=== PATIENT | male | born 1955 | race Caucasian/White ===

== ENCOUNTER 2021-10-23 13:35 | Observation (INO) | payer OTHER ==
--- OUTSIDE RECORDS SUMMARY | 2021-10-23 13:41 | XMS REPORT | Continuity of Care Document ---
:1955 Author Organization [facility] t Address [address] [place] [address] Care Team Providers Name Role Phone Rashaad Jin Attending Clinician Unavailable Luis A Attending Clinician Unavailable Luis Alberto Jin Admitting Clinician Unavailable Physician, Primary or Family Admitting Clinician Unavailbernie e Luis A Admitting Clinician Unavailable Payers Payer Name Policy Type Policy Number Effective Date Expiration Date S ource Problems This patient has no known problems. Allergies, Adverse Reactions, Alerts Allergy Allergy Status Severity Reaction(s) Onset Inactive Treating Comm ents Source Name Type Date Date Clinician No Known DA Active U 2020-11 [facility] 11-26 [place] [facility] 00:00: [facility] 00 are [facility] st No Known DA Active U 2020[facility]11 [facility] No Known DA Active U 2020-11 [facility] 0-27 [place] 00:[facility]: d [facility] Medications This patient has no known medications. Procedures Procedure Date / Time Performed Performing Clinician [facility] diego [id number] 2021-10-02 00:00:00 NERISSA [facility] [id number] 2021-10-02 00:00:00 LOYPR [facility] [id number] 2021-10-02 00:00:00 LOYPR [facility] [id number] 2021-10-02 00:00:00 LOYPR [facility] [id number] 2021-10-02 00:00:00 LOYPR [facility] [id number] 2021-09-20 [facility] [id number] 2021-09-20 00:00:00 [facility] [id number] 2021-09-20 00:00:00 [facility] [id number] 2021-09-20 00:00:00 [facility] Encounters Start End Encounter Admission Attending Care Care Encounter Source Date/Time Date/Time Type Type Clinicians Facility Department ID 2021-09-26 2021-10-04 Inpatient EL Gahremanpou [facility] ICU BP00 [id number] [facility] 21:08:00 15:42:00 Rashaad cotton 27 [facility] 2021-09-26 2021-10-04 [facility] ICU [id number] [facility] 21:08:00 15:42:00 Rashaad cotton [id number] [facility] 2021-09-27 2021-09-27 Outpatient Gahremanpou HCANW REF BP2 [id number] [facility] 09:24:00 09:24:00 Rashaad cotton [id number] [facility] 2021-09-20 2021-09-26 Inpatient EM Luis A, HCAPM INTE [id number] [facility] 03:55:00 20:31:00 Oladipo 25 [facility] 2021-09-20 2021-09-26 Inpatient EM Luis A, HCAPM INTE [id number] [facility] 03:55:00 20:31:00 Oladipo [id number] [facility] Results Test Description Test Time Test Comments Results Result Comments Source GLUBED 2021-10-04 16:55:00 Test Item Value Reference Range Interpretation Comme nts GLUBED (test code = GLUBED) 126 MG/DL 70-105 H [id number] 16:55:00 Test Item Value Reference Range Interpretation Comments GLUBED (test code = GLUBED) 126 MG/DL 70-105 H WINTROBE SED [id number] 03:56:00 Test Item Value Reference Range Interpretation Comments WINTROBE SED RATE (test code = 54 mm/HR 0-10 H SEDWI) C REACTIVE [id number] 03:04:00 Test Item Value Reference Range Interpretation Comments C REACTIVE PROTEIN 15 mg/L <10 H Please no te: New (test code = CRP) Reference Range Dec 2020 BASIC METABOLIC [id number] 03:04:00 Test Item Value Reference Range Interpretation Comments SODIUM (test code 138 mmol/L 136-145 N Please not e: New = NA) Reference Range Dec 2020 POTASSIUM (test 4.5 mmol/L 3.5-5.1 N code = K) CHLORIDE (test 106 mmol/L 98-107 N Please note: New code = CL) Reference Range Dec 2020 CARBON DIOXIDE 23 mmol/L 20-31 N Please note: New (test code = CO2) Reference Range Dec 2020 GLUCOSE (test code 129 mg/dL 74-106 H Please no te: New = GLU) Reference Range Dec 2020 BLOOD UREA 17 mg/dL 9-23 N Please note: Ne w NITROGEN (test Reference Ran ge Feb code = BUN) 2020 GLOMERULAR >=60 max >60 Units are FILTRATION RATE estimate mL/min mL/min/1. 73m2 The (test code = GFR) estimated glomerular filtration rate is computed usingpatient ra ce, age (>18), sex, and serum creatinin e. If anyof the neede d data elements a re missing the Laboratory caroline ot compute an estimation of t he glomerular filtration rate . CREATININE (test 1.10 mg/dL 0.70-1.30 N Please note : New code = CREAT) Reference Rang e Dec 2020 CALCIUM (test code 8.9 mg/dL 8.7-10.4 N Please no te: New = CA) Reference Range Dec 2020 [id number] 03:04:00 Test Item Value Reference Range Interpretation Comments PHOSPHOROUS (test code 3.9 mg/dL 2.4-5.1 N Pleas e note: New = PHOS) Reference Range Dec 2020 [id number] 03:04:00 Test Item Value Reference Range Interpretation Comments MAGNESIUM (test code = 2.0 mg/dL 1.6-2.6 N Pleas e note: New MAG) Reference Range Dec 2020 CBC W/AUTO [id number] 02:29:00 Test Item Value Reference Range Interpretation Comments WHITE BLOOD CELL (test code = 13.2 x10 3/uL 4.8-10.8 H WBC) RED BLOOD CELL (test code = 3.70 x10 6/uL 4.70-6.10 L RBC) HEMOGLOBIN (test code = HGB) 11.4 g/dL 14.0-18.0 L HEMATOCRIT (test code = HCT) 33.8 % 42.0-52.0 L MEAN CELL VOLUME (test code = 91.4 fL 80.0-94.0 N MCV) MEAN CELL HGB (test code = MCH) 30.8 pg 27-31 N MEAN CELL HGB CONCENTRATION 33.7 G/DL 33-36.5 N (test code = MCHC) RED CELL DISTRIBUTION WIDTH 14.5 % 12.9-16.9 N (test code = RDW) PLATELET COUNT (test code = 389 x10 3/uL 150-440 N PLT) MEAN PLATELET VOLUME (test code 9.8 fL 8.9-12.4 N = MPV) NEUTROPHIL % (test code = NT%) 74.1 % 42.2-75.2 N LYMPHOCYTE % (test code = LY%) 12.1 % 20.5-51.1 L MONOCYTE % (test code = MO%) 11.6 % 1.7-9.3 H EOSINOPHIL % (test code = EO%) 1.2 % 0.0-7.0 N BASOPHIL % (test code = BA%) 0.3 % 0-2.5 N NEUTROPHIL # (test code = NT#) 9.81 x10 3/uL 1.80-7.70 H LYMPHOCYTE # (test code = LY#) 1.60 x10 3/uL 1.00-4.80 N MONOCYTE # (test code = MO#) 1.53 x10 3/uL 0.00-0.80 H EOSINOPHIL # (test code = EO#) 0.16 x10 3/uL 0.00-0.45 N BASOPHIL # (test code = BA#) 0.04 x10 3/uL 0.0-0.20 N BASIC METABOLIC [id number] 12:32:00 Test Item Value Reference Range Interpretation Comments SODIUM (test code 137 mmol/L 136-145 N Please not e: New = NA) Reference Range Dec 2020 POTASSIUM (test 4.6 mmol/L 3.5-5.1 N code = K) CHLORIDE (test 103 mmol/L 98-107 N Please note: New code = CL) Reference Range Dec 2020 CARBON DIOXIDE 25 mmol/L 20-31 N Please note: New (test code = CO2) Reference Range Dec 2020 GLUCOSE (test code 127 mg/dL 74-106 H Please no te: New = GLU) Reference Range Dec 2020 BLOOD UREA 17 mg/dL 9-23 N Please note: Ne w NITROGEN (test Reference Ran ge Feb code = BUN) 2020 GLOMERULAR >=60 max >60 Units are FILTRATION RATE estimate mL/min mL/min/1. 73m2 The (test code = GFR) estimated glomerular filtration rate is computed usingpatient ra ce, age (>18), sex, and serum creatinin e. If anyof the neede d data elements a re missing the Laboratory caroline ot compute an estimation of t he glomerular filtration rate . CREATININE (test 1.20 mg/dL 0.70-1.30 N Please note : New code = CREAT) Reference Rang e Dec 2020 CALCIUM (test code 8.7 mg/dL 8.7-10.4 N Please no te: New = CA) Reference Range Dec 2020 [id number] 12:32:00 Test Item Value Reference Range Interpretation Comments PHOSPHOROUS (test code 3.5 mg/dL 2.4-5.1 N Plekatie e note: New = PHOS) Reference Range Dec 2020 [id number] 12:32:00 Test Item Value Reference Range Interpretation Comments MAGNESIUM (test code = 2.0 mg/dL 1.6-2.6 N Pleas e note: New MAG) Reference Range Dec 2020 CBC W/AUTO [id number] 12:26:00 Test Item Value Reference Range Interpretation Comments WHITE BLOOD CELL (test code = 13.1 x10 3/uL 4.8-10.8 H WBC) RED BLOOD CELL (test code = 4.00 x10 6/uL 4.70-6.10 L RBC) HEMOGLOBIN (test code = HGB) 12.2 g/dL 14.0-18.0 L HEMATOCRIT (test code = HCT) 36.6 % 42.0-52.0 L MEAN CELL VOLUME (test code = 91.5 fL 80.0-94.0 N MCV) MEAN CELL HGB (test code = 30.5 pg 27-31 N MCH) MEAN CELL HGB CONCENTRATION 33.3 G/DL 33-36.5 N (test code = MCHC) RED CELL DISTRIBUTION WIDTH 14.5 % 12.9-16.9 N (test code = RDW) PLATELET COUNT (test code = 410 x10 3/uL 150-440 N PLT) MEAN PLATELET VOLUME (test 9.7 fL 8.9-12.4 N code = MPV) NEUTROPHIL % (test code = NT%) 77.5 % 42.2-75.2 H LYMPHOCYTE % (test code = LY%) 9.2 % 20.5-51.1 L MONOCYTE % (test code = MO%) 11.5 % 1.7-9.3 H EOSINOPHIL % (test code = EO%) 0.6 % 0.0-7.0 N BASOPHIL % (test code = BA%) 0.4 % 0-2.5 N NEUTROPHIL # (test code = NT#) 10.16 x10 3/uL 1.80-7.70 H LYMPHOCYTE # (test code = LY#) 1.20 x10 3/uL 1.00-4.80 N MONOCYTE # (test code = MO#) 1.50 x10 3/uL 0.00-0.80 H EOSINOPHIL # (test code = EO#) 0.08 x10 3/uL 0.00-0.45 N BASOPHIL # (test code = BA#) 0.05 x10 3/uL 0.0-0.20 N [id number] 12:02:00 Test Item Value Reference Range Interpretation Comments GLUBED (test code = GLUBED) 120 MG/DL 70-105 H [id number] 21:46:00 Test Item Value Reference Range Interpretation Comments GLUBED (test code = GLUBED) 192 MG/DL 70-105 H BASIC METABOLIC [id number] 18:52:00 Test Item Value Reference Range Interpretation Comments SODIUM (test code 135 mmol/L 136-145 L Please not e: New = NA) Reference Range Dec 2020 POTASSIUM (test 4.7 mmol/L 3.5-5.1 N code = K) CHLORIDE (test 104 mmol/L 98-107 N Please note: New code = CL) Reference Range Dec 2020 CARBON DIOXIDE 23 mmol/L 20-31 N Please note: New (test code = CO2) Reference Range Dec 2020 GLUCOSE (test code 126 mg/dL 74-106 H Please no te: New = GLU) Reference Range Dec 2020 BLOOD UREA 16 mg/dL 9-23 N Please note: Ne w NITROGEN (test Reference Ran ge Feb code = BUN) 2020 GLOMERULAR >=60 max >60 Units are FILTRATION RATE estimate mL/min mL/min/1. 73m2 The (test code = GFR) estimated glomerular filtration rate is computed usingpatient ra ce, age (>18), sex, and serum creatinin e. If anyof the neede d data elements a re missing the Laboratory caroline ot compute an estimation of t he glomerular filtration rate . CREATININE (test 1.10 mg/dL 0.70-1.30 N Please note : New code = CREAT) Reference Rang e Dec 2020 CALCIUM (test code 8.9 mg/dL 8.7-10.4 N Please no te: New = CA) Reference Range Dec 2020 PROTHROMBIN [id number] 18:50:00 Test Item Value Reference Range Interpretation Comments PROTHROMBIN TIME 13.2 SECONDS 10.3-12.9 H PATIENT (test code = PTP) INTERNATIONAL 1.16 INR UNIT 0.9-1.11 H The INR is us eful only NORMAL RATIO (test for monit oring code = INR) anticoagulant therapy.It may be unreliable in t he initial phase o f antigoagulation and in unstable patien ts. Indication for Anticoagulation Recommend ed INR 1. Prevention o f venous thomboembolism 2.0-3.0in high -risk patients; treat ment of venousthrombosi s and pulmonary embol ism aftera course o f heparin; preven tion of systemicembolis m in a variety of cond itions, including atria l fibrillation an d prothetic tissu e heart valves, 2. Pros thetic mechanical hear t valves; 2.5-3.5recurren t systemic emboli sm. THROMBOPLASTIN TIME [id number] 18:50:00 Test Item Value Reference Range Interpretation Comments THROMBOPLASTIN TIME 31.2 SECONDS 23.8-34.8 INTERPRE TATIVE PARTIAL (test code = DATA:Th erapeutic PTT) range: Unfractionated heparin:55 - 80 seconds Argatroban:1.5 to 3 times the basel ine PTT CBC W/AUTO [id number] 18:43:00 Test Item Value Reference Range Interpretation Comments WHITE BLOOD CELL (test code = 12.9 x10 3/uL 4.8-10.8 H WBC) RED BLOOD CELL (test code = 4.17 x10 6/uL 4.70-6.10 L RBC) HEMOGLOBIN (test code = HGB) 12.9 g/dL 14.0-18.0 L HEMATOCRIT (test code = HCT) 38.2 % 42.0-52.0 L MEAN CELL VOLUME (test code = 91.6 fL 80.0-94.0 N MCV) MEAN CELL HGB (test code = MCH) 30.9 pg 27-31 N MEAN CELL HGB CONCENTRATION 33.8 G/DL 33-36.5 N (test code = MCHC) RED CELL DISTRIBUTION WIDTH 14.4 % 12.9-16.9 N (test code = RDW) PLATELET COUNT (test code = 420 x10 3/uL 150-440 N PLT) MEAN PLATELET VOLUME (test code 9.6 fL 8.9-12.4 N = MPV) NEUTROPHIL % (test code = NT%) 77.6 % 42.2-75.2 H LYMPHOCYTE % (test code = LY%) 10.0 % 20.5-51.1 L MONOCYTE % (test code = MO%) 10.3 % 1.7-9.3 H EOSINOPHIL % (test code = EO%) 0.7 % 0.0-7.0 N BASOPHIL % (test code = BA%) 0.5 % 0-2.5 N NEUTROPHIL # (test code = NT#) 9.98 x10 3/uL 1.80-7.70 H LYMPHOCYTE # (test code = LY#) 1.28 x10 3/uL 1.00-4.80 N MONOCYTE # (test code = MO#) 1.33 x10 3/uL 0.00-0.80 H EOSINOPHIL # (test code = EO#) 0.09 x10 3/uL 0.00-0.45 N BASOPHIL # (test code = BA#) 0.06 x10 3/uL 0.0-0.20 N [id number] 12:40:00 Test Item Value Reference Range Interpretation Comments GLUBED (test code = GLUBED) 109 MG/DL 70-105 H COAGULATION TIME [id number] 10:47:00 Test Item Value Reference Range Interpretation Comments COAGULATION TIME ACTIVATED (test 285 SECONDS 74-137 H code = ACT) BASIC METABOLIC [id number] 04:23:00 Test Item Value Reference Range Interpretation Comments SODIUM (test code 136 mmol/L 136-145 N Please not e: New = NA) Reference Range Dec 2020 POTASSIUM (test 4.5 mmol/L 3.5-5.1 N code = K) CHLORIDE (test 104 mmol/L 98-107 N Please note: New code = CL) Reference Range Dec 2020 CARBON DIOXIDE 25 mmol/L 20-31 N Please note: New (test code = CO2) Reference Range Dec 2020 GLUCOSE (test code 99 mg/dL 74-106 N Please no te: New = GLU) Reference Range Dec 2020 BLOOD UREA 15 mg/dL 9-23 N Please note: Ne w NITROGEN (test Reference Ran ge Feb code = BUN) 2020 GLOMERULAR >=60 max >60 Units are FILTRATION RATE estimate mL/min mL/min/1. 73m2 The (test code = GFR) estimated glomerular filtration rate is computed usingpatient ra ce, age (>18), sex, and serum creatinin e. If anyof the neede d data elements a re missing the Laboratory caroline ot compute an estimation of t he glomerular filtration rate . CREATININE (test 1.00 mg/dL 0.70-1.30 N Please note : New code = CREAT) Reference Rang e Dec 2020 CALCIUM (test code 8.9 mg/dL 8.7-10.4 N Please no te: New = CA) Reference Range Dec 2020 [id number] 04:23:00 Test Item Value Reference Range Interpretation Comments PHOSPHOROUS (test code 4.6 mg/dL 2.4-5.1 N Pleas e note: New = PHOS) Reference Range Dec 2020 [id number] 04:23:00 Test Item Value Reference Range Interpretation Comments MAGNESIUM (test code = 2.2 mg/dL 1.6-2.6 N Pleas e note: New MAG) Reference Range Dec 2020 THROMBOPLASTIN TIME [id number] 04:01:00 Test Item Value Reference Range Interpretation Comments THROMBOPLASTIN TIME 73.4 SECONDS 23.8-34.8 H INTERPRE TATIVE PARTIAL (test code = DATA: erapeutic PTT) range: Unfractionated heparin:55 - 80 seconds Argatroban:1.5 to 3 times the basel ine PTT CBC W/AUTO [id number] 03:39:00 Test Item Value Reference Range Interpretation Comments WHITE BLOOD CELL (test code = 11.3 x10 3/uL 4.8-10.8 H WBC) RED BLOOD CELL (test code = 3.99 x10 6/uL 4.70-6.10 L RBC) HEMOGLOBIN (test code = HGB) 12.5 g/dL 14.0-18.0 L HEMATOCRIT (test code = HCT) 36.8 % 42.0-52.0 L MEAN CELL VOLUME (test code = 92.2 fL 80.0-94.0 N MCV) MEAN CELL HGB (test code = MCH) 31.3 pg 27-31 H MEAN CELL HGB CONCENTRATION 34.0 G/DL 33-36.5 N (test code = MCHC) RED CELL DISTRIBUTION WIDTH 14.1 % 12.9-16.9 N (test code = RDW) PLATELET COUNT (test code = 403 x10 3/uL 150-440 N PLT) MEAN PLATELET VOLUME (test code 9.5 fL 8.9-12.4 N = MPV) NEUTROPHIL % (test code = NT%) 63.3 % 42.2-75.2 N LYMPHOCYTE % (test code = LY%) 18.5 % 20.5-51.1 L MONOCYTE % (test code = MO%) 12.4 % 1.7-9.3 H EOSINOPHIL % (test code = EO%) 3.8 % 0.0-7.0 N BASOPHIL % (test code = BA%) 0.7 % 0-2.5 N NEUTROPHIL # (test code = NT#) 7.13 x10 3/uL 1.80-7.70 N LYMPHOCYTE # (test code = LY#) 2.08 x10 3/uL 1.00-4.80 N MONOCYTE # (test code = MO#) 1.40 x10 3/uL 0.00-0.80 H EOSINOPHIL # (test code = EO#) 0.43 x10 3/uL 0.00-0.45 N BASOPHIL # (test code = BA#) 0.08 x10 3/uL 0.0-0.20 N [id number] 23:24:00 Test Item Value Reference Range Interpretation Comments GLUBED (test code = GLUBED) 157 MG/DL 70-105 H THROMBOPLASTIN TIME [id number] 20:43:00 Test Item Value Reference Range Interpretation Comments THROMBOPLASTIN TIME 80.5 SECONDS 23.8-34.8 H INTERPRE TATIVE PARTIAL (test code = DATA:Th erapeutic PTT) range: Unfractionated heparin:55 - 80 seconds Argatroban:1.5 to 3 times the basel ine PTT THROMBOPLASTIN TIME [id number] 12:35:00 Test Item Value Reference Range Interpretation Comments THROMBOPLASTIN TIME 65.7 SECONDS 23.8-34.8 H INTERPRE TATIVE PARTIAL (test code = DATA:Th erapeutic PTT) range: Unfractionated heparin:55 - 80 seconds Argatroban:1.5 to 3 times the basel ine PTT [id number] 12:03:00 Test Item Value Reference Range Interpretation Comments GLUBED (test code = GLUBED) 94 MG/DL 70-105 N [id number] 08:02:00 Test Item Value Reference Range Interpretation Comments GLUBED (test code = GLUBED) 107 MG/DL 70-105 H - XR CHEST 1 [id number] 07:49:00 [facility] 1955 Sex: MPatient Name: MELANIE YAÑEZ Unit No: [id number] EXAMS: CPT CODE: [id number] XR CHEST 1 V [id number] Exam: Portable chest x-ray single view History: Shortness of breath with unstable angina Location: D4 Findings: The heart size is enlarged with diffuse pulmonary edema pattern along with bilateral effusions. Osseous structures are intact. Prior sternotomy. Impression: 1. CHF with likely small bilateral effusions without interval change from prior exam. at 0749 Reported and signed by: AMELIA ANDINO M.D. CC: Rashaad Jin MD; Aruna Padilla Technologist: Mitzy Brooks Time: DAP (Gy m2): Air Kerma (mGy): Trscr Dt/Tm: 10/01/2021 (0749) by:Juraez Printed Date/Time: 10/01/2021 (0752) Name: MELANIE YAÑEZ [facility] Phys: [id number] Aruna Canales APRN [address] : 1955 Age: 66 Sex: [place] [address] Loc: P.0223 1 Exam Date: 10/01/2021 Status: ADM INPH: FAX: PAGE 1 Signed ReportBASIC METABOLIC [id number] 05:23:00 Test Item Value Reference Range Interpretation Comments SODIUM (test code 137 mmol/L 136-145 N Please not e: New = NA) Reference Range Dec 2020 POTASSIUM (test 4.5 mmol/L 3.5-5.1 N code = K) CHLORIDE (test 104 mmol/L 98-107 N Please note: New code = CL) Reference Range Dec 2020 CARBON DIOXIDE 27 mmol/L 20-31 N Please note: New (test code = CO2) Reference Range Dec 2020 GLUCOSE (test code 105 mg/dL 74-106 N Please no te: New = GLU) Reference Range Dec 2020 BLOOD UREA 14 mg/dL 9-23 N Please note: Ne w NITROGEN (test Reference Ran ge Feb code = BUN) 2020 GLOMERULAR >=60 max >60 Units are FILTRATION RATE estimate mL/min mL/min/1. 73m2 The (test code = GFR) estimated glomerular filtration rate is computed usingpatient ra ce, age (>18), sex, and serum creatinin e. If anyof the neede d data elements a re missing the Laboratory caroline ot compute an estimation of t he glomerular filtration rate . CREATININE (test 1.00 mg/dL 0.70-1.30 N Please note : New code = CREAT) Reference Rang e Dec 2020 CALCIUM (test code 9.0 mg/dL 8.7-10.4 N Please no te: New = CA) Reference Range Dec 2020 THROMBOPLASTIN TIME [id number] 05:20:00 Test Item Value Reference Range Interpretation Comments THROMBOPLASTIN TIME 45.0 SECONDS 23.8-34.8 H INTERPRE TATIVE PARTIAL (test code = DATA: erapeutic PTT) range: Unfractionated heparin:55 - 80 seconds Argatroban:1.5 to 3 times the basel ine PTT CBC W/AUTO [id number] 05:05:00 Test Item Value Reference Range Interpretation Comments WHITE BLOOD CELL (test code = 10.9 x10 3/uL 4.8-10.8 H WBC) RED BLOOD CELL (test code = 3.93 x10 6/uL 4.70-6.10 L RBC) HEMOGLOBIN (test code = HGB) 12.1 g/dL 14.0-18.0 L HEMATOCRIT (test code = HCT) 35.8 % 42.0-52.0 L MEAN CELL VOLUME (test code = 91.1 fL 80.0-94.0 N MCV) MEAN CELL HGB (test code = MCH) 30.8 pg 27-31 N MEAN CELL HGB CONCENTRATION 33.8 G/DL 33-36.5 N (test code = MCHC) RED CELL DISTRIBUTION WIDTH 14.0 % 12.9-16.9 N (test code = RDW) PLATELET COUNT (test code = 371 x10 3/uL 150-440 N PLT) MEAN PLATELET VOLUME (test code 9.6 fL 8.9-12.4 N = MPV) NEUTROPHIL % (test code = NT%) 55.6 % 42.2-75.2 N LYMPHOCYTE % (test code = LY%) 23.4 % 20.5-51.1 N MONOCYTE % (test code = MO%) 13.4 % 1.7-9.3 H EOSINOPHIL % (test code = EO%) 5.4 % 0.0-7.0 N BASOPHIL % (test code = BA%) 0.6 % 0-2.5 N NEUTROPHIL # (test code = NT#) 6.07 x10 3/uL 1.80-7.70 N LYMPHOCYTE # (test code = LY#) 2.55 x10 3/uL 1.00-4.80 N MONOCYTE # (test code = MO#) 1.46 x10 3/uL 0.00-0.80 H EOSINOPHIL # (test code = EO#) 0.59 x10 3/uL 0.00-0.45 H BASOPHIL # (test code = BA#) 0.07 x10 3/uL 0.0-0.20 N [id number] 22:17:00 Test Item Value Reference Range Interpretation Comments GLUBED (test code = GLUBED) 174 MG/DL 70-105 H [id number] 18:41:00 Test Item Value Reference Range Interpretation Comments GLUBED (test code = GLUBED) 170 MG/DL 70-105 H [id number] 12:02:00 Test Item Value Reference Range Interpretation Comments GLUBED (test code = GLUBED) 110 MG/DL 70-105 H THROMBOPLASTIN TIME [id number] 11:50:00 Test Item Value Reference Range Interpretation Comments THROMBOPLASTIN TIME 48.8 SECONDS 23.8-34.8 H INTERPRE TATIVE PARTIAL (test code = DATA: erapeutic PTT) range: Unfractionated heparin:55 - 80 seconds Argatroban:1.5 to 3 times the basel ine PTT - XR CHEST 1 [id number] 08:04:00 [facility] 1955 Sex: MPatient Name: MELANIE YAÑEZ Unit No: [id number] EXAMS: CPT CODE: [id number] XR CHEST 1 V [id number] Clinical Information: Shortness of breath. Unstable angina. Heart failure. Dictation Location: A 1 COMPARISON: 09/29/2021. FINDINGS: Portable frontal view of the chest taken at 0356 hours erect shows monitoring electrodes overlying the chest wall. Sternal wire sutures., Mild cardiomegaly, and generalized interstitial prominence are again noted. Patchy perihilar infiltrates appear slightly decreased from the previous day. No new consolidation or effusion. The bones are stable. IMPRESSION: 1. Diffuse interstitial prominence. 2. Slight reduction in perihilar infiltrate since the prior day. 3. Postoperative chest with cardiomegaly. Electronically Signed by JEFF BROUSSARD M.D. on 1at 0804 Reported and signed by: JEFF BROUSSARD M.D. CC: Rashaad Jin MD; Aruna Padilla Technologist: Mitzy Brooks Time: DAP (Gy m2): Air Kerma (mGy): Trscr Dt/Tm: 09/30/2021 (0804) by:SherineV Printed Date/Time: 09/30/2021 (08) Name: MELANIE YAÑEZ [facility] Phys: [id number] Aruna Vargas APRN [address] : 1955 Age: 66 Sex: [place] [address] Loc: P.0223 1 Exam Date: 09/30/2021 Status: ADM IN PH: FAX: PAGE 1 Signed [id number] 07:16:00 Test Item Value Reference Range Interpretation Comments GLUBED (test code = GLUBED) 106 MG/DL 70-105 H [id number] 16:36:00 Test Item Value Reference Range Interpretation Comments GLUBED (test code = GLUBED) 138 MG/DL 70-105 H [id number] 11:16:00 Test Item Value Reference Range Interpretation Comments GLUBED (test code = GLUBED) 109 MG/DL 70-105 H - XR CHEST 1 [id number] 07:22:00 [facility] : 1955 Sex: MPatient Name: MELANIE YAÑEZ Unit No: [id number] EXAMS: CPT CODE: [id number] XR CHEST 1 V [id number] EXAMINATION: Frontal chest radiograph INDICATION:SOB COMPARISON: 09/26/2021 LOCATION: W1 FINDINGS/ IMPRESSION: Slightly increased bibasilar interstitial pneumonia and/or edema. No definite pleural effusion or pneumothorax. Unchanged cardiac silhouette. El ectronically Signed by Graham Acevedo M.D. on 09/29/2021 at 0722 Reported and signed by: Graham Acevedo M.D. CC: Rashaad Jin MD; Aruna Padilla Technologist: Jessa Triana Fluoro Time: DAP (Gy m2): Air Kerma (mGy): Trscr Dt/Tm: 09/29/2021 (0722) by:[email or web address] Printed Date/Time: 09/29/2021 (0725) Name: MELANIE YAÑEZ [facility] Phys: [id number] Aruna Canales APRN [address] : 1955 Age: 66 Sex: [place] [address] Loc: P.0223 1 Exam Date: 09/29/2021 Status: ADM IN PH: FAX: PAGE 1 Signed Report COMPREHENSIVE METABOLIC [id number] 06:34:00 Test Item Value Reference Range Interpretation Comments SODIUM (test code = 137 mmol/L 136-145 N Please n ote: New NA) Reference Range Dec 2020 POTASSIUM (test 5.2 mmol/L 3.5-5.1 H code = K) CHLORIDE (test code 102 mmol/L 98-107 N Please n ote: New = CL) Reference Range Dec 2020 CARBON DIOXIDE 31 mmol/L 20-31 N Please note: New (test code = CO2) Reference Range Dec 2020 GLUCOSE (test code 108 mg/dL 74-106 H Please no te: New = GLU) Reference Range Dec 2020 BLOOD UREA NITROGEN 12 mg/dL 9-23 N Please n ote: New (test code = BUN) Reference Range Dec 2020 GLOMERULAR >=60 max >60 Units are FILTRATION RATE estimate mL/min mL/min/1. 73m2 The (test code = GFR) estimated glomerular filtration rate is computed usingpatient ra ce, age (>18), sex, and serum creatinin e. If anyof the ne eded data elements a re missing the Laboratory caroline ot compute an estimation of t he glomerular filtration rate . CREATININE (test 1.00 mg/dL 0.70-1.30 N Please note : New code = CREAT) Reference Rang e Dec 2020 TOTAL PROTEIN (test 6.1 g/dL 5.7-8.2 N Please n ote: New code = PROT) Reference Range Dec 2020 ALBUMIN (test code 4.0 g/dL 3.2-4.8 N Please no te: New = ALB) Reference Range Dec 2020 CALCIUM (test code 8.7 mg/dL 8.7-10.4 N Please no te: New = CA) Reference Range Dec 2020 BILIRUBIN TOTAL 1.2 mg/dL 0.3-1.2 N Please note: New (test code = BILT) Reference Range Dec 2020 SGOT/AST (test code 66 U/L <34 H Please n ote: New = AST) Reference Range Dec 2020 SGPT/ALT (test code 94 U/L 10-49 H Please n ote: New = ALT) Reference Range Dec 2020 ALKALINE 96 U/L 46-116 N Please note: Ne w PHOSPHATASE (test Reference Range Feb code = ALKP) 2020 [id number] 06:34:00 Test Item Value Reference Range Interpretation Comments PHOSPHOROUS (test code 3.7 mg/dL 2.4-5.1 N Pleas e note: New = PHOS) Reference Range Dec 2020 [id number] 06:34:00 Test Item Value Reference Range Interpretation Comments MAGNESIUM (test code = 2.1 mg/dL 1.6-2.6 N Pleas e note: New MAG) Reference Range Dec 2020 RECOLLECTCBC W/AUTO [id number] 06:15:00 Test Item Value Reference Range Interpretation Comments WHITE BLOOD CELL (test code = 11.3 x10 3/uL 4.8-10.8 H WBC) RED BLOOD CELL (test code = 3.85 x10 6/uL 4.70-6.10 L RBC) HEMOGLOBIN (test code = HGB) 11.8 g/dL 14.0-18.0 L HEMATOCRIT (test code = HCT) 35.1 % 42.0-52.0 L MEAN CELL VOLUME (test code = 91.2 fL 80.0-94.0 N MCV) MEAN CELL HGB (test code = MCH) 30.6 pg 27-31 N MEAN CELL HGB CONCENTRATION 33.6 G/DL 33-36.5 N (test code = MCHC) RED CELL DISTRIBUTION WIDTH 13.7 % 12.9-16.9 N (test code = RDW) PLATELET COUNT (test code = 313 x10 3/uL 150-440 N PLT) MEAN PLATELET VOLUME (test code 9.7 fL 8.9-12.4 N = MPV) NEUTROPHIL % (test code = NT%) 60.3 % 42.2-75.2 N LYMPHOCYTE % (test code = LY%) 18.9 % 20.5-51.1 L MONOCYTE % (test code = MO%) 13.3 % 1.7-9.3 H EOSINOPHIL % (test code = EO%) 5.6 % 0.0-7.0 N BASOPHIL % (test code = BA%) 0.6 % 0-2.5 N NEUTROPHIL # (test code = NT#) 6.82 x10 3/uL 1.80-7.70 N LYMPHOCYTE # (test code = LY#) 2.14 x10 3/uL 1.00-4.80 N MONOCYTE # (test code = MO#) 1.50 x10 3/uL 0.00-0.80 H EOSINOPHIL # (test code = EO#) 0.63 x10 3/uL 0.00-0.45 H BASOPHIL # (test code = BA#) 0.07 x10 3/uL 0.0-0.20 N RECOLLECTPROTHROMBIN [id number] 06:14:00 Test Item Value Reference Range Interpretation Comments PROTHROMBIN TIME 12.5 SECONDS 10.3-12.9 N PATIENT (test code = PTP) INTERNATIONAL 1.10 INR UNIT 0.9-1.11 N The INR is us eful only NORMAL RATIO (test for monit oring code = INR) anticoagulant therapy.It may be unreliable in t he initial phase o f antigoagulation and in unstable patien ts. Indication for Anticoagulation Recommend ed INR 1. Prevention o f venous thomboembolism 2.0-3.0in high -risk patients; treat ment of venousthrombosi s and pulmonary embol ism aftera course o f heparin; preven tion of systemicembolis m in a variety of cond itions, including atria l fibrillation an d prothetic tissu e heart valves, 2. Pros thetic mechanical hear t valves; 2.5-3.5recurren t systemic emboli sm. RECOLLECTTHROMBOPLASTIN TIME [id number] 06:14:00 Test Item Value Reference Range Interpretation Comments THROMBOPLASTIN TIME 63.8 SECONDS 23.8-34.8 H INTERPRE TATIVE PARTIAL (test code = DATA:Th erapeutic PTT) range: Unfractionated heparin:55 - 80 seconds Argatroban:1.5 to 3 times the basel ine PTT [id number] 21:40:00 Test Item Value Reference Range Interpretation Comments GLUBED (test code = GLUBED) 139 MG/DL 70-105 H THROMBOPLASTIN TIME [id number] 18:30:00 Test Item Value Reference Range Interpretation Comments THROMBOPLASTIN TIME 65.3 SECONDS 23.8-34.8 H INTERPRE TATIVE PARTIAL (test code = DATA: erapeutic PTT) range: Unfractionated heparin:55 - 80 seconds Argatroban:1.5 to 3 times the basel ine PTT [id number] 17:04:00 Test Item Value Reference Range Interpretation Comments GLUBED (test code = GLUBED) 112 MG/DL 70-105 H THROMBOPLASTIN TIME [id number] 12:35:00 Test Item Value Reference Range Interpretation Comments THROMBOPLASTIN TIME 65.5 SECONDS 23.8-34.8 H INTERPRE TATIVE PARTIAL (test code = DATA: erapeutic PTT) range: Unfractionated heparin:55 - 80 seconds Argatroban:1.5 to 3 times the basel ine PTT [id number] 11:55:00 Test Item Value Reference Range Interpretation Comments GLUBED (test code = GLUBED) 110 MG/DL 70-105 H Covid 19 InHouse [id number] 11:17:00 Test Item Value Reference Range Interpretation Comments Covid 19 Negative Negative A negative resu lt does not InHouse NTX preclude the SA RS-COV-2 (test code = viralinfection and should not be [id number]) used as the so le basis forpatient hedy gement decisions. Negative result s must becombined with clinical o bservations, patient history , andepidemiologi alvin information. Viral levels in clinicalsamples below the detec tion limit of the assay could arthur d tonegative results. This t est was performed using the [employer] SmartTM COVID-19 PCRassay. This test was developed and i ts performancechar acteristics were determined by [facility]. Thi s test has notbeen FDA olga lidia ared or approved. This test is au thorized by theFDA under Em ergency Use Authorization(E UA). The EUA willremain in e ffect unless it is terminated o r revoked by FDA . Testing pranav eters have not been validated for screeningasympt omatic patients. This test was v alidated according to e FDA's guidancedocumen t "Policy for Diagnostics dragan ting in LaboratoriesCer tified to Perform High Complexity Testing under CLIA". Spec Comments: PCRSpec Comments: PCRFirst test? NoEmployed in Healthcare? NoSymptomatic as defined by CDC? NoHospitalized due to COVID? NoIn ICU due to COVID? NoResident in a congregate care setting? No? NoAge at collection: [id number] 07:47:00 Test Item Value Reference Range Interpretation Comments GLUBED (test code = GLUBED) 103 MG/DL 70-105 N PROTHROMBIN [id number] 05:41:00 Test Item Value Reference Range Interpretation Comments PROTHROMBIN TIME 12.8 SECONDS 10.3-12.9 N PATIENT (test code = PTP) INTERNATIONAL 1.12 INR UNIT 0.9-1.11 H The INR is us eful only NORMAL RATIO (test for monit oring code = INR) anticoagulant therapy.It may be unreliable in t he initial phase o f antigoagulation and in unstable patien ts. Indication for Anticoagulation Recommend ed INR 1. Prevention o f venous thomboembolism 2.0-3.0in high -risk patients; treat ment of venousthrombosi s and pulmonary embol ism aftera course o f heparin; preven tion of systemicembolis m in a variety of cond itions, including atria l fibrillation an d prothetic tissu e heart valves, 2. Pros thetic mechanical hear t valves; 2.5-3.5recurren t systemic emboli sm. THROMBOPLASTIN TIME [id number] 05:41:00 Test Item Value Reference Range Interpretation Comments THROMBOPLASTIN TIME 54.0 SECONDS 23.8-34.8 H INTERPRE TATIVE PARTIAL (test code = DATA: erapeutic PTT) range: Unfractionated heparin:55 - 80 seconds Argatroban:1.5 to 3 times the basel ine PTT BASIC METABOLIC [id number] 04:46:00 Test Item Value Reference Range Interpretation Comments SODIUM (test code 136 mmol/L 136-145 N Please not e: New = NA) Reference Range Dec 2020 POTASSIUM (test 4.6 mmol/L 3.5-5.1 N code = K) CHLORIDE (test 101 mmol/L 98-107 N Please note: New code = CL) Reference Range Dec 2020 CARBON DIOXIDE 29 mmol/L 20-31 N Please note: New (test code = CO2) Reference Range Dec 2020 GLUCOSE (test code 139 mg/dL 74-106 H Please no te: New = GLU) Reference Range Dec 2020 BLOOD UREA 16 mg/dL 9-23 N Please note: Ne w NITROGEN (test Reference Ran ge Feb code = BUN) 2020 GLOMERULAR >=60 max >60 Units are FILTRATION RATE estimate mL/min mL/min/1. 73m2 The (test code = GFR) estimated glomerular filtration rate is computed usingpatient ra ce, age (>18), sex, and serum creatinin e. If anyof the neede d data elements a re missing the Laboratory caroline ot compute an estimation of t he glomerular filtration rate . CREATININE (test 0.90 mg/dL 0.70-1.30 N Please note : New code = CREAT) Reference Rang e Dec 2020 CALCIUM (test code 8.5 mg/dL 8.7-10.4 L Please no te: New = CA) Reference Range Dec 2020 COMPREHENSIVE METABOLIC [id number] 04:46:00 Test Item Value Reference Range Interpretation Comments TOTAL PROTEIN (test 5.7 g/dL 5.7-8.2 N Please n ote: New code = PROT) Reference Range Dec 2020 ALBUMIN (test code = 3.9 g/dL 3.2-4.8 N Please note: New ALB) Reference Range Dec 2020 BILIRUBIN TOTAL (test 1.5 mg/dL 0.3-1.2 H Please note: New code = BILT) Reference Range Dec 2020 SGOT/AST (test code = 69 U/L <34 H Please note: New AST) Reference Range Dec 2020 SGPT/ALT (test code = 85 U/L 10-49 H Please note: New ALT) Reference Range Dec 2020 ALKALINE PHOSPHATASE 105 U/L 46-116 N Please note: New (test code = ALKP) Reference Range Dec 2020 [id number] 04:46:00 Test Item Value Reference Range Interpretation Comments PHOSPHOROUS (test code 3.0 mg/dL 2.4-5.1 N Pleas e note: New = PHOS) Reference Range Dec 2020 [id number] 04:46:00 Test Item Value Reference Range Interpretation Comments MAGNESIUM (test code = 2.2 mg/dL 1.6-2.6 N Pleas e note: New MAG) Reference Range Dec 2020 CBC W/AUTO [id number] 03:26:00 Test Item Value Reference Range Interpretation Comments WHITE BLOOD CELL (test code = 12.2 x10 3/uL 4.8-10.8 H WBC) RED BLOOD CELL (test code = 3.90 x10 6/uL 4.70-6.10 L RBC) HEMOGLOBIN (test code = HGB) 12.1 g/dL 14.0-18.0 L HEMATOCRIT (test code = HCT) 35.5 % 42.0-52.0 L MEAN CELL VOLUME (test code = 91.0 fL 80.0-94.0 N MCV) MEAN CELL HGB (test code = MCH) 31.0 pg 27-31 N MEAN CELL HGB CONCENTRATION 34.1 G/DL 33-36.5 N (test code = MCHC) RED CELL DISTRIBUTION WIDTH 13.5 % 12.9-16.9 N (test code = RDW) PLATELET COUNT (test code = 271 x10 3/uL 150-440 N PLT) MEAN PLATELET VOLUME (test code 10.9 fL 8.9-12.4 N = MPV) NEUTROPHIL % (test code = NT%) 58.3 % 42.2-75.2 N LYMPHOCYTE % (test code = LY%) 19.9 % 20.5-51.1 L MONOCYTE % (test code = MO%) 14.6 % 1.7-9.3 H EOSINOPHIL % (test code = EO%) 5.2 % 0.0-7.0 N BASOPHIL % (test code = BA%) 0.8 % 0-2.5 N NEUTROPHIL # (test code = NT#) 7.13 x10 3/uL 1.80-7.70 N LYMPHOCYTE # (test code = LY#) 2.43 x10 3/uL 1.00-4.80 N MONOCYTE # (test code = MO#) 1.78 x10 3/uL 0.00-0.80 H EOSINOPHIL # (test code = EO#) 0.63 x10 3/uL 0.00-0.45 H BASOPHIL # (test code = BA#) 0.10 x10 3/uL 0.0-0.20 N [id number] 21:09:00 Test Item Value Reference Range Interpretation Comments GLUBED (test code = GLUBED) 149 MG/DL 70-105 H THROMBOPLASTIN TIME [id number] 20:01:00 Test Item Value Reference Range Interpretation Comments THROMBOPLASTIN TIME 45.2 SECONDS 23.8-34.8 H INTERPRE TATIVE PARTIAL (test code = DATA:Th erapeutic PTT) range: Unfractionated heparin:55 - 80 seconds Argatroban:1.5 to 3 times the basel ine PTT [id number] 18:01:00 Test Item Value Reference Range Interpretation Comments GLUBED (test code = GLUBED) 161 MG/DL 70-105 H [id number] 17:06:00 Test Item Value Reference Range Interpretation Comments TROPONIN-I (test 71684.1 pg/mL 38.73-80.22 HH Critical V alue reported code = TROPI) toFirst Name:Vidya DAVILA Last Name:MANPREET CONWAY RNRESULTS READ BACK AND VERIFIEDby PINKY SinghRS, on 09/27/21, @ 170 6.Please note: Units and Reference Range have changedFeb 3, 2 021 Spec Comments: ADD ON TO CBCBASIC METABOLIC [id number] 16:54:00 Test Item Value Reference Range Interpretation Comments SODIUM (test code 137 mmol/L 136-145 N Please not e: New = NA) Reference Range Dec 2020 POTASSIUM (test 4.3 mmol/L 3.5-5.1 N code = K) CHLORIDE (test 100 mmol/L 98-107 N Please note: New code = CL) Reference Range Dec 2020 CARBON DIOXIDE 32 mmol/L 20-31 H Please note: New (test code = CO2) Reference Range Dec 2020 GLUCOSE (test code 106 mg/dL 74-106 N Please no te: New = GLU) Reference Range Dec 2020 BLOOD UREA 17 mg/dL 9-23 N Please note: Ne w NITROGEN (test Reference Ran ge Feb code = BUN) 2020 GLOMERULAR >=60 max >60 Units are FILTRATION RATE estimate mL/min mL/min/1. 73m2 The (test code = GFR) estimated glomerular filtration rate is computed usingpatient ra ce, age (>18), sex, and serum creatinin e. If anyof the neede d data elements a re missing the Laboratory caroline ot compute an estimation of t he glomerular filtration rate . CREATININE (test 0.90 mg/dL 0.70-1.30 N Please note : New code = CREAT) Reference Rang e Dec 2020 CALCIUM (test code 8.7 mg/dL 8.7-10.4 N Please no te: New = CA) Reference Range Dec 2020 [id number] 16:54:00 Test Item Value Reference Range Interpretation Comments PHOSPHOROUS (test code 3.5 mg/dL 2.4-5.1 N Pleas e note: New = PHOS) Reference Range Dec 2020 [id number] 16:54:00 Test Item Value Reference Range Interpretation Comments MAGNESIUM (test code = 2.3 mg/dL 1.6-2.6 N Pleas e note: New MAG) Reference Range Dec 2020 PROTHROMBIN [id number] 14:07:00 Test Item Value Reference Range Interpretation Comments PROTHROMBIN TIME 12.1 SECONDS 10.3-12.9 N PATIENT (test code = PTP) INTERNATIONAL 1.06 INR UNIT 0.9-1.11 N The INR is us eful only NORMAL RATIO (test for monit oring code = INR) anticoagulant therapy.It may be unreliable in t he initial phase o f antigoagulation and in unstable patien ts. Indication for Anticoagulation Recommend ed INR 1. Prevention o f venous thomboembolism 2.0-3.0in high -risk patients; treat ment of venousthrombosi s and pulmonary embol ism aftera course o f heparin; preven tion of systemicembolis m in a variety of cond itions, including atria l fibrillation an d prothetic tissu e heart valves, 2. Pros thetic mechanical hear t valves; 2.5-3.5recurren t systemic emboli sm. THROMBOPLASTIN TIME [id number] 14:07:00 Test Item Value Reference Range Interpretation Comments THROMBOPLASTIN TIME 27.7 SECONDS 23.8-34.8 N INTERPRE TATIVE PARTIAL (test code = DATA: erapeutic PTT) range: Unfractionated heparin:55 - 80 seconds Argatroban:1.5 to 3 times the basel ine PTT [id number] 14:07:00 Test Item Value Reference Range Interpretation Comments FIBRINOGEN (test code = FIB) 921 mg/dL 200-400 H CBC W/AUTO [id number] 13:58:00 Test Item Value Reference Range Interpretation Comments WHITE BLOOD CELL (test code = 9.1 x10 3/uL 4.8-10.8 N WBC) RED BLOOD CELL (test code = 3.94 x10 6/uL 4.70-6.10 L RBC) HEMOGLOBIN (test code = HGB) 12.3 g/dL 14.0-18.0 L HEMATOCRIT (test code = HCT) 36.3 % 42.0-52.0 L MEAN CELL VOLUME (test code = 92.1 fL 80.0-94.0 N MCV) MEAN CELL HGB (test code = MCH) 31.2 pg 27-31 H MEAN CELL HGB CONCENTRATION 33.9 G/DL 33-36.5 N (test code = MCHC) RED CELL DISTRIBUTION WIDTH 14.3 % 12.9-16.9 N (test code = RDW) PLATELET COUNT (test code = 291 x10 3/uL 150-440 N PLT) MEAN PLATELET VOLUME (test code 11.1 fL 8.9-12.4 N = MPV) NEUTROPHIL % (test code = NT%) 66.3 % 42.2-75.2 N LYMPHOCYTE % (test code = LY%) 16.2 % 20.5-51.1 L MONOCYTE % (test code = MO%) 11.8 % 1.7-9.3 H EOSINOPHIL % (test code = EO%) 4.5 % 0.0-7.0 N BASOPHIL % (test code = BA%) 0.4 % 0-2.5 N NEUTROPHIL # (test code = NT#) 6.05 x10 3/uL 1.80-7.70 N LYMPHOCYTE # (test code = LY#) 1.48 x10 3/uL 1.00-4.80 N MONOCYTE # (test code = MO#) 1.08 x10 3/uL 0.00-0.80 H EOSINOPHIL # (test code = EO#) 0.41 x10 3/uL 0.00-0.45 N BASOPHIL # (test code = BA#) 0.04 x10 3/uL 0.0-0.20 N [id number] 13:24:00 Test Item Value Reference Range Interpretation Comments GLUBED (test code = GLUBED) 180 MG/DL 70-105 H [id number] 06:25:00 Test Item Value Reference Range Interpretation Comments GLUBED (test code = GLUBED) 114 MG/DL 70-105 H B-TYPE NATRIURETIC [id number] 00:37:00 Test Item Value Reference Range Interpretation Comments B-TYPE NATRIURETIC PEPTIDE (test 1343 pg/mL <100 H code = BNP) COMPREHENSIVE METABOLIC [id number] 00:09:00 Test Item Value Reference Range Interpretation Comments SODIUM (test code = 137 mmol/L 136-145 N Please n ote: New NA) Reference Range Dec 2020 POTASSIUM (test 3.8 mmol/L 3.5-5.1 N code = K) CHLORIDE (test code 101 mmol/L 98-107 N Please n ote: New = CL) Reference Range Dec 2020 CARBON DIOXIDE 31 mmol/L 20-31 N Please note: New (test code = CO2) Reference Range Dec 2020 GLUCOSE (test code 109 mg/dL 74-106 H Please no te: New = GLU) Reference Range Dec 2020 BLOOD UREA NITROGEN 16 mg/dL 9-23 N Please n ote: New (test code = BUN) Reference Range Dec 2020 GLOMERULAR >=60 max >60 Units are FILTRATION RATE estimate mL/min mL/min/1. 73m2 The (test code = GFR) estimated glomerular filtration rate is computed usingpatient ra ce, age (>18), sex, and serum creatinin e. If anyof the ne eded data elements a re missing the Laboratory caroline ot compute an estimation of t he glomerular filtration rate . CREATININE (test 0.90 mg/dL 0.70-1.30 N Please note : New code = CREAT) Reference Rang e Dec 2020 TOTAL PROTEIN (test 5.6 g/dL 5.7-8.2 L Please n ote: New code = PROT) Reference Range Dec 2020 ALBUMIN (test code 3.8 g/dL 3.2-4.8 N Please no te: New = ALB) Reference Range Dec 2020 CALCIUM (test code 8.4 mg/dL 8.7-10.4 L Please no te: New = CA) Reference Range Dec 2020 BILIRUBIN TOTAL 1.5 mg/dL 0.3-1.2 H Please note: New (test code = BILT) Reference Range Dec 2020 SGOT/AST (test code 62 U/L <34 H Please n ote: New = AST) Reference Range Dec 2020 SGPT/ALT (test code 73 U/L 10-49 H Please n ote: New = ALT) Reference Range Dec 2020 ALKALINE 94 U/L 46-116 N Please note: Ne w PHOSPHATASE (test Reference Range Feb code = ALKP) 2020 [id number] 00:09:00 Test Item Value Reference Range Interpretation Comments PHOSPHOROUS (test code 3.0 mg/dL 2.4-5.1 N Pleas e note: New = PHOS) Reference Range Dec 2020 [id number] 00:09:00 Test Item Value Reference Range Interpretation Comments MAGNESIUM (test code = 2.1 mg/dL 1.6-2.6 N Pleas e note: New MAG) Reference Range Dec 2020 THYROID STIMULATING [id number] 00:09:00 Test Item Value Reference Range Interpretation Comments THYROID STIMULATING 2.14 mIU/mL 0.55-4.78 N Please n ote: New HORMONE (test code = Referen ce Range Dec TSH) 2020 HGBA1C - GLYCOSYLATED [id number] 00:08:00 Test Item Value Reference Range Interpretation Comments GLYCOSYLATED HEMOGLOBIN 5.6 % <5.7 N Diab etic >/= (HA1C) (test code = 6.5%Pred iabetes GLYHGB) 5.7-6.4%Normal < 5.7% [id number] 23:58:00 Test Item Value Reference Range Interpretation Comments TROPONIN-I (test 62755.0 pg/mL 38.73-80.22 HH Critical V alue reported code = TROPI) toFirst Name:Rebecca GARCIA Last Name:JAD RAND READ BACK AND VERIFIEDby PINKY MANN, on 09/26/21, @ 235 8.Please note: Units and Reference Range have changedFeb 3, 2 021 PROTHROMBIN [id number] 23:47:00 Test Item Value Reference Range Interpretation Comments PROTHROMBIN TIME 12.1 SECONDS 10.3-12.9 N PATIENT (test code = PTP) INTERNATIONAL 1.06 INR UNIT 0.9-1.11 N The INR is us eful only NORMAL RATIO (test for monit oring code = INR) anticoagulant therapy.It may be unreliable in t he initial phase o f antigoagulation and in unstable patien ts. Indication for Anticoagulation Recommend ed INR 1. Prevention o f venous thomboembolism 2.0-3.0in high -risk patients; treat ment of venousthrombosi s and pulmonary embol ism aftera course o f heparin; preven tion of systemicembolis m in a variety of cond itions, including atria l fibrillation an d prothetic tissu e heart valves, 2. Pros thetic mechanical hear t valves; 2.5-3.5recurren t systemic emboli sm. THROMBOPLASTIN TIME [id number] 23:47:00 Test Item Value Reference Range Interpretation Comments THROMBOPLASTIN TIME 29.0 SECONDS 23.8-34.8 N INTERPRE TATIVE PARTIAL (test code = DATA: erapeutic PTT) range: Unfractionated heparin:55 - 80 seconds Argatroban:1.5 to 3 times the basel ine PTT LACTIC [id number] 23:43:00 Test Item Value Reference Range Interpretation Comments LACTIC ACID (test code = LACT) 0.70 mmol/L 0.5-2.0 N CBC W/AUTO [id number] 23:29:00 Test Item Value Reference Range Interpretation Comments WHITE BLOOD CELL (test code = 10.0 x10 3/uL 4.8-10.8 N WBC) RED BLOOD CELL (test code = 3.87 x10 6/uL 4.70-6.10 L RBC) HEMOGLOBIN (test code = HGB) 12.0 g/dL 14.0-18.0 L HEMATOCRIT (test code = HCT) 34.3 % 42.0-52.0 L MEAN CELL VOLUME (test code = 88.6 fL 80.0-94.0 N MCV) MEAN CELL HGB (test code = MCH) 31.0 pg 27-31 N MEAN CELL HGB CONCENTRATION 35.0 G/DL 33-36.5 N (test code = MCHC) RED CELL DISTRIBUTION WIDTH 13.3 % 12.9-16.9 N (test code = RDW) PLATELET COUNT (test code = 255 x10 3/uL 150-440 N PLT) MEAN PLATELET VOLUME (test code 9.8 fL 8.9-12.4 N = MPV) NEUTROPHIL % (test code = NT%) 59.4 % 42.2-75.2 N LYMPHOCYTE % (test code = LY%) 16.8 % 20.5-51.1 L MONOCYTE % (test code = MO%) 18.1 % 1.7-9.3 H EOSINOPHIL % (test code = EO%) 4.2 % 0.0-7.0 N BASOPHIL % (test code = BA%) 0.6 % 0-2.5 N NEUTROPHIL # (test code = NT#) 5.96 x10 3/uL 1.80-7.70 N LYMPHOCYTE # (test code = LY#) 1.69 x10 3/uL 1.00-4.80 N MONOCYTE # (test code = MO#) 1.82 x10 3/uL 0.00-0.80 H EOSINOPHIL # (test code = EO#) 0.42 x10 3/uL 0.00-0.45 N BASOPHIL # (test code = BA#) 0.06 x10 3/uL 0.0-0.20 N - XR CHEST 1 [id number] 23:01:00 [facility] : 1955 Sex: MPatient Name: MELANIE YAÑEZ Unit No: [id number] EXAMS: CPT CODE: [id number] XR CHEST 1 V [id number] EXAM: XR Chest 1 View INDICATION: [place] LOCATION CODE: H50 COMPARISON: None available. TECHNIQUE: Frontal view of the chest was obtained. FINDINGS: There is moderate pulmonary vascular congestion with bilateral perihilar opacities and increased interstitial prominence. There is no pleural effusion or pneumothorax. The cardiomediastinal silhouette is unremarkable. No acute osseous abnormality is identified. IMPRESSION: Moderate pulmonary vascular congestion with bilateral perihilar opacities and increased interstitial prominence suggestive of pulmonary edema. at 2301 Reported and signed by: BEVERLEY JONES M.D. CC: Chad Ovalles MD; Rashaad Jin MD Technologist: Yocasta Brooks Time: DAP (Gy m2): Air Kerma (mGy): Trscr Dt/Tm: 09/26/2021 (2300) by:[email or web address] Printed Date/Time: 09/26/2021 (2303) Name:MELANIE YAÑEZ [facility] Phys: LISA.Chad Mcknight [address] : 1955 Age: 66 Sex: [place] [address] Loc: P.0223 1 Exam Date: 09/26/2021 Status: ADM IN PH: FAX: PAGE 1 Signed ReportCOVID 19 INHOUSE [id number] 22:38:00 Test Item Value Reference Range Interpretation Comments COVID 19 INHOUSE NEGATIVE NEGATIVE Negative re sults, from (test code = patients wit h symptom onset [id number]) beyondfive days , should be treated as pres umptive and confirmationwit h a molecular assay, if neces patricia for patientmanageme nt, may be performed. Nega tive results do not ruleout COVID-19 and should not be u sed as the sole basis fort reatment or patient managem ent decisions, includinginfect ion control decisions. Nega tive results should beconsid ered in the context of a pa tient's recent exposure s,history and the presence of clinical signs and sympt omsconsistent with COVID-19. Spec Comments: ADMISSION TO [facility] W/AUTO [id number] 06:19:00 Test Item Value Reference Range Interpretation Comments WHITE BLOOD CELL 10.4 K/mm3 3.5-11.0 N (test code = WBC) RED BLOOD CELL (test 3.85 M/mm3 4.70-6.10 L code = RBC) HEMOGLOBIN (test code 12.0 G/DL 12.3-15.9 L = HGB) HEMATOCRIT (test code 34.7 % 35.8-46.7 L = HCT) MEAN CELL VOLUME 90.1 Fl 86.3-98.9 N (test code = MCV) MEAN CELL HGB (test 31.2 pg 28.9-34.4 N code = MCH) MEAN CELL HGB 34.6 G/DL 32.1-34.5 H CONCETRATION (test code = MCHC) RED CELL DISTRIBUTION 13.2 SD 11.5-14.5 N WIDTH (test code = RDW) PLATELET COUNT (test 240 K/mm3 150-450 N code = PLT) MEAN PLATELET VOLUME 9.90 fL 7.0-9.6 H (test code = MPV) NEUTROPHIL % (test 64.3 % 40-76 N code = NT%) IMMATURE GRANULOCYTE 1.0 % 0.0-5.0 N % (test code = IG%) LYMPHOCYTE % (test 15.1 % 20.5-51.1 L code = LY%) MONOCYTE % (test code 15.7 % 1.7-9.3 H = MO%) EOSINOPHIL % (test 3.5 % 0.0-6.0 N code = EO%) BASOPHIL % (test code 0.4 % 0.0-2.0 N = BA%) NUCLEATED RBC % (test 0.0 /100WBC% 0.0-1.0 N code = NRBC%) NEUTROPHIL # (test 6.7 K/mm3 1.8-7.6 N code = NT#) IMMATURE GRANULOCYTE 0.10 x10 3/uL 0.00-0.03 H # (test code = IG#) LYMPHOCYTE # (test 1.6 K/mm3 0.6-3.0 N code = LY#) MONOCYTE # (test code 1.6 K/mm3 0.2-1.5 H = MO#) EOSINOPHIL # (test 0.4 K/mm3 0.0-0.4 N code = EO#) BASOPHIL # (test code 0.0 K/mm3 0.0-0.2 N = BA#) NUCLEATED RBC # (test 0.0 K/mm3 0.00-0.01 N code = NRBC#) MANUAL DIFF REQUIRED NO DIFF/SCN CRITERIA SLIDE R REANNA (test code = MDIFF) CONSISTA NT WITH AUTO DIFFERENTI AL. BASIC METABOLIC [id number] 04:55:00 Test Item Value Reference Range Interpretation Comments SODIUM (test code = NA) 135 mmol/L 134-147 N POTASSIUM (test code = 3.6 mmol/L 3.4-5.0 N K) CHLORIDE (test code = 99 mmol/L 100-108 L CL) CARBON DIOXIDE (test 30 mmol/L 21-32 N code = CO2) ANION GAP (test code = 6.0 GAP calc 4.0-15.0 N GAP) GLUCOSE (test code = 112 MG/DL 70-110 H GLU) BLOOD UREA NITROGEN 16 MG/DL 7-18 N (test code = BUN) GLOMERULAR FILTRATION >=60 max estimate >60 RATE (test code = GFR) estGFR CREATININE (test code = 0.8 MG/DL 0.8-1.3 N CREAT) CALCIUM (test code = CA) 8.3 MG/DL 8.5-10.1 L CBC W/AUTO [id number] 06:06:00 Test Item Value Reference Range Interpretation Comments WHITE BLOOD CELL 12.5 K/mm3 3.5-11.0 H (test code = WBC) RED BLOOD CELL (test 3.73 M/mm3 4.70-6.10 L code = RBC) HEMOGLOBIN (test code 11.7 G/DL 12.3-15.9 L = HGB) HEMATOCRIT (test code 33.9 % 35.8-46.7 L = HCT) MEAN CELL VOLUME 90.9 Fl 86.3-98.9 (test code = MCV) MEAN CELL HGB (test 31.4 pg 28.9-34.4 N code = MCH) MEAN CELL HGB 34.5 G/DL 32.1-34.5 N CONCETRATION (test code = MCHC) RED CELL DISTRIBUTION 13.3 SD 11.5-14.5 N WIDTH (test code = RDW) PLATELET COUNT (test 189 K/mm3 150-450 N code = PLT) MEAN PLATELET VOLUME 10.30 fL 7.0-9.6 H (test code = MPV) NEUTROPHIL % (test 65.1 % 40-76 code = NT%) IMMATURE GRANULOCYTE 0.6 % 0.0-5.0 N % (test code = IG%) LYMPHOCYTE % (test 16.0 % 20.5-51.1 L code = LY%) MONOCYTE % (test code 14.4 % 1.7-9.3 H = MO%) EOSINOPHIL % (test 3.5 % 0.0-6.0 N code = EO%) BASOPHIL % (test code 0.4 % 0.0-2.0 N = BA%) NUCLEATED RBC % (test 0.0 /100WBC% 0.0-1.0 N code = NRBC%) NEUTROPHIL # (test 8.1 K/mm3 1.8-7.6 H code = NT#) IMMATURE GRANULOCYTE 0.08 x10 3/uL 0.00-0.03 H # (test code = IG#) LYMPHOCYTE # (test 2.0 K/mm3 0.6-3.0 N code = LY#) MONOCYTE # (test code 1.8 K/mm3 0.2-1.5 H = MO#) EOSINOPHIL # (test 0.4 K/mm3 0.0-0.4 N code = EO#) BASOPHIL # (test code 0.1 K/mm3 0.0-0.2 N = BA#) NUCLEATED RBC # (test 0.0 K/mm3 0.00-0.01 N code = NRBC#) MANUAL DIFF REQUIRED NO DIFF/SCN CRITERIA SLIDE Ayse FORTE (test code = MDIFF) CONSISTA NT WITH AUTO DIFFERENTI AL. BASIC METABOLIC [id number] 05:11:00 Test Item Value Reference Range Interpretation Comments SODIUM (test code = NA) 135 mmol/L 134-147 N POTASSIUM (test code = 3.5 mmol/L 3.4-5.0 N K) CHLORIDE (test code = 99 mmol/L 100-108 L CL) CARBON DIOXIDE (test 31 mmol/L 21-32 N code = CO2) ANION GAP (test code = 5.0 GAP calc 4.0-15.0 N GAP) GLUCOSE (test code = 105 MG/DL 70-110 N GLU) BLOOD UREA NITROGEN 21 MG/DL 7-18 H (test code = BUN) GLOMERULAR FILTRATION >=60 max estimate >60 RATE (test code = GFR) estGFR CREATININE (test code = 0.9 MG/DL 0.8-1.3 N CREAT) CALCIUM (test code = CA) 8.4 MG/DL 8.5-10.1 L COAGULATION TIME [id number] 04:55:00 Test Item Value Reference Range Interpretation Comments COAGULATION TIME ACTIVATED (test 211 SECistat 74-125 H code = ACT) CBC W/AUTO [id number] 06:52:00 Test Item Value Reference Range Interpretation Comments WHITE BLOOD CELL (test code = 17.2 K/mm3 3.5-11.0 H WBC) RED BLOOD CELL (test code = 4.03 M/mm3 4.70-6.10 L RBC) HEMOGLOBIN (test code = HGB) 12.8 G/DL 12.3-15.9 N HEMATOCRIT (test code = HCT) 40.0 % 35.8-46.7 N MEAN CELL VOLUME (test code = 99.3 Fl 86.3-98.9 H MCV) MEAN CELL HGB (test code = MCH) 31.8 pg 28.9-34.4 N MEAN CELL HGB CONCETRATION 32.0 G/DL 32.1-34.5 L (test code = MCHC) RED CELL DISTRIBUTION WIDTH 13.5 SD 11.5-14.5 N (test code = RDW) PLATELET COUNT (test code = 76 K/mm3 150-450 L PLT) MEAN PLATELET VOLUME (test code 11.80 fL 7.0-9.6 H = MPV) NEUTROPHIL % (test code = NT%) 73.6 % 40-76 N IMMATURE GRANULOCYTE % (test 0.5 % 0.0-5.0 N code = IG%) LYMPHOCYTE % (test code = LY%) 12.5 % 20.5-51.1 L MONOCYTE % (test code = MO%) 12.3 % 1.7-9.3 H EOSINOPHIL % (test code = EO%) 0.6 % 0.0-6.0 N BASOPHIL % (test code = BA%) 0.5 % 0.0-2.0 N NUCLEATED RBC % (test code = 0.0 /100WBC% 0.0-1.0 N NRBC%) NEUTROPHIL # (test code = NT#) 12.6 K/mm3 1.8-7.6 H IMMATURE GRANULOCYTE # (test 0.09 x10 3/uL 0.00-0.03 H code = IG#) LYMPHOCYTE # (test code = LY#) 2.1 K/mm3 0.6-3.0 N MONOCYTE # (test code = MO#) 2.1 K/mm3 0.2-1.5 H EOSINOPHIL # (test code = EO#) 0.1 K/mm3 0.0-0.4 N BASOPHIL # (test code = BA#) 0.1 K/mm3 0.0-0.2 N NUCLEATED RBC # (test code = 0.0 K/mm3 0.00-0.01 N NRBC#) MANUAL DIFF REQUIRED (test code NO DIFF/SCN CRITERIA = MDIFF) RBC [id number] 06:52:00 Test Item Value Reference Range Interpretation Comments POIKILOCYTOSIS (test TRACE ON SCAN NONE code = POIK) TARGET CELLS (test TRACE ON SCAN NONE code = TGT) OVALOCYTES (test code TRACE ON SCAN NONE = OVAL) PLATELET ESTIMATE DECREASED ADEQUATE PLATELET (test code = PLTEST) THOUSAND ESTIMAT ED = 185,000-189,000 S L PLT CLUMPING SEEN ON SMEAR PLATELET MORPHOLOGY NORMAL (test code = PLTMORPH) BASIC METABOLIC [id number] 04:52:00 Test Item Value Reference Range Interpretation Comments SODIUM (test code = NA) 131 mmol/L 134-147 L POTASSIUM (test code = 4.1 mmol/L 3.4-5.0 N K) CHLORIDE (test code = 100 mmol/L 100-108 N CL) CARBON DIOXIDE (test 28 mmol/L 21-32 N code = CO2) ANION GAP (test code = 3.0 GAP calc 4.0-15.0 L GAP) GLUCOSE (test code = 125 MG/DL 70-110 H GLU) BLOOD UREA NITROGEN 16 MG/DL 7-18 N (test code = BUN) GLOMERULAR FILTRATION >=60 max estimate >60 RATE (test code = GFR) estGFR CREATININE (test code = 0.9 MG/DL 0.8-1.3 N CREAT) CALCIUM (test code = CA) 8.8 MG/DL 8.5-10.1 N THROMBOPLASTIN TIME [id number] 22:37:00 Test Item Value Reference Range Interpretation Comments THROMBOPLASTIN TIME PARTIAL 51.4 SECONDS 26-35 H (test code = PTT) THROMBOPLASTIN TIME [id number] 15:30:00 Test Item Value Reference Range Interpretation Comments THROMBOPLASTIN TIME PARTIAL 37.4 SECONDS 26-35 H (test code = PTT) CBC W/AUTO [id number] 06:34:00 Test Item Value Reference Range Interpretation Comments WHITE BLOOD CELL 18.8 K/mm3 3.5-11.0 H (test code = WBC) RED BLOOD CELL (test 3.80 M/mm3 4.70-6.10 L code = RBC) HEMOGLOBIN (test code 12.0 G/DL 12.3-15.9 L = HGB) HEMATOCRIT (test code 34.8 % 35.8-46.7 L = HCT) MEAN CELL VOLUME 91.6 Fl 86.3-98.9 N (test code = MCV) MEAN CELL HGB (test 31.6 pg 28.9-34.4 N code = MCH) MEAN CELL HGB 34.5 G/DL 32.1-34.5 N CONCETRATION (test code = MCHC) RED CELL DISTRIBUTION 13.2 SD 11.5-14.5 N WIDTH (test code = RDW) PLATELET COUNT (test 179 K/mm3 150-450 N code = PLT) MEAN PLATELET VOLUME 10.20 fL 7.0-9.6 H (test code = MPV) NEUTROPHIL % (test 76.3 % 40-76 H code = NT%) IMMATURE GRANULOCYTE 0.7 % 0.0-5.0 N % (test code = IG%) LYMPHOCYTE % (test 9.3 % 20.5-51.1 L code = LY%) MONOCYTE % (test code 13.4 % 1.7-9.3 H = MO%) EOSINOPHIL % (test 0.1 % 0.0-6.0 N code = EO%) BASOPHIL % (test code 0.2 % 0.0-2.0 N = BA%) NUCLEATED RBC % (test 0.0 /100WBC% 0.0-1.0 N code = NRBC%) NEUTROPHIL # (test 14.3 K/mm3 1.8-7.6 H code = NT#) IMMATURE GRANULOCYTE 0.14 x10 3/uL 0.00-0.03 H # (test code = IG#) LYMPHOCYTE # (test 1.8 K/mm3 0.6-3.0 N code = LY#) MONOCYTE # (test code 2.5 K/mm3 0.2-1.5 H = MO#) EOSINOPHIL # (test 0.0 K/mm3 0.0-0.4 N code = EO#) BASOPHIL # (test code 0.0 K/mm3 0.0-0.2 N = BA#) NUCLEATED RBC # (test 0.0 K/mm3 0.00-0.01 N code = NRBC#) MANUAL DIFF REQUIRED NO DIFF/SCN CRITERIA SLIDE R EVIEW (test code = MDIFF) CONSISTA NT WITH AUTO DIFFERENTI AL. BASIC METABOLIC [id number] 06:19:00 Test Item Value Reference Range Interpretation Comments SODIUM (test code = NA) 135 mmol/L 134-147 N POTASSIUM (test code = 3.6 mmol/L 3.4-5.0 N K) CHLORIDE (test code = 100 mmol/L 100-108 N CL) CARBON DIOXIDE (test 31 mmol/L 21-32 N code = CO2) ANION GAP (test code = 4.0 GAP calc 4.0-15.0 N GAP) GLUCOSE (test code = 143 MG/DL 70-110 H GLU) BLOOD UREA NITROGEN 14 MG/DL 7-18 N (test code = BUN) GLOMERULAR FILTRATION >=60 max estimate >60 RATE (test code = GFR) estGFR CREATININE (test code = 1.0 MG/DL 0.8-1.3 N CREAT) CALCIUM (test code = CA) 8.7 MG/DL 8.5-10.1 N THROMBOPLASTIN TIME [id number] 06:14:00 Test Item Value Reference Range Interpretation Comments THROMBOPLASTIN TIME PARTIAL 45.0 SECONDS 26-35 H (test code = PTT) THROMBOPLASTIN TIME [id number] 00:06:00 Test Item Value Reference Range Interpretation Comments THROMBOPLASTIN TIME PARTIAL 70.6 SECONDS 26-35 H (test code = PTT) THROMBOPLASTIN TIME [id number] 16:17:00 Test Item Value Reference Range Interpretation Comments THROMBOPLASTIN TIME PARTIAL 218.3 SECONDS 26-35 HH (test code = PTT) CBC W/AUTO [id number] 06:16:00 Test Item Value Reference Range Interpretation Comments WHITE BLOOD CELL 15.6 K/mm3 3.5-11.0 H (test code = WBC) RED BLOOD CELL (test 3.96 M/mm3 4.70-6.10 L code = RBC) HEMOGLOBIN (test code 12.5 G/DL 12.3-15.9 N = HGB) HEMATOCRIT (test code 36.4 % 35.8-46.7 N = HCT) MEAN CELL VOLUME 91.9 Fl 86.3-98.9 N (test code = MCV) MEAN CELL HGB (test 31.6 pg 28.9-34.4 N code = MCH) MEAN CELL HGB 34.3 G/DL 32.1-34.5 N CONCETRATION (test code = MCHC) RED CELL DISTRIBUTION 13.4 SD 11.5-14.5 N WIDTH (test code = RDW) PLATELET COUNT (test 194 K/mm3 150-450 N code = PLT) MEAN PLATELET VOLUME 10.00 fL 7.0-9.6 H (test code = MPV) NEUTROPHIL % (test 74.4 % 40-76 N code = NT%) IMMATURE GRANULOCYTE 0.4 % 0.0-5.0 N % (test code = IG%) LYMPHOCYTE % (test 13.5 % 20.5-51.1 L code = LY%) MONOCYTE % (test code 11.3 % 1.7-9.3 H = MO%) EOSINOPHIL % (test 0.1 % 0.0-6.0 N code = EO%) BASOPHIL % (test code 0.3 % 0.0-2.0 N = BA%) NUCLEATED RBC % (test 0.0 /100WBC% 0.0-1.0 N code = NRBC%) NEUTROPHIL # (test 11.6 K/mm3 1.8-7.6 H code = NT#) IMMATURE GRANULOCYTE 0.06 x10 3/uL 0.00-0.03 H # (test code = IG#) LYMPHOCYTE # (test 2.1 K/mm3 0.6-3.0 N code = LY#) MONOCYTE # (test code 1.8 K/mm3 0.2-1.5 H = MO#) EOSINOPHIL # (test 0.0 K/mm3 0.0-0.4 N code = EO#) BASOPHIL # (test code 0.1 K/mm3 0.0-0.2 N = BA#) NUCLEATED RBC # (test 0.0 K/mm3 0.00-0.01 N code = NRBC#) MANUAL DIFF REQUIRED NO DIFF/SCN CRITERIA SLIDE R EVIEW (test code = MDIFF) CONSISTA NT WITH AUTO DIFFERENTI AL. BASIC METABOLIC [id number] 05:27:00 Test Item Value Reference Range Interpretation Comments SODIUM (test code = NA) 137 mmol/L 134-147 N POTASSIUM (test code = 3.5 mmol/L 3.4-5.0 N K) CHLORIDE (test code = 102 mmol/L 100-108 N CL) CARBON DIOXIDE (test 27 mmol/L 21-32 N code = CO2) ANION GAP (test code = 8.0 GAP calc 4.0-15.0 N GAP) GLUCOSE (test code = 143 MG/DL 70-110 H GLU) BLOOD UREA NITROGEN 18 MG/DL 7-18 N (test code = BUN) GLOMERULAR FILTRATION >=60 max estimate >60 RATE (test code = GFR) estGFR CREATININE (test code = 1.1 MG/DL 0.8-1.3 N CREAT) CALCIUM (test code = CA) 8.5 MG/DL 8.5-10.1 N THROMBOPLASTIN TIME [id number] 05:24:00 Test Item Value Reference Range Interpretation Comments THROMBOPLASTIN TIME PARTIAL 33.2 SECONDS 26-35 N (test code = PTT) THROMBOPLASTIN TIME [id number] 11:48:00 Test Item Value Reference Range Interpretation Comments THROMBOPLASTIN TIME PARTIAL 46.7 SECONDS 26-35 H (test code = PTT) CBC W/AUTO [id number] 06:40:00 Test Item Value Reference Range Interpretation Comments WHITE BLOOD CELL 16.5 K/mm3 3.5-11.0 H (test code = WBC) RED BLOOD CELL (test 4.12 M/mm3 4.70-6.10 L code = RBC) HEMOGLOBIN (test code 12.9 G/DL 12.3-15.9 N = HGB) HEMATOCRIT (test code 37.2 % 35.8-46.7 N = HCT) MEAN CELL VOLUME 90.3 Fl 86.3-98.9 N (test code = MCV) MEAN CELL HGB (test 31.3 pg 28.9-34.4 N code = MCH) MEAN CELL HGB 34.7 G/DL 32.1-34.5 H CONCETRATION (test code = MCHC) RED CELL DISTRIBUTION 13.6 SD 11.5-14.5 N WIDTH (test code = RDW) PLATELET COUNT (test 187 K/mm3 150-450 N code = PLT) MEAN PLATELET VOLUME 9.80 fL 7.0-9.6 H (test code = MPV) NEUTROPHIL % (test 76.2 % 40-76 H code = NT%) IMMATURE GRANULOCYTE 0.4 % 0.0-5.0 N % (test code = IG%) LYMPHOCYTE % (test 13.3 % 20.5-51.1 L code = LY%) MONOCYTE % (test code 9.8 % 1.7-9.3 H = MO%) EOSINOPHIL % (test 0.1 % 0.0-6.0 N code = EO%) BASOPHIL % (test code 0.2 % 0.0-2.0 N = BA%) NUCLEATED RBC % (test 0.0 /100WBC% 0.0-1.0 N code = NRBC%) NEUTROPHIL # (test 12.5 K/mm3 1.8-7.6 H code = NT#) IMMATURE GRANULOCYTE 0.07 x10 3/uL 0.00-0.03 H # (test code = IG#) LYMPHOCYTE # (test 2.2 K/mm3 0.6-3.0 N code = LY#) MONOCYTE # (test code 1.6 K/mm3 0.2-1.5 H = MO#) EOSINOPHIL # (test 0.0 K/mm3 0.0-0.4 N code = EO#) BASOPHIL # (test code 0.0 K/mm3 0.0-0.2 N = BA#) NUCLEATED RBC # (test 0.0 K/mm3 0.00-0.01 N code = NRBC#) MANUAL DIFF REQUIRED NO DIFF/SCN CRITERIA SLIDE R EVIEW (test code = MDIFF) CONSISTA NT WITH AUTO DIFFERENTI AL. THROMBOPLASTIN TIME [id number] 04:51:00 Test Item Value Reference Range Interpretation Comments THROMBOPLASTIN TIME PARTIAL 49.3 SECONDS 26-35 H (test code = PTT) COMPREHENSIVE METABOLIC [id number] 04:51:00 Test Item Value Reference Range Interpretation Comments SODIUM (test code = NA) 140 mmol/L 134-147 N POTASSIUM (test code = 3.3 mmol/L 3.4-5.0 L K) CHLORIDE (test code = 106 mmol/L 100-108 N CL) CARBON DIOXIDE (test 28 mmol/L 21-32 N code = CO2) ANION GAP (test code = 6.0 GAP calc 4.0-15.0 N GAP) GLUCOSE (test code = 129 MG/DL 70-110 H GLU) BLOOD UREA NITROGEN 17 MG/DL 7-18 N (test code = BUN) GLOMERULAR FILTRATION >=60 max estimate >60 RATE (test code = GFR) estGFR CREATININE (test code = 1.1 MG/DL 0.8-1.3 N CREAT) TOTAL PROTEIN (test code 6.5 G/DL 6.4-8.2 N = PROT) ALBUMIN (test code = 3.6 G/DL 3.4-5.0 N ALB) GLOBULIN (test code = 2.9 GM/dL GLOB) ALBUMIN/GLOBULIN RATIO 1.2 RATIO 1.2-2.2 N (test code = A/G) CALCIUM (test code = CA) 8.7 MG/DL 8.5-10.1 N BILIRUBIN TOTAL (test 1.10 MG/DL 0.2-1.2 N code = BILT) SGOT/AST (test code = 151 Unit/L 15-37 H AST) SGPT/ALT (test code = 55 Unit/L 12-78 N ALT) ALKALINE PHOSPHATASE 51 Unit/L 50-136 N TOTAL (test code = ALKP) Comment: fastingLIPID PROFILE (CORONARY RISK)[id number] 04:51:00 Test Item Value Reference Range Interpretation Comments TRIGLYCERIDES (test 141 MG/DL 0-150 N code = TRIG) CHOLESTEROL (test 138 MG/DL 133-200 N code = CHOL) CHOLESTEROL/HDL 3.29 RATIO See_Comment RISK ASSOCIA AGUSTÍN WITH RATIO (test code = CHOL/HDL RATIOS: RISK CHOLHDL) MAL E FEMALE1/2 A VERAGE 3.43 3.27AVERAGE 4.97 4.442X AVERAGE 9.55 7.05 3X AVERAGE 23.3 9 11.04 NOTE T HAT THE REFERENCE VALUE IS RELATED TO RISK LEVELS ASRECOMMENDED B Y [facility] . [Automated mess age] The system which ge nerated this result tra nsmitted reference range : 0-. The reference range was not used to interpr et this result as normal/abnormal . HDL CHOLESTEROL 42 MG/DL 40-59 N (test code = HDL) NON-HDL CHOLESTEROL 96 mg/dL <130 (test code = NHDL) LIPOPROTEIN LDL 82 MG/DL 0-129 N <100 [id number] - (test code = LDL) 129 LYNDA R OPTIMAL/ABOVE [id number] - 15 9 [id number] - 189 HIGH>OR= 190 VERY HIGHNOTE THAT G UIDELINES ARE PROVIDED BY NATIONAL CHOLESTEROLEDUC ATION PROGRAM ADULT T REATMENT PANEL III LDL/HDL (test code 1.95 Ratio See_Comment N [Automat ed message] The = LDL/HDL) system which ge nerated this result tra nsmitted reference range : 1.48-3.22 Avg. The reference range was not used to interpr et this result as normal/abnormal . Comment: fastingTHROMBOPLASTIN TIME [id number] 21:50:00 Test Item Value Reference Range Interpretation Comments THROMBOPLASTIN TIME PARTIAL 51.1 SECONDS 26-35 H (test code = PTT) GLYCOSYLATED HEMOGLOBIN [id number] 14:04:00 Test Item Value Reference Range Interpretation Comments GLYCOSYLATED HEMOGLOBIN (HA1C) 5.8 % A1C 0.0-5.7 H (test code = GLYHGB) ESTIMATED AVERAGE GLUCOSE (test 120 MG/DLest code = EAG) NT PRO-BRAIN NATRIURETIC [id number] 13:58:00 Test Item Value Reference Range Interpretation Comments NT PRO-BRAIN NATRIURETIC PEPTI 885 PG/ML 0-100 H (test code = PROBNP) DRUGS OF ABUSE SCREEN [id number] 13:52:00 Test Item Value Reference Range Interpretation Comments URN COCAINE (test NEGATIVE See_Comment UNCONFIRME D code = COCAURN) SCcutoff SCREENING RE SULTS SHOULD NOT BE U SED FORNON-MEDICAL PURPOSES. [Automated message] The system which generated this result transmit agustín reference range : <300 NG/ML. The reference range was not used to interpret this result as normal/abnormal . URN CANNABINOIDS NEGATIVE See_Comment UNCONFIRMED (test code = SCcutoff SCREENING RESUL TS CANNABURN) SHOULD NOT BE U SED FORNON-MEDICAL PURPOSES. [Automated message] The system which generated this result transmit agustín reference range : <50 NG/ML. The reference range was not used to interpret this result as normal/abnormal . URN AMPHETAMINE (test NEGATIVE See_Comment UNCONF IRMED code = AMPHETURN) SCcutoff SCREENING RESULTS SHOULD NOT BE U SED FORNON-MEDICAL PURPOSES. [Automated message] The system which generated this result transmit agustín reference range : <1000 NG/ML. Th e reference range was not used to interpret this result as normal/abnormal . URN BARBITURATE (test NEGATIVE See_Comment UNCONF IRMED code = BARBITURN) SCcutoff SCREENING RESULTS SHOULD NOT BE U SED FORNON-MEDICAL PURPOSES. [Automated message] The system which generated this result transmit agustín reference range : <200 NG/ML. The reference range was not used to interpret this result as normal/abnormal . URN BENZODIAZEPINE POSITIVE See_Comment A UNCONFIRM ED (test code = SCcutoff SCREENING RESUL TS BENZOURN) SHOULD NOT BE U SED FORNON-MEDICAL PURPOSES. [Automated message] The system which generated this result transmit agsutín reference range : <200 NG/ML. The reference range was not used to interpret this result as normal/abnormal . URN OPIATES (test NEGATIVE See_Comment UNCONFIRME D code = OPIATURN) SCcutoff SCREENING R ESULTS SHOULD NOT BE U SED FORNON-MEDICAL PURPOSES. [Automated message] The system which generated this result transmit agustín reference range : <300 NG/ML. The reference range was not used to interpret this result as normal/abnormal . URN PHENCYCLIDINE NEGATIVE See_Comment UNCONFIRME D (PCP) (test code = SCcutoff SCREENING RESULTS PHENCURN) SHOULD NOT BE U SED FORNON-MEDICAL PURPOSES. [Automated message] The system which generated this result transmit agustín reference range : <25 NG/ML. The reference range was not used to interpret this result as normal/abnormal . URN METHADONE (test NEGATIVE See_Comment UNCONFIR MED code = METHAURN) SCcutoff SCREENING R ESULTS SHOULD NOT BE U SED FORNON-MEDICAL PURPOSES. [Automated message] The system which generated this result transmit agustín reference range : <300 NG/ML. The reference range was not used to interpret this result as normal/abnormal . THROMBOPLASTIN TIME [id number] 13:47:00 Test Item Value Reference Range Interpretation Comments THROMBOPLASTIN TIME PARTIAL 97.6 SECONDS 26-35 H (test code = PTT) NT PRO-BRAIN NATRIURETIC [id number] 03:52:00 Test Item Value Reference Range Interpretation Comments NT PRO-BRAIN NATRIURETIC PEPTI (test 59 PG/ML 0-100 N code = PROBNP) Completed by Nursing: [id number] 03:52:00 Test Item Value Reference Range Interpretation Comments TROPONIN-I (test < 0.015 NG/ML 0.000-0.045 N Negative: </= 0.045 code = TROPI) Positive: >/= 0.046 Correlation wit h serial results, other cardiac markers, and cl inical findings is nec essary to determine the c linical significance of this result. Quantit ative results using d ifferent methodologies s hould not be compared to one another as nume rical results may david yby method. Completed by Nursing: NOCOVID 19 Asymptomatic IH [id number] 03:52:00 Test Item Value Reference Range Interpretation Comments COVID 19 Asymptomatic NEGATIVE Negative Per ma nufacturer, IH AG (test code = negative results should COVNONPUIAG) be treated aspresumptive a nd, if inconsistent wi th clinical signs andsymptoms or necessary for p atient management, rupa uld betested with a n alternative mol ecular assay. Negative resultsdo not p reclude SARS-CoV-2 infe ction and should not be usedas the sole basis for patient man agement decisions. Neg ative results should be considered in t he context of apat ient's recent exposure s, history, prese nce of clinicalsigns a nd symptoms consis tent with COVID-19. COMPREHENSIVE METABOLIC [id number] 03:52:00 Test Item Value Reference Range Interpretation Comments SODIUM (test code = NA) 142 mmol/L 134-147 N POTASSIUM (test code = 3.6 mmol/L 3.4-5.0 N K) CHLORIDE (test code = 108 mmol/L 100-108 N CL) CARBON DIOXIDE (test 26 mmol/L 21-32 N code = CO2) ANION GAP (test code = 8.0 GAP calc 4.0-15.0 N GAP) GLUCOSE (test code = 123 MG/DL 70-110 H GLU) BLOOD UREA NITROGEN 20 MG/DL 7-18 H (test code = BUN) GLOMERULAR FILTRATION >=60 max estimate >60 RATE (test code = GFR) estGFR CREATININE (test code = 1.1 MG/DL 0.8-1.3 N CREAT) TOTAL PROTEIN (test code 7.1 G/DL 6.4-8.2 N = PROT) ALBUMIN (test code = 3.9 G/DL 3.4-5.0 N ALB) GLOBULIN (test code = 3.2 GM/dL GLOB) ALBUMIN/GLOBULIN RATIO 1.2 RATIO 1.2-2.2 N (test code = A/G) CALCIUM (test code = CA) 9.2 MG/DL 8.5-10.1 N BILIRUBIN TOTAL (test 0.50 MG/DL 0.2-1.2 N code = BILT) SGOT/AST (test code = 37 Unit/L 15-37 N AST) SGPT/ALT (test code = 49 Unit/L 12-78 N ALT) ALKALINE PHOSPHATASE 69 Unit/L 50-136 N TOTAL (test code = ALKP) Completed by Nursing: [id number] 03:52:00 Test Item Value Reference Range Interpretation Comments MAGNESIUM (test code = MAG) 2.0 MG/DL 1.8-2.4 N Completed by Nursing: NOPROTHROMBIN [id number] 03:42:00 Test Item Value Reference Range Interpretation Comments PT PATIENT (test 10.8 SECONDS 9.3-12.9 N code = PTP) INTERNATIONAL NORMAL 0.96 INR Unit 0.8-1.2 N TARGET RATIO (test code = INR BY IN DICATION INR) Indication INR1. Prophyl axis of venous thrombos is 2.0 - 3. 0 (orthopedic ky yolanda), Prophylaxis of venous thrombos is (other than hig h-risk surgery), More tment of Deep Vein Thrombosis/Pulm onary Embolism, Preve ntion of systemic emb olism - Tissue heart va lves, Acute Myocardia l Infarction (to prevent systemic embo lism), Valvular heart disease, Acut e Myocardial Infa rction (to prevent s ystemic embolism), Valv ular heart disease, Atrial Fibrilla tion, Bileaflet mecha nical valve in aortic position.2. Mec hanical prosthetic valv es (high risk), 2.5 - 3.5 Presence of Lupus Anticoagu lant or Antiphospholi pid Antibodies, Pre vention of systemic e mbolism - Acute Myocard ial Infarction (t o prevent recurre nt infarct). THROMBOPLASTIN TIME [id number] 03:42:00 Test Item Value Reference Range Interpretation Comments THROMBOPLASTIN TIME PARTIAL 31.0 SECONDS 26-35 N (test code = PTT) CBC W/AUTO [id number] 03:37:00 Test Item Value Reference Range Interpretation Comments WHITE BLOOD CELL (test code = 10.8 K/mm3 3.5-11.0 N WBC) RED BLOOD CELL (test code = 4.62 M/mm3 4.70-6.10 L RBC) HEMOGLOBIN (test code = HGB) 14.3 G/DL 12.3-15.9 N HEMATOCRIT (test code = HCT) 42.1 % 35.8-46.7 N MEAN CELL VOLUME (test code = 91.1 Fl 86.3-98.9 N MCV) MEAN CELL HGB (test code = MCH) 31.0 pg 28.9-34.4 N MEAN CELL HGB CONCETRATION 34.0 G/DL 32.1-34.5 N (test code = MCHC) RED CELL DISTRIBUTION WIDTH 13.4 SD 11.5-14.5 N (test code = RDW) PLATELET COUNT (test code = 220 K/mm3 150-450 N PLT) MEAN PLATELET VOLUME (test code 10.10 fL 7.0-9.6 H = MPV) NEUTROPHIL % (test code = NT%) 43.9 % 40-76 N IMMATURE GRANULOCYTE % (test 0.3 % 0.0-5.0 N code = IG%) LYMPHOCYTE % (test code = LY%) 40.1 % 20.5-51.1 N MONOCYTE % (test code = MO%) 10.6 % 1.7-9.3 H EOSINOPHIL % (test code = EO%) 4.3 % 0.0-6.0 N BASOPHIL % (test code = BA%) 0.8 % 0.0-2.0 N NUCLEATED RBC % (test code = 0.0 /100WBC% 0.0-1.0 N NRBC%) NEUTROPHIL # (test code = NT#) 4.7 K/mm3 1.8-7.6 N IMMATURE GRANULOCYTE # (test 0.03 x10 3/uL 0.00-0.03 N code = IG#) LYMPHOCYTE # (test code = LY#) 4.3 K/mm3 0.6-3.0 H MONOCYTE # (test code = MO#) 1.1 K/mm3 0.2-1.5 N EOSINOPHIL # (test code = EO#) 0.5 K/mm3 0.0-0.4 H BASOPHIL # (test code = BA#) 0.1 K/mm3 0.0-0.2 N NUCLEATED RBC # (test code = 0.0 K/mm3 0.00-0.01 N NRBC#) MANUAL DIFF REQUIRED (test code NO DIFF/SCN CRITERIA = MDIFF) - XR CHEST 1 [id number] 03:25:00 [facility] : 1955 Sex: M Name: MELANIE YAÑEZ [facility] : 1955ge/S: 66 / M [id number] [address] [place] Unit #: [id number] Loc: [place] [address] Phys: Annalise Matthews MD Acct: [id number] Dis Date: Status: REG ER PHONE#: [phone] Exam Date: 09/20/2021309 FAX #: Reason: chest pain EXAMS: CPT: [id number] XR CHEST 1 V 27354 Fluoro Time: DAP (Gy m2): Air Kerma (mGy): EXAM: - XR CHEST 1 V HISTORY: Chest pain. COMPARISON: None available time of interpretation. FINDINGS: Single AP view of the chest is provided. Prior median sternotomy CABG. Cardiomegaly. Central pulmonary vascular prominence. Hypoinflation of the lungs. There is no evidence of a focal consolidation. There is no definite pleural effusion or pneumothorax. There is no definite acute osseous abnormality. IMPRESSION: Prior CABG. Cardiomegaly. at 0325 Reported and signed by: Toby Jimenez M.D. CC: Annalise Matthews MD PAGE 1 Signed Report Name: MELANIE YAÑEZ : 1955 Age/S: 66 / M [id number] [address] [place] Unit #: [id number] Loc: [place] [address] Phys: Annalise Matthews MD Acct: [id number] Dis Date: Status: REG ER PHONE #: [phone] Exam Date:09/20/2021 0310 FAX #: Reason: chest pain EXAMS: CPT: [id number] XR CHEST 1 V 92189 Fluoro Time: DAP (Gy m2): Air Kerma (mGy): <Continued> Technologist: Bo Keenan RT(R) Trnscb Date/Time: 09/20/2021 (324) [email or web address] Orig Print D/T: S:09/20/2021 (0328) PAGE 2 Signed Report
--- NOTE | 2021-10-23 15:09 | RAD REPORT ---
EXAM DESCRIPTION: RAD - Chest Single View - 10/23/2021 3:03 pm CLINICAL HISTORY: SOB Chest pain. COMPARISON: Chest Pa And Lat (2 Views) dated 01/29/2020 FINDINGS: Portable technique limits examination quality. Mild to moderate interstitial opacities bilaterally which may represent pulmonary edema. The heart is mildly enlarged in size. Changes of prior CABG noted. IMPRESSION: Gixk-hd-vngzarhw CHF pattern.
[2021-10-23 15:43] LABS: Protime INR 1.14
[2021-10-23] MEDS ORDERED: FUROSEMIDE 40 MG/4 ML VIAL ONE (15:46)
[2021-10-23 15:52] LABS: Magnesium 2.2 mg/dL (1.8-2.4); Potassium 3.8 mmol/L (3.5-5.1); Troponin (Emerg Dept Use Only) 0.03 ng/mL (0.0-0.045)
--- NOTE | 2021-10-23 17:32 | EDPHYS ---
Physician Documentation [facility] Name: Giovanni Castro Age: 66 yrs Sex: Male : 1955 Arrival Date: 10/23/2021 Time: 13:44 Bed 18 Private MD: ED Physician Reinaldo Richey HPI: 10/23 15:20 This 66 yrs old Male presents to ER via Wheelchair with complaints of Breathing pm1 Difficulty. 15:20 The patient has shortness of breath with light activity. pm1 15:20 Onset: The symptoms/episode began/occurred 2 week(s) ago. The patient's shortness of pm1 breath is aggravated by light activity, walking, is alleviated by rest. Associated signs and symptoms: Pertinent positives: nausea, vomiting, orthopnea, Pertinent negatives: chest pain, fever. Severity of symptoms: in the emergency department the symptoms are worse. The patient has not experienced similar symptoms in the past. The patient has not recently seen a physician, has an appointment scheduled, Dr eFrro in a week. Historical: - Allergies: 14:36 No Known Allergies; iw - PMHx: 14:36 Hypertensive disorder; Hypercholesterolemia; Gout; iw 14:36 Myocardial infarction; iw - PSHx: 14:36 Coronary artery bypass graft; Coronary Angioplasty; iw - Immunization history:: Client reports having NOT received the Covid vaccine. - Social history:: Smoking status: Patient/guardian denies using tobacco, Stopped _ months ago 1. ROS: 15:20 Constitutional: Negative for fever, chills, and weight loss. pm1 15:20 Abdomen/GI: Negative for abdominal pain, nausea, vomiting, diarrhea, and constipation, Back: Negative for injury and pain, MS/Extremity: Negative for injury and deformity, Skin: Negative for injury, rash, and discoloration, Neuro: Negative for headache, weakness, numbness, tingling, and seizure. 15:20 Cardiovascular: Positive for orthopnea, Negative for chest pain, edema, palpitations. 15:20 Respiratory: Positive for shortness of breath, on exertion. Negative for cough. 15:20 All other systems are negative. Exam: 15:20 Constitutional: This is a well developed, well nourished patient who is awake, alert, pm1 and in no acute distress. Head/Face: Normocephalic, atraumatic. 15:20 Back: No spinal tenderness. No costovertebral tenderness. Full range of motion. Skin: Warm, dry with normal turgor. Normal color with no rashes, no lesions, and no evidence of cellulitis. MS/ Extremity: Pulses equal, no cyanosis. Neurovascular intact. Full, normal range of motion. 15:20 Eyes: Exam is negative for acute changes, Periorbital structures: appear normal, Extraocular movements: intact throughout, Conjunctiva: no acute changes, no injection, Sclera: no acute changes, icterus, is not appreciated. 15:20 ENT: Exam is negative for acute changes, Mouth: no acute changes, Lips: normal, moist, Oral mucosa: normal, pink and intact, moist. 15:20 Cardiovascular: Exam negative for acute changes, Rate: normal, Rhythm: regular, Pulses: no pulse deficits are appreciated, Heart sounds: normal, normal S1and S2, Edema: is not appreciated. 15:20 Respiratory: Exam negative for acute changes, respiratory distress, shortness of breath, Breath sounds: rales, that are mild, are located in both bases. 15:20 Abdomen/GI: Exam negative for acute changes, Inspection: abdomen appears normal, Palpation: abdomen is soft and non-tender, in all quadrants. 15:20 Neuro: Exam negative for acute changes, Orientation: is normal, Mentation: is normal, Motor: is normal, moves all fours. Vital Signs: 14:31 BP 113 / 90; Pulse 70; Resp 20 S; Temp 97.6; Pulse Ox 95% on R/A; Weight 90.72 kg; iw Height 5 ft. 7 in. (170.18 cm); 14:45 BP 118 / 64; Pulse 73; Resp 18; Temp 97.8; Pulse Ox 96% on R/A; sl2 15:44 BP 104 / 71; Pulse 72; Resp 18; Pulse Ox 98% on R/A; sl2 16:30 BP 116 / 94; Pulse 78; Resp 18; Pulse Ox 97% on R/A; sl2 17:00 BP 139 / 96; Pulse 82; Resp 18; Pulse Ox 95% on R/A; sl2 18:00 BP 128 / 66; Pulse 83; Resp 18; Pulse Ox 97% on R/A; sl2 18:30 BP 112 / 63; Pulse 69; Resp 18; Temp 97.9; Pulse Ox 96% on R/A; sl2 14:31 Body Mass Index 31.32 (90.72 kg, 170.18 cm) iw MDM: 14:32 Patient medically screened. binh 17:08 Data reviewed: vital signs. Data interpreted: Pulse oximetry: on room air is 98 %. pm1 Interpretation: normal. Counseling: I had a detailed discussion with the patient and/or guardian regarding: the historical points, exam findings, and any diagnostic results supporting the discharge/admit diagnosis, lab results, radiology results, the need for further work-up and treatment in the hospital. 10/23 13:56 Order name: CBC with Diff 10/23 13:56 Order name: Hepatic Function 10/23 13:56 Order name: Lipase 10/23 14:32 Order name: Basic Metabolic Panel; Complete Time: 16:00 pm1 10/23 14:32 Order name: Magnesium; Complete Time: 16:00 pm1 10/23 14:32 Order name: NT PRO-BNP; Complete Time: 16:00 pm1 10/23 14:32 Order name: PT-INR; Complete Time: 15:49 pm1 10/23 14:32 Order name: Troponin (emerg Dept Use Only); Complete Time: 16:00 pm1 10/23 16:32 Order name: SARS-COV-2 RT PCR; Complete Time: 17:30 EDMS 10/23 21:31 Order name: Glucose, Ancillary Testing EDRI 10/24 03:59 Order name: CBC with Automated Diff EDRI 10/23 13:56 Order name: IV Saline Lock; Complete Time: 13:59 10/23 13:56 Order name: Labs collected and sent; Complete Time: 13:59 10/23 14:32 Order name: XRAY Chest (1 view); Complete Time: 15:19 pm1 10/23 14:32 Order name: EKG; Complete Time: 14:33 pm1 10/23 14:32 Order name: Cardiac monitoring; Complete Time: 15:35 pm1 10/23 14:32 Order name: EKG - Nurse/Tech; Complete Time: 15:35 pm1 10/23 14:32 Order name: O2 Per Protocol; Complete Time: 15:35 pm1 10/24 04:18 Order name: Urinalysis EDRI 10/24 04:21 Order name: Hemoglobin A1c EDRI 10/24 04:27 Order name: Comprehensive Metabolic Panel EDRI 10/24 04:27 Order name: Lipid Profile EDRI 10/24 04:27 Order name: T4 Free EDRI 10/24 04:27 Order name: Magnesium EDRI 10/24 04:27 Order name: Thyroid Stimulating Hormone EDRI 10/24 07:46 Order name: Glucose, Ancillary Testing EDRI 10/23 14:32 Order name: O2 Sat Monitoring; Complete Time: 15:35 pm1 Administered Medications: 15:49 Drug: Lasix (furosemide) 40 mg Route: IVP; Site: right antecubital; sl2 18:48 Follow up: Response: No adverse reaction sl2 Disposition: 10/24 08:55 Co-signature as Attending Physician, Reinaldo Richey MD I agree with the assessment and binh plan of care. Disposition Summary: 10/23/21 17:31 Hospitalization Ordered Hospitalization Status: Inpatient Admission pm1 Condition: Stable pm1 Problem: new pm1 Symptoms: have improved pm1 Bed/Room Type: Standard pm1 Provider: Pancho Jones(10/23/21 17:51) la1 Location: Telemetry/MedSurg (Inpatient)(10/24/21 08:01) bd Room Assignment: 420(10/24/21 08:01) bd Diagnosis - Congestive heart failure exacerbation pm1 Forms: - Medication Reconciliation Form pm1 - SBAR form pm1 Signatures: Dispatcher [employer] [facility] BetzaidacaraJennifer Corey, MD MD cha Williams, Irene, Staci Platt RN, RN RN ss Mook Martin, ASSOCIATE PROFESSOR OF MATHEMATICS-C ASSOCIATE PROFESSOR OF MATHEMATICS-Cla1 Lian Lara RN RN cg Marinas, Patrick, NP DEMURRAGE AGENT pm1 Margarita Bui RN RN sl2 Corrections: (The following items were deleted from the chart) 10/23 14:06 13:56 Allergies: No Known Allergies; ss ss 14:06 13:56 Home Meds: None; ss ss 14:06 13:56 PMHx: Crohn's disease; ss ss 14:06 13:56 PSHx: Cholecystectomy; [facility] 14:06 13:56 Immunization history: Client reports receiving the 2nd dose of the Covid vaccine, [facility] 14:06 13:56 Social history: Smoking status: Patient reports the use of cigarette tobacco ss products, smokes one pack cigarettes per day. ss 14:14 13:57 Basic Metabolic Panel ordered. EDMS EDMS 16:32 15:20 CORONAVIRUS+MR.LAB.KYLEIGHZ ordered. EDMS EDMS 17:08 15:20 Cardiovascular: Positive for edema, Negative for chest pain, orthopnea, pm1 palpitations, pm1 17:51 17:31 Mook Martin pm1 la1 20:04 17:31 Telemetry/MedSurg (Inpatient) pm1 cg 20:04 17:31 pm1 cg 10/24 08:01 10/23 20:04 [facility] 10/24 08:01 10/23 20:04 ERHOLD- cg bd
--- NOTE | 2021-10-23 17:32 | ER ---
Nurse's Notes [facility] Name: Giovanni Castro Age: 66 yrs Sex: Male : 1955 Arrival Date: 10/23/2021 Time: 13:44 Bed 18 Private MD: Diagnosis: Congestive heart failure exacerbation Presentation: 10/23 14:31 Chief complaint: Patient states: has had increasing SOB on exertion since having an PR iw on Sep 20, had a stent placed , hx of quadruple bypass 20 years ago, also started vomiting yesterday , cannot hold meds down. Coronavirus screen: cough unrelated to allergies. Ebola Screen: Patient negative for fever greater than or equal to 101.5 degrees Fahrenheit, and additional compatible Ebola Virus Disease symptoms Patient denies exposure to infectious person. Patient denies travel to an Ebola-affected area in the 21 days before illness onset. No symptoms or risks identified at this time. Initial Sepsis Screen: Does the patient meet any 2 criteria? No. Patient's initial sepsis screen is negative. Does the patient have a suspected source of infection? No. Patient's initial sepsis screen is negative. Risk Assessment: Do you want to hurt yourself or someone else? Patient reports no desire to harm self or others. Onset of symptoms was September 20, 2021. 14:31 Method Of Arrival: Wheelchair iw 14:31 Acuity: HOLLIS 2 iw Triage Assessment: 15:30 Respiratory: Reports shortness of breath at rest on exertion Onset: The sl2 symptoms/episode began/occurred gradually, the patient has moderate shortness of breath. Historical: - Allergies: 14:36 No Known Allergies; iw - PMHx: 14:36 Hypertensive disorder; Hypercholesterolemia; Gout; iw 14:36 Myocardial infarction; iw - PSHx: 14:36 Coronary artery bypass graft; Coronary Angioplasty; iw - Immunization history:: Client reports having NOT received the Covid vaccine. - Social history:: Smoking status: Patient/guardian denies using tobacco, Stopped _ months ago 1. Screenin:57 Abuse screen: Denies threats or abuse. Denies injuries from another. Nutritional ss screening: No deficits noted. Tuberculosis screening: Never had TB. Fall Risk None identified. Assessment: 13:57 EENT: ss 15:33 General: Appears in no apparent distress. well groomed, well developed, Behavior is sl2 calm, cooperative, appropriate for age, Reports. Pain: Denies pain. Neuro: No deficits noted. Level of Consciousness is Oriented to person, place, time, situation, Appropriate for age Real Estate Leasing Manager are equal bilaterally Moves all extremities. Full function Gait is steady, Speech is normal, Facial symmetry appears normal. Cardiovascular: Reports fatigue, shortness of breath, Denies chest pain, Capillary refill < 3 seconds Rhythm is regular Chest pain is denied. Respiratory: Airway is patent Trachea midline Respiratory effort is even, Respiratory pattern is regular, Breath sounds with crackles bilaterally. in left posterior lower lobe, right posterior middle lobe and right posterior lower lobe. GI: No deficits noted. No signs and/or symptoms were reported involving the gastrointestinal system. : No deficits noted. No signs and/or symptoms were reported regarding the genitourinary system. EENT: No deficits noted. No signs and/or symptoms were reported regarding the EENT system. Derm: No deficits noted. No signs and/or symptoms reported regarding the dermatologic system. Musculoskeletal:. Vital Signs: 14:31 BP 113 / 90; Pulse 70; Resp 20 S; Temp 97.6; Pulse Ox 95% on R/A; Weight 90.72 kg; iw Height 5 ft. 7 in. (170.18 cm); 14:45 BP 118 / 64; Pulse 73; Resp 18; Temp 97.8; Pulse Ox 96% on R/A; sl2 15:44 BP 104 / 71; Pulse 72; Resp 18; Pulse Ox 98% on R/A; sl2 16:30 BP 116 / 94; Pulse 78; Resp 18; Pulse Ox 97% on R/A; sl2 17:00 BP 139 / 96; Pulse 82; Resp 18; Pulse Ox 95% on R/A; sl2 18:00 BP 128 / 66; Pulse 83; Resp 18; Pulse Ox 97% on R/A; sl2 18:30 BP 112 / 63; Pulse 69; Resp 18; Temp 97.9; Pulse Ox 96% on R/A; sl2 14:31 Body Mass Index 31.32 (90.72 kg, 170.18 cm) iw ED Course: 13:44 Patient arrived in ED. kc5 13:56 Triage completed. ss 14:20 Buddy Moya NP is PHCP. pm1 14:20 Reinaldo Richey MD is Attending Physician. pm1 14:37 Arm band placed on. iw 15:03 XRAY Chest (1 view) In Process Unspecified. EDMS 15:24 Margarita Bui, RN is Primary Nurse. sl2 15:24 Inserted saline lock: 22 gauge in right antecubital area, using aseptic technique. iw 15:33 Patient has correct armband on for positive identification. Bed in low position. Call sl2 light in reach. Side rails up X 1. Adult w/ patient. 15:33 No provider procedures requiring assistance completed. sl2 17:30 Mook Martin is Hospitalizing Provider. pm1 17:51 Hospitalizing Provider role handed off by Mook Martin la1 17:51 Pancho Jones MD is Hospitalizing Provider. la1 Administered Medications: 15:49 Drug: Lasix (furosemide) 40 mg Route: IVP; Site: right antecubital; sl2 18:48 Follow up: Response: No adverse reaction sl2 Outcome: 17:31 Decision to Hospitalize by Provider. pm1 11 08:46 Patient left the ED. bd Signatures: Dispatcher [employer] EDMS Jennifer Ledesma Amy Alfaro RN RN Staci White RN RN Mook Martin, COPYING MACHINE REPAIRER-C COPYING MACHINE REPAIRER-Cla1 Buddy Moya, AGNES MICROBIOLOGY SOIL SCIENTIST pm1 Margarita Bui RN RN 2 Reema Messer kc5 Corrections: (The following items were deleted from the chart) 10/23 14:06 13:56 Allergies: No Known Allergies; [facility] 14:06 13:56 Home Meds: None; [facility] 14:06 13:56 PMHx: Crohn's disease; ss 14:06 13:56 PSHx: Cholecystectomy; [facility] 14:06 13:56 Immunization history: Client reports receiving the 2nd dose of the Covid vaccine, [facility] 14:06 13:56 Social history: Smoking status: Patient reports the use of cigarette tobacco ss products, smokes one pack cigarettes per day. 14:06 13:57 General: Appears uncomfortable, Behavior is calm, cooperative, quiet, Denies ss fever, feeling ill, fatigue, chills, ss 14:06 13:57 Pain: Complains of pain in epigastric area Pain currently is 9 out of 10 on a pain scale. Quality of pain is described as aching, Pain began 2 months ago Is intermittent, 13:57 Neuro: Level of Consciousness is awake, alert, obeys commands, Oriented to person, place, time, situation, Real Estate Leasing Manager are equal bilaterally Speech is normal, Facial symmetry appears normal, :57 Respiratory: Airway is patent Respiratory effort is even, unlabored, Respiratory ss pattern is regular, symmetrical, Denies cough, shortness of breath :57 Cardiovascular: Capillary refill < 3 seconds is brisk in bilateral fingers Rhythm ss is junctional tachycardia :57 Derm: Skin is intact, is healthy with good turgor, Skin is pink, warm \\T\\ dry. ss normal, :57 GI: Reports diarrhea, nausea, vomiting, decreased appetite x 2 months [facility] :57 Inserted saline lock: 22 gauge in right antecubital area, using aseptic technique. Blood collected. :57 Patient maintains SpO2 saturation greater than 95% on room air. [facility] 13:54 Chief complaint: Patient states: "I have Crohns, so I'm not sure if this is a ss flare up or what. I haven't eaten for the past 2 months." : 13:54 Coronavirus screen: Client denies travel out of the [place] in the last 14 days. [facility] 13:54 Ebola Screen: Patient denies exposure to infectious person. Patient denies travel ss to an Ebola-affected area in the 21 days before illness onset. :54 Initial Sepsis Screen: Does the patient meet any 2 criteria? No. Patient's initial sepsis screen is negative. Does the patient have a suspected source of infection? No. Patient's initial sepsis screen is negative. : 13:54 Risk Assessment: Do you want to hurt yourself or someone else? Patient reports no desire to harm self or others. : 13:54 Onset of symptoms was July 2021 [facility] :54 Method Of Arrival: Ambulatory [facility] 13:54 BP 111 / 78; Pulse 109bpm; Resp 15bpm; Pulse Ox 98% RA; Temp 97.6F Temporal; ss Height 5 ft. 1 in.; Pain 9/10; ss 14: 13:54 Acuity: HOLLIS 3 [facility] 14: 13:56 Arm band placed on right wrist. [facility] 14: 13:57 Patient has correct armband on for positive identification. [facility] 15:33 14:30 BP 118 / 64; Pulse 73bpm; Resp 18bpm; Pulse Ox 96% RA; Temp 97.8F; sl2 sl2 16:01 15:33 Respiratory: Airway is patent Trachea midline Respiratory effort is even, sl2 Respiratory pattern is regular, Breath sounds are clear bilaterally. sl2
--- NOTE | 2021-10-23 18:54 | P.HP ---
Certification for Inpatient Patient admitted to: Observation With expected LOS: <2 Midnights Patient will require the following post-hospital care: None Practitioner: I am a practitioner with admitting privileges, knowledge of patient current condition, hospital course, and medical plan of care. Services: Services provided to patient in accordance with Admission requirements found in Title 42 Section 412.3 of the Code of Federal Regulations Patient History Date of Service: 10/23/21 Reason for admission: Dyspnea History of Present Illness: 66-year-old male with history of CAD status post CABG, borderline diabetes, hypertension, hyperlipidemia, gout presents emergency department for dyspnea on exertion, orthopnea. Patient reports symptoms began about 3 days ago. Patient also reports that he had a myocardial infarction 09/20/2021 and had a stent placement at that time. Patient not on any diuretics at home. patient was evaluated in the emergency department labs were significant for BNP 10,020 troponin 0.03, chest x-ray with moderate CHF pattern, patient with bibasilar crackles on exam. No edema to lower extremities noted. Patient was given 40 mg of IV Lasix in the emergency department and is diuresing well at this time. Emergency department provider wishes to admit for further evaluation and management of suspected new onset CHF, dyspnea on exertion, orthopnea. - Past Medical/Surgical History -: CAD -: Hypertension -: Borderline DM -: Hyperlipidemia -: Gout -: CABGfour-vessel -: Coronary angiogram with stent August 2021 Psychosocial/ Personal History: Patient works for [employer], lives with family - Family History Mother -: Heart disease, Cancer Father -: Heart disease Sister -: Cancer - Social History Smoking Status: Never smoker Alcohol use: No CD- Drugs: No Caffeine use: Yes Place of Residence: Home Review of Systems 10-point ROS is otherwise unremarkable Respiratory: Shortness of Breath, SOB with Excertion Cardiovascular: Orthopnea Physical Examination - Physical Exam General: Alert, In no apparent distress, Oriented x3 HEENT: Atraumatic, PERRLA, Mucous membr. moist/pink, EOMI, Sclerae nonicteric Neck: Supple, 2+ carotid pulse no bruit, No LAD, Without JVD or thyroid abnormality Respiratory: Diminished, Crackles/rales Cardiovascular: Regular rate/rhythm, Normal S1 S2 Gastrointestinal: Normal bowel sounds, No tenderness Musculoskeletal: No tenderness Integumentary: No rashes Neurological: Normal gait, Normal speech, Normal strength at 5/5 x4 extr, Normal tone, Normal affect Lymphatics: No axilla or inguinal lymphadenopathy - Studies Laboratory Data (last 24 hrs) 10/23/21 15:20: PT 13.1 H, INR 1.14 10/23/21 15:20: Sodium 143, Potassium 3.8, BUN 12, Creatinine 1.13, Glucose 126 H, Magnesium 2.2 10/23/21 15:20: Sodium Cancelled, Potassium Cancelled, BUN Cancelled, Creatinine Cancelled, Glucose Cancelled Assessment and Plan - Plan Assessment: Dyspnea, volume overload suspect new onset CHFunknown EF CAD s/p four-vessel CABG, angiogram with stent Borderline DM Hypertension Hyperlipidemia Gout Plan: Dyspnea, volume overload suspect new onset CHFunknown EF: 1500 cc/day fluid restriction, daily weights, Lasix IV 40 mg twice daily. Cardiology consult in place, echocardiogram ordered. Patient denies previous echocardiogram ever being performed. Obtain and continue other home medications, have initiated patient on metoprolol and lisinopril. CAD s/p four-vessel CABG, angiogram with stent: Continue Plavix, aspirin and other home medications, monitor on telemetry. Patient without any chest pain at this time. Borderline DM: Obtain A1c level with morning labs. Blood sugar not significantly elevated in ER, patient does take Metformin at home we will continue this once dose is confirmed. Hypertension: Obtain and continue medication, have started patient on beta- gigi and ANANYA inhibitor at this time. Hyperlipidemia: Continue atorvastatin 40 mg Gout: Continue allopurinol once dose is verified. DVT PPX: Lovenox Code status: Full Discharge Plan: Home Plan to discharge in: 24 Hours - Advance Directives Does patient have a Living Will: No Does patient have a Durable POA for Healthcare: No - Code Status/Comfort Care Code Status Assessed: Yes (Full code) Critical Care: No Time Spent Managing Pts Care (In Minutes): 55
[2021-10-23 19:04] LABS: Albumin 3.5 g/dL (3.4-5.0); Bilirubin Direct 0.3 mg/dL (0-0.2); Bilirubin Total 1.2 mg/dL (0.2-1.0); Protein, Total 7.6 g/dL (6.4-8.2)
[2021-10-23 20:09] LABS: Absolute Lymphocytes (CBC) 1.6 K/uL (0.7-4.9); Basophils % 0.9 % (0-1.3); Hematocrit 39.2 % (39.6-49.0); Lymphocytes % 21.4 % (15.3-44.8); MPV 8.1 fL (7.6-11.3); RBC Red Blood Cell Count 4.37 M/uL (4.33-5.43)
[2021-10-23] MEDS ORDERED: ONDANSETRON 4 MG/2 ML VIAL IV PRN (20:19)
[2021-10-24 01:53] VITALS: BMI 36.6
[2021-10-24 03:56] LABS: Absolute Lymphocytes (CBC) 1.8 K/uL (0.7-4.9); Hematocrit 37.5 % (39.6-49.0); Lymphocytes % 25.8 % (15.3-44.8); RBC Red Blood Cell Count 4.17 M/uL (4.33-5.43)
[2021-10-24 04:18] LABS: Urine Appearance Clear (Clear); Urine Bilirubin Negative (Negative); Urine Blood Negative (Negative); Urine Color Yellow (Yellow); Urine Glucose Negative (Negative); Urine Protein Negative (Negative); Urine Specific Gravity >=1.030 (1.005-1.030); Urine Urobilinogen 0.2 mg/dL (0.2-1.0); Urine pH 5.5 (5.0-7.0)
[2021-10-24 04:19] LABS: Urine Microscopic Reflex NO UMIC
[2021-10-24 04:27] LABS: Albumin 3.2 g/dL (3.4-5.0); Bilirubin Total 1.2 mg/dL (0.2-1.0); Potassium 3.4 mmol/L (3.5-5.1); Thyroid Stimulating Hormone 0.619 uIU/mL (0.360-3.740)
[2021-10-24] MEDS ORDERED: METOPROLOL TAR 25 MG TAB ONE (05:19)
[2021-10-24] MEDS ORDERED: METOPROLOL TAR 25 MG TAB PO SCH (06:00)
--- NOTE | 2021-10-24 07:07 | EKG ---
Test Date: 2021-10-23 Test Time: 14:30:14 Clock Assembler: HAYLEE MEASUREMENT RESULTS: Intervals: Rate: 71 ID: [id number] QRSD: 82 QT: 454 QTc: 493 Amity: P: 20 ID: [id number] QRS: 89 T: 136 INTERPRETIVE STATEMENTS: Sinus rhythm with 1st degree AV block with occasional premature ventricular complexes Possible Left atrial enlargement Septal infarct, age undetermined T wave abnormality, consider anterolateral ischemia Abnormal ECG No previous ECG available for comparison Electronically Signed On 10-24-21 07:04:44 SENIOR SCIENCE CONSULTANT by Domingo Franks
[2021-10-24] MEDS ORDERED: ENOXAPARIN 40 MG/0.4 ML SQ SCH (09:00)
[2021-10-24] MEDS ORDERED: lisinopriL 5 MG TAB PO SCH (09:00)
[2021-10-24] MEDS ORDERED: FUROSEMIDE 40 MG/4 ML VIAL IV SCH (09:00)
[2021-10-24] MEDS ORDERED: CLOPIDOGREL 75 MG TABLET PO SCH (09:00)
[2021-10-24] MEDS ORDERED: ASPIRIN EC 81 MG TAB PO SCH (09:00)
[2021-10-24 09:22] VITALS: O2SAT 96
[2021-10-24 12:29] VITALS: BP 130/60; TEMP 97.1
--- NOTE | 2021-10-24 14:24 | P.DS ---
Admission Date: 10/24/21 Discharge Date: 10/24/21 Disposition: ROUTINE DISCHARGE Discharge Condition: FAIR Reason for Admission: Dyspnea Consultations: Cardiology-Dr. Franks. - Problems (1) Acute systolic CHF (congestive heart failure) Current Visit: Yes Status: Acute (2) Coronary artery disease Current Visit: Yes Status: Acute (3) Essential hypertension Current Visit: Yes Status: Acute Brief History of Present Illness: 66-year-old male with history of CAD status post CABG, borderline diabetes, hypertension, hyperlipidemia, gout presented to the emergency department for dyspnea on exertion, orthopnea. Patient reports symptoms began about 3 days ago. Patient also reported that he had a myocardial infarction 09/20/2021 and had a stent placement at that time. Patient not on any diuretics at home. Patient was evaluated in the emergency department labs were significant for BNP 10,020 troponin 0.03, chest x-ray with moderate CHF pattern, patient with bibasilar crackles on exam. No edema to lower extremities noted. Patient was given 40 mg of IV Lasix in the emergency department new-onset CHF and admitted for further management. Hospital Course: Patient hospitalized to the medical floor and treated with IV Lasix for acute CHF. He was seen in consultation by cardiology. Echocardiogram was done which report that reduced LV function with EF of 40%. Patient was stable on room air. Given reduced LV function, recent history of cardiac stent, cardiology recommended adding lisinopril to his beta-gigi, aspirin and Plavix. Patient has clinically improved and ambulating without shortness of breath. He is deemed stable for discharge. Vital Signs/Physical Exam: Temp Pulse Resp BP Pulse Ox 97.1 F 63 18 130/60 96 10/24/21 12:00 10/24/21 12:00 10/24/21 12:00 10/24/21 12:00 10/24/21 12:00 General: Alert, In no apparent distress, Oriented x3 HEENT: Mucous membr. moist/pink, Sclerae nonicteric Neck: JVD not distended Respiratory: Clear to auscultation bilaterally, Normal air movement Cardiovascular: No edema, Regular rate/rhythm, Normal S1 S2, No murmurs Capillary refill: <2 Seconds Gastrointestinal: Normal bowel sounds, Soft and benign, Non-distended, No tenderness Musculoskeletal: No swelling, No tenderness Integumentary: No rashes, No erythema, No cyanosis Neurological: Normal speech, Normal strength at 5/5 x4 extr, Cranial nerves 3-12 intact Laboratory Data at Discharge: WBC 7.10 K/uL (4.3-10.9) 10/24/21 03:25 Hgb 12.7 g/dL (13.6-17.9) L 10/24/21 03:25 Hct 37.5 % (39.6-49.0) L 10/24/21 03:25 Plt Count 198 K/uL (152-406) 10/24/21 03:25 PT 13.1 SECONDS (9.5-12.5) H 10/23/21 15:20 INR 1.14 10/23/21 15:20 Sodium 145 mmol/L (136-145) 10/24/21 03:25 Potassium 3.4 mmol/L (3.5-5.1) L 10/24/21 03:25 BUN 14 mg/dL (7-18) 10/24/21 03:25 Creatinine 1.01 mg/dL (0.55-1.3) 10/24/21 03:25 Glucose 98 mg/dL (74-106) 10/24/21 03:25 Magnesium 2.0 mg/dL (1.8-2.4) 10/24/21 03:25 Total Bilirubin 1.2 mg/dL (0.2-1.0) H 10/24/21 03:25 AST 15 U/L (15-37) 10/24/21 03:25 ALT 21 U/L (12-78) 10/24/21 03:25 Alkaline Phosphatase 88 U/L (45-117) 10/24/21 03:25 Triglycerides 96 mg/dL (<150) 10/24/21 03:25 Cholesterol 129 mg/dL (<200) 10/24/21 03:25 HDL Cholesterol 35 mg/dL (40-60) L 10/24/21 03:25 Cholesterol/HDL Ratio 3.69 10/24/21 03:25 Lipase 56 U/L (73-393) L 10/23/21 15:20 Home Medications: Aspirin [Aspirin EC] 81 mg PO DAILY #30 tablet. 10/24/21 Clopidogrel Bisulfate [Plavix*] 75 mg PO DAILY #30 tablet 10/24/21 Metoprolol Tartrate [Lopressor*] 25 mg PO BID 6AM 6PM #60 tab 10/24/21 lisinopriL [Prinivil*] 5 mg PO DAILY #30 tab 10/24/21 New Medications: Aspirin [Aspirin EC] 81 mg PO DAILY #30 tablet. Metoprolol Tartrate [Lopressor*] 25 mg PO BID 6AM 6PM #60 tab Clopidogrel Bisulfate [Plavix*] 75 mg PO DAILY #30 tablet lisinopriL [Prinivil*] 5 mg PO DAILY #30 tab Diet: AHA Activity: Ad olivia Followup: Amari Brewer MD [Primary Care Provider] - 1 Week
--- NOTE | 2021-10-24 14:39 | ECHO ---
HEIGHT: 5 ft 2 in WEIGHT: 200 lb 0 oz DATE OF STUDY: 10/24/[address]: Mook Martin NP 2-DIMENSIONAL: YES M.MODE: YES DOPPLER: YES COLOR FLOW: YES TDS: NO PORTABLE: NO DEFINITY: NO BUBBLE STUDY: NO DIAGNOSIS: DYPSNEA, NEW ONSET CONGESTIVE HEART FAILURE CARDIAC HISTORY: CATHERIZATION: YES SURGERY: YES PROSTHETIC VALVE: NO PACEMAKER: NO MEASUREMENTS (cm) DIASTOLIC (NORMALS) SYSTOLIC (NORMALS) IVSd 1.1 (0.6-1.2) LA Diam 3.3 (1.9-4.0) LVEF 43% LVIDd 5.1 (3.5-5.7) LVIDs 4.0 (2.0-3.5) %FS 22% LVPWd 1.2 (0.6-1.2) Ao Diam 3.3 (2.0-3.7) 2 DIMENSIONAL ASSESSMENT: RIGHT ATRIUM: LEFT ATRIUM: RIGHT VENTRICLE: LEFT VENTRICLE: TRICUSPID VALVE: MITRAL VALVE: PULMONIC VALVE: AORTIC VALVE: PERICARDIAL EFFUSION: AORTIC ROOT: LEFT VENTRICULAR WALL MOTION: ANTEROAPICAL AKINESIS. DOPPLER/COLOR FLOW: MILD TRICUSPID REGURGITATION. COMMENTS: MILD TRICUSPID REGURGITATION - MODERATE PULMONARY HYPERTENSION - 50mmHg. ANTEROAPICAL AKINESIS. EJECTION FRACTION 43%. TECHNOLOGIST: PAVITHRA HAYES
--- NOTE | 2021-10-30 11:42 | CON ---
Date of Consultation: 10/24/2021 Reason For Consultation: Congestive heart failure. History Of Present Illness: Mr. Castro is a 66-year-old black male, has a history of hypertension, dyslipidemia, gout, coronary artery bypass surgery, and stent in the past. He has no known allergies . Comes in with shortness of breath. No chest pain, nausea, vomiting, diaphoresis, PND, or orthopne a. He had pedal edema. He had no palpitation. He had syncope. Past Medical History: As stated above. Allergies: NONE. Review of Systems: Negative. Social History: Negative. Family History: Noncontributory. Medications: His medications at home are supposed to be aspirin, Plavix, metoprolol, and lisinopril. Echocardiogram, which was done before I saw him showed an ejection fraction that was decreased at 4 3% with moderate pulmonary hypertension at 50 mmHg. Physical Examination: Vital Signs: Stable. Afebrile. HEENT: Negative. Neck: Supple. No bruit. Chest: Clear to auscultation and percussion. Cardiac: Revealed a regular rhythm and rate. No murmurs, gallops, or rubs. Abdomen: Benign. Extremities: Revealed no clubbing, cyanosis, or edema. Diagnostic Data: [place] [address] and the echocardiogram finding above. EKG s howed anterolateral ischemia and septal infarct. Chest x-ray showed congestive heart failure. Impression And Plan: 1.Acute on chronic systolic congestive heart failure. 2.Coronary artery disease. The patient should be on beta-blockers, aspirin, ANANYA inhibitor, Lasix, P lavix, and statin. He is diuresing well and he can go home whenever it is okay with Dr. Stark. I zaida begum like to see him in the office in the very near future. He may need a stress test and catheteriz ation if he continues to have congestive heart failure episodes. COLT/VANDANA Voice ID: [id number] Report ID: [id number]
== END 2021-10-24 17:43 | disposition home or self-care (01) ==
LOC: ER 13:35 → ERHOLD 18:45 → 4TH 10-24 09:18 → INTOOBSV 10-24 12:19 → OBSVTOIN 10-24 12:19
PROVIDERS: ADMIT Internal Medicine; ATTEND Internal Medicine
DX: I11.0 Hypertensive heart disease with heart failure (principal); I50.21 Acute systolic (congestive) heart failure; I25.10 Atherosclerotic heart disease of native coronary artery without angina pectoris; R73.03 Prediabetes; E78.5 Hyperlipidemia, unspecified; M10.9 Gout, unspecified; I25.2 Old myocardial infarction; Z95.5 Presence of coronary angioplasty implant and graft; Z95.1 Presence of aortocoronary bypass graft; Z20.822 Contact with and (suspected) exposure to COVID-19
CPT/HCPCS: 93005; 93306; 85025 ×2; 80048; 36415; 83735 ×2; 85610; 80061; 82947 ×2; 80076; 84443; 81003; 83036; 84484; 84439; 83690; 80053; 83880; 71045; 96374; 99284; U0003; J1940 ×2; J1650; G0378 ×3

== ENCOUNTER 2021-10-30 10:33 | Emergency (ER) | payer OTHER ==
--- OUTSIDE RECORDS SUMMARY | 2021-10-30 10:39 | XMS REPORT | Continuity of Care Document ---
:1955 Author Organization [facility] t Address [address] [place] [address] Care Team Providers Name Role Phone Rashaad [...] DA Active U 2020-11 [facility]26 [place] [facility] 00:00: [facility] [address] [facility] [address] No Known DA Active U 2020-11 [facility] 0-27 [place] 00:[place]: d 00 [facility] No Known DA Active U 2020-11 [facility] 0[facility] [place] [facility] d [facility] Medications This patient has no known medications. Procedures Procedure Date / Time Performed Performing Clinician [facility] diego [id number] 2021-10-02 00:00:00 NERISSA [facility] [id number] 2021-10-02 00:00:00 LOYPR [facility] [id number] 2021-10-02 00:00:00 LOYPR [facility] [id number] 2021-10-02 00:00:00 LOYPR [facility] [id number] 2021-10-02 00:00:00 LOYPR [facility] [id number] 2021-09-20 00:00[facility] [place] [id number] 2021-09-20 00:00:00 [facility] [id number] 2021-09-20 00:00:00 [facility] [id number] 2021-09-20 00:00:00 [facility] Encounters Start End Encounter Admission Attending Care Care Encounter Source Date/Time Date/Time Type Type Clinicians Facility Department ID 2021-09-26 2021-10-04 Inpatient EL Gahremanpou [facility] ICU BP00 [id number] [facility] 21:08:00 15:42:00 Rashaad cotton 27 [facility] 2021-09-26 2021-10-04 [facility] ICU BP28 [id number] [facility] 21:08:00 15:42:00 Rashaad cotton [id number] [facility] 2021-09-27 2021-09-27 Outpatient Gahremanpou HCANW REF BP2 [id number] [facility] 09:24:00 09:24:00 Rashaad cotton [id number] [facility] 2021-09-20 2021-09-26 Inpatient EM Luis A, HCAPM INTE [id number] [facility] 03:55:00 20:31:[address] [facility] 2021-09-20 2021-09-26 Inpatient EM Luis A, HCAPM INTE [id number] [facility] 03:55:00 20:31:[id number] [facility] Results Test Description Test Time Test Comments Results Result Comments Source GLUBED 2021-10-04 16:55:00 Test Item Value Reference Range Interpretation Comme nts GLUBED (test code = GLUBED) 126 MG/DL 70-105 H [id number] 16:55:00 Test Item Value Reference Range Interpretation Comments GLUBED (test code = GLUBED) 126 MG/DL 70-105 H WINTROBE SED [id number] 03:56:00 Test Item Value Reference Range Interpretation Comments WINTROBE SED RATE (test code = 54 mm/HR 0-10 H SEDWI) C REACTIVE [id number] 03:04:00 Test Item Value Reference Range Interpretation Comments C REACTIVE PROTEIN 15 mg/L <10 H Please no te: New (test code = CRP) Reference Range Dec 2020 BASIC METABOLIC [id number] 03:04:00 Test Item Value Reference Range Interpretation [...] New = CA) Reference Range Dec 2020 [id number] 03:04:00 Test Item Value Reference Range Interpretation Comments PHOSPHOROUS (test code 3.9 mg/dL 2.4-5.1 N Pleas e note: New = PHOS) Reference Range Dec 2020 [id number] 03:04:00 Test Item Value Reference Range Interpretation Comments MAGNESIUM (test code = 2.0 mg/dL 1.6-2.6 N Pleas e note: New MAG) Reference Range Dec 2020 CBC W/AUTO [id number] 02:29:00 Test Item Value Reference Range Interpretation [...] 0.04 x10 3/uL 0.0-0.20 N BASIC METABOLIC [id number] 12:32:00 Test Item Value Reference Range Interpretation [...] New = CA) Reference Range Dec 2020 [id number] 12:32:00 Test Item Value Reference Range Interpretation Comments PHOSPHOROUS (test code 3.5 mg/dL 2.4-5.1 N Plekatie e note: New = PHOS) Reference Range Dec 2020 [id number] 12:32:00 Test Item Value Reference Range Interpretation Comments MAGNESIUM (test code = 2.0 mg/dL 1.6-2.6 N Pleas e note: New MAG) Reference Range Dec 2020 CBC W/AUTO [id number] 12:26:00 Test Item Value Reference Range Interpretation [...] = BA#) 0.05 x10 3/uL 0.0-0.20 N [id number] 12:02:00 Test Item Value Reference Range Interpretation Comments GLUBED (test code = GLUBED) 120 MG/DL 70-105 H [id number] 21:46:00 Test Item Value Reference Range Interpretation Comments GLUBED (test code = GLUBED) 192 MG/DL 70-105 H BASIC METABOLIC [id number] 18:52:00 Test Item Value Reference Range Interpretation [...] = CA) Reference Range Dec 2020 PROTHROMBIN [id number] 18:50:00 Test Item Value Reference Range Interpretation [...] 2.5-3.5recurren t systemic emboli sm. THROMBOPLASTIN TIME [id number] 18:50:00 Test Item Value Reference Range Interpretation Comments THROMBOPLASTIN TIME 31.2 SECONDS 23.8-34.8 INTERPRE TATIVE PARTIAL (test code = DATA:Th erapeutic PTT) range: Unfractionated heparin:55 - 80 seconds Argatroban:1.5 to 3 times the basel ine PTT CBC W/AUTO [id number] 18:43:00 Test Item Value Reference Range Interpretation [...] = BA#) 0.06 x10 3/uL 0.0-0.20 N [id number] 12:40:00 Test Item Value Reference Range Interpretation Comments GLUBED (test code = GLUBED) 109 MG/DL 70-105 H COAGULATION TIME [id number] 10:47:00 Test Item Value Reference Range Interpretation Comments COAGULATION TIME ACTIVATED (test 285 SECONDS 74-137 H code = ACT) BASIC METABOLIC [id number] 04:23:00 Test Item Value Reference Range Interpretation [...] New = CA) Reference Range Dec 2020 [id number] 04:23:00 Test Item Value Reference Range Interpretation Comments PHOSPHOROUS (test code 4.6 mg/dL 2.4-5.1 N Pleas e note: New = PHOS) Reference Range Dec 2020 [id number] 04:23:00 Test Item Value Reference Range Interpretation Comments MAGNESIUM (test code = 2.2 mg/dL 1.6-2.6 N Pleas e note: New MAG) Reference Range Dec 2020 THROMBOPLASTIN TIME [id number] 04:01:00 Test Item Value Reference Range Interpretation Comments THROMBOPLASTIN TIME 73.4 SECONDS 23.8-34.8 H INTERPRE TATIVE PARTIAL (test code = DATA: erapeutic PTT) range: Unfractionated heparin:55 - 80 seconds Argatroban:1.5 to 3 times the basel ine PTT CBC W/AUTO [id number] 03:39:00 Test Item Value Reference Range Interpretation [...] = BA#) 0.08 x10 3/uL 0.0-0.20 N [id number] 23:24:00 Test Item Value Reference Range Interpretation Comments GLUBED (test code = GLUBED) 157 MG/DL 70-105 H THROMBOPLASTIN TIME [id number] 20:43:00 Test Item Value Reference Range Interpretation Comments THROMBOPLASTIN TIME 80.5 SECONDS 23.8-34.8 H INTERPRE TATIVE PARTIAL (test code = DATA:Th erapeutic PTT) range: Unfractionated heparin:55 - 80 seconds Argatroban:1.5 to 3 times the basel ine PTT THROMBOPLASTIN TIME [id number] 12:35:00 Test Item Value Reference Range Interpretation Comments THROMBOPLASTIN TIME 65.7 SECONDS 23.8-34.8 H INTERPRE TATIVE PARTIAL (test code = DATA:Th erapeutic PTT) range: Unfractionated heparin:55 - 80 seconds Argatroban:1.5 to 3 times the basel ine PTT [id number] 12:03:00 Test Item Value Reference Range Interpretation Comments GLUBED (test code = GLUBED) 94 MG/DL 70-105 N [id number] 08:02:00 Test Item Value Reference Range Interpretation Comments GLUBED (test code = GLUBED) 107 MG/DL 70-105 H - XR CHEST 1 [id number] 07:49:00 [facility] 1955 Sex: MPatient Name: MELANIE YAÑEZ Unit No: [id number] EXAMS: CPT CODE: [id number] XR CHEST 1 V [id number] Exam: Portable chest x-ray single view History: [...] Air Kerma (mGy): Trscr Dt/Tm: 10/01/2021 (0749) by:Juarez Printed Date/Time: 10/01/2021 (0752) Name: MELANIE YAÑEZ [facility] Phys: [id number] Aruna Canales APRN [address] : 1955 Age: 66 Sex: [place] [address] Loc: P.0223 1 Exam Date: 10/01/2021 Status: ADM INPH: FAX: PAGE 1 Signed ReportBASIC METABOLIC [id number] 05:23:00 Test Item Value Reference Range Interpretation [...] CA) Reference Range Dec 2020 THROMBOPLASTIN TIME [id number] 05:20:00 Test Item Value Reference Range Interpretation Comments THROMBOPLASTIN TIME 45.0 SECONDS 23.8-34.8 H INTERPRE TATIVE PARTIAL (test code = DATA: erapeutic PTT) range: Unfractionated heparin:55 - 80 seconds Argatroban:1.5 to 3 times the basel ine PTT CBC W/AUTO [id number] 05:05:00 Test Item Value Reference Range Interpretation [...] = BA#) 0.07 x10 3/uL 0.0-0.20 N [id number] 22:17:00 Test Item Value Reference Range Interpretation Comments GLUBED (test code = GLUBED) 174 MG/DL 70-105 H [id number] 18:41:00 Test Item Value Reference Range Interpretation Comments GLUBED (test code = GLUBED) 170 MG/DL 70-105 H [id number] 12:02:00 Test Item Value Reference Range Interpretation Comments GLUBED (test code = GLUBED) 110 MG/DL 70-105 H THROMBOPLASTIN TIME [id number] 11:50:00 Test Item Value Reference Range Interpretation Comments THROMBOPLASTIN TIME 48.8 SECONDS 23.8-34.8 H INTERPRE TATIVE PARTIAL (test code = DATA: erapeutic PTT) range: Unfractionated heparin:55 - 80 seconds Argatroban:1.5 to 3 times the basel ine PTT - XR CHEST 1 [id number] 08:04:00 [facility]: 1955 Sex: MPatient Name: MELANIE YAÑEZ Unit No: [id number] EXAMS: CPT CODE: [id number] XR CHEST 1 V 89381 Clinical Information: Shortness of breath. Unstable angina. [...] Printed Date/Time: 09/30/2021 (08) Name: MELANIE YAÑEZ [facility] Phys: [id number] Aruna Vargas APRN [address] : 1955 Age: 66 Sex: [place] [address] Loc: P.0223 1 Exam Date: 09/30/2021 Status: ADM IN PH: FAX: PAGE 1 Signed [id number] 07:16:00 Test Item Value Reference Range Interpretation Comments GLUBED (test code = GLUBED) 106 MG/DL 70-105 H [id number] 16:36:00 Test Item Value Reference Range Interpretation Comments GLUBED (test code = GLUBED) 138 MG/DL 70-105 H [id number] 11:16:00 Test Item Value Reference Range Interpretation Comments GLUBED (test code = GLUBED) 109 MG/DL 70-105 H - XR CHEST 1 [id number] 07:22:00 [facility] : 1955 Sex: MPatient Name: MELANIE YAÑEZ Unit No: [id number] EXAMS: CPT CODE: [id number] XR CHEST 1 V 24759 EXAMINATION: Frontal chest radiograph INDICATION:SOB COMPARISON: 09/26/2021 [...] Printed Date/Time: 09/29/2021 (0725) Name: MELANIE YAÑEZ [facility] Phys: [id number] Aruna Canales APRN [address] : 1955 Age: 66 Sex: [place] [address] Loc: P.0223 1 Exam Date: 09/29/2021 Status: ADM IN PH: FAX: PAGE 1 Signed Report COMPREHENSIVE METABOLIC [id number] 06:34:00 Test Item Value Reference Range Interpretation [...] Reference Range Feb code = ALKP) 2020 [id number] 06:34:00 Test Item Value Reference Range Interpretation Comments PHOSPHOROUS (test code 3.7 mg/dL 2.4-5.1 N Pleas e note: New = PHOS) Reference Range Dec 2020 [id number] 06:34:00 Test Item Value Reference Range Interpretation Comments MAGNESIUM (test code = 2.1 mg/dL 1.6-2.6 N Pleas e note: New MAG) Reference Range Dec 2020 RECOLLECTCBC W/AUTO [id number] 06:15:00 Test Item Value Reference Range Interpretation [...] BA#) 0.07 x10 3/uL 0.0-0.20 N RECOLLECTPROTHROMBIN [id number] 06:14:00 Test Item Value Reference Range Interpretation [...] 2.5-3.5recurren t systemic emboli sm. RECOLLECTTHROMBOPLASTIN TIME [id number] 06:14:00 Test Item Value Reference Range Interpretation Comments THROMBOPLASTIN TIME 63.8 SECONDS 23.8-34.8 H INTERPRE TATIVE PARTIAL (test code = DATA:Th erapeutic PTT) range: Unfractionated heparin:55 - 80 seconds Argatroban:1.5 to 3 times the basel ine PTT [id number] 21:40:00 Test Item Value Reference Range Interpretation Comments GLUBED (test code = GLUBED) 139 MG/DL 70-105 H THROMBOPLASTIN TIME [id number] 18:30:00 Test Item Value Reference Range Interpretation Comments THROMBOPLASTIN TIME 65.3 SECONDS 23.8-34.8 H INTERPRE TATIVE PARTIAL (test code = DATA: erapeutic PTT) range: Unfractionated heparin:55 - 80 seconds Argatroban:1.5 to 3 times the basel ine PTT [id number] 17:04:00 Test Item Value Reference Range Interpretation Comments GLUBED (test code = GLUBED) 112 MG/DL 70-105 H THROMBOPLASTIN TIME [id number] 12:35:00 Test Item Value Reference Range Interpretation Comments THROMBOPLASTIN TIME 65.5 SECONDS 23.8-34.8 H INTERPRE TATIVE PARTIAL (test code = DATA: erapeutic PTT) range: Unfractionated heparin:55 - 80 seconds Argatroban:1.5 to 3 times the basel ine PTT [id number] 11:55:00 Test Item Value Reference Range Interpretation Comments GLUBED (test code = GLUBED) 110 MG/DL 70-105 H Covid 19 InHouse [id number] 11:17:00 Test Item Value Reference Range Interpretation Comments Covid 19 Negative Negative A negative resu lt does not InHouse NTX preclude the SA RS-COV-2 (test code = viralinfection and should not be [id number]) used as the so le basis forpatient [...] performancechar acteristics were determined by Tangela brizuela [facility]. Thi s test has notbeen FDA [...] congregate care setting? No? NoAge at collection: [id number] 07:47:00 Test Item Value Reference Range Interpretation Comments GLUBED (test code = GLUBED) 103 MG/DL 70-105 N PROTHROMBIN [id number] 05:41:00 Test Item Value Reference Range Interpretation [...] 2.5-3.5recurren t systemic emboli sm. THROMBOPLASTIN TIME [id number] 05:41:00 Test Item Value Reference Range Interpretation Comments THROMBOPLASTIN TIME 54.0 SECONDS 23.8-34.8 H INTERPRE TATIVE PARTIAL (test code = DATA: erapeutic PTT) range: Unfractionated heparin:55 - 80 seconds Argatroban:1.5 to 3 times the basel ine PTT BASIC METABOLIC [id number] 04:46:00 Test Item Value Reference Range Interpretation [...] CA) Reference Range Dec 2020 COMPREHENSIVE METABOLIC [id number] 04:46:00 Test Item Value Reference Range Interpretation [...] code = ALKP) Reference Range Dec 2020 [id number] 04:46:00 Test Item Value Reference Range Interpretation Comments PHOSPHOROUS (test code 3.0 mg/dL 2.4-5.1 N Pleas e note: New = PHOS) Reference Range Dec 2020 [id number] 04:46:00 Test Item Value Reference Range Interpretation Comments MAGNESIUM (test code = 2.2 mg/dL 1.6-2.6 N Pleas e note: New MAG) Reference Range Dec 2020 CBC W/AUTO [id number] 03:26:00 Test Item Value Reference Range Interpretation [...] = BA#) 0.10 x10 3/uL 0.0-0.20 N [id number] 21:09:00 Test Item Value Reference Range Interpretation Comments GLUBED (test code = GLUBED) 149 MG/DL 70-105 H THROMBOPLASTIN TIME [id number] 20:01:00 Test Item Value Reference Range Interpretation Comments THROMBOPLASTIN TIME 45.2 SECONDS 23.8-34.8 H INTERPRE TATIVE PARTIAL (test code = DATA:Th erapeutic PTT) range: Unfractionated heparin:55 - 80 seconds Argatroban:1.5 to 3 times the basel ine PTT [id number] 18:01:00 Test Item Value Reference Range Interpretation Comments GLUBED (test code = GLUBED) 161 MG/DL 70-105 H [id number] 17:06:00 Test Item Value Reference Range Interpretation Comments TROPONIN-I (test 98079.1 pg/mL 38.73-80.22 HH Critical V alue reported code = TROPI) toFirst Name:Vidya DAVILA Last Name:MANPREET CONWAY RNRESULTS READ BACK AND VERIFIEDby PINKY SinghRS, on 09/27/21, @ 170 6.Please note: Units and Reference Range have changedFeb 3, 2 021 Spec Comments: ADD ON TO CBCBASIC METABOLIC [id number] 16:54:00 Test Item Value Reference Range Interpretation [...] New = CA) Reference Range Dec 2020 [id number] 16:54:00 Test Item Value Reference Range Interpretation Comments PHOSPHOROUS (test code 3.5 mg/dL 2.4-5.1 N Pleas e note: New = PHOS) Reference Range Dec 2020 [id number] 16:54:00 Test Item Value Reference Range Interpretation Comments MAGNESIUM (test code = 2.3 mg/dL 1.6-2.6 N Pleas e note: New MAG) Reference Range Dec 2020 PROTHROMBIN [id number] 14:07:00 Test Item Value Reference Range Interpretation [...] 2.5-3.5recurren t systemic emboli sm. THROMBOPLASTIN TIME [id number] 14:07:00 Test Item Value Reference Range Interpretation Comments THROMBOPLASTIN TIME 27.7 SECONDS 23.8-34.8 N INTERPRE TATIVE PARTIAL (test code = DATA: erapeutic PTT) range: Unfractionated heparin:55 - 80 seconds Argatroban:1.5 to 3 times the basel ine PTT [id number] 14:07:00 Test Item Value Reference Range Interpretation Comments FIBRINOGEN (test code = FIB) 921 mg/dL 200-400 H CBC W/AUTO [id number] 13:58:00 Test Item Value Reference Range Interpretation [...] = BA#) 0.04 x10 3/uL 0.0-0.20 N [id number] 13:24:00 Test Item Value Reference Range Interpretation Comments GLUBED (test code = GLUBED) 180 MG/DL 70-105 H [id number] 06:25:00 Test Item Value Reference Range Interpretation Comments GLUBED (test code = GLUBED) 114 MG/DL 70-105 H B-TYPE NATRIURETIC [id number] 00:37:00 Test Item Value Reference Range Interpretation Comments B-TYPE NATRIURETIC PEPTIDE (test 1343 pg/mL <100 H code = BNP) COMPREHENSIVE METABOLIC [id number] 00:09:00 Test Item Value Reference Range Interpretation [...] Reference Range Feb code = ALKP) 2020 [id number] 00:09:00 Test Item Value Reference Range Interpretation Comments PHOSPHOROUS (test code 3.0 mg/dL 2.4-5.1 N Pleas e note: New = PHOS) Reference Range Dec 2020 [id number] 00:09:00 Test Item Value Reference Range Interpretation Comments MAGNESIUM (test code = 2.1 mg/dL 1.6-2.6 N Pleas e note: New MAG) Reference Range Dec 2020 THYROID STIMULATING [id number] 00:09:00 Test Item Value Reference Range Interpretation Comments THYROID STIMULATING 2.14 mIU/mL 0.55-4.78 N Please n ote: New HORMONE (test code = Referen ce Range Dec TSH) 2020 HGBA1C - GLYCOSYLATED [id number] 00:08:00 Test Item Value Reference Range Interpretation Comments GLYCOSYLATED HEMOGLOBIN 5.6 % <5.7 N Diab etic >/= (HA1C) (test code = 6.5%Pred iabetes GLYHGB) 5.7-6.4%Normal < 5.7% [id number] 23:58:00 Test Item Value Reference Range Interpretation Comments TROPONIN-I (test 71329.0 pg/mL 38.73-80.22 HH Critical V alue reported code = TROPI) toFirst Name:Rebecca GARCIA Last Name:JAD RAND READ BACK AND VERIFIEDby PINKY MANN, on 09/26/21, @ 235 8.Please note: Units and Reference Range have changedFeb 3, 2 021 PROTHROMBIN [id number] 23:47:00 Test Item Value Reference Range Interpretation [...] 2.5-3.5recurren t systemic emboli sm. THROMBOPLASTIN TIME [id number] 23:47:00 Test Item Value Reference Range Interpretation Comments THROMBOPLASTIN TIME 29.0 SECONDS 23.8-34.8 N INTERPRE TATIVE PARTIAL (test code = DATA: erapeutic PTT) range: Unfractionated heparin:55 - 80 seconds Argatroban:1.5 to 3 times the basel ine PTT LACTIC [id number] 23:43:00 Test Item Value Reference Range Interpretation Comments LACTIC ACID (test code = LACT) 0.70 mmol/L 0.5-2.0 N CBC W/AUTO [id number] 23:29:00 Test Item Value Reference Range Interpretation [...] 3/uL 0.0-0.20 N - XR CHEST 1 [id number] 23:01:00 [facility] : 1955 Sex: MPatient Name: MELANIE YAÑEZ Unit No: [id number] EXAMS: CPT CODE: [id number] XR CHEST 1 V [id number] EXAM: XR Chest 1 View INDICATION: [place] LOCATION CODE: H50 COMPARISON: None available. TECHNIQUE: [...] by:[email or web address] Printed Date/Time: 09/26/2021 (2303) Name:MELANIE YAÑEZ [facility] Phys: LISA.Chad Mcknight [address] : 1955 Age: 66 Sex: [place] [address] Loc: P.0223 1 Exam Date: 09/26/2021 Status: ADM IN PH: FAX: PAGE 1 Signed ReportCOVID 19 INHOUSE [id number] 22:38:00 Test Item Value Reference Range Interpretation Comments COVID 19 INHOUSE NEGATIVE NEGATIVE Negative re sults, from (test code = patients wit h symptom onset [id number]) beyondfive days , should be treated as [...] COVID-19. Spec Comments: ADMISSION TO [facility] W/AUTO [id number] 06:19:00 Test Item Value Reference Range Interpretation [...] NT WITH AUTO DIFFERENTI AL. BASIC METABOLIC [id number] 04:55:00 Test Item Value Reference Range Interpretation [...] CA) 8.3 MG/DL 8.5-10.1 L CBC W/AUTO [id number] 06:06:00 Test Item Value Reference Range Interpretation [...] NT WITH AUTO DIFFERENTI AL. BASIC METABOLIC [id number] 05:11:00 Test Item Value Reference Range Interpretation [...] CA) 8.4 MG/DL 8.5-10.1 L COAGULATION TIME [id number] 04:55:00 Test Item Value Reference Range Interpretation Comments COAGULATION TIME ACTIVATED (test 211 SECistat 74-125 H code = ACT) CBC W/AUTO [id number] 06:52:00 Test Item Value Reference Range Interpretation [...] code NO DIFF/SCN CRITERIA = MDIFF) RBC [id number] 06:52:00 Test Item Value Reference Range Interpretation [...] NORMAL (test code = PLTMORPH) BASIC METABOLIC [id number] 04:52:00 Test Item Value Reference Range Interpretation [...] CA) 8.8 MG/DL 8.5-10.1 N THROMBOPLASTIN TIME [id number] 22:37:00 Test Item Value Reference Range Interpretation Comments THROMBOPLASTIN TIME PARTIAL 51.4 SECONDS 26-35 H (test code = PTT) THROMBOPLASTIN TIME [id number] 15:30:00 Test Item Value Reference Range Interpretation Comments THROMBOPLASTIN TIME PARTIAL 37.4 SECONDS 26-35 H (test code = PTT) CBC W/AUTO [id number] 06:34:00 Test Item Value Reference Range Interpretation [...] NT WITH AUTO DIFFERENTI AL. BASIC METABOLIC [id number] 06:19:00 Test Item Value Reference Range Interpretation [...] CA) 8.7 MG/DL 8.5-10.1 N THROMBOPLASTIN TIME [id number] 06:14:00 Test Item Value Reference Range Interpretation Comments THROMBOPLASTIN TIME PARTIAL 45.0 SECONDS 26-35 H (test code = PTT) THROMBOPLASTIN TIME [id number] 00:06:00 Test Item Value Reference Range Interpretation Comments THROMBOPLASTIN TIME PARTIAL 70.6 SECONDS 26-35 H (test code = PTT) THROMBOPLASTIN TIME [id number] 16:17:00 Test Item Value Reference Range Interpretation Comments THROMBOPLASTIN TIME PARTIAL 218.3 SECONDS 26-35 HH (test code = PTT) CBC W/AUTO [id number] 06:16:00 Test Item Value Reference Range Interpretation [...] NT WITH AUTO DIFFERENTI AL. BASIC METABOLIC [id number] 05:27:00 Test Item Value Reference Range Interpretation [...] CA) 8.5 MG/DL 8.5-10.1 N THROMBOPLASTIN TIME [id number] 05:24:00 Test Item Value Reference Range Interpretation Comments THROMBOPLASTIN TIME PARTIAL 33.2 SECONDS 26-35 N (test code = PTT) THROMBOPLASTIN TIME [id number] 11:48:00 Test Item Value Reference Range Interpretation Comments THROMBOPLASTIN TIME PARTIAL 46.7 SECONDS 26-35 H (test code = PTT) CBC W/AUTO [id number] 06:40:00 Test Item Value Reference Range Interpretation [...] NT WITH AUTO DIFFERENTI AL. THROMBOPLASTIN TIME [id number] 04:51:00 Test Item Value Reference Range Interpretation Comments THROMBOPLASTIN TIME PARTIAL 49.3 SECONDS 26-35 H (test code = PTT) COMPREHENSIVE METABOLIC [id number] 04:51:00 Test Item Value Reference Range Interpretation [...] LIPOPROTEIN LDL 82 MG/DL 0-129 N <100 EXOBNAK598 - (test code = LDL) 129 LYNDA R OPTIMAL/ABOVE [id number] - 15 9 [id number] - 189 HIGH>OR= 190 VERY HIGHNOTE THAT [...] result as normal/abnormal . Comment: fastingTHROMBOPLASTIN TIME [id number] 21:50:00 Test Item Value Reference Range Interpretation Comments THROMBOPLASTIN TIME PARTIAL 51.1 SECONDS 26-35 H (test code = PTT) GLYCOSYLATED HEMOGLOBIN [id number] 14:04:00 Test Item Value Reference Range Interpretation Comments GLYCOSYLATED HEMOGLOBIN (HA1C) 5.8 % A1C 0.0-5.7 H (test code = GLYHGB) ESTIMATED AVERAGE GLUCOSE (test 120 MG/DLest code = EAG) NT PRO-BRAIN NATRIURETIC [id number] 13:58:00 Test Item Value Reference Range Interpretation Comments NT PRO-BRAIN NATRIURETIC PEPTI 885 PG/ML 0-100 H (test code = PROBNP) DRUGS OF ABUSE SCREEN [id number] 13:52:00 Test Item Value Reference Range Interpretation [...] this result as normal/abnormal . THROMBOPLASTIN TIME [id number] 13:47:00 Test Item Value Reference Range Interpretation Comments THROMBOPLASTIN TIME PARTIAL 97.6 SECONDS 26-35 H (test code = PTT) NT PRO-BRAIN NATRIURETIC [id number] 03:52:00 Test Item Value Reference Range Interpretation Comments NT PRO-BRAIN NATRIURETIC PEPTI (test 59 PG/ML 0-100 N code = PROBNP) Completed by Nursing: [id number] 03:52:00 Test Item Value Reference Range Interpretation [...] Completed by Nursing: NOCOVID 19 Asymptomatic IH [id number] 03:52:00 Test Item Value Reference Range Interpretation [...] symptoms consis tent with COVID-19. COMPREHENSIVE METABOLIC [id number] 03:52:00 Test Item Value Reference Range Interpretation [...] (test code = ALKP) Completed by Nursing: [id number] 03:52:00 Test Item Value Reference Range Interpretation Comments MAGNESIUM (test code = MAG) 2.0 MG/DL 1.8-2.4 N Completed by Nursing: NOPROTHROMBIN [id number] 03:42:00 Test Item Value Reference Range Interpretation [...] o prevent recurre nt infarct). THROMBOPLASTIN TIME [id number] 03:42:00 Test Item Value Reference Range Interpretation Comments THROMBOPLASTIN TIME PARTIAL 31.0 SECONDS 26-35 N (test code = PTT) CBC W/AUTO [id number] 03:37:00 Test Item Value Reference Range Interpretation [...] CRITERIA = MDIFF) - XR CHEST 1 [id number] 03:25:00 [facility] 1955 Sex: M Name: MELANIE YAÑEZ [facility] ED : 1955ge/S: 66 / M [id number] Unit #: [id number] Loc: [place] [address] Phys: Annalise Matthews MD Acct: [id number] Dis Date: Status: REG ER PHONE#: [phone] Exam Date: 09/20/2021309 FAX #: Reason: chest pain EXAMS: CPT: [id number] XR CHEST 1 V 77781 Fluoro Time: DAP (Gy m2): Air Kerma [...] YAÑEZ : 1955 Age/S: 66 / M [id number] Unit #: [id number] Loc: [place] [address] Phys: Annalise Matthews MD Acct: [id number] Dis Date: Status: REG ER PHONE #: [phone] Exam Date:09/20/2021 0310 FAX #: Reason: chest pain EXAMS: CPT: [id number] XR CHEST 1 V 17616 Fluoro Time: DAP (Gy m2): Air Kerma (mGy): <Continued> Technologist: Bo Keenan RT(R) Trnscb Date/Time: 09/20/2021 (324) [email or web address] Orig Print D/T: S:09/20/2021 (0328) PAGE 2 Signed Report
[2021-10-30 11:25] LABS: Protime INR 1.07
[2021-10-30 11:33] LABS: Absolute Lymphocytes (CBC) 1.3 K/uL (0.7-4.9); Basophils % 1.5 % (0-1.3); Hematocrit 36.2 % (39.6-49.0); Lymphocytes % 19.4 % (15.3-44.8); MPV 8.5 fL (7.6-11.3); RBC Red Blood Cell Count 4.05 M/uL (4.33-5.43)
--- NOTE | 2021-10-30 11:57 | RAD REPORT ---
EXAM DESCRIPTION: RAD - Chest Single View - 10/30/2021 11:45 am CLINICAL HISTORY: DYSPNEA Chest pain. COMPARISON: Chest Single View dated 10/23/2021; Chest Pa And Lat (2 Views) dated 01/29/2020 FINDINGS: Portable technique limits examination quality. [id number]-[id number] bilateral interstitial lung opacities are present. The heart is mildly enlarged in s ize with changes of a prior CABG. No displaced fractures. IMPRESSION: Mild to moderate CHF pattern.
[2021-10-30] MEDS ORDERED: FUROSEMIDE 100 MG/10 ML VIAL IV ONE (12:19)
[2021-10-30 12:41] LABS: Albumin 3.4 g/dL (3.4-5.0); Bilirubin Direct 0.2 mg/dL (0-0.2); Bilirubin Total 0.9 mg/dL (0.2-1.0); Magnesium 2.1 mg/dL (1.8-2.4); Potassium 3.9 mmol/L (3.5-5.1); Protein, Total 7.1 g/dL (6.4-8.2); Troponin (Emerg Dept Use Only) 0.03 ng/mL (0.0-0.045)
--- NOTE | 2021-10-30 13:49 | ER ---
Nurse's Notes [facility] Name: Giovanni Castro Age: 66 yrs Sex: Male : 1955 Arrival Date: 10/30/2021 Time: 10:34 Bed 6 Private MD: Diagnosis: Acute systolic (congestive) heart failure Presentation: 10/30 10:30 Chief complaint: Patient states: SOB past few days. Coronavirus screen: At this time, iw the client does not indicate any symptoms associated with coronavirus-19. Ebola Screen: Patient negative for fever greater than or equal to 101.5 degrees Fahrenheit, and additional compatible Ebola Virus Disease symptoms Patient denies exposure to infectious person. Patient denies travel to an Ebola-affected area in the 21 days before illness onset. No symptoms or risks identified at this time. Initial Sepsis Screen: Does the patient meet any 2 criteria? No. Patient's initial sepsis screen is negative. Does the patient have a suspected source of infection? No. Patient's initial sepsis screen is negative. Risk Assessment: Do you want to hurt yourself or someone else? Patient reports no desire to harm self or others. Onset of symptoms was October 27, 2021. 10:30 Method Of Arrival: Wheelchair iw 10:30 Acuity: HOLLIS 3 iw Triage Assessment: 11:00 General: Appears in no apparent distress. Behavior is calm, cooperative, appropriate ll1 for age. Pain: Denies pain. Neuro: No deficits noted. Cardiovascular: No deficits noted. Respiratory: Reports shortness of breath at rest Breath sounds are diminished Onset: The symptoms/episode began/occurred yesterday, the patient has mild shortness of breath. Historical: - Allergies: 10:42 No Known Allergies; ll1 - PMHx: 10:42 Hypercholesterolemia; Gout; Hypertensive disorder; Myocardial infarction; ll1 - PSHx: 10:42 Coronary Angioplasty; Coronary artery bypass graft; ll1 - Immunization history:: Adult Immunizations up to date. - Social history:: Smoking status: Patient denies any tobacco usage or history of. Screenin:07 Abuse screen: Denies threats or abuse. Nutritional screening: No deficits noted. ll1 Tuberculosis screening: No symptoms or risk factors identified. Fall Risk IV access (20 points). Total Kwok Fall Scale indicates No Risk (0-24 pts). Assessment: 12:00 Reassessment: No changes from previously documented assessment. Patient and/or family ll1 updated on plan of care and expected duration. Pain level reassessed. Patient is alert, oriented x 3, equal unlabored respirations, skin warm/dry/pink. Cardiovascular: Rhythm is regular. Respiratory: Airway is patent Trachea midline Respiratory effort is even, unlabored, Respiratory pattern is regular, symmetrical. 12:26 Reassessment: No changes from previously documented assessment. Patient and/or family ll1 updated on plan of care and expected duration. Pain level reassessed. Patient is alert, oriented x 3, equal unlabored respirations, skin warm/dry/pink. 13:00 Reassessment: No changes from previously documented assessment. Patient and/or family ll1 updated on plan of care and expected duration. Pain level reassessed. Patient is alert, oriented x 3, equal unlabored respirations, skin warm/dry/pink. 14:00 Reassessment: No changes from previously documented assessment. Patient and/or family ll1 updated on plan of care and expected duration. Pain level reassessed. Patient is alert, oriented x 3, equal unlabored respirations, skin warm/dry/pink. Vital Signs: 10:54 BP 90 / 72; Pulse 64; Resp 20; Temp 97.9; Pulse Ox 94% on R/A; Weight 90.72 kg; Height em1 5 ft. 7 in. (170.18 cm); Pain 0/10; 12:05 BP 108 / 77; Pulse 63; Resp 19; Pulse Ox 96% on R/A; ll1 13:28 BP 106 / 71; Pulse 63; ll1 10:54 Body Mass Index 31.32 (90.72 kg, 170.18 cm) em1 ED Course: 10:34 Patient arrived in ED. kc5 10:40 Mark Castanon PA is PHCP. jr8 10:40 Reinaldo Richey MD is Attending Physician. jr8 10:42 Kranthi Gonzales, BREN is Primary Nurse. ll1 10:42 Arm band placed on Patient placed in an exam room, on a stretcher. ll1 11:01 Triage completed. iw 11:20 Inserted saline lock: 22 gauge in right hand, using aseptic technique. Blood collected. ll1 11:45 XRAY Chest (1 view) In Process Unspecified. EDMS 12:07 Patient has correct armband on for positive identification. Bed in low position. Call ll1 light in reach. Side rails up X 1. Pulse ox on. NIBP on. 13:48 Domingo Franks MD is Referral Physician. jr8 14:01 No provider procedures requiring assistance completed. IV discontinued, intact, ll1 bleeding controlled, No redness/swelling at site. Pressure dressing applied. Administered Medications: 12:26 Drug: Lasix (furosemide) 60 mg Route: IVP; Site: right hand; ll1 14:01 Follow up: Response: No adverse reaction 1 Output: 13:27 Urine: 550ml (Voided); Total: 550ml. ll1 Outcome: 13:48 Discharge ordered by . jr8 14: Discharged to home ambulatory. 1 14:01 Condition: stable 14:01 Discharge instructions given to patient, Instructed on discharge instructions, follow up and referral plans. medication usage, Demonstrated understanding of instructions, follow-up care, medications, Prescriptions given X 2. 14:01 Patient left the ED. 1 Signatures: Dispatcher [employer] EDNV Amy Alfaro, RN Filiberto Britt1 Mark Csatanon PA PA jr8 Kranthi Gonzales RN RN ll1 Reema Messer kc5
--- NOTE | 2021-10-30 13:49 | EDPHYS ---
Physician Documentation [facility] Name: Giovanni Castro Age: 66 yrs Sex: Male : 1955 Arrival Date: 10/30/2021 Time: 10:34 Bed 6 Private MD: ED Physician Reinaldo Richey HPI: 10/30 11:22 This 66 yrs old Male presents to ER via Wheelchair with complaints of Breathing jr8 Difficulty. 11:22 Duration: The symptoms are continuous. The patient's shortness of breath is aggravated jr8 by light activity. Associated signs and symptoms: The patient has no apparent associated signs or symptoms. Severity of symptoms: At their worst the symptoms were mild in the emergency department the symptoms are unchanged. The patient has experienced a previous episode. The patient has been recently seen by a physician:. This is a 66-year-old male patient who presented to the emergency room with 2-day onset of increased shortness of breath with exertion and when laying flat at night. Patient was recently admitted and discharged for congestive heart failure. Historical: - Allergies: 10:42 No Known Allergies; ll1 - PMHx: 10:42 Hypercholesterolemia; Gout; Hypertensive disorder; Myocardial infarction; ll1 - PSHx: 10:42 Coronary Angioplasty; Coronary artery bypass graft; ll1 - Immunization history:: Adult Immunizations up to date. - Social history:: Smoking status: Patient denies any tobacco usage or history of. ROS: 11:42 Eyes: Negative for injury, pain, redness, and discharge, ENT: Negative for injury, jr8 pain, and discharge, Neck: Negative for injury, pain, and swelling, Cardiovascular: Negative for chest pain, palpitations, and edema, Abdomen/GI: Negative for abdominal pain, nausea, vomiting, diarrhea, and constipation, Back: Negative for injury and pain, MS/Extremity: Negative for injury and deformity, Skin: Negative for injury, rash, and discoloration, Neuro: Negative for headache, weakness, numbness, tingling, and seizure. 11:42 Respiratory: Positive for dyspnea on exertion, orthopnea, shortness of breath. Exam: 11:42 Constitutional: This is a well developed, well nourished patient who is awake, alert, jr8 and in no acute distress. Cardiovascular: Regular rate and rhythm with a normal S1 and S2. No gallops, murmurs, or rubs. Normal PMI, no JVD. No pulse deficits. 11:42 Neck: Trachea midline, no thyromegaly or masses palpated, and no cervical lymphadenopathy. Supple, full range of motion without nuchal rigidity, or vertebral point tenderness. No Meningismus. Abdomen/GI: Soft, non-tender, with normal bowel sounds. No distension or tympany. No guarding or rebound. No evidence of tenderness throughout. Back: No spinal tenderness. No costovertebral tenderness. Full range of motion. Skin: Warm, dry with normal turgor. Normal color with no rashes, no lesions, and no evidence of cellulitis. Neuro: Awake and alert, GCS 15, oriented to person, place, time, and situation. Cranial nerves II-XII grossly intact. Motor strength 5/5 in all extremities. Sensory grossly intact. 11:42 Respiratory: the patient does not display signs of respiratory distress, Respirations: tachypnea, that is mild, Breath sounds: rales, that are mild, are located in both bases. Vital Signs: 10:54 BP 90 / 72; Pulse 64; Resp 20; Temp 97.9; Pulse Ox 94% on R/A; Weight 90.72 kg; Height em1 5 ft. 7 in. (170.18 cm); Pain 0/10; 12:05 BP 108 / 77; Pulse 63; Resp 19; Pulse Ox 96% on R/A; ll1 13:28 BP 106 / 71; Pulse 63; ll1 10:54 Body Mass Index 31.32 (90.72 kg, 170.18 cm) em1 MDM: 10:40 Patient medically screened. [facility] 13:30 Data reviewed: vital signs, nurses notes, lab test result(s), EKG, radiologic studies, jr8 plain films. Data interpreted: Pulse oximetry: on room air is 96 %. Interpretation: normal. Counseling: I had a detailed discussion with the patient and/or guardian regarding: the historical points, exam findings, and any diagnostic results supporting the discharge/admit diagnosis, lab results, radiology results, the need for outpatient follow up, a tractor driver, to return to the emergency department if symptoms worsen or persist or if there are any questions or concerns that arise at home. ED course: Patient feeling better after being diuresed. Able to ambulate to bathroom and back without any increased work of breathing. Oxygen remains 96-98 on room air. Will send home to follow-up with cardiology today and will place him on diuretics as his recent echo does show left ventricular dysfunction with an LVEF of 43%.. 10/30 10:52 Order name: Basic Metabolic Panel; Complete Time: 12:49 jr8 10/30 10:52 Order name: CBC with Diff; Complete Time: 11:43 8 10/30 10:52 Order name: LFT's; Complete Time: 12:49 8 10/30 10:52 Order name: Magnesium; Complete Time: 12:49 8 10/30 10:52 Order name: NT PRO-BNP; Complete Time: 12:49 8 10/30 10:52 Order name: PT-INR; Complete Time: 11:43 10/30 10:52 Order name: Troponin (emerg Dept Use Only); Complete Time: 12:49 8 10/30 10:52 Order name: XRAY Chest (1 view); Complete Time: 11:59 10/30 10:52 Order name: EKG; Complete Time: 10:52 10/30 10:52 Order name: Cardiac monitoring; Complete Time: 12:05 10/30 10:52 Order name: EKG - Nurse/Tech; Complete Time: 12:05 10/30 10:52 Order name: IV Saline Lock; Complete Time: 10:57 10/30 10:52 Order name: Labs collected and sent; Complete Time: 10:57 10/30 10:52 Order name: O2 Per Protocol; Complete Time: 10:57 10/30 10:52 Order name: O2 Sat Monitoring; Complete Time: 10:57 Administered Medications: 12:26 Drug: Lasix (furosemide) 60 mg Route: IVP; Site: right hand; ll1 14:01 Follow up: Response: No adverse reaction ll1 Disposition: 10/31 06:53 Co-signature as Attending Physician, Reinaldo Richey MD I agree with the assessment and binh plan of care. Disposition Summary: 10/30/21 13:48 Discharge Ordered Location: Home jr Problem: new jr8 Symptoms: have improved jr8 Condition: Stable jr8 Diagnosis - Acute systolic (congestive) heart failure jr8 Followup: jr8 - With: Domingo Franks MD - When: 24 Hours - Reason: Recheck today's complaints, Continuance of care, Re-evaluation by your physician Discharge Instructions: - Discharge Summary Sheet jr8 - Heart Failure, Diagnosis jr8 Forms: - Medication Reconciliation Form jr8 - Thank You Letter jr8 - Antibiotic Education jr8 - Prescription Opioid Use jr8 Prescriptions: - Lasix 20 mg Oral Tablet - take 1 tablet by ORAL route 2 times per day; 40 tablet; Refills: 0, Product jr8 Selection Permitted - Potassium Chloride 10 mEq Oral capsule, extended release - take 1 tablet by ORAL route every 12 hours; 40 tablet; Refills: 0, Product jr8 Selection Permitted Signatures: Dispatcher [employer] EDMS Reinaldo Richey MD MD cha Roszak, Josh, PA PA jr8 Kranthi Gonzales RN RN ll1
[2021-10-30 14:14] VITALS: TEMP 97.9
[2021-10-30 14:15] VITALS: O2SAT 96
[2021-10-30 14:16] VITALS: BP 106/71
--- NOTE | 2021-10-31 13:06 | EKG ---
Test Date: 2021-10-30 Test Time: 11:17:45 Manager Of Internal Audit: BRETT MEASUREMENT RESULTS: Intervals: Rate: 69 TN: 198 QRSD: 84 QT: 454 QTc: 486 [place]: P: 11 TN: 198 QRS: 113 T: 170 INTERPRETIVE STATEMENTS: Sinus rhythm with occasional premature ventricular complexes Right axis deviation ST & T wave abnormality, consider anterolateral ischemia Prolonged QT Abnormal ECG Compared to ECG 10/23/2021 14:30:14 Right-axis deviation now present ST (T wave) deviation now present Prolonged QT interval now present First degree AV block no longer present Myocardial infarct finding no longer present T-wave abnormality no longer present Possible ischemia still present Electronically Signed On 10-31-21 13:02:56 SPINNING OPERATOR by Domingo Franks
== END 2021-10-30 14:01 | disposition home or self-care (01) ==
LOC: ER 10:33
DX: I50.21 Acute systolic (congestive) heart failure (principal); I10 Essential (primary) hypertension; Z95.1 Presence of aortocoronary bypass graft
CPT/HCPCS: 36415; 71045; 80048; 80076; 83735; 83880; 84484; 85025; 85610; 93005; 96374; 99284

== ENCOUNTER 2022-02-27 10:02 | Inpatient (IN) | payer OTHER ==
--- OUTSIDE RECORDS SUMMARY | 2022-02-27 10:07 | XMS REPORT | Continuity of Care Document ---
:1955 Author Organization [facility] t Address [address] [place] [address] Care Team Providers Name Role Phone Luis Alberto Jin Attending Clinician Unavailable Luis A Attending Clinician Unavailable Luis Alberto Jin Admitting Clinician Unavailable Physician, Primary or Family Admitting Clinician Unavailabl e Luis A Admitting Clinician Unavailable Payers Payer Name Policy Type Policy Number Effective Date Expiration Date S ource Problems This patient has no known problems. Allergies, Adverse Reactions, Alerts Allergy Allergy Status Severity Reaction(s) Onset Inactive Treating Comm ents Source Name Type Date Date Clinician No Known DA Active U 2020-11 [facility] 11-26 [place] 00:[facility]: [facility] 00 are [facility] No Known DA Active U 2020-11 [facility] 0[facility] No Known DA Active U 2020-11 [facility] 0-27 [place] [facility] Medications This patient has no known medications. Procedures Procedure Date / Time Performed Performing Clinician [facility] diego [id number] 2021-10-02 00:00:00 LOYPR [facility] [id number] 2021-10-02 00:00:[address] [facility] [id number] 2021-10-02 00:00:00 LOYPR [facility] [id number] 2021-10-02 00:00:00 LOYPR [facility] [id number] 2021-10-02 00:00:00 LOYPR [facility] [id number] 2021-09-20 00:00:00 [facility] [id number] [id number] [id number] 2021-09-20 00:00:00 [facility] Encounters Start End Encounter Admission Attending Care Care Encounter Source Date/Time Date/Time Type Type Clinicians Facility Department ID 2021-09-26 2021-10-04 [facility] BP00 [id number] [facility] 21:08:00 15:42:00 Rashaad cotton 27 [facility] 2021-09-26 2021-10-04 Inpatient EL [facility] ICU BP28 [id number] [facility] 21:08:00 15:42:00 Rashaad cotton [id number] [facility] 2021-09-27 2021-09-27 [facility] REF BP2 [id number] [facility] 09:24:00 09:24:00 Hattie cottonr [id number] [facility] 2021-09-20 2021-09-26 Inpatient EM Luis A, HCAPM INTE [id number] [facility] 03:55:00 20:31:00 Oladipo 25 [facility] 2021-09-20 2021-09-26 Inpatient EM Luis A, HCAPM INTE [id number] [facility] 03:55:00 20:31:00 Oladipo [id number] [facility] Results Test Description Test Time Test Comments Results Result Comments Source GLUBED 2021-10-04 16:55:00 Test Item Value Reference Range Interpretation Comme nts GLUBED (test code = GLUBED) 126 MG/DL 70-105 H [id number] 16:55:00 Test Item Value Reference Range Interpretation Comments GLUBED (test code = GLUBED) 126 MG/DL 70-105 H WINTROBE SED [id number] 03:56:00 Test Item Value Reference Range Interpretation Comments WINTROBE SED RATE (test code = 54 mm/HR 0-10 H SEDWI) C REACTIVE [id number] 03:04:00 Test Item Value Reference Range Interpretation Comments C REACTIVE PROTEIN 15 mg/L <10 H Please no te: New (test code = CRP) Reference Range Dec 2020 BASIC METABOLIC [id number] 03:04:00 Test Item Value Reference Range Interpretation [...] New = CA) Reference Range Dec 2020 [id number] 03:04:00 Test Item Value Reference Range Interpretation Comments PHOSPHOROUS (test code 3.9 mg/dL 2.4-5.1 N Pleas e note: New = PHOS) Reference Range Dec 2020 [id number] 03:04:00 Test Item Value Reference Range Interpretation Comments MAGNESIUM (test code = 2.0 mg/dL 1.6-2.6 N Pleas e note: New MAG) Reference Range Dec 2020 CBC W/AUTO [id number] 02:29:00 Test Item Value Reference Range Interpretation [...] 0.04 x10 3/uL 0.0-0.20 N BASIC METABOLIC [id number] 12:32:00 Test Item Value Reference Range Interpretation [...] New = CA) Reference Range Dec 2020 [id number] 12:32:00 Test Item Value Reference Range Interpretation Comments PHOSPHOROUS (test code 3.5 mg/dL 2.4-5.1 N Plekatie e note: New = PHOS) Reference Range Dec 2020 [id number] 12:32:00 Test Item Value Reference Range Interpretation Comments MAGNESIUM (test code = 2.0 mg/dL 1.6-2.6 N Pleas e note: New MAG) Reference Range Dec 2020 CBC W/AUTO [id number] 12:26:00 Test Item Value Reference Range Interpretation [...] = BA#) 0.05 x10 3/uL 0.0-0.20 N [id number] 12:02:00 Test Item Value Reference Range Interpretation Comments GLUBED (test code = GLUBED) 120 MG/DL 70-105 H [id number] 21:46:00 Test Item Value Reference Range Interpretation Comments GLUBED (test code = GLUBED) 192 MG/DL 70-105 H BASIC METABOLIC [id number] 18:52:00 Test Item Value Reference Range Interpretation [...] = CA) Reference Range Dec 2020 PROTHROMBIN [id number] 18:50:00 Test Item Value Reference Range Interpretation [...] 2.5-3.5recurren t systemic emboli sm. THROMBOPLASTIN TIME [id number] 18:50:00 Test Item Value Reference Range Interpretation Comments THROMBOPLASTIN TIME 31.2 SECONDS 23.8-34.8 INTERPRE TATIVE PARTIAL (test code = DATA: erapeutic PTT) range: Unfractionated heparin:55 - 80 seconds Argatroban:1.5 to 3 times the basel ine PTT CBC W/AUTO [id number] 18:43:00 Test Item Value Reference Range Interpretation [...] = BA#) 0.06 x10 3/uL 0.0-0.20 N [id number] 12:40:00 Test Item Value Reference Range Interpretation Comments GLUBED (test code = GLUBED) 109 MG/DL 70-105 H COAGULATION TIME [id number] 10:47:00 Test Item Value Reference Range Interpretation Comments COAGULATION TIME ACTIVATED (test 285 SECONDS 74-137 H code = ACT) BASIC METABOLIC [id number] 04:23:00 Test Item Value Reference Range Interpretation [...] New = CA) Reference Range Dec 2020 [id number] 04:23:00 Test Item Value Reference Range Interpretation Comments PHOSPHOROUS (test code 4.6 mg/dL 2.4-5.1 N Pleas e note: New = PHOS) Reference Range Dec 2020 [id number] 04:23:00 Test Item Value Reference Range Interpretation Comments MAGNESIUM (test code = 2.2 mg/dL 1.6-2.6 N Pleas e note: New MAG) Reference Range Dec 2020 THROMBOPLASTIN TIME [id number] 04:01:00 Test Item Value Reference Range Interpretation Comments THROMBOPLASTIN TIME 73.4 SECONDS 23.8-34.8 H INTERPRE TATIVE PARTIAL (test code = DATA: erapeutic PTT) range: Unfractionated heparin:55 - 80 seconds Argatroban:1.5 to 3 times the basel ine PTT CBC W/AUTO [id number] 03:39:00 Test Item Value Reference Range Interpretation [...] = BA#) 0.08 x10 3/uL 0.0-0.20 N [id number] 23:24:00 Test Item Value Reference Range Interpretation Comments GLUBED (test code = GLUBED) 157 MG/DL 70-105 H THROMBOPLASTIN TIME [id number] 20:43:00 Test Item Value Reference Range Interpretation Comments THROMBOPLASTIN TIME 80.5 SECONDS 23.8-34.8 H INTERPRE TATIVE PARTIAL (test code = DATA:Th erapeutic PTT) range: Unfractionated heparin:55 - 80 seconds Argatroban:1.5 to 3 times the basel ine PTT THROMBOPLASTIN TIME [id number] 12:35:00 Test Item Value Reference Range Interpretation Comments THROMBOPLASTIN TIME 65.7 SECONDS 23.8-34.8 H INTERPRE TATIVE PARTIAL (test code = DATA:Th erapeutic PTT) range: Unfractionated heparin:55 - 80 seconds Argatroban:1.5 to 3 times the basel ine PTT [id number] 12:03:00 Test Item Value Reference Range Interpretation Comments GLUBED (test code = GLUBED) 94 MG/DL 70-105 N [id number] 08:02:00 Test Item Value Reference Range Interpretation Comments GLUBED (test code = GLUBED) 107 MG/DL 70-105 H - XR CHEST 1 [id number] 07:49:[facility] 1955 Sex: MPatient Name: MELANIE YAÑEZ Unit No: [id number] EXAMS: CPT CODE: [id number] XR CHEST 1 V [id number] Exam: Portable chest x-ray single view History: [...] Printed Date/Time: 10/01/2021 (0752) Name: MELANIE YAÑEZ [facility] Phys: [id number] - Aruna Padilla APRN [address] : 1955 Age: 66 Sex: [place] [address] Loc: P.0223 1 Exam Date: 10/01/2021 Status: ADM INPH: FAX: PAGE 1 Signed ReportBASIC METABOLIC [id number] 05:23:00 Test Item Value Reference Range Interpretation [...] Ne w NITROGEN (test Reference Ran ge Dec code = BUN) 2020 GLOMERULAR >=60 max [...] CA) Reference Range Dec 2020 THROMBOPLASTIN TIME [id number] 05:20:00 Test Item Value Reference Range Interpretation Comments THROMBOPLASTIN TIME 45.0 SECONDS 23.8-34.8 H INTERPRE TATIVE PARTIAL (test code = DATA: erapeutic PTT) range: Unfractionated heparin:55 - 80 seconds Argatroban:1.5 to 3 times the basel ine PTT CBC W/AUTO [id number] 05:05:00 Test Item Value Reference Range Interpretation [...] = BA#) 0.07 x10 3/uL 0.0-0.20 N [id number] 22:17:00 Test Item Value Reference Range Interpretation Comments GLUBED (test code = GLUBED) 174 MG/DL 70-105 H [id number] 18:41:00 Test Item Value Reference Range Interpretation Comments GLUBED (test code = GLUBED) 170 MG/DL 70-105 H [id number] 12:02:00 Test Item Value Reference Range Interpretation Comments GLUBED (test code = GLUBED) 110 MG/DL 70-105 H THROMBOPLASTIN TIME [id number] 11:50:00 Test Item Value Reference Range Interpretation Comments THROMBOPLASTIN TIME 48.8 SECONDS 23.8-34.8 H INTERPRE TATIVE PARTIAL (test code = DATA: erapeutic PTT) range: Unfractionated heparin:55 - 80 seconds Argatroban:1.5 to 3 times the basel ine PTT - XR CHEST 1 [id number] 08:04:00 [facility] 1955 Sex: MPatient Name: MELANIE YAÑEZ Unit No: [id number] EXAMS: CPT CODE: [id number] XR CHEST 1 V 21328 Clinical Information: Shortness of breath. Unstable angina. [...] prior day. 3. Postoperative chest with cardiomegaly. t 0804 Reported and signed by: JEFF BROUSSARD M.D. CC: Rashaad Jin MD; Aruna Padilla Technologist: Mitzy Brooks Time: DAP (Gy m2): Air Kerma (mGy): Trscr Dt/Tm: 09/30/2021 (0804) by:BronwynAGV Printed Date/Time: 09/30/2021 (08) Name: MELANIE YAÑEZ [facility] Phys: WRIJAruna Dykes APRN [address] : 1955 Age: 66 Sex: [place] [address] Loc: P.0223 1 Exam Date: 09/30/2021 Status: ADM IN PH: FAX: PAGE 1 Signed [id number] 07:16:00 Test Item Value Reference Range Interpretation Comments GLUBED (test code = GLUBED) 106 MG/DL 70-105 H [id number] 16:36:00 Test Item Value Reference Range Interpretation Comments GLUBED (test code = GLUBED) 138 MG/DL 70-105 H [id number] 11:16:00 Test Item Value Reference Range Interpretation Comments GLUBED (test code = GLUBED) 109 MG/DL 70-105 H - XR CHEST 1 [id number] 07:22:00 [facility] 1955 Sex: MPatient Name: MELANIE YAÑEZ Unit No: [id number] EXAMS: CPT CODE: [id number] XR CHEST 1 V 49675 EXAMINATION: Frontal chest radiograph INDICATION:SOB COMPARISON: 09/26/2021 [...] Printed Date/Time: 09/29/2021 (0725) Name: MELANIE YAÑEZ [facility] Phys: [id number] Aruna Canales APRN [address] : 1955 Age: 66 Sex: [place] [address] Loc: P.0223 1 Exam Date: 09/29/2021 Status: ADM IN PH: FAX: PAGE 1 Signed Report COMPREHENSIVE METABOLIC [id number] 06:34:00 Test Item Value Reference Range Interpretation [...] note: Ne w PHOSPHATASE (test Reference Range Dec code = ALKP) 2020 [id number] 06:34:00 Test Item Value Reference Range Interpretation Comments PHOSPHOROUS (test code 3.7 mg/dL 2.4-5.1 N Pleas e note: New = PHOS) Reference Range Dec 2020 [id number] 06:34:00 Test Item Value Reference Range Interpretation Comments MAGNESIUM (test code = 2.1 mg/dL 1.6-2.6 N Pleas e note: New MAG) Reference Range Dec 2020 RECOLLECTCBC W/AUTO [id number] 06:15:00 Test Item Value Reference Range Interpretation [...] BA#) 0.07 x10 3/uL 0.0-0.20 N RECOLLECTPROTHROMBIN [id number] 06:14:00 Test Item Value Reference Range Interpretation [...] 2.5-3.5recurren t systemic emboli sm. RECOLLECTTHROMBOPLASTIN TIME [id number] 06:14:00 Test Item Value Reference Range Interpretation Comments THROMBOPLASTIN TIME 63.8 SECONDS 23.8-34.8 H INTERPRE TATIVE PARTIAL (test code = DATA:Th erapeutic PTT) range: Unfractionated heparin:55 - 80 seconds Argatroban:1.5 to 3 times the basel ine PTT [id number] 21:40:00 Test Item Value Reference Range Interpretation Comments GLUBED (test code = GLUBED) 139 MG/DL 70-105 H THROMBOPLASTIN TIME [id number] 18:30:00 Test Item Value Reference Range Interpretation Comments THROMBOPLASTIN TIME 65.3 SECONDS 23.8-34.8 H INTERPRE TATIVE PARTIAL (test code = DATA: erapeutic PTT) range: Unfractionated heparin:55 - 80 seconds Argatroban:1.5 to 3 times the basel ine PTT [id number] 17:04:00 Test Item Value Reference Range Interpretation Comments GLUBED (test code = GLUBED) 112 MG/DL 70-105 H THROMBOPLASTIN TIME [id number] 12:35:00 Test Item Value Reference Range Interpretation Comments THROMBOPLASTIN TIME 65.5 SECONDS 23.8-34.8 H INTERPRE TATIVE PARTIAL (test code = DATA: erapeutic PTT) range: Unfractionated heparin:55 - 80 seconds Argatroban:1.5 to 3 times the basel ine PTT [id number] 11:55:00 Test Item Value Reference Range Interpretation Comments GLUBED (test code = GLUBED) 110 MG/DL 70-105 H Covid 19 InHouse [id number] 11:17:00 Test Item Value Reference Range Interpretation Comments Covid 19 Negative Negative A negative resu lt does not InHouse NTX preclude the SA RS-COV-2 (test code = viralinfection and should not be [id number]) used as the so le basis forpatient [...] performancechar acteristics were determined by Tangela brizuela [facility]. Thi s test has notbeen FDA olga [...] congregate care setting? No? NoAge at collection: [id number] 07:47:00 Test Item Value Reference Range Interpretation Comments GLUBED (test code = GLUBED) 103 MG/DL 70-105 N PROTHROMBIN [id number] 05:41:00 Test Item Value Reference Range Interpretation [...] 2.5-3.5recurren t systemic emboli sm. THROMBOPLASTIN TIME [id number] 05:41:00 Test Item Value Reference Range Interpretation Comments THROMBOPLASTIN TIME 54.0 SECONDS 23.8-34.8 H INTERPRE TATIVE PARTIAL (test code = DATA: erapeutic PTT) range: Unfractionated heparin:55 - 80 seconds Argatroban:1.5 to 3 times the basel ine PTT BASIC METABOLIC [id number] 04:46:00 Test Item Value Reference Range Interpretation [...] CA) Reference Range Dec 2020 COMPREHENSIVE METABOLIC [id number] 04:46:00 Test Item Value Reference Range Interpretation [...] code = ALKP) Reference Range Dec 2020 [id number] 04:46:00 Test Item Value Reference Range Interpretation Comments PHOSPHOROUS (test code 3.0 mg/dL 2.4-5.1 N Pleas e note: New = PHOS) Reference Range Dec 2020 [id number] 04:46:00 Test Item Value Reference Range Interpretation Comments MAGNESIUM (test code = 2.2 mg/dL 1.6-2.6 N Pleas e note: New MAG) Reference Range Dec 2020 CBC W/AUTO [id number] 03:26:00 Test Item Value Reference Range Interpretation [...] = BA#) 0.10 x10 3/uL 0.0-0.20 N [id number] 21:09:00 Test Item Value Reference Range Interpretation Comments GLUBED (test code = GLUBED) 149 MG/DL 70-105 H THROMBOPLASTIN TIME [id number] 20:01:00 Test Item Value Reference Range Interpretation Comments THROMBOPLASTIN TIME 45.2 SECONDS 23.8-34.8 H INTERPRE TATIVE PARTIAL (test code = DATA:Th erapeutic PTT) range: Unfractionated heparin:55 - 80 seconds Argatroban:1.5 to 3 times the basel ine PTT [id number] 18:01:00 Test Item Value Reference Range Interpretation Comments GLUBED (test code = GLUBED) 161 MG/DL 70-105 H [id number] 17:06:00 Test Item Value Reference Range Interpretation Comments TROPONIN-I (test 27490.1 pg/mL 38.73-80.22 HH Critical V alue reported code = TROPI) toFirst Name:Vidya LOLA Last Name:MANPREET CONWAY RNRESULTS READ BACK AND VERIFIEDby PINKY BLANCO, on 09/27/21, @ 170 6.Please note: Units and Reference Range have changedFeb 3, 2 021 Spec Comments: ADD ON TO CBCBASIC METABOLIC [id number] 16:54:00 Test Item Value Reference Range Interpretation [...] New = CA) Reference Range Dec 2020 [id number] 16:54:00 Test Item Value Reference Range Interpretation Comments PHOSPHOROUS (test code 3.5 mg/dL 2.4-5.1 N Pleas e note: New = PHOS) Reference Range Dec 2020 [id number] 16:54:00 Test Item Value Reference Range Interpretation Comments MAGNESIUM (test code = 2.3 mg/dL 1.6-2.6 N Pleas e note: New MAG) Reference Range Dec 2020 PROTHROMBIN [id number] 14:07:00 Test Item Value Reference Range Interpretation [...] 2.5-3.5recurren t systemic emboli sm. THROMBOPLASTIN TIME [id number] 14:07:00 Test Item Value Reference Range Interpretation Comments THROMBOPLASTIN TIME 27.7 SECONDS 23.8-34.8 N INTERPRE TATIVE PARTIAL (test code = DATA:Th erapeutic PTT) range: Unfractionated heparin:55 - 80 seconds Argatroban:1.5 to 3 times the basel ine PTT [id number] 14:07:00 Test Item Value Reference Range Interpretation Comments FIBRINOGEN (test code = FIB) 921 mg/dL 200-400 H CBC W/AUTO [id number] 13:58:00 Test Item Value Reference Range Interpretation [...] = BA#) 0.04 x10 3/uL 0.0-0.20 N [id number] 13:24:00 Test Item Value Reference Range Interpretation Comments GLUBED (test code = GLUBED) 180 MG/DL 70-105 H [id number] 06:25:00 Test Item Value Reference Range Interpretation Comments GLUBED (test code = GLUBED) 114 MG/DL 70-105 H B-TYPE NATRIURETIC [id number] 00:37:00 Test Item Value Reference Range Interpretation Comments B-TYPE NATRIURETIC PEPTIDE (test 1343 pg/mL <100 H code = BNP) COMPREHENSIVE METABOLIC [id number] 00:09:00 Test Item Value Reference Range Interpretation [...] Reference Range Feb code = ALKP) 2020 [id number] 00:09:00 Test Item Value Reference Range Interpretation Comments PHOSPHOROUS (test code 3.0 mg/dL 2.4-5.1 N Pleas e note: New = PHOS) Reference Range Dec 2020 [id number] 00:09:00 Test Item Value Reference Range Interpretation Comments MAGNESIUM (test code = 2.1 mg/dL 1.6-2.6 N Pleas e note: New MAG) Reference Range Dec 2020 THYROID STIMULATING [id number] 00:09:00 Test Item Value Reference Range Interpretation Comments THYROID STIMULATING 2.14 mIU/mL 0.55-4.78 N Please n ote: New HORMONE (test code = Referen ce Range Dec TSH) 2020 HGBA1C - GLYCOSYLATED [id number] 00:08:00 Test Item Value Reference Range Interpretation Comments GLYCOSYLATED HEMOGLOBIN 5.6 % <5.7 N Diab etic >/= (HA1C) (test code = 6.5%Pred iabetes GLYHGB) 5.7-6.4%Normal < 5.7% [id number] 23:58:00 Test Item Value Reference Range Interpretation Comments TROPONIN-I (test 13042.0 pg/mL 38.73-80.22 HH Critical V alue reported code = TROPI) toFirst Name:Rebecca FELDMANABENA Last Name:JAD RAND READ BACK AND VERIFIEDby PINKY MANN, on 09/26/21, @ 235 8.Please note: Units and Reference Range have changedFeb 3, 2 021 PROTHROMBIN [id number] 23:47:00 Test Item Value Reference Range Interpretation [...] 2.5-3.5recurren t systemic emboli sm. THROMBOPLASTIN TIME [id number] 23:47:00 Test Item Value Reference Range Interpretation Comments THROMBOPLASTIN TIME 29.0 SECONDS 23.8-34.8 N INTERPRE TATIVE PARTIAL (test code = DATA: erapeutic PTT) range: Unfractionated heparin:55 - 80 seconds Argatroban:1.5 to 3 times the basel ine PTT LACTIC [id number] 23:43:00 Test Item Value Reference Range Interpretation Comments LACTIC ACID (test code = LACT) 0.70 mmol/L 0.5-2.0 N CBC W/AUTO [id number] 23:29:00 Test Item Value Reference Range Interpretation [...] 3/uL 0.0-0.20 N - XR CHEST 1 [id number] 23:01:00 [facility] 1955 Sex: MPatient Name: MELANIE YÑAEZ Unit No: [id number] EXAMS: CPT CODE: [id number] XR CHEST 1 V [id number] EXAM: XR Chest 1 View INDICATION: AK LOCATION CODE: H50 COMPARISON: None available. TECHNIQUE: [...] 09/26/2021 (2300) by:[email or web address] Printed Date/Time: 09/26/2021 (2303) Name:OTILIOMELANIE GRAHAM [facility] Phys: Chad Valdez [address] : 1955 Age: 66 Sex: [place] [address] Loc: P.0223 1 Exam Date: 09/26/2021 Status: ADM IN PH: FAX: PAGE 1 Signed ReportCOVID 19 INHOUSE [id number] 22:38:00 Test Item Value Reference Range Interpretation Comments COVID 19 INHOUSE NEGATIVE NEGATIVE Negative re sults, from (test code = patients wit h symptom onset [id number]) beyondfive days , should be treated as [...] COVID-19. Spec Comments: ADMISSION TO [facility] W/AUTO [id number] 06:19:00 Test Item Value Reference Range Interpretation [...] NT WITH AUTO DIFFERENTI AL. BASIC METABOLIC [id number] 04:55:00 Test Item Value Reference Range Interpretation [...] CA) 8.3 MG/DL 8.5-10.1 L CBC W/AUTO [id number] 06:06:00 Test Item Value Reference Range Interpretation [...] NT WITH AUTO DIFFERENTI AL. BASIC METABOLIC [id number] 05:11:00 Test Item Value Reference Range Interpretation [...] CA) 8.4 MG/DL 8.5-10.1 L COAGULATION TIME [id number] 04:55:00 Test Item Value Reference Range Interpretation Comments COAGULATION TIME ACTIVATED (test 211 SECistat 74-125 H code = ACT) CBC W/AUTO [id number] 06:52:00 Test Item Value Reference Range Interpretation [...] code NO DIFF/SCN CRITERIA = MDIFF) RBC [id number] 06:52:00 Test Item Value Reference Range Interpretation [...] NORMAL (test code = PLTMORPH) BASIC METABOLIC [id number] 04:52:00 Test Item Value Reference Range Interpretation [...] CA) 8.8 MG/DL 8.5-10.1 N THROMBOPLASTIN TIME [id number] 22:37:00 Test Item Value Reference Range Interpretation Comments THROMBOPLASTIN TIME PARTIAL 51.4 SECONDS 26-35 H (test code = PTT) THROMBOPLASTIN TIME [id number] 15:30:00 Test Item Value Reference Range Interpretation Comments THROMBOPLASTIN TIME PARTIAL 37.4 SECONDS 26-35 H (test code = PTT) CBC W/AUTO [id number] 06:34:00 Test Item Value Reference Range Interpretation [...] DIFF REQUIRED NO DIFF/SCN CRITERIA SLIDE R BRISEIDAW (test code = MDIFF) CONSISTA NT WITH AUTO DIFFERENTI AL. BASIC METABOLIC [id number] 06:19:00 Test Item Value Reference Range Interpretation [...] CA) 8.7 MG/DL 8.5-10.1 N THROMBOPLASTIN TIME [id number] 06:14:00 Test Item Value Reference Range Interpretation Comments THROMBOPLASTIN TIME PARTIAL 45.0 SECONDS 26-35 H (test code = PTT) THROMBOPLASTIN TIME [id number] 00:06:00 Test Item Value Reference Range Interpretation Comments THROMBOPLASTIN TIME PARTIAL 70.6 SECONDS 26-35 H (test code = PTT) THROMBOPLASTIN TIME [id number] 16:17:00 Test Item Value Reference Range Interpretation Comments THROMBOPLASTIN TIME PARTIAL 218.3 SECONDS 26-35 HH (test code = PTT) CBC W/AUTO [id number] 06:16:00 Test Item Value Reference Range Interpretation [...] NT WITH AUTO DIFFERENTI AL. BASIC METABOLIC [id number] 05:27:00 Test Item Value Reference Range Interpretation [...] CA) 8.5 MG/DL 8.5-10.1 N THROMBOPLASTIN TIME [id number] 05:24:00 Test Item Value Reference Range Interpretation Comments THROMBOPLASTIN TIME PARTIAL 33.2 SECONDS 26-35 N (test code = PTT) THROMBOPLASTIN TIME [id number] 11:48:00 Test Item Value Reference Range Interpretation Comments THROMBOPLASTIN TIME PARTIAL 46.7 SECONDS 26-35 H (test code = PTT) CBC W/AUTO [id number] 06:40:00 Test Item Value Reference Range Interpretation [...] NT WITH AUTO DIFFERENTI AL. THROMBOPLASTIN TIME [id number] 04:51:00 Test Item Value Reference Range Interpretation Comments THROMBOPLASTIN TIME PARTIAL 49.3 SECONDS 26-35 H (test code = PTT) COMPREHENSIVE METABOLIC [id number] 04:51:00 Test Item Value Reference Range Interpretation [...] LIPOPROTEIN LDL 82 MG/DL 0-129 N <100 [id number] - (test code = LDL) 129 LYNDA R OPTIMAL/ABOVE [id number] - 15 9 [id number] - 189 HIGH>OR= 190 VERY HIGHNOTE THAT [...] result as normal/abnormal . Comment: fastingTHROMBOPLASTIN TIME [id number] 21:50:00 Test Item Value Reference Range Interpretation Comments THROMBOPLASTIN TIME PARTIAL 51.1 SECONDS 26-35 H (test code = PTT) GLYCOSYLATED HEMOGLOBIN [id number] 14:04:00 Test Item Value Reference Range Interpretation Comments GLYCOSYLATED HEMOGLOBIN (HA1C) 5.8 % A1C 0.0-5.7 H (test code = GLYHGB) ESTIMATED AVERAGE GLUCOSE (test 120 MG/DLest code = EAG) NT PRO-BRAIN NATRIURETIC [id number] 13:58:00 Test Item Value Reference Range Interpretation Comments NT PRO-BRAIN NATRIURETIC PEPTI 885 PG/ML 0-100 H (test code = PROBNP) DRUGS OF ABUSE SCREEN [id number] 13:52:00 Test Item Value Reference Range Interpretation [...] this result as normal/abnormal . THROMBOPLASTIN TIME [id number] 13:47:00 Test Item Value Reference Range Interpretation Comments THROMBOPLASTIN TIME PARTIAL 97.6 SECONDS 26-35 H (test code = PTT) NT PRO-BRAIN NATRIURETIC [id number] 03:52:00 Test Item Value Reference Range Interpretation Comments NT PRO-BRAIN NATRIURETIC PEPTI (test 59 PG/ML 0-100 N code = PROBNP) Completed by Nursing: [id number] 03:52:00 Test Item Value Reference Range Interpretation [...] Completed by Nursing: NOCOVID 19 Asymptomatic IH [id number] 03:52:00 Test Item Value Reference Range Interpretation Comments COVID 19 Asymptomatic NEGATIVE Negative Per amaris nufacturer, IH AG (test code = negative [...] symptoms consis tent with COVID-19. COMPREHENSIVE METABOLIC [id number] 03:52:00 Test Item Value Reference Range Interpretation [...] (test code = ALKP) Completed by Nursing: [id number] 03:52:00 Test Item Value Reference Range Interpretation Comments MAGNESIUM (test code = MAG) 2.0 MG/DL 1.8-2.4 N Completed by Nursing: NOPROTHROMBIN [id number] 03:42:00 Test Item Value Reference Range Interpretation [...] o prevent recurre nt infarct). THROMBOPLASTIN TIME [id number] 03:42:00 Test Item Value Reference Range Interpretation Comments THROMBOPLASTIN TIME PARTIAL 31.0 SECONDS 26-35 N (test code = PTT) CBC W/AUTO [id number] 03:37:00 Test Item Value Reference Range Interpretation [...] CRITERIA = MDIFF) - XR CHEST 1 [id number] 03:25:00 [facility] 1955 Sex: M Name: MELANIE YAÑEZ [facility] : 1955ge/S: 66 / M [id number] Unit #: [id number] Loc: [place] [address] Phys: Annalise Matthews MD Acct: [id number] Dis Date: Status: REG ER PHONE#: [phone] Exam Date: 09/20/2021309 FAX #: Reason: chest pain EXAMS: CPT: [id number] XR CHEST 1 V 63653 Fluoro Time: DAP (Gy m2): Air Kerma [...] YAÑEZ : 1955 Age/S: 66 / M [id number] Unit #: [id number] Loc: [place] [address] Phys: Annalise Matthews MD Acct: [id number] Dis Date: Status: REG ER PHONE #: [phone] Exam Date:09/20/2021 0310 FAX #: Reason: chest pain EXAMS: CPT: [id number] XR CHEST 1 V 28318 Fluoro Time: DAP (Gy m2): Air Kerma (mGy): <Continued> Technologist: Bo Keenan RT(R) Trnscb Date/Time: 09/20/2021 (324) [email or web address] Orig Print D/T: S:09/20/2021 (0328) PAGE 2 Signed Report
[2022-02-27] MEDS ORDERED: ONDANSETRON 4 MG/2 ML VIAL ONE ×3 (11:46→18:46)
[2022-02-27] MEDS ORDERED: HYDROMORPHONE HCL 1 MG/ML INJ ONE ×2 (11:46→13:45)
[2022-02-27 11:51] LABS: Absolute Lymphocytes (CBC) 1.5 K/uL (0.7-4.9); Hematocrit 36.7 % (39.6-49.0); Lymphocytes % 19.4 % (15.3-44.8); MPV 7.6 fL (7.6-11.3)
[2022-02-27 12:13] LABS: Albumin 3.3 g/dL (3.4-5.0); Bilirubin Total 1.2 mg/dL (0.2-1.0); Potassium 3.9 mmol/L (3.5-5.1); Protein, Total 7.4 g/dL (6.4-8.2)
[2022-02-27 12:26] LABS: Anisocytosis 1+; Blood Morphology Comment NOTED (NOT SEEN); Platelet Estimate ADEQ; Poikilocytosis SLIGHT; Polychromasia 1+; White Blood Cell Scan OK (OK)
--- NOTE | 2022-02-27 13:04 | RAD REPORT ---
EXAM DESCRIPTION: CTAbdomen Pelvis W Contrast - 02/27/2022 12:51 pm CLINICAL HISTORY: Abdominal pain. ABD PAIN COMPARISON: No comparisons TECHNIQUE: Biphasic CT imaging of the abdomen and pelvis was performed with 100 ml non-ionic IV cont rast. All CT scans are performed using dose optimization technique as appropriate and may include automated exposure control or mA/KV adjustment according to patient size. FINDINGS: The lung bases are clear.4.5 x 2 cm area of thrombus is seen within the apex of the left v entricle. Small right pleural effusion. Haziness is seen surrounding the gallbladder. No free intraperitoneal a ir. Mild diffuse fatty liver is present. The spleen, pancreas, adrenal glands and kidneys show no acute p rocess. Mild free fluid is seen in the abdomen and pelvis. No bowel obstruction is evident. The appendix is n ormal. Atherosclerosis. No evidence of significant lymphadenopathy. Mild lumbar degenerative changes. IMPRESSION: 4.5 x 2 cm area of thrombus in the apex of the left ventricle. This may be related to pr ior infarct/LV pseudoaneurysm. Recommend follow-up up echocardiography. Small right pleural effusion and mild free fluid in the abdomen and pelvis. Prominent fatty liver. Haziness surrounding the gallbladder is seen without significant gallbladder distension. If the patie nt has right upper quadrant symptoms, gallbladder ultrasound could be useful.
--- NOTE | 2022-02-27 13:10 | RAD REPORT ---
EXAM DESCRIPTION: USExtremity Venous Uni Ltd02/27/2022 12:25 pm CLINICAL HISTORY: Right leg pain and swelling. COMPARISON: None. FINDINGS: Right common femoral, superficial femoral, popliteal and right posterior tibial veins are compressible and demonstrate augmentation. Doppler demonstrates good flow. 7 x 1.8 centimeter fluid collection right groin extending inferiorly Grayscale, color and spectral analysis performed on all vessels IMPRESSION: No evidence of deep venous thrombosis involving the right lower extremity. 7 x 1.8 centimeter fluid collection right 1 extending inferiorly likely a hematoma
[2022-02-27] MEDS ORDERED: ACETAMINOPHEN 500 MG TAB PO PRN (13:32)
[2022-02-27 13:42] LABS: Urine Blood Negative (Negative); Urine Glucose Negative (Negative); Urine Protein 2+ (Negative); Urine Specific Gravity >=1.030 (1.005-1.030)
[2022-02-27] MEDS ORDERED: NA CHLORIDE 0.9% 1,000 ML IV SCH (14:00)
--- NOTE | 2022-02-27 14:09 | RAD REPORT ---
EXAM DESCRIPTION: US - Abdomen Exam Limited - 02/27/2022 2:00 pm CLINICAL HISTORY: ABD PAIN COMPARISON: No comparisons FINDINGS: The gallbladder demonstrates no gallstones. Gallbladder wall thickening is present measuri ng up to 7 mm. The common bile duct is normal measuring 4 mm. The liver demonstrates no findings of intrahepatic biliary dilatation. IMPRESSION: Thickened gallbladder wall is seen without stones evident. This is a nonspecific findin g but can be seen with underlying hepatic dysfunction or hypoalbuminemia.
[2022-02-27 14:12] LABS: Urine Bacteria <20 /HPF (NONE SEEN); Urine Mucus 2+ /HPF (NONE SEEN); Urine RBC <5 /HPF (NONE SEEN)
--- NOTE | 2022-02-27 14:16 | ER ---
Nurse's Notes [facility] Name: Giovanni Castro Age: 66 yrs Sex: Male : 1955 Arrival Date: 02/27/2022 Time: 10:06 Bed 26 Private MD: Diagnosis: Left ventricular mural thrombus, abdominal pain Presentation: 02/27 10:30 Chief complaint: Patient states: he is experiencing abdominal and knee pain for approx ap3 2 weeks now. Patient states he visited his PCP Saturday, and was informed that he would need to be evaluated if his symptoms did not improve. Patient states he isn't improving and is feeling worse. Coronavirus screen: At this time, the client does not indicate any symptoms associated with coronavirus-19. Ebola Screen: No symptoms or risks identified at this time. Initial Sepsis Screen: Does the patient meet any 2 criteria? HR > 90 bpm. Does the patient have a suspected source of infection? No. Patient's initial sepsis screen is negative. Risk Assessment: Do you want to hurt yourself or someone else? Patient reports no desire to harm self or others. Onset of symptoms was February 13, 2022. 10:30 Method Of Arrival: Wheelchair ap3 10:30 Acuity: HOLLIS 2 ap3 Triage Assessment: 10:35 General: Appears distressed, Behavior is calm, cooperative, appropriate for age. Pain: ap3 Complains of pain in abdomen, and right knee Pain currently is 8 out of 10 on a pain scale. Pain began gradually. Neuro: Level of Consciousness is awake, alert, obeys commands, Oriented to person, place, time, situation, Appropriate for age Speech is normal. Cardiovascular: Patient's skin is warm and dry. Respiratory: Airway is patent Respiratory effort is even, unlabored, Respiratory pattern is tachypnea. GI: Reports lower abdominal pain, upper abdominal pain, intolerance of fluids, intolerance of food, nausea. Historical: - Allergies: 10:33 No Known Allergies; ap3 - Home Meds: 14:08 furosemide 20 mg Oral tab [Active]; amiodarone 200 mg Oral tab [Active]; atorvastatin jd3 80 mg oral tab [Active]; carvedilol 3.125 mg oral tab [Active]; Eliquis 5 mg oral tab [Active]; furosemide 40 mg Oral tab [Active]; pantoprazole 40 mg oral TbEC [Active]; Entresto 24-26 mg oral tab [Active]; allopurinol 300 mg Oral tab [Active]; metformin 500 mg Oral tab [Active]; Plavix Oral [Active]; - PMHx: 10:33 Gout; Hypercholesterolemia; Hypertensive disorder; Myocardial infarction; ap3 - PSHx: 10:36 Coronary Angioplasty; Coronary artery bypass graft; ap3 - Immunization history:: Client reports having NOT received the Covid vaccine. Flu vaccine is not up to date. - Social history:: Smoking status: Patient denies any tobacco usage or history of. Screenin:36 Abuse screen: Denies threats or abuse. Nutritional screening: Has had N/V for 3 or more ap3 days. Tuberculosis screening: No symptoms or risk factors identified. 11:15 Fall Risk Ambulatory Aid- Furniture (30 pts.). Gait- Impaired (20 pts.). Mental Status- jd3 Oriented to own ability (0 pts). Total Kwok Fall Scale indicates Low Risk Score (25-44 pts). Fall prevention measures have been instituted. Side Rails Up X 2 Placed close to Nursing Station Frequent Obs/Assesments occuring Family Present and informed to notify staff if they need to leave bedside. Assessment: 11:13 General: Appears in no apparent distress. comfortable, Behavior is calm, cooperative, jd3 appropriate for age. Pain: Complains of pain in epigastric area, right upper quadrant, left upper quadrant and right knee Quality of pain is described as sharp. Neuro: Level of Consciousness is awake, alert, obeys commands, Oriented to person, place, time, situation. Cardiovascular: Heart tones present Capillary refill < 3 seconds Patient's skin is warm and dry. Rhythm is irregular. Respiratory: Reports shortness of breath since since heart attack about a month ago Airway is patent Respiratory effort is even, shallow, Respiratory pattern is regular, tachypnea Breath sounds are clear bilaterally. GI: Abdomen is round non-distended, Bowel sounds present X 4 quads. Abd is soft X 4 quads Abdomen is tender to palpation in right upper quadrant and left upper quadrant Reports nausea, vomiting, Patient currently denies bloody stool, diarrhea. : No signs and/or symptoms were reported regarding the genitourinary system. EENT: No signs and/or symptoms were reported regarding the EENT system. Derm: Skin is intact, Skin is dry, Skin is normal, Skin temperature is warm. Musculoskeletal: Circulation, motion, and sensation intact. Range of motion: intact in all extremities. 12:08 Reassessment: Patient appears in no apparent distress at this time. Patient and/or jd3 family updated on plan of care and expected duration. Pain level reassessed. Patient is alert, oriented x 3, equal unlabored respirations, skin warm/dry/pink. ultrasound at bedside Patient states feeling better. 13:03 Reassessment: Patient appears in no apparent distress at this time. Patient and/or jd3 family updated on plan of care and expected duration. Pain level reassessed. Patient is alert, oriented x 3, equal unlabored respirations, skin warm/dry/pink. 14:05 Reassessment: Patient appears in no apparent distress at this time. Patient and/or jd3 family updated on plan of care and expected duration. Pain level reassessed. Patient is alert, oriented x 3, equal unlabored respirations, skin warm/dry/pink. pt medicated for returning pain. 14:39 Reassessment: Patient appears in no apparent distress at this time. Patient and/or jd3 family updated on plan of care and expected duration. Pain level reassessed. Patient is alert, oriented x 3, equal unlabored respirations, skin warm/dry/pink. charting continued in [facility]. Vital Signs: 10:30 BP 126 / 99; Pulse 43; Resp 21; Temp 98.1; Pulse Ox 99% ; Weight 90.72 kg; Height 5 ft. ap3 7 in. (170.18 cm); Pain 8/10; 11:11 BP 117 / 86; Pulse 41; Resp 22 S; Pulse Ox 97% on R/A; Pain 10/10; jd3 13:03 BP 107 / 73; Pulse 43; Resp 23 S; Pulse Ox 97% ; jd3 14:06 BP 108 / 80; Pulse 41; Resp 22 S; Pulse Ox 96% on R/A; jd3 14:40 BP 100 / 68; Pulse 40; Resp 24 S; Pulse Ox 98% on R/A; jd3 10:30 Body Mass Index 31.32 (90.72 kg, 170.18 cm) ap3 ED Course: 10:06 Patient arrived in ED. ds1 10:33 Triage completed. ap3 10:36 Arm band placed on right wrist. ap3 11:01 Joe Castaneda, RN is Primary Nurse. jd3 11:01 Patient has correct armband on for positive identification. Bed in low position. Call jd3 light in reach. Side rails up X 1. Pulse ox on. NIBP on. 11:05 Luis A Reyes MD is Attending Physician. sp3 11:45 Inserted saline lock: 20 gauge in left antecubital area, using aseptic technique. Blood jd3 collected. 12:27 US Extremity Venous Unilateral Ltd In Process Unspecified. EDMS 12:52 CT Abd/Pelvis - IV Contrast Only In Process Unspecified. EDMS 13:43 Urine Microscopic Only Sent. mh5 14:10 Caty Armas MD is Hospitalizing Provider. sp3 14:39 No provider procedures requiring assistance completed. Patient admitted, IV remains in jd3 place. Administered Medications: 11:50 Drug: Zofran (Ondansetron) 4 mg Route: IVP; Site: right antecubital; jd3 12:50 Follow up: Response: No adverse reaction jd3 11:50 Drug: Dilaudid (HYDROmorphone) 1 mg Route: IVP; Site: right antecubital; jd3 12:50 Follow up: Response: No adverse reaction; RASS: Alert and Calm (0) jd3 12:30 Drug: Zofran (Ondansetron) 4 mg Route: IVP; Site: left antecubital; jd3 13:30 Follow up: Response: No adverse reaction jd3 13:49 Drug: Dilaudid (HYDROmorphone) 1 mg Route: IVP; Site: left antecubital; jd3 14:40 Follow up: Response: No adverse reaction; RASS: Alert and Calm (0) jd3 Outcome: 14:15 Decision to Hospitalize by Provider. sp3 14:39 Instructed on the need for admit. jd3 22:51 Patient left the ED. jb4 04 12:27 Admitted to ER Hold. Please see [facility] for further documentation. jd3 Condition: stable Signatures: Dispatcher [employer] EDND Lety Vides ds1 Bo Evans RN RN jb4 Amber Ricardo 5 Joe Castaneda, BREN CORREIA jd3 Maris Ross RN RN ap3 Luis A Reyes MD MD sp3 Corrections: (The following items were deleted from the chart) 02/27 10: 10:33 Allergies: No Known Allergies; ap3 ap3 : 10:33 Immunization history: Client reports receiving the 2nd dose of the Covid vaccine, ap3 Flu vaccine is not up to date. ap3 14: 10:33 Home Meds: unknown medications; ap3 jd3 14: 10:33 Home Meds: Plavix Oral; ap3 jd3
--- NOTE | 2022-02-27 14:16 | EDPHYS ---
Physician Documentation [facility] Name: Giovanni Castro Age: 66 yrs Sex: Male : 1955 Arrival Date: 02/27/2022 Time: 10:06 Bed 26 Private MD: ED Physician Luis A Reyes HPI: 02/27 12:15 This 66 yrs old Male presents to ER via Wheelchair with complaints of Knee Pain, sp3 Abdominal Pain. 12:15 66-year-old male with a history of [place], hyperlipidemia, hypertension presents with an sp3 approximately 1 week history of abdominal pain that is progressively getting worse. Patient did see his PCP for the abdominal pain as well as right knee pain which was treated with conservative management and an x-ray of the right knee which patient states demonstrated "ligamentous injury". Blood work was also performed but patient does not know the results. No abdominal imaging was performed at that time. PCP told patient that if he gets worse to present to the ED for full evaluation, for which she is here now. Patient states that the pain is mainly in the middle to lower part of his abdomen and is waxing and waning in nature and sharp in its maximal intensity. Is also had vomiting 3-4 times since 2 days ago. He states that he has a hard time "keeping things down" with his last BM being yesterday. He is still having urine output and states that his urine is "normal" in color. Patient denies any cramping, chest pain, shortness of breath (beyond his baseline shortness of breath that he has had since his myocardial infarction diagnosis). Patient also states that his heart rate is chronically low in the 40s and is where his doctor wants him to be.. Historical: - Allergies: 10:33 No Known Allergies; ap3 - Home Meds: 14:08 furosemide 20 mg Oral tab [Active]; amiodarone 200 mg Oral tab [Active]; atorvastatin jd3 80 mg oral tab [Active]; carvedilol 3.125 mg oral tab [Active]; Eliquis 5 mg oral tab [Active]; furosemide 40 mg Oral tab [Active]; pantoprazole 40 mg oral TbEC [Active]; Entresto 24-26 mg oral tab [Active]; allopurinol 300 mg Oral tab [Active]; metformin 500 mg Oral tab [Active]; Plavix Oral [Active]; - PMHx: 10:33 Gout; Hypercholesterolemia; Hypertensive disorder; Myocardial infarction; ap3 - PSHx: 10:36 Coronary Angioplasty; Coronary artery bypass graft; ap3 - Immunization history:: Client reports having NOT received the Covid vaccine. Flu vaccine is not up to date. - Social history:: Smoking status: Patient denies any tobacco usage or history of. ROS: 12:18 Constitutional: Negative for fever, chills, and weight loss, ENT: Negative for injury, sp3 pain, and discharge, Neck: Negative for injury, pain, and swelling, Cardiovascular: Negative for chest pain, palpitations, and edema, Respiratory: Negative for shortness of breath, cough, wheezing, and pleuritic chest pain, Back: Negative for injury and pain, MS/Extremity: Negative for injury and deformity, Skin: Negative for injury, rash, and discoloration, Neuro: Negative for headache, weakness, numbness, tingling, and seizure, Psych: Negative for depression, anxiety, suicide ideation, homicidal ideation, and hallucinations, Allergy/Immunology: Negative for hives, rash, and allergies, Endocrine: Negative for neck swelling, polydipsia, polyuria, polyphagia, and marked weight changes. 12:18 All other systems are negative. Exam: 12:18 Constitutional: This is a well developed, well nourished patient who is awake, alert, sp3 and in no acute distress. Head/Face: Normocephalic, atraumatic. Eyes: Pupils equal round and reactive to light, extra-ocular motions intact. Lids and lashes normal. Conjunctiva and sclera are non-icteric and not injected. Cornea within normal limits. Periorbital areas with no swelling, redness, or edema. Neck: Trachea midline, no thyromegaly or masses palpated, and no cervical lymphadenopathy. Supple, full range of motion without nuchal rigidity, or vertebral point tenderness. No Meningismus. Chest/axilla: Normal chest wall appearance and motion. Nontender with no deformity. No lesions are appreciated. Respiratory: Lungs have equal breath sounds bilaterally, clear to auscultation and percussion. No rales, rhonchi or wheezes noted. No increased work of breathing, no retractions or nasal flaring. Back: No spinal tenderness. No costovertebral tenderness. Full range of motion. Skin: Warm, dry with normal turgor. Normal color with no rashes, no lesions, and no evidence of cellulitis. MS/ Extremity: Pulses equal, no cyanosis. Neurovascular intact. Full, normal range of motion. Neuro: Awake and alert, GCS 15, oriented to person, place, time, and situation. Cranial nerves II-XII grossly intact. Motor strength 5/5 in all extremities. Sensory grossly intact. Cerebellar exam normal. Normal gait. 12:18 Cardiovascular: Normal cardiac exam other than bradycardia.. 12:18 Abdomen/GI: Diffuse and mild tenderness to palpation in periumbilical and lower abdominal regions without rebound or guarding.. Vital Signs: 10:30 BP 126 / 99; Pulse 43; Resp 21; Temp 98.1; Pulse Ox 99% ; Weight 90.72 kg; Height 5 ft. ap3 7 in. (170.18 cm); Pain 8/10; 11:11 BP 117 / 86; Pulse 41; Resp 22 S; Pulse Ox 97% on R/A; Pain 10/10; jd3 13:03 BP 107 / 73; Pulse 43; Resp 23 S; Pulse Ox 97% ; jd3 14:06 BP 108 / 80; Pulse 41; Resp 22 S; Pulse Ox 96% on R/A; jd3 14:40 BP 100 / 68; Pulse 40; Resp 24 S; Pulse Ox 98% on R/A; jd3 10:30 Body Mass Index 31.32 (90.72 kg, 170.18 cm) ap3 MDM: 11:18 Patient medically screened. sp3 12:19 Data reviewed: vital signs, nurses notes. ED course: 66-year-old male with vague sp3 symptoms. Will obtain cardiac work-up and urinalysis and determine plan of care based on those results and patient course. At this time I am not highly suspicious for any critical findings.. 14:08 ED course: She has a mural thrombus in the apex of the left ventricle that is known to sp3 have been there before. Discussed with cardiology will see patient in the hospital. Echocardiogram ordered. Abdominal pain work-up is still pending with ultrasound of the gallbladder that is pending. Remainder of CT of the abdomen and blood work demonstrate no acute or significant abnormality to explain patient's abdominal pain. Ultrasound of the leg demonstrates no DVT but did comment on possible hematoma that is there. Patient is on Eliquis and so further anticoagulation was not pursued.. 02/27 11:29 Order name: CBC with Diff; Complete Time: 13:23 sp3 02/27 11:29 Order name: CMP; Complete Time: 13:23 sp3 02/27 11:29 Order name: Lipase; Complete Time: 13:23 sp3 02/27 11:29 Order name: Urine Microscopic Only sp3 02/27 11:57 Order name: CBC Smear Scan; Complete Time: 13:23 EDMS 02/27 13:36 Order name: CBC with Automated Diff EDMS 02/27 13:36 Order name: CBC with Automated Diff EDMS 02/27 13:36 Order name: Comprehensive Metabolic Panel EDMS 02/27 13:36 Order name: Comprehensive Metabolic Panel EDMS 02/27 13:36 Order name: Protime (+INR) EDMS 02/27 13:36 Order name: Protime (+INR) EDMS 02/27 13:36 Order name: PTT, Activated Partial Thromb EDMS 02/27 13:36 Order name: PTT, Activated Partial Thromb EDMS 02/27 13:43 Order name: Urine Dipstick-Ancillary EDMS 02/27 11:29 Order name: CT Abd/Pelvis - IV Contrast Only; Complete Time: 13:23 sp3 02/27 11:29 Order name: IV Saline Lock; Complete Time: 11:41 sp3 02/27 11:29 Order name: Labs collected and sent; Complete Time: 11:41 sp3 02/27 11:29 Order name: Urine Dipstick-Ancillary (obtain specimen); Complete Time: 13:43 sp3 02/27 11:29 Order name: US Extremity Venous Unilateral Ltd; Complete Time: 13:23 sp3 02/27 13:27 Order name: Echo w/ Doppler sp3 02/27 13:27 Order name: US Abdomen Limited sp3 02/27 13:36 Order name: CONS Physician Consult EDMS 02/27 13:36 Order name: Heart Healthy EDMS 02/27 13:47 Order name: COVID-19 SARS RT PCR (Document "Date of Onset" if Symptomatic) bd 02/27 14:09 Order name: US EDMS 02/27 14:45 Order name: SARS-COV-2 RT PCR EDMS Administered Medications: 11:50 Drug: Zofran (Ondansetron) 4 mg Route: IVP; Site: right antecubital; jd3 12:50 Follow up: Response: No adverse reaction jd3 11:50 Drug: Dilaudid (HYDROmorphone) 1 mg Route: IVP; Site: right antecubital; jd3 12:50 Follow up: Response: No adverse reaction; RASS: Alert and Calm (0) jd3 12:30 Drug: Zofran (Ondansetron) 4 mg Route: IVP; Site: left antecubital; jd3 13:30 Follow up: Response: No adverse reaction jd3 13:49 Drug: Dilaudid (HYDROmorphone) 1 mg Route: IVP; Site: left antecubital; jd3 14:40 Follow up: Response: No adverse reaction; RASS: Alert and Calm (0) jd3 Disposition Summary: 02/27/22 14:15 Hospitalization Ordered Hospitalization Status: Inpatient Admission sp3 Provider: Caty Armas sp3 Condition: Stable sp3 Problem: new sp3 Symptoms: have worsened sp3 Bed/Room Type: Standard sp3 Location: Telemetry/MedSurg (Inpatient)(02/27/22 21:31) cg Room Assignment: [facility][note 3](02/27/22 21:31) Diagnosis - Left ventricular mural thrombus, abdominal pain sp3 Forms: - Medication Reconciliation Form sp3 - SBAR form sp3 Signatures: Dispatcher [employer] EDAmy Mckenna RN RN iw Garcia, Cindy, RN RN cg Davies, Jonathon, RN RN jd3 Prokisch, Amanda, RN RN ap3 Luis A Reyes MD MD sp3 Corrections: (The following items were deleted from the chart) 10:35 10:33 Allergies: No Known Allergies; ap3 ap3 10:35 10:33 Immunization history: Client reports receiving the 2nd dose of the Covid vaccine, ap3 Flu vaccine is not up to date. ap3 14:13 10:33 Home Meds: unknown medications; ap3 jd3 14:13 10:33 Home Meds: Plavix Oral; ap3 jd3 16:09 14:15 Telemetry/MedSurg (Inpatient) sp3 iw 16:09 14:15 sp3 iw 21:31 16:09 [facility] ER HOLD iw cg 21:31 16:09 ERHOLD- iw cg
[2022-02-27] MEDS ORDERED: NA CHLORIDE 0.9% 1,000 ML ONE (14:47)
[2022-02-27 15:51] VITALS: BMI 31.3
[2022-02-27] MEDS ORDERED: MORPHINE 2 MG/ML SYR ONE ×2 (16:04→19:28)
[2022-02-27] MEDS: MORPHINE 2 MG/ML SYR IV PRN ×2 (16:10→19:25)
[2022-02-27] MEDS: ONDANSETRON 4 MG/2 ML VIAL IV PRN (18:46)
[2022-02-27] MEDS ORDERED: PROMETHAZINE INJ 25 MG/ML AMP IV PRN ×2 (19:23→22:30)
[2022-02-28] MEDS: MORPHINE 2 MG/ML SYR IV PRN ×4 (05:46→22:38)
[2022-02-28] MEDS: ONDANSETRON 4 MG/2 ML VIAL IV PRN ×4 (05:46→22:38)
[2022-02-28 06:00] LABS: Absolute Lymphocytes (CBC) 2.2 K/uL (0.7-4.9); Hematocrit 32.4 % (39.6-49.0); Lymphocytes % 28.9 % (15.3-44.8); MPV 7.6 fL (7.6-11.3); RBC Red Blood Cell Count 3.87 M/uL (4.33-5.43)
[2022-02-28 06:05] LABS: Protime INR 1.45
[2022-02-28 06:12] LABS: Albumin 2.9 g/dL (3.4-5.0); Bilirubin Total 1.2 mg/dL (0.2-1.0); Potassium 4.6 mmol/L (3.5-5.1); Protein, Total 6.6 g/dL (6.4-8.2)
--- NOTE | 2022-02-28 12:44 | ECHO ---
HEIGHT: 5 ft 7 in WEIGHT: 200 lb 0.054 oz DATE OF STUDY: 02/28/[address]: Luis A Reyes 2-DIMENSIONAL: YES M.MODE: YES DOPPLER: YES COLOR FLOW: YES TDS: NO PORTABLE: NO DEFINITY: NO BUBBLE STUDY: NO DIAGNOSIS: MURAL THROMBUS ON CT CARDIAC HISTORY: CATHERIZATION:YES SURGERY: YES PROSTHETIC VALVE: NO PACEMAKER: NO MEASUREMENTS (cm) DIASTOLIC (NORMALS) SYSTOLIC (NORMALS) IVSd 1.2 (0.6-1.2) LA Diam 3.5 (1.9-4.0) LVEF 34% LVIDd 4.1 (3.5-5.7) LVIDs 3.4 (2.0-3.5) %FS 16% LVPWd 1.2 (0.6-1.2) Ao Diam 3.4 (2.0-3.7) 2 DIMENSIONAL ASSESSMENT: RIGHT ATRIUM: NORMAL LEFT ATRIUM: NORMAL RIGHT VENTRICLE: NORMAL LEFT VENTRICLE: NORMAL SIZE, APICAL THROMBUS TRICUSPID VALVE: NORMAL MITRAL VALVE: NORMAL PULMONIC VALVE: NORMAL AORTIC VALVE: SCLEROSIS PERICARDIAL EFFUSION: NONE AORTIC ROOT: NORMAL LEFT VENTRICULAR WALL MOTION: ANTEROAPICAL AKINESIS. SEVERE GLOBAL HYPOKINESIS. DOPPLER/COLOR FLOW: MILD TRICUSPID REGURGITATION. COMMENTS: LEFT APICAL THROMBUS WELL ORGANIZED. ANTEROAPICAL AKINESIS. SEVERE GLOBAL HYPOKINESIS. LEFT VENTRICULAR EJECTION FRACTION 34%. AORTIC SCLEROSIS. MILD TRICUSPID REGURGITATION. MILD PULMONARY HYPERTENSION. TECHNOLOGIST: Clark MUNOZ
[2022-02-28] MEDS ORDERED: FUROSEMIDE 20 MG/ 2ML VIAL IV ONE (16:35)
--- NOTE | 2022-02-28 18:43 | P.HP ---
Certification for Inpatient Patient admitted to: Inpatient With expected LOS: >2 Midnights Patient will require the following post-hospital care: None Practitioner: I am a practitioner with admitting privileges, knowledge of patient current condition, hospital course, and medical plan of care. Services: Services provided to patient in accordance with Admission requirements found in Title 42 Section 412.3 of the Code of Federal Regulations Patient History Date of Service: 02/27/22 Reason for admission: LV thrombus/CHF exacerbation History of Present Illness: Pt is a 66yo gentleman who came to the hospital with shortness of breath. Patient was found to have a left apical thrombus. This was seen on CT imaging. Patient also had a hematoma on the right lower extremity. Patient will be admitted to the hospital for further evaluation. We will go ahead and get an echocardiogram. We will start anticoagulation. Monitor hematoma for expansion. We will continue with current plan of care at this time. Allergies No Known Allergies Allergy (Verified 10/23/21 20:19) Home Medications: Clopidogrel Bisulfate [Plavix*] 75 mg PO DAILY #30 tablet 10/24/21 Allopurinol 300 mg PO DAILY 02/27/22 Amiodarone HCl [Cordarone*] 200 mg PO DAILY 02/27/22 Apixaban [Eliquis] 5 mg PO DAILY 02/27/22 Atorvastatin Calcium [Lipitor] 80 mg PO BEDTIME 02/27/22 Carvedilol [Coreg] 3.125 mg PO DAILY 02/27/22 Furosemide 20 mg PO DAILY 02/27/22 Metformin ER [Glucophage ER] 500 mg PO DAILY 02/27/22 Pantoprazole [Protonix Tab] 40 mg PO DAILY 02/27/22 Sacubitril/Valsartan [Entresto 24 mg-26 mg Tablet] 1 tab PO DAILY 02/27/22 - Past Medical/Surgical History Has patient received pneumonia vaccine in the past: Yes -: CAD -: Hypertension -: Borderline DM -: Hyperlipidemia -: Gout -: CABGfour-vessel -: Coronary angiogram with stent August 2021 Psychosocial/ Personal History: Patient works for [employer], lives with family - Family History Mother Medical History: Heart disease, Cancer Father Medical History: Heart disease Sister Medical History: Cancer - Social History Smoking Status: Unknown if ever smoked Alcohol use: No CD- Drugs: No Caffeine use: Yes Place of Residence: Home Review of Systems 10-point ROS is otherwise unremarkable Physical Examination - Vital Signs Temperature: 97.6 F Blood Pressure: 131/91 Pulse: 85 Respirations: 22 Pulse Ox (%): 97 - Physical Exam General: Alert, In no apparent distress, Oriented x3 HEENT: Atraumatic, PERRLA, Mucous membr. moist/pink, EOMI, Sclerae nonicteric Neck: Supple, 2+ carotid pulse no bruit, No LAD, Without JVD or thyroid abnormality Respiratory: Clear to auscultation bilaterally, Normal air movement Cardiovascular: Irregular heart rate/rhythm, Systolic murmur Gastrointestinal: Normal bowel sounds, Soft and benign, Non-distended, No tenderness Musculoskeletal: No clubbing, No swelling, No tenderness Integumentary: No rashes Neurological: Normal strength at 5/5 x4 extr, Sensation intact, Cranial nerves 3-12 intact, Abnormal gait, Abnormal strength Lymphatics: No axilla or inguinal lymphadenopathy Assessment & Plan - Problems (Diagnosis) (1) Atrial fibrillation with rapid ventricular response Current Visit: Yes Status: Acute (2) Acute systolic CHF (congestive heart failure) Current Visit: No Status: Acute (3) Coronary artery disease Current Visit: No Status: Acute (4) Essential hypertension Current Visit: No Status: Acute (5) Left atrial thrombus Current Visit: Yes Status: Acute - Plan Plan: 1. Continue with anticoagulation 2. Monitor hematoma for expansion 3. Continue with cardiac disease medications 4. Continue monitoring labs closely 5. Strict blood pressure and blood sugar control 6. GI/DVT prophylaxis Discharge Plan: Home Plan to discharge in: Greater than 2 days - Advance Directives Does patient have a Living Will: No Does patient have a Durable POA for Healthcare: No - Code Status/Comfort Care Code Status Assessed: Yes Code Status: Full Code Critical Care: No Time Spent Managing PTS Care (In Minutes): 45
--- NOTE | 2022-03-01 04:04 | P.PN ---
Subjective Date of Service: 02/28/22 Subjective: No new changes, No C/O voiced, Improving Review of Systems 10-point ROS is otherwise unremarkable Physical Examination - Vital Signs Temperature: 97.6 F Blood Pressure: 131/91 Pulse: 85 Respirations: 22 Pulse Ox (%): 97 - Physical Exam General: Alert, In no apparent distress, Oriented x3 Respiratory: Clear to auscultation bilaterally, Normal air movement Cardiovascular: Regular rate/rhythm, Normal S1 S2 Gastrointestinal: Normal bowel sounds, Soft and benign, Non-distended, No tenderness Musculoskeletal: No clubbing, No swelling, No tenderness Integumentary: No rashes Neurological: Normal speech, Normal tone, Normal affect Lymphatics: No axilla or inguinal lymphadenopathy - Studies Medications List Reviewed: Yes Assessment & Plan - Problems (Diagnosis) (1) Atrial fibrillation with rapid ventricular response Current Visit: Yes Status: Acute (2) Acute systolic CHF (congestive heart failure) Current Visit: No Status: Acute (3) Coronary artery disease Current Visit: No Status: Acute (4) Essential hypertension Current Visit: No Status: Acute (5) Left atrial thrombus Current Visit: Yes Status: Acute - Plan Plan: 1. Continue with anticoagulation 2. Monitor hematoma for expansion 3. Continue with cardiac disease medications 4. Continue monitoring labs closely 5. Strict blood pressure and blood sugar control 6. GI/DVT prophylaxis - Advance Directives Does patient have a Living Will: No Does patient have a Durable POA for Healthcare: No - Code Status/Comfort Care Code Status: Full Code
--- NOTE | 2022-03-01 04:06 | P.PN ---
Date of Service: 03/01/22 Subjective Subjective: Patient continues to improve with no new complaints. Symptoms are improving. Review of Systems 10-point ROS is otherwise unremarkable Physical Examination - Vital Signs Reviewed - Physical Exam General: Alert, In no apparent distress, Oriented x3 Respiratory: Clear to auscultation bilaterally, Normal air movement Cardiovascular: Regular rate/rhythm, Normal S1 S2 Gastrointestinal: Normal bowel sounds, Soft and benign, Non-distended, No tenderness Musculoskeletal: No clubbing, No swelling, No tenderness Assessment & Plan - Problems (Diagnosis) (1) Atrial fibrillation with rapid ventricular response Current Visit: Yes Status: Acute (2) Acute systolic CHF (congestive heart failure) Current Visit: No Status: Acute (3) Coronary artery disease Current Visit: No Status: Acute (4) Essential hypertension Current Visit: No Status: Acute (5) Left atrial thrombus Current Visit: Yes Status: Acute - Plan Continue with plan of care as mentioned below: 1. Continue with anticoagulation 2. Monitor hematoma for expansion 3. Continue with cardiac disease medications 4. Continue monitoring labs closely 5. Strict blood pressure and blood sugar control 6. GI/DVT prophylaxis - Advance Directives Does patient have a Living Will: No Does patient have a Durable POA for Healthcare: No - Code Status/Comfort Care Code Status: Full Code
[2022-03-01] MEDS: FUROSEMIDE 40 MG/4 ML VIAL IV SCH ×3 (08:00→17:00)
[2022-03-01] MEDS: ONDANSETRON 4 MG/2 ML VIAL IV PRN (10:59)
[2022-03-01] MEDS: MORPHINE 2 MG/ML SYR IV PRN (10:59)
[2022-03-01] MEDS: carvediloL 6.25 MG TAB PO SCH ×2 (11:00→21:35)
[2022-03-01] MEDS: LOSARTAN POTASSIUM 50 MG TABLET PO SCH (11:01)
[2022-03-01] MEDS: ASPIRIN EC 81 MG TAB PO SCH (11:01)
--- NOTE | 2022-03-01 15:11 | CON ---
Date of Consultation: 02/28/2022 Reason For Consultation: Possible left ventricular apical thrombus and congestive heart failure. History Of Present Illness: Mr. Castro actually came to the hospital with abdominal pain and knee p ain and some shortness of breath. CT scan was done of the abdomen showed an incidental finding of le ft ventricular apical thrombus. He was short of breath, was admitted for further evaluation and martha tment. He complained of dyspnea on exertion, complained of PND, pedal edema. Denied any chest pain, nausea, vomiting, diaphoresis, palpitations, syncope, fever or chills. Past Medical History: Extensive. He has a history of CABG, hypertension, dyslipidemia, gout, atrial fibrillation, chronic systolic congestive heart failure with ejection fraction of 43%. Review of Systems: Negative. Social History: Negative. Family History: Negative. Allergies: NONE. Medications: Include Eliquis, amiodarone, allopurinol, Coreg, Lasix, Plavix, Lipitor, metformin, Ent fabrice, and Protonix. Physical Examination: Vital Signs: Stable. He is afebrile. He was in mild respiratory distress when he laid flat. He wa s in sinus rhythm. HEENT: Negative. Neck: Supple with no bruit. Chest: Reveals rales at both bases. Cardiac: Revealed a regular rhythm and rate with S3 gallops. No murmurs or rubs. Abdomen: Obese. Extremities: Revealed 1+ edema bilaterally. Skin: Dry and intact. Neurologic: Nonfocal. Pulses were present distally bilaterally. Diagnostic Data: Venous Doppler showed hematoma. Liver function and enzymes were elevated, otherwis e everything else was normal. Impression And Plan: 1.Possible left ventricular apical thrombus. Echocardiogram is pending. 2.Atrial fibrillation, on Eliquis and amiodarone. He is in sinus rhythm. 3.Acute on chronic systolic congestive heart failure. The patient is on Coreg, Lasix, and Entresto. We need to increase his Lasix dose, increase the Coreg dose if he tolerates it. Continue Entresto. Echocardiogram is pending. His other problems including hypertension, dyslipidemia, both of them a re well controlled. He has gout that is controlled. He has a history of coronary artery bypass dwight t that is stable. Again, increase Coreg, increase Lasix. Obtain a 2D echocardiogram. Continue Entr esto and his other medications. We will see what the echocardiogram shows before making further deci sions. COLT/VANDANA Voice ID: [id number] Report ID: [id number]
[2022-03-02] MEDS: MORPHINE 2 MG/ML SYR IV PRN ×3 (02:26→15:51)
[2022-03-02] MEDS: ONDANSETRON 4 MG/2 ML VIAL IV PRN ×3 (02:30→15:52)
[2022-03-02] MEDS: FUROSEMIDE 40 MG/4 ML VIAL IV SCH ×3 (04:01→17:19)
[2022-03-02] MEDS: carvediloL 6.25 MG TAB PO SCH (10:07)
[2022-03-02] MEDS: LOSARTAN POTASSIUM 50 MG TABLET PO SCH (10:07)
[2022-03-02] MEDS: ASPIRIN EC 81 MG TAB PO SCH (10:08)
[2022-03-02 12:24] VITALS: O2SAT 98
--- NOTE | 2022-03-02 15:49 | RAD REPORT ---
EXAM DESCRIPTION: MRI - Knee Right Wo Cont - 03/02/2022 3:02 pm CLINICAL HISTORY: joint pain; difficulty ambulating COMPARISON: Knee Right 3 View dated 02/23/2022 TECHNIQUE: Sagittal and axial PD and T2 fat sat sequences obtained. Coronal T2 fat sat and T1 sequen elsie also obtained. FINDINGS: No occult fracture, bone bruise or marrow replacing process. A few small degenerative cyst s are present in the midline of the tibial plateau. Tibia and femur mild chondromalacia changes are p resent without a full-thickness osteochondral defect or free fragment seen. No significant chondromal acia of the patella. Patella tendon, quadriceps tendon and the medial/ lateral patella support structures are intact. The anterior cruciate, posterior cruciate, medial collateral and lateral collateral ligaments are int act. No lateral meniscus abnormality seen. There is a large horizontal tear in the posterior horn medial m eniscus extending into the midbody. Radial oriented tear of the mid body medial meniscus also present . No free or displaced meniscal tissue. No mass or abnormal fluid in the popliteal fossa. There is edema seen in the subcutaneous fatty tissu es along the posterior and posteromedial aspect of the knee. Minimal joint fluid present. No intra-ar ticular loose bodies. Fluid or edema signal is present adjacent to the anterior thigh musculature onl y partially imaged on this study. IMPRESSION: Complex medial meniscus tear seen is a large horizontal tear in the posterior horn exten ding into the midbody. There is a radial oriented medial meniscus in the midbody as well. No free or displaced meniscal tissue. Tibia and femoral chondromalacia changes without full-thickness osteochondral defect or free fragment . Contusion or edema changes to the subcutaneous fatty tissue posterior and posteromedial knee as well is in the anterior thigh musculature which is only partially evaluated on this study. No occult fracture or bone bruise.
[2022-03-02 16:50] VITALS: TEMP 96.8
[2022-03-02 17:20] VITALS: BP 110/71
--- NOTE | 2022-03-03 23:09 | PN ---
Date of Progress Note: 02/28/2022 The patient was admitted on 02/27/2022. I saw him on 02/28/2022 because of a possible left ventricul ar thrombus by CT scan of the chest. Echocardiogram which was done showed left apical thrombus that is well organized, anteroapical akinesis with severe global hypokinesis, ejection fraction was 34%. He had mild pulmonary hypertension. Mr. Castro presently is on aspirin, losartan, Lasix, and carved ilol. I think we should continue these medications. We should increase his losartan, increase his c arvedilol, make sure he is on adequate Lasix dose when he goes home, and he needs to be anticoagulate d. He is already on amiodarone and Eliquis for his atrial fibrillation. He is on Lipitor for dyslip idemia. He is on Plavix and metformin and is on Entresto as outpatient and we should probably contin ue that. We will see him in the office real soon. COLT/VANDANA Voice ID: [id number] Report ID: [id number]
== END 2022-03-02 19:20 | disposition home or self-care (01) | DRG 291 ==
LOC: ER 10:02 → ERHOLD 13:33 → 2ND 22:13
PROVIDERS: ADMIT Hospitalist; ATTEND Hospitalist
DX: I11.0 Hypertensive heart disease with heart failure (principal); I50.23 Acute on chronic systolic (congestive) heart failure; I25.10 Atherosclerotic heart disease of native coronary artery without angina pectoris; I48.91 Unspecified atrial fibrillation; E78.5 Hyperlipidemia, unspecified; M10.9 Gout, unspecified; I51.3 Intracardiac thrombosis, not elsewhere classified; I27.20 Pulmonary hypertension, unspecified; S80.11XA Contusion of right lower leg, initial encounter; Z95.1 Presence of aortocoronary bypass graft; Z20.822 Contact with and (suspected) exposure to COVID-19
CPT/HCPCS: 36415; 74177; 76705; 80053; 81003; 81015; 83690; 85025; 85610; 85730; 93306; 93971; 99285; J1170; J1940; J2270; J2405; J2550; J7030; Q9967; U0003

== ENCOUNTER 2022-09-29 08:45 | Inpatient (IN) | payer OTHER ==
--- OUTSIDE RECORDS SUMMARY | 2022-09-29 08:53 | XMS REPORT | Continuity of Care Document ---
:1955 Author Organization [facility] t Address [address] [place] [address] Care Team Providers Name Role Phone AMARI CORONADO Primary Care Physician Unavailable Madelyn Waterman Attending Clinician MADELYN NOGUEIRA Attending Clinician Unavailable Rachele Parrish MD Attending Clinician RACHELE PARRISH Attending Clinician Unavailable Miguel Angel Young CRNA Attending Clinician oRdolfo Phillips MD Attending Clinician [phone] Only, Ad[facility] Test Attending Clinician Unavailable Pob, [facility] Main Attending Clinician Unavailable Nurse, [facility] Attending Clinician Unavailable Amari Coronado MD Attending Clinician AMARI CORONADO Attending Clinician Unavailable Doctor Unassigned, [place] Attending Clinician Unavailable Rashaad Jin Attending Clinician Unavailable Axel Gunn Attending Clinician Unavailable Hand, Juno Doyle Attending Clinician RACHELE PARRISH Admitting Clinician Unavailable Rachele Parrish MD Admitting Clinician Rashaad Jin Admitting Clinician Unavailable Physician, No Primary or Family Admitting Clinician Unavaila ble Axel Gunn Admitting Clinician Unavailable Payers Payer Name Policy Type Policy Number Effective Date Expiration Date Mildred LENTZ MEDICARE [id number] 2021 2021 ADVANTAGE HMO 00:00:00 00:00:00 BCBS [facility] - [id number] 2016 OUT OF STATE 00:00:00 Problems Condition Condition Condition Status Onset Resolution Last Treating Co mments Source Name Details Category Date Date Treatment Clinician Date Acute Acute Disease Active Overview: Univer s traumatic traumatic 9-20 Formattin i ty of internal internal 00:00: g of this Dg as derangemen derangemen 00 note Me dical t of right t of right might be Branch knee, knee, different subsequent subsequent from the encounter encounter original. Added automatic ally from request for surgery [id number] Chronic Chronic Disease Active Univers bilateral bilateral 7-15 ity of low back low back 00:00: [place] pain pain 00 Medical without without Branch sciatica sciatica R10.9 - R10.9 - Diagnosis Active 2014-112015-10-20 Memoria UNSPECIFIE UNSPECIFIE 0-23 15:32:00 l D D 00:01: Rob ABDOMINAL ABDOMINAL 00 PAIN PAIN Active 09/16/2015 OPID [facility] Malabsorpt [employer] Problem Active 2018-05-11 Memoria ion of tion of 5-08 01:59:17 l glucose glucose 00:00: Rob (disorder) (disorder) 00 Active 04/01/2015 Problem 05/11/2018 Data migrated from [employer] on 06/01/15. Medical Group Upper Upper Problem Active 2018-05-11 Memor ia respirator respirator 2-20 01:59:17 l y y 00:00: Rob infection infection 00 (disorder) (disorder) Active 01/14/2015 Problem 05/11/2018 Data migrated from [employer] on 06/01/15. Medical Group Allergic Allergic Problem Active 2013-112018-05-11 Memoria rhinitis rhinitis 1- 01:59:17 l (disorder) (disorder) 00:00: He rmann Active 00 09/27/2014 Problem 05/11/2018 Data migrated from [employer] on 04/26/15. Medical Group Coronary Coronary Problem Active 2013-112018-05-11 Memoria arterioscl arterioscl 1- 01:59:17 l erosis erosis 00:00: [facility] (disorder) (disorder) 00 Active 09/27/2014 Problem 05/11/2018 Data migrated from [employer] on 04/26/15. Medical Group Fatigue Fatigue Problem Active 2013-112018-05-11 Me moria (finding) (finding) 11-27 01:59:17 l Active 00:00: [facility] 09/27/2014 00 Problem 05/11/2018 Data migrated from [employer] on 04/26/15. Medical Group Gout Gout Problem Active 2013-112018-05-11 Memor ia (disorder) (disorder) 1 01:59:17 l Active 00:00: [facility] 09/27/2014 00 Problem 05/11/2018 Data migrated from [employer] on 04/26/15. Medical Group Obesity Obesity Problem Active 2013-112018-05-11 Me moria (disorder) (disorder) 1 01:59:17 l Active 00:00: Rob 09/27/2014 00 Problem 05/11/2018 Data migrated from [employer] on 04/26/15. Medical Group Smoker Smoker Problem Active 2013-112018-05-11 Brandon norberto (finding) (finding) 11-27 01:59:17 l Active 00:00: Rob 09/27/2014 00 Problem 05/11/2018 Data migrated from [employer] on 04/26/15. Medical Group HLD HLD Disease Active Univers (hyperlipi (hyperlipi it y of demia) demia) [facility] HTN HTN Disease Active Univers (hypertens (hypertens it y of ion) ion) [facility] HI, old HI, old Disease Active Univers ity of [facility] Prediabete Prediabete Disease [facility] Season[facility] Seasonal Disease Active Unive rs allergies allergies [facility] Arthritis Arthritis Problem Resolve 2018-05-11 Memoria (disorder) (disorder) d 01:59:17 l Resolved Rob Problem 05/11/2018 [facility] Kidney Kidney Problem Resolve 2018-05-11 Mem oria stone stone d 01:59:17 l (disorder) (disorder) He rmann Resolved Problem 05/11/2018 [facility] Myocardial Myocardia Problem Resolve 2018-05-11 Memoria infarction l d 01:59:17 l (disorder) infarction He rmann (disorder) Resolved Problem 05/11/2018 x3 [facility] Seasonal Seasonal Problem Resolve 2018-05-11 Memoria allergic allergic d 01:59:17 l rhinitis rhinitis Sandip n (disorder) (disorder) Resolved Problem 05/11/2018 [facility] Sleep Sleep Problem Resolve 2018-05-11 Brandon norberto apnea apnea d 01:59:17 l (finding) (finding) Herm avelino Resolved Problem 05/11/2018 [facility] Allergies, Adverse Reactions, Alerts Allergy Allergy Status Severity Reaction(s) Onset Inactive Treating Comm ents Source Name Type Date Date Clinician No Known DA Active U 2020-11 [facility]ie 1-02 [place] [facility] 00:00: [facility] 00 are [facility] No Known DA Active U 2020-11 [facility] Allergie 0-27 [place] s 00:00: d 00 [facility] No Known DA Active U 2020-11 [facility] Allergie 0-27 [place] s 00:00: d 00 [facility] sulfa sulfa Active 2013-11 Memoria drugs<mason drugs<mason 1-03 l p>1</sup p>1</sup 06:00: Sandip n > > 00 codeine< codeine< Active 2013-11 Memori a sup>2</s sup>2</s 1-03 l up> up> 06:00: Rob 00 NO KNOWN Drug Active Univers ALLERGIE Class ity of S [facility] Social History Social Habit Start Date Stop Date Quantity Comments Source History [facility] University o f Alcohol Frequency [place] [facility] History [facility] o f Alcohol Std Drinks [place] [facility] History [facility] o f Alcohol Binge [place] [facility] Branch History of tobacco Cigarette Smoker University [facility] Exposure to 2022-08-27 2022-09-06 Not sure [facility] SARS-CoV-2 (event) 00:00:00 09:18:00 [facility] Alcohol intake 2022-08-21 2022-08-21 Current drinker Unive rsity of 00:00:00 00:00:00 of alcohol [facility] (finding) Branch Cigarettes smoked 2022-08-17 2022-08-17 Univers ity of current (pack per 00:00:00 00:00:00 [place] [facility] ) - Reported Branch Cigarette 2022-08-17 2022-08-17 University of pack-years 00:00:00 00:00:00 [facility] Tobacco use and 2022-08-17 2022-08-17 Smokeless Universit y of exposure 00:00:00 00:00:00 tobacco non-user [facility] dical [place] Tobacco Comment 2022-08-17 2022-08-17 Pt quit x 1 year Uni versity of 00:00:00 00:00:00 ago [facility] Alcohol Comment 2018-03-31 2018-03-31 socially Universit y of 00:00:00 00:00:00 [facility] Social History 2017-03-01 2017-03-[address] [facility] 18:41:31 18:41:31 Sex [birth year] Universit y of 00:00:00 00:00:00 [facility] Smoking Status Start Date Stop Date Source Ex-smoker 2022-08-17 00:00:00 2022-08-17 00:00:00 Universi ty of [facility] Medications Ordered Filled Start Stop Current Ordering Indication Dosage Frequency Signature Comments Components Source Medication Medication Date Date Medication? Clinician (SIG) Name Name HYDROmorphO Yes .2mg 0.2 mg, Uni vers ne 08-20 Slow IV ity of (DILAUDID) 19:46: Push, [place] injection 44 Q5MIN PRN, Medi alvin 0.2 mg 10 doses, Branch Starting on 08/20/22 at 1446, Until Discontinu ed, Routine, Pain (scale 7-10), PACU
Us e approved by (Faculty): PACU USE -ANESTHESI A SERVICE-HY DROMORPHON E INJECTIONS FENTanyl PF Yes 25ug 25 mcg, Uni vers (SUBLIMAZE 08-20 Slow IV ity of (PF)) 19:46: Push, [place] injection 44 Q5MIN PRN, Medi alvin 25 mcg 4 doses, Branch Starting on Sat08/20/22 at 1446, Until Discontinu ed, Routine, Pain (scale 4-6), PACU HYDROmorphO 2021- No .2mg 0.2 mg, Un bob ne 08-20 Slow IV ity of (DILAUDID) 19:46: 23:01 Push, [place] injection 44 :26 Q5MIN PRN, Medi alvin 0.2 mg 10 doses, Branch Starting on Sat08/20/22 at 1446, Until Sat08/20/22 at 1801, Routine, Pain (scale 7-10), PACU
Us e approved by (Faculty): PACU USE -ANESTHESI A SERVICE-HY DROMORPHON E INJECTIONS FENTanyl PF 2021- No 25ug 25 mcg, Un bob (SUBLIMAZE 08-20 Slow IV ity o f (PF)) 19:46: 23:01 Push, [place] injection 44 :26 Q5MIN PRN, Medi alvin 25 mcg 4 doses, Branch Starting on Sat08/20/22 at 1446, Until Sat08/20/22 at 1801, Routine, Pain (scale 4-6), PACU ondansetron 2021- No Slow IV Un bob (ZOFRAN 08-20 Push, ONCE ity o f (PF)) 19:34: 19:48 INTRA [place] injection 00 :23 PROCEDURE, Medi alvin Starting Branch on Sat08/20/22 at 1434, Until Sat08/20/22 at 1448, Routine, Intra-op glycopyrrol 2021- No Intravenou Univers ate 08-20 s, ONCE ity of (ROBINUL) 19:13: 19:48 INTRA [place] injection 00 :23 PROCEDURE, Medi alvin Starting Branch on Sat08/20/22 at 1413, Until Sat08/20/22 at 1448, Routine, Intra-op sodium 2021-0 Yes PRN, Univers chloride 08-20 Starting ity of 0.9 % 19:10: on Mon [place] irrigation 00 08/20/22 at Med ical solution 1410, Branch Until Discontinu ed, Intra-op EPINEPHrine Yes PRN, Univer s (PF) 08-20 Starting ity of 1:1,000 (1 19:10: on Mon [place] mg/mL) 00 08/20/22 at [facility] (ADRENALIN 1410, Branch (PF)) Until injection Discontinu ed, Routine, Intra-op bupivacaine Yes PRN, Univer s -epinephrin 08-20 Starting ity of e-pf 19:10: on Sat (SENSORCAIN 00 08/20/22 at Hi dical E 1410, Branch W/EPINEPHRI Until NE) 0.25 Discontinu %-1:200,000 ed, injection Routine, Intra-op sodium 2021- No PRN, Univers chloride 08-20 Starting ity of 0.9 % 19:10: 23:01 on Sat [place] irrigation 00 :26 08/20/22 at [facility] ical solution 1410, Branch Until Sat08/20/22 at 1801, Intra-op EPINEPHrine 2021- No PRN, Unive rs (PF) 08-20 Starting ity of 1:1,000 (1 19:10: 23:01 on Sat [place] mg/mL) 00 :26 08/20/22 at [facility] (ADRENALIN 1410, Branch (PF)) Until Sat injection 08/20/22 at 1801, Routine, Intra-op bupivacaine 2021- No PRN, Unive rs -epinephrin 08-20 Starting ity of e-pf 19:10: 23:01 on Sat (SENSORCAIN 00 :26 08/20/22 at Hi dical E 1410, Branch W/EPINEPHRI Until Mon NE) 0.25 08/20/22 at %-1:200,000 180, injection Routine, Intra-op ceFAZolin 2021- No IV Univers (ANCEF) 08-20 Piggyback, ity o f injection 19:06: 19:48 ONCE [place]TRA [place] 00 :23 PROCEDURE, Medical Starting Branch on Sat08/20/22 at 1406, Until Sat08/20/22 at 1448, CHAI, Intra-op dexamethaso 2021- No Intravenou Univers ne 08-20 s, ONCE ity of (DECADRON 19:01: 19:48 INTRA [place] PHOSPHATE) 00 :23 PROCEDURE, Med ical injection Starting Branch on Sat08/20/22 at 1401, Until Sat08/20/22 at 1448, Routine, Intra-op NORepinephr 2021- No IV Unive rs ine 08-20 Infusion, ity of (LEVOPHED) 18:56: 19:48 CONTINUOUS [place] 16 mg in 00 :23 PRN, Medical NaCl 0.9% Starting Branch (NS) 250 mL on Sat infusion 08/20/22 at 1356, Intra-op propofoL IV 2021- No Intravenou Univers infusion 08-20 s, ONCE ity of 18:51: 19:48 INTRA [place] 00 :23 PROCEDURE, Medical Starting Branch on Sat08/20/22 at 1351, Until Sat08/20/22 at 1448, Routine, Intra-op FENTanyl PF 2021- No Intravenou Univers (SUBLIMAZE 08-20 s, ONCE ity o f (PF)) 18:48: 19:48 INTRA [place] injection 00 :23 PROCEDURE, Medi alvin Starting Branch on Sat08/20/22 at 1348, Until Sat08/20/22 at 1448, Routine, Intra-op lactated 2021- No IV Univers ringers IV 08-20 Infusion, ity of infusion 18:47: 19:48 [place]INUOUS [place] 00 :23 PRN, Medical Starting Branch on Sat08/20/22 at 1347, Until Sat08/20/22 at 1448, Routine, Intra-op lactated 2021- No 1000mL at 42 Unive rs ringers IV 08-20 mL/hr, ity of infusion 16:15: 16:44 1,000 mL, Dg as 1,000 mL 00 :00 IV Medical Infusion, Branch ONCE, 1 dose, On Sat08/20/22 at 1115, Routine, DSU Pre-op lactated 2021- No 1000mL at 42 Unive rs ringers IV 9-26 09-26 mL/hr, ity of infusion 16:15: 16:44 1,000 mL, Dg as 1,000 mL 00 :00 IV Medical Infusion, Branch ONCE, 1 dose, On Sat08/20/22 at 1115, Routine, DSU Pre-op aspirin 325 2021- Yes [id number] 325mg Take 1 Univers mg tablet 08-20 [id number] tablet by it y of 00:00: 04:59 mouth in [place] 00 :00 the [facility] and 1 tablet in the evening. Take with meals. Do all this for 28 days. aspirin 325 2021- Yes [id number] 325mg Take 1 Univers mg tablet 08-20 [id number] tablet by it y of 00:00: 04:59 mouth in [place] 00 :00 the [facility] and 1 tablet in the evening. Take with meals. Do all this for 28 days. aspirin 325 2021- Yes [id number] 325mg Take 1 Univers mg tablet 08-20 [id number] tablet by it y of 00:00: 04:59 mouth in [place] 00 :00 the [facility] and 1 tablet in the evening. Take with meals. Do all this for 28 days. aspirin 325 2021- Yes [id number] 325mg Take 1 Univers mg tablet 08-20 [id number] tablet by it y of 00:00: 04:59 mouth in [place] 00 :00 the [facility] and 1 tablet in the evening. Take with meals. Do all this for 28 days. aspirin 325 2021- Yes [id number] 325mg Take 1 Univers mg tablet 08-20 [id number] tablet by it y of 00:00: 04:59 mouth in [place] 00 :00 the [facility] and 1 tablet in the evening. Take with meals. Do all this for 28 days. traMADoL 50 2021- Yes [id number] 50mg Take 1 Uni vers mg tablet 08-20 tablet by ity of 00:00: 04:59 mouth [place] 00 :00 every 6 Medical (six) Branch hours as needed for Pain (scale 4-6) or Pain (scale 7-10) for up to 7 days. Indication s: acute pain traMADoL 50 2021- Yes [id number] 50mg Take 1 Uni vers mg tablet 9-26 10-04 tablet by ity of 00:00: 04:59 mouth [place] 00 :00 every 6 Medical (six) Branch hours as needed for Pain (scale 4-6) or Pain (scale 7-10) for up to 7 days. Indication s: acute pain METHOCARBAM 2018-0 Yes [id number] TAKE 1 Univers OL 500 mg 7-15 TABLET BY ity o f tablet 00:00: MOUTH [place] 00 TWICE Medical DAILY Branch METHOCARBAM 0 Yes [id number] TAKE 1 Univers OL 500 mg 7-15 TABLET BY ity o f tablet 00:00: MOUTH [place] 00 TWICE Medical DAILY Branch METHOCARBAM 0 Yes [id number] TAKE 1 Univers OL 500 mg 7-15 TABLET BY ity o f tablet 00:00: MOUTH TWICE Medical DAILY Branch METHOCARBAM 0 Yes [id number] TAKE 1 Univers OL 500 mg 7-15 TABLET BY ity o f tablet 00:00: MOUTH TWICE Medical DAILY Branch METHOCARBAM 0 Yes [id number] TAKE 1 Univers OL 500 mg 7-15 TABLET BY ity o f tablet 00:00: MOUTH [place] 00 TWICE Medical DAILY Branch METHOCARBAM 0 Yes [id number] TAKE 1 Univers OL 500 mg 7-15 TABLET BY ity o f tablet 00:00: MOUTH 00 TWICE Medical DAILY Branch METHOCARBAM 0 Yes [id number] TAKE 1 Univers OL 500 mg 7-15 TABLET BY ity o f tablet 00:00: MOUTH 00 TWICE Medical DAILY Branch METHOCARBAM 0 Yes [id number] TAKE 1 Univers OL 500 mg 7-15 TABLET BY ity o f tablet 00:00: MOUTH [place] 00 TWICE Medical DAILY Branch METHOCARBAM 0 Yes [id number] TAKE 1 Univers OL 500 mg 7-15 TABLET BY ity o f tablet 00:00: MOUTH [place] 00 TWICE Medical DAILY Branch METHOCARBAM 0 Yes [id number] TAKE 1 Univers OL 500 mg 7-15 TABLET BY ity o f tablet 00:00: MOUTH [place] 00 TWICE Medical DAILY Branch METHOCARBAM 0 Yes [id number] TAKE 1 Univers OL 500 mg 7-15 TABLET BY ity o f tablet 00:00: MOUTH [place] 00 TWICE Medical DAILY Branch METHOCARBAM 0 Yes [id number] TAKE 1 Univers OL 500 mg 7-15 TABLET BY ity o f tablet 00:00: MOUTH TWICE Medical DAILY Branch METHOCARBAM 2019-0 Yes [id number] TAKE 1 Univers OL 500 mg 7-15 TABLET BY ity o f tablet 00:00: MOUTH [place] TWICE Medical DAILY Branch METHOCARBAM 2019-0 Yes [id number] TAKE 1 Univers OL 500 mg 7-15 TABLET BY ity o f tablet 00:00: MOUTH [place] TWICE Medical DAILY Branch allopurinol 2019-0 Yes TK 1 T PO U nivers 300 mg 1-02 QD ity of tablet 00:00: [place] Medical Branch metFORMIN 2019-0 Yes [id number] 500mg Take 1 Univers 500 mg 1-02 tablet by ity of tablet 00:00: mouth 2 [place] ([facility]) Medical times [place] daily with meals. allopurinol 2018- Yes TK 1 T PO U nivers 300 mg 1-02 QD ity of tablet 00:00: [place] [facility] metFORMIN 2019-0 Yes [id number] 500mg Take 1 Univers 500 mg 1-02 tablet by ity of tablet 00:00: mouth 2 [place] ([facility]) Medical times [place] daily with meals. allopurinol 2018- Yes TK 1 T PO U nivers 300 mg 1-02 QD ity of tablet 00:00: [place] [facility] metFORMIN 2019-0 Yes [id number] 500mg Take 1 Univers 500 mg 1-02 tablet by ity of tablet 00:00: mouth 2 [place] ([facility]) Medical times [place] daily with meals. allopurinol 2018-0 Yes TK 1 T PO U nivers 300 mg 1-02 QD ity of tablet 00:00: [place] [facility] metFORMIN 2019-0 Yes [id number] 500mg Take 1 Univers 500 mg 1-02 tablet by ity of tablet 00:00: mouth 2 [place] ([facility]) Medical times [place] daily with meals. allopurinol 2018-0 Yes TK 1 T PO U nivers 300 mg 1-02 QD ity of tablet 00:00: [place] [facility] Branch metFORMIN 2019-0 Yes [id number] 500mg Take 1 Univers 500 mg 1-02 tablet by ity of tablet 00:00: mouth 2 [place] ([facility]) Medical times [place] daily with meals. allopurinol 2018-0 Yes TK 1 T PO U nivers 300 mg 1-02 QD ity of tablet 00:00: Medical Branch metFORMIN 2019-0 Yes [id number] 500mg Take 1 Univers 500 mg 1-02 tablet by ity of tablet 00:00: mouth 2 () Medical times Branch daily with meals. allopurinol 2019-0 Yes TK 1 T PO U nivers 300 mg 1-02 QD ity of tablet 00:00: [place] [facility] Branch metFORMIN 2019-0 Yes [id number] 500mg Take 1 Univers 500 mg 1-02 tablet by ity of tablet 00:00: mouth 2 [place] (two) Medical times Branch daily with meals. allopurinol 2019-0 Yes TK 1 T PO U nivers 300 mg 1-02 QD ity of tablet 00:00: [place] [facility] Branch metFORMIN 2019-0 Yes [id number] 500mg Take 1 Univers 500 mg 1-02 tablet by ity of tablet 00:00: mouth 2 [place] ([facility]) Medical times Branch daily with meals. allopurinol 2018-0 Yes TK 1 T PO U nivers 300 mg 1-02 QD ity of tablet 00:00: [place] [facility] metFORMIN 2019-0 Yes [id number] 500mg Take 1 Univers 500 mg 1-02 tablet by ity of tablet 00:00: mouth 2 [place] ([facility]) Medical times [place] daily with meals. allopurinol 2018-0 Yes TK 1 T PO U nivers 300 mg 1-02 QD ity of tablet 00:00: [place] [facility] metFORMIN 2019-0 Yes [id number] 500mg Take 1 Univers 500 mg 1-02 tablet by ity of tablet 00:00: mouth 2 [place] ([facility]) Medical times Branch daily with meals. allopurinol 2019-0 Yes TK 1 T PO U nivers 300 mg 1-02 QD ity of tablet 00:00: [place] [facility] metFORMIN 2019-0 Yes [id number] 500mg Take 1 Univers 500 mg 1-02 tablet by ity of tablet 00:00: mouth 2 [place] ([facility]) Medical times Branch daily with meals. allopurinol 2018-0 Yes TK 1 T PO U nivers 300 mg 1-02 QD ity of tablet 00:00: [place] [facility] metFORMIN 2019-0 Yes [id number] 500mg Take 1 Univers 500 mg 1-02 tablet by ity of tablet 00:00: mouth 2 [place] ([facility]) Medical times Branch daily with meals. allopurinol 2019-0 Yes TK 1 T PO U nivers 300 mg 1-02 QD ity of tablet 00:00: [place] 00 Medical Branch metFORMIN 2018-0 Yes [id number] 500mg Take 1 Univers 500 mg 1-02 tablet by ity of tablet 00:00: mouth 2 [place] (two) Medical times Branch daily with meals. allopurinol 2018- Yes TK 1 T PO U nivers 300 mg 1-02 QD ity of tablet 00:00: [place] 00 Medical Branch metFORMIN 2019-0 Yes [id number] 500mg Take 1 Univers 500 mg 1-02 tablet by ity of tablet 00:00: mouth 2 (two) Medical times Branch daily with meals. atorvastati Yes [id number] 40mg Take 1 Univers n 40 mg 5-07 tablet by ity of tablet 00:00: mouth at [place] 00 bedtime. Medical Branch metoprolol Yes [id number] 100mg Take 1 Univers succinate 5-07 tablet by ity o f XL 100 mg 00:00: mouth [place] 24 hr 00 daily. Medical tablet Branch valsartan-h Yes [id number] 1{tbl} Take 1 Univers ydrochlorot 5-07 tablet by ity of hiazide 00:00: mouth [place] 320-25 mg 00 daily. Medical per tablet Branch atorvastati Yes [id number] 40mg Take 1 Univers n 40 mg 5-07 tablet by ity of tablet 00:00: mouth at [place] 00 bedtime. Medical Branch metoprolol Yes [id number] 100mg Take 1 Univers succinate 5-07 tablet by ity o f XL 100 mg 00:00: mouth [place] 24 hr 00 daily. Medical tablet Branch valsartan-h Yes [id number] 1{tbl} Take 1 Univers ydrochlorot 5-07 tablet by ity of hiazide 00:00: mouth [place] 320-25 mg 00 daily. Medical per tablet Branch atorvastati Yes [id number] 40mg Take 1 Univers n 40 mg 5-07 tablet by ity of tablet 00:00: mouth at [place] 00 bedtime. Medical Branch metoprolol Yes [id number] 100mg Take 1 Univers succinate 5-07 tablet by ity o f XL 100 mg 00:00: mouth [place] 24 hr 00 daily. Medical tablet Branch valsartan-h Yes [id number] 1{tbl} Take 1 Univers ydrochlorot 5-07 tablet by ity of hiazide 00:00: mouth [place] 320-25 mg 00 daily. Medical per tablet Branch atorvastati Yes [id number] 40mg Take 1 Univers n 40 mg 5-07 tablet by ity of tablet 00:00: mouth at [place] 00 bedtime. Medical Branch metoprolol Yes [id number] 100mg Take 1 Univers succinate 5-07 tablet by ity o f XL 100 mg 00:00: mouth [place] 24 hr 00 daily. Medical tablet Branch valsartan-h Yes [id number] 1{tbl} Take 1 Univers ydrochlorot 5-07 tablet by ity of hiazide 00:00: mouth [place] 320-25 mg 00 daily. Medical per tablet Branch atorvastati Yes [id number] 40mg Take 1 Univers n 40 mg 5-07 tablet by ity of tablet 00:00: mouth at [place] 00 bedtime. Medical Branch metoprolol Yes [id number] 100mg Take 1 Univers succinate 5-07 tablet by ity o f XL 100 mg 00:00: mouth [place] 24 hr 00 daily. Medical tablet Branch valsartan-h Yes [id number] 1{tbl} Take 1 Univers ydrochlorot 5-07 tablet by ity of hiazide 00:00: mouth [place] 320-25 mg 00 daily. Medical per tablet Branch atorvastati Yes [id number] 40mg Take 1 Univers n 40 mg 5-07 tablet by ity of tablet 00:00: mouth at [place] 00 bedtime. Medical Branch metoprolol Yes [id number] 100mg Take 1 Univers succinate 5-07 tablet by ity o f XL 100 mg 00:00: mouth [place] 24 hr 00 daily. Medical tablet Branch valsartan-h Yes [id number] 1{tbl} Take 1 Univers ydrochlorot 5-07 tablet by ity of hiazide 00:00: mouth [place] 320-25 mg 00 daily. Medical per tablet Branch atorvastati Yes [id number] 40mg Take 1 Univers n 40 mg 5-07 tablet by ity of tablet 00:00: mouth at [place] 00 bedtime. Medical Branch metoprolol Yes [id number] 100mg Take 1 Univers succinate 5-07 tablet by ity o f XL 100 mg 00:00: mouth [place] 24 hr 00 daily. Medical tablet Branch valsartan-h Yes [id number] 1{tbl} Take 1 Univers ydrochlorot 5-07 tablet by ity of hiazide 00:00: mouth [place] 320-25 mg 00 daily. Medical per tablet Branch atorvastati Yes [id number] 40mg Take 1 Univers n 40 mg 5-07 tablet by ity of tablet 00:00: mouth at [place] 00 bedtime. Medical Branch metoprolol Yes [id number] 100mg Take 1 Univers succinate 5-07 tablet by ity o f XL 100 mg 00:00: mouth [place] 24 hr 00 daily. Medical tablet Branch valsartan-h Yes [id number] 1{tbl} Take 1 Univers ydrochlorot 5-07 tablet by ity of hiazide 00:00: mouth [place] 320-25 mg 00 daily. Medical per tablet Branch atorvastati Yes [id number] 40mg Take 1 Univers n 40 mg 5-07 tablet by ity of tablet 00:00: mouth at [place] 00 bedtime. Medical Branch metoprolol Yes [id number] 100mg Take 1 Univers succinate 5-07 tablet by ity o f XL 100 mg 00:00: mouth [place] 24 hr 00 daily. Medical tablet Branch valsartan-h Yes [id number] 1{tbl} Take 1 Univers ydrochlorot 5-07 tablet by ity of hiazide 00:00: mouth [place] 320-25 mg 00 daily. Medical per tablet Branch atorvastati Yes [id number] 40mg Take 1 Univers n 40 mg 5-07 tablet by ity of tablet 00:00: mouth at [place] 00 bedtime. Medical Branch metoprolol Yes [id number] 100mg Take 1 Univers succinate 5-07 tablet by ity o f XL 100 mg 00:00: mouth [place] 24 hr 00 daily. Medical tablet Branch valsartan-h Yes [id number] 1{tbl} Take 1 Univers ydrochlorot 5-07 tablet by ity of hiazide 00:00: mouth [place] 320-25 mg 00 daily. Medical per tablet Branch atorvastati Yes [id number] 40mg Take 1 Univers n 40 mg 5-07 tablet by ity of tablet 00:00: mouth at [place] 00 bedtime. Medical Branch metoprolol Yes [id number] 100mg Take 1 Univers succinate 5-07 tablet by ity o f XL 100 mg 00:00: mouth [place] 24 hr 00 daily. Medical tablet Branch valsartan-h Yes [id number] 1{tbl} Take 1 Univers ydrochlorot 5-07 tablet by ity of hiazide 00:00: mouth [place] 320-25 mg 00 daily. Medical per tablet Branch atorvastati Yes [id number] 40mg Take 1 Univers n 40 mg 5-07 tablet by ity of tablet 00:00: mouth at [place] 00 bedtime. Medical Branch metoprolol Yes [id number] 100mg Take 1 Univers succinate 5-07 tablet by ity o f XL 100 mg 00:00: mouth [place] 24 hr 00 daily. Medical tablet Branch valsartan-h Yes [id number] 1{tbl} Take 1 Univers ydrochlorot 5-07 tablet by ity of hiazide 00:00: mouth [place] 320-25 mg 00 daily. Medical per tablet Branch atorvastati Yes [id number] 40mg Take 1 Univers n 40 mg 5-07 tablet by ity of tablet 00:00: mouth at [place] 00 bedtime. Medical Branch metoprolol Yes [id number] 100mg Take 1 Univers succinate 5-07 tablet by ity o f XL 100 mg 00:00: mouth [place] 24 hr 00 daily. Medical tablet Branch valsartan-h Yes [id number] 1{tbl} Take 1 Univers ydrochlorot 5-07 tablet by ity of hiazide 00:00: mouth [place] 320-25 mg 00 daily. Medical per tablet Branch atorvastati Yes [id number] 40mg Take 1 Univers n 40 mg 5-07 tablet by ity of tablet 00:00: mouth at [place] 00 bedtime. Medical Branch metoprolol Yes [id number] 100mg Take 1 Univers succinate 5-07 tablet by ity o f XL 100 mg 00:00: mouth [place] 24 hr 00 daily. Medical tablet Branch valsartan-h Yes [id number] 1{tbl} Take 1 Univers ydrochlorot 5-07 tablet by ity of hiazide 00:00: mouth [place] 320-25 mg 00 daily. Medical per tablet Branch sildenafil 2016-11 Yes 100 mg = 1 M emoria 100 MG Oral 2-29 tab, PO, l Tablet 16:15: Daily, PRN Clari nn [Viagra] 42 for erectile dysfunctio n, Take 30 minutes prior to intercours e, # 30 tab, 1 Refill(s), [id number] sildenafil 2016-11 Yes 100 mg = 1 M emoria 100 MG Oral 2-29 tab, PO, l Tablet 16:15: Daily, PRN Clari nn [Viagra] 42 for erectile dysfunctio n, Take 30 minutes prior to intercours e, # 30 tab, 1 Refill(s), [facility] Metoprolol 2016-11 Yes 100 mg = 1 M emoria Succinate 2-29 tab, PO, l ER 100 mg 16:15: Daily, # Herm avelino oral 19 90 tab, 1 tablet, Refill(s), extended [facility] [id number] Metoprolol 2016-11 Yes 100 mg = 1 M emoria Succinate 2-29 tab, PO, l ER 100 mg 16:15: Daily, # Herm avelino oral 19 90 tab, 1 tablet, Refill(s), [id number] Metformin 2016-11 Yes 500 mg = 1 Me moria hydrochlori 2-29 tab, PO, l de 500 MG 16:15: BID, # 180 He rmann Oral Tablet 17 tab, 1 Refill(s), [facility] [id number] Metformin 2016-11 Yes 500 mg = 1 Me moria hydrochlori 2-29 tab, PO, l de 500 MG 16:15: BID, # 180 He rmann Oral Tablet 17 tab, 1 Refill(s), [facility] [id number] Hydrochloro 2016-11 Yes 1 tab, PO, Memoria thiazide 25 2-29 Daily, # l MG / 16:14: 90 tab, 1 [facility] valsartan 54 Refill(s), 320 MG Oral Pharmacy: [facility] [place] [id number] Hydrochloro 2016-11 Yes 1 tab, PO, Memoria thiazide 25 2-29 Daily, # l MG / 16:14: 90 tab, 1 [facility] valsartan 54 Refill(s), 320 MG Oral Pharmacy: [facility] [place] [id number] atorvastati 2016-11 Yes 40 mg = 1 M emoria n 40 mg 2-29 tab, PO, l oral tablet 16:14: Bedtime, # Rob 42 90 tab, 1 Refill(s), Pharmacy: [place] [id number] atorvastati 2016-11 Yes 40 mg = 1 M emoria n 40 mg 2-29 tab, PO, l oral tablet 16:14: Bedtime, # Rob 42 90 tab, 1 Refill(s), Pharmacy: [place] [id number] allopurinol 2016-11 Yes 300 mg = 1 Memoria 300 mg oral 2-29 tab, PO, l tablet 16:14: Daily, # Rob 23 90 tab, 1 Refill(s), Pharmacy: [place] [id number] allopurinol 2016-11 Yes 300 mg = 1 Memoria 300 mg oral 2-29 tab, PO, l tablet 16:14: Daily, # [facility] 23 90 tab, 1 Refill(s), Pharmacy: [place] [id number] amoxicillin 2016-11 Yes 1,000 mg = Memoria 500 mg oral 2-29 2 tab, PO, l tablet 16:12: BID, X 10 Sandip n 00 day, # 40 tab, 0 Refill(s), Pharmacy: [place] [id number] Fluticasone 2016-11 Yes 2 spray, Me moria propionate 2-29 NASAL, l 0.05 16:12: Daily, in [facility] MG/ACTUAT 00 each Metered nostril, # Dose Nasal 16 gm, 1 [place] Refill(s), Pharmacy: [place] [id number] amoxicillin 2016-11 Yes 1,000 mg = Memoria 500 mg oral 2-29 2 tab, PO, l tablet 16:12: BID, X 10 Sandip n 00 day, # 40 tab, 0 Refill(s), Pharmacy: [place] [id number] Fluticasone 2016-11 Yes 2 spray, Me moria propionate 2-29 NASAL, l 0.05 16:12: Daily, in Rob MG/ACTUAT 00 each Metered nostril, # Dose Nasal 16 gm, 1 [place] Refill(s), Pharmacy: [facility] [id number] Vital Signs Vital Name Observation Time Observation Value Comments Source Systolic blood 2022-09-06 14:33:00 107 mm[Hg] Univer sity of [facility] Diastolic blood 2022-09-06 14:33:00 70 mm[Hg] Unive rsity of [facility] Heart rate 2022-09-06 14:33:00 74 /min Universi ty of [facility] Body height 2022-09-06 14:33:00 167.6 cm Universi ty of [facility] Body weight 2022-09-06 14:33:00 83.915 kg Universi ty of [facility] BMI 2022-09-06 14:33:00 29.86 kg/m2 Universi ty of [facility] Systolic blood 2022-08-20 20:26:00 119 mm[Hg] Univer sity of [facility] Diastolic blood 2022-08-20 20:26:00 82 mm[Hg] Unive rsity of [facility] Heart rate 2022-08-20 20:26:00 64 /min Universi ty of [facility] Respiratory rate 2022-08-20 20:26:00 26 /min [facility] [place] [facility] in 2022-08-20 20:26:00 94 /min [facility] Arterial blood by [facility] Pulse oximetry Branch Body temperature 2022-08-20 19:44:[address] [facility] [place] [place] ersity of [facility] Body height 2022-08-17 16:59:00 167.6 cm Universi ty of [facility] Body weight 2022-08-17 16:59:00 83.9 kg Universi ty of [facility] BMI 2022-08-17 16:59:00 29.87 kg/m2 Universi ty of [facility] Heart rate 2022-08-20 20:17:00 69 /min Universi ty of [facility] Respiratory rate 2022-08-20 20:17:00 17 /min Univ ersity of [facility] Oxygen saturation in 2022-08-20 20:17:00 96 /min University of Arterial blood by [facility] Pulse oximetry Branch Systolic blood 2022-08-20 20:13:00 120 mm[Hg] Univer sity of pressure [facility] Diastolic blood 2022-08-20 20:13:00 79 mm[Hg] Unive rsity of pressure [facility] Body temperature 2022-08-20 19:44:00 36.94 Kinza Univ ersity of [facility] Body height 2022-08-17 16:59:00 167.6 cm Universi ty [facility] Body weight 2022-08-17 16:59:00 83.9 kg Universi ty [facility] BMI 2022-08-17 16:59:00 29.87 kg/m2 Universi ty [facility] Respiratory rate 2022-08-20 19:32:00 19 /min [facility] Systolic blood 2022-07-27 14:22:00 101 mm[Hg] Univer sity of [facility] Diastolic blood 2022-07-27 14:22:00 64 mm[Hg] Unive rsity of [facility] Heart rate 2022-07-27 14:22:00 48 /min Universi ty [facility] Body height 2022-07-27 14:22:00 167.6 cm Universi ty [facility] Oxygen saturation in 2022-07-27 14:22:00 96 /min University Arterial blood by [facility] Pulse oximetry Branch Weight 2017-11-22 15:37:00 [facility] Height 2017-11-22 15:37:00 170.18 cm [facility] BMI Calculated 2017-11-22 15:37:00 Juliana Moura Systolic (mm Hg) 2017-11-22 15:37:00 Brandon Rivas Diastolic (mm Hg) 2017-11-22 15:37:00 Mem orial Rob Respitory Rate 2017-11-22 15:37:00 Juliana Moura Heart Rate 2017-11-22 15:37:00 [facility] Temperature Oral (F) 2017-11-22 15:37:00 98.2 F [facility] Procedures Procedure Date / Time Performing Clinician Source Performed INTUBATION 2022-08-20 19:00:00 Alan [facility] ARTERIAL LINE 2022-08-20 18:33:00 Alan, [facility] MENISCECTOMY 2022-08-20 18:30:00 Rachele Parrish [facility] POCT GLUCOSE 2022-08-20 16:38:00 Rachele Parrish [facility] (AUTOMATED) [facility] POCT GLUCOSE 2022-08-20 16:38:00 Rachele Parrish [facility] (AUTOMATED) [facility] DAY SURGERY - ADC 2022-08-20 05:01:00 Doctor Unassigned, No Univ ersity of [facility] EXTERNAL PROVIDER 2022-08-15 05:01:00 Doctor Unassigned, No Univ ersity of [facility] DSU PRE-OP 2022-08-15 05:01:00 Doctor Unassigned, No Univer sity of [facility] EXTERNAL PROVIDER 2022-08-15 05:01:00 Doctor Unassigned, No Univ ersity of [facility] DSU PRE-OP 2022-08-15 05:01:00 Doctor Unassigned, No Univer sity of [facility] DSU PRE-OP 2022-08-01 05:01:00 Doctor Unassigned, No Univer sity of [facility] [id number] 2021-10-02 00:00:00 LOYPR [facility] [id number] 2021-10-02 00:00:00 LOYPR [facility] [id number] 2021-10-02 00:00:00 LOYPR [facility] [id number] 2021-10-02 00:00:00 LOYPR [facility] [id number] 2021-10-02 00:00:00 LOYPR [facility] [id number] 2021-09-20 00:00:00 [facility] [id number] 2021-09-20 00:00:00 [facility] [id number] 2021-09-20 00:00:00 [facility] [id number] 2021-09-20 00:00:00 [facility] Bypass<sup>1</sup> [facility] Kidney stones [facility] Encounters Start End Encounter Admission Attending Care Care Encounter Source Date/Time Date/Time Type Type Clinicians Facility Department ID 2022-05-01 Outpatient [facility] [id number] [place] 07:06:44 [id number] Health 2022-09-06 2022-09-06 Office Jero [facility] 1.2.840.114 [id number] Univers 09:30:00 09:45:00 Visit Madelyn LINDA 350.1.13.10 it y of [place] 4.2.7.2.686 Dg as BROOKE?BLEA [phone] Hi kim RANKIN [address] [facility] OFFICE [facility] 2022-09-06 2022-09-06 Outpatient [facility] [id number] Univers 09:30:00 09:30:00 MADELYN itemilia [facility] 2022-09-05 2022-09-05 Telephone [facility] 1.2.840.114 [id number] Univers 00:00:00 00:00:00 Rachele L [facility] 350.1.13.10 it [facility] 4.2.7.2.686 Dg as BROOKE?BLEA [phone] Hi rosa[address] 2022-08-20 2022-08-20 Outpatient [facility] S[facility] [id number] Univers 11:03:00 15:46:00 RACHELE itemilia [facility] 2022-08-20 2022-08-20 [facility] 1.2.840.114 [id number] Univers 11:03:00 15:46:00 Encounter Rachele L DELFINO 350.1.13.10 ity [place]2.[place] SUR[place]ICAL [id number] [facility] 071 Branch 2022-08-20 2022-08-20 Surgery [facility] [id number] Univers 13:45:00 15:17:00 Rachele SALEH 350.1.13.10 i ty [place]2.7.2.[place]ICAL [id number] [facility] 020 Branch 2022-08-20 2022-08-20 Anesthesia Miguel Angel Young [facility] 1.2.840.11 [id number] Univers 13:46:00 14:40:00 Event Rodolfo Phillips 35 0.1.13.10 ity of [facility] 4.2.7.2.686 [place] [id number] [facility] [address] [place] 2022-08-17 2022-08-17 Laboratory Only, Adc Test [facility] 1.2.840. 114 [id number] Univers 09:30:00 09:45:00 Only Rachele Parrish 350.1.13.10 ity of [facility] 4.2.7.2.686 [place] CAMPUS [id number] [facility] [address] 2022-08-17 2022-08-17 Outpatient [facility] [id number] Univers 09:30:00 09:30:00 RACHELE gonzales [facility] 2022-08-15 2022-08-15 Centrifugal Machine Tender Alessandra, Kelly [facility] Main [facility] 1.2.8 40.114 [id number] Univers 12:00:00 12:15:00 Visit Rachele Parrish 350.1.13.10 ity of [facility] 4.2.[place].2.[place] PROFESSIO [id number] [facility] [address] [facility] 2022-08-15 2022-08-15 Outpatient R FRANCOIS [facility] [id number] Univers 12:00:00 12:00:00 RACHELE gonzales [facility] 2022-08-14 2022-08-14 Prep For Francois [facility] 1.2.840.114 [id number] Univers 00:00:00 00:00:00 Surgery Rachele Mccain [facility] 350.1.13.10 it y of [place] 4.2.7.2.686 Dg as BROOKE?BLEA [phone] Hi dical [facility] [address] MEDICAL OFFICE [facility] 2022-08-13 2022-08-13 Nurse Nurse, [facility] 1.2.840.114 [id number] Univers 13:30:00 15:33:51 Visit Stephanie Coronadoa R HEALTH 350.1.13 .10 ity of [place] 4.2.7.2.686 Dg as BROOKE?BLEA [id number] Hi kim NAPOLES [address] [facility] OFFICE [facility] 2022-08-13 2022-08-13 Outpatient R [facility] [id number] Univers 13:30:00 13:30:00 Martín AMARI itemilia o f [facility] 2022-08-13 2022-08-13 Telephone [facility] 1.2.356.225 [id number] Univers 00:00:00 00:00:00 Madelyn S HEALTH 350.1.13.10 it y of [place] 4.2.7.2.686 Dg as BROOKE?BLEA [phone] Hi kim NAPOLES [address] [place] [address] 2022-08-01 2022-08-01 Orders Doctor MARIO 1.2.840.114 [id number] Univers 00:00:00 00:00:00 Only Unassigned, ALEJANDRA 350.1.13.10 ity of [place] [facility] 4.2.7.2.686 Dg as [id number] [address] 2022-07-31 2022-07-31 Telephone [facility] 1.2.546.345 [id number] Univers 00:00:00 00:00:00 Madelyn S HEALTH 350.1.13.10 it y of [place] 4.2.7.2.686 Dg as BROOKE?BLEA [id number] Hi kim NAPOLES [address] [facility] OFFICE [facility] 2022-07-27 2022-07-27 Outpatient R JERO [facility] [id number] Univers 09:15:00 09:37:16 MADELYN ity of [facility] 2022-07-27 2022-07-27 Office [facility] 1.2.840.114 [id number] Univers 09:15:00 09:30:00 Visit [facility] HEALTH 350.1.13.10 it y of [place] 4.2.7.2.686 Dg as BROOKE?BLEA [id number] Hi kim NAPOLES 198 [facility] 2022-07-27 2022-07-27 Outpatient R JERO [facility] [id number] Univers 09:15:00 09:15:00 MADELYN ity of [facility] 2022-07-17 2022-07-17 Telephone [facility] 1.2.840.114 [id number] Univers 00:00:00 00:00:00 Rachele HEALTH 350.1.13.10 it y of [place] 4.2.7.2.686 Dg as BROOKE?BLEA [phone] Hi kim NAPOLES [address] [place] [address] MEDICAL OFFICE [facility] 2022-07-12 2022-07-12 Telephone [facility] 1.2.840.114 [id number] Univers 00:00:00 00:00:00 Rachele HEALTH 350.1.13.10 it y of [place] 4.2.7.2.686 Dg as BROOKE?BLEA [phone] Hi kim NAPOLES [address] [place] [address] OFFICE [facility] 2022-07-09 2022-07-09 Telephone [facility] 1.2.116.832 [id number] Univers 00:00:00 00:00:00 [facility] HEALTH 350.1.13.10 it y of [place] 4.2.7.2.686 Dg as BROOKE?BLEA [phone] Hi kim NAPOLES [address] [place] [address] 2022-06-22 2022-06-22 Outpatient Ayse [facility] [id number] Univers 10:30:00 10:54:35 MADELYN itemilia [facility] 2022-06-22 2022-06-22 Office [facility] 1.2.840.114 [id number] Univers 10:30:00 10:54:35 Visit [facility] 350.1.13.10 it y of [place] 4.2.7.2.686 Dg as BROOKE?BLEA [id number] Hi kim NAPOLES [address] [place] [address] OFFICE [facility] 2022-06-22 2022-06-22 Orders Doctor MARTIN 1.2.840.114 [id number] Univers 00:00:00 00:00:00 Only Unassigned, ALEJANDRA 350.1.13.10 ity of [place] [facility]PITAL 4.2.7.2.686 Dg as [id number] [address] 2022-06-15 2022-06-15 Outpatient [facility] [id number] Univers 11:15:00 11:15:00 [facility] 2022-06-15 2022-06-15 [facility] 1.2.068.134 [id number] Univers 11:15:00 11:15:00 Visit Rachele LINDA 350.1.13.10 it y of [place] 4.2.7.2.686 Dg as BROOKE?BLEA [id number] [address] MEDICAL OFFICE [facility] 2022-06-15 2022-06-15 Outpatient [facility] [id number] Univers 11:15:00 11:13:02 [facility] 2022-06-04 2022-06-04 Outpatient [facility] [id number] Univers 08:54:26 23:59:00 [facility] 2022-06-04 2022-06-04 Hospital [facility] 1.2.840.114 [id number] Univers 08:54:26 23:59:00 Encounter Rachele LINDA 350.1.13.10 [place] of [place]2.[place] [id number] [facility] [address] ([facility] 2022-05-10 2022-05-10 Outpatient Ayse [facility] [id number] Univers 10:38:34 23:59:00 [facility] 2022-05-10 2022-05-10 Office [facility] 1.2.840.114 [id number] Univers 10:30:00 11:17:58 Visit Madelyn Levy [facility] 350.1.13.10 it y of [place] 4.2.7.2.686 Dg as BROOKE?BLEA [phone] [address] MEDICAL OFFICE [facility] 2022-05-10 2022-05-10 Outpatient Ayse [facility] [id number] Univers 10:30:00 11:17:58 MADELYN [facility] 2022-05-10 2022-05-10 Outpatient Ayse [facility] [id number] Univers 10:38:34 10:38:34 MADELYN ity [facility] 2022-05-10 2022-05-10 Orders Doctor MARTIN 1.2.840.114 [id number] Univers 00:00:00 00:00:00 Only Unassigned, ALEJANDRA 350.1.13.10 ity of [place] [facility] 4.2.7.2.686 Dg as [id number] [address] 2022-05-09 2022-05-09 Outpatient R FRANCOIS [facility] [id number] Univers 15:00:00 15:00:00 RACHELE rayemilia [facility] 2022-01-22 2022-01-22 Outpatient [facility] PIJFIND [facility]V [facility] 00:00:00 00:00:00 DPP- 10 2021-09-26 2021-10-04 Inpatient EL Luz Maria [facility] ICU [id number] [facility] 21:08:00 15:42:00 rRashaad Kell [facility] 2021-09-27 2021-09-27 [id number] [id number] [facility] 09:24:00 09:24:00 rRashaad 28 [facility] are [facility] 2021-09-20 2021-09-26 Inpatient EM Luis A CELENAPM INTE [id number] [facility] 03:55:00 20:31:00 Oladipo 25 [address] silvana roman [facility] 2018-05-07 2018-05-09 Phone nullFlavo [facility] [id number] Memoria 13:24:00 04:59:59 Message r Primary 07 l [facility] 2018-05-07 2018-05-09 Phone nullFlavo MG [id number] Memoria 13:24:00 04:59:59 Message r Primary 07 l [facility] 2018-05-07 2018-05-08 Outpatient MHMG MH[facility] [id number] 08:24:00 23:59:59 07 2017-11-22 2017-11-23 [place] [id number] Memoria 15:45:00 05:59:59 r Primary 13 l [facility] 2017-11-22 2017-11-23 [place] [id number] Memoria 15:45:00 05:59:59 r Primary 13 chioma Vahid Rob [facility] 2017-11-22 2017-11-22 Outpatient Juno Littlejohn MG MG [id number] 09:45:00 23:59:59 Vivek 13 2017-11-22 2017-11-22 Outpatient MHIE MHIE [id number] Memoria 09:45:00 09:45:00 13 chioma Rivas 2017-03-29 2017-03-29 Outpatient MHIE MHIE [id number] Memoria 14:30:00 14:30:00 12 chioma Rivas 2017-03-29 2017-03-29 Outpatient MHIE MHIE [id number] Memoria 14:30:00 14:30:00 12 chioma Rivas 2017-03-01 2017-03-01 Outpatient MHIE MHIE [id number] Memoria 13:00:00 13:00:00 11 chioma Rivas 2017-03-01 2017-03-01 Outpatient MHIE MHIE [id number] Memoria 13:00:00 13:00:00 11 chioma Rivas 2017-02-22 2017-02-22 Outpatient MHIE MHIE [id number] Memoria 13:00:00 13:00:00 10 chioma Rivas 2017-02-22 2017-02-22 Outpatient MHIE MHIE [id number] Memoria 13:00:00 13:00:00 10 chioma Rivas 2016-10-26 2016-10-26 Outpatient MHIE MHIE [id number] Memoria 15:15:00 15:15:00 06 chioma Rivas 2016-10-26 2016-10-26 Outpatient MHIE MHIE [id number] Memoria 15:15:00 15:15:00 06 chioma Rivas 2016-10-17 2016-10-17 Outpatient MHIE MHIE [id number] Memoria 11:30:00 11:30:00 09 chioma Rivas 2016-10-17 2016-10-17 Outpatient MHIE MHIE [id number] Memoria 11:30:00 11:30:00 09 chioma Rivas 2016-10-08 2016-10-08 Outpatient MHIE MHIE [id number] Memoria 09:45:00 09:45:00 08 chioma Rivas 2016-10-08 2016-10-08 Outpatient MHIE MHIE [id number] Memoria 09:45:00 09:45:00 08 chioma Rivas 2016-08-24 2016-08-24 Outpatient MHIE MHIE [id number] Memoria 14:00:00 14:00:00 07 chioma Rivas 2016-08-24 2016-08-24 Outpatient MHIE MHIE [id number] Memoria 14:00:00 14:00:00 07 chioma Rivas 2016-08-03 2016-08-03 Outpatient MHIE MHIE [id number] Memoria 15:15:00 15:15:00 05 chioma Rivas 2016-08-03 2016-08-03 Outpatient MHIE MHIE [id number] Memoria 15:15:00 15:15:00 05 chioma Rivas 2016-01-30 2016-01-30 Outpatient MHIE MHIE [id number] Memoria 11:30:00 11:30:00 04 chioma Rivas 2016-01-30 2016-01-30 Outpatient MHIE MHIE [id number] Memoria 11:30:00 11:30:00 04 chioma Rivas 2015-10-07 2015-10-07 Outpatient MHIE MHIE [id number] Memoria 16:30:00 16:30:00 03 chioma Rivas 2015-10-07 2015-10-07 Outpatient MHIE MHIE [id number] Memoria 16:30:00 16:30:00 03 chioma Rivas 2015-09-09 2015-09-09 Outpatient MHIE MHIE [id number] Memoria 11:45:00 11:45:00 02 chioma Rivas 2015-09-09 2015-09-09 Outpatient MHIE MHIE [id number] Memoria 11:45:00 11:45:00 02 chioma Rivas 2015-09-05 2015-09-05 Outpatient MHIE MHIE [id number] [facility] 08:45:00 08:45:00 01 chioma Rivas 2015-09-05 2015-09-05 Outpatient MHIE MHIE [id number] [facility] 08:45:00 08:45:00 01 chioma Rivas 2015-05-20 2015-05-20 Outpatient MHIE MHIE [id number] [facility] 10:15:00 10:15:00 00 cihoma Rivas 2015-05-20 2015-05-20 Outpatient MHIE MHIE [id number] [facility] 10:15:00 10:15:00 00 chioma Rivas Results Test Description Test Time Test Comments Results Result Comments Source POCT GLUCOSE (AUTOMATED) 2022-08-20 16:50:57 Test Item Value Reference Range Interpretation Comme nts POCT GLU (test code = 0998590419) 115 mg/dL 70-110 H Lab Interpretation (test code = 54737-0) [facility]20 16:50:57 Test Item Value Reference Range Interpretation Comments POCT GLU (test code = 0367177254) 115 mg/dL 70-110 H Lab Interpretation (test code = Abnormal 56563-9) [facility] 16:55:00 Test Item Value Reference Range Interpretation Comments GLUBED (test code = GLUBED) 126 MG/DL 70-105 H [id number] 16:55:00 Test Item Value Reference Range Interpretation Comments GLUBED (test code = GLUBED) 126 MG/DL 70-105 H WINTROBE SED [id number] 03:56:00 Test Item Value Reference Range Interpretation Comments WINTROBE SED RATE (test code = 54 mm/HR 0-10 H SEDWI) C REACTIVE [id number] 03:04:00 Test Item Value Reference Range Interpretation Comments C REACTIVE PROTEIN 15 mg/L <10 H Please no te: New (test code = CRP) Reference Range Dec 2020 BASIC METABOLIC [id number] 03:04:00 Test Item Value Reference Range Interpretation [...] New = CA) Reference Range Dec 2020 [id number] 03:04:00 Test Item Value Reference Range Interpretation Comments PHOSPHOROUS (test code 3.9 mg/dL 2.4-5.1 N Pleas e note: New = PHOS) Reference Range Dec 2020 [id number] 03:04:00 Test Item Value Reference Range Interpretation Comments MAGNESIUM (test code = 2.0 mg/dL 1.6-2.6 N Pleas e note: New MAG) Reference Range Dec 2020 CBC W/AUTO [id number] 02:29:00 Test Item Value Reference Range Interpretation [...] 0.04 x10 3/uL 0.0-0.20 N BASIC METABOLIC [id number] 12:32:00 Test Item Value Reference Range Interpretation [...] New = CA) Reference Range Dec 2020 [id number] 12:32:00 Test Item Value Reference Range Interpretation Comments PHOSPHOROUS (test code 3.5 mg/dL 2.4-5.1 N Pleas e note: New = PHOS) Reference Range Dec 2020 [id number] 12:32:00 Test Item Value Reference Range Interpretation Comments MAGNESIUM (test code = 2.0 mg/dL 1.6-2.6 N Pleas e note: New MAG) Reference Range Dec 2020 CBC W/AUTO [id number] 12:26:00 Test Item Value Reference Range Interpretation [...] = BA#) 0.05 x10 3/uL 0.0-0.20 N [id number] 12:02:00 Test Item Value Reference Range Interpretation Comments GLUBED (test code = GLUBED) 120 MG/DL 70-105 H [id number] 21:46:00 Test Item Value Reference Range Interpretation Comments GLUBED (test code = GLUBED) 192 MG/DL 70-105 H BASIC METABOLIC [id number] 18:52:00 Test Item Value Reference Range Interpretation [...] = CA) Reference Range Dec 2020 PROTHROMBIN [id number] 18:50:00 Test Item Value Reference Range Interpretation Comments PROTHROMBIN TIME 13.2 SECONDS 10.3-12.9 H PATIENT (test code = PTP) INTERNATIONAL 1.16 INR UNIT 0.9-1.11 H The INR is us eful only NORMAL RATIO (test for monit oring code = INR) anticoagulant therapy.It may be unreliable in t he initial phase o f antigoagulation and in unstable patien ts. Indication for Anticoagulation Recommended INR 1. Prevention of v enous thomboembolism 2.0-3.0in high- risk patients; treat ment of venousthrombosi s and pulmonary embol ism aftera course o f heparin; preven tion of systemicembolis m in a variety of cond itions, including atria l fibrillation an d prothetic tissu e heart valves, 2. Pros thetic mechanical hear t valves; 2.5-3.5recurren t systemic emboli sm. THROMBOPLASTIN TIME [id number] 18:50:00 Test Item Value Reference Range Interpretation Comments THROMBOPLASTIN TIME 31.2 SECONDS 23.8-34.8 INTERPRE TATIVE PARTIAL (test code = : erapeutic PTT) range: Unfractionated heparin:55 - 80 seconds Argatroban:1.5 to 3 times the basel ine PTT CBC W/AUTO [id number] 18:43:00 Test Item Value Reference Range Interpretation [...] = BA#) 0.06 x10 3/uL 0.0-0.20 N [id number] 12:40:00 Test Item Value Reference Range Interpretation Comments GLUBED (test code = GLUBED) 109 MG/DL 70-105 H COAGULATION TIME [id number] 10:47:00 Test Item Value Reference Range Interpretation Comments COAGULATION TIME ACTIVATED (test 285 SECONDS 74-137 H code = ACT) BASIC METABOLIC [id number] 04:23:00 Test Item Value Reference Range Interpretation [...] New = CA) Reference Range Dec 2020 [id number] 04:23:00 Test Item Value Reference Range Interpretation Comments PHOSPHOROUS (test code 4.6 mg/dL 2.4-5.1 N Dre e note: New = PHOS) Reference Range Dec 2020 [id number] 04:23:00 Test Item Value Reference Range Interpretation Comments MAGNESIUM (test code = 2.2 mg/dL 1.6-2.6 N Dre e note: New MAG) Reference Range Dec 2020 THROMBOPLASTIN TIME [id number] 04:01:00 Test Item Value Reference Range Interpretation Comments THROMBOPLASTIN TIME 73.4 SECONDS 23.8-34.8 H INTERPRE TATIVE PARTIAL (test code = DATA: erapeutic PTT) range: Unfractionated heparin:55 - 80 seconds Argatroban:1.5 to 3 times the basel ine PTT CBC W/AUTO [id number] 03:39:00 Test Item Value Reference Range Interpretation [...] = BA#) 0.08 x10 3/uL 0.0-0.20 N [id number] 23:24:00 Test Item Value Reference Range Interpretation Comments GLUBED (test code = GLUBED) 157 MG/DL 70-105 H THROMBOPLASTIN TIME [id number] 20:43:00 Test Item Value Reference Range Interpretation Comments THROMBOPLASTIN TIME 80.5 SECONDS 23.8-34.8 H INTERPRE TATIVE PARTIAL (test code = DATA:Th erapeutic PTT) range: Unfractionated heparin:55 - 80 seconds Argatroban:1.5 to 3 times the basel ine PTT THROMBOPLASTIN TIME [id number] 12:35:00 Test Item Value Reference Range Interpretation Comments THROMBOPLASTIN TIME 65.7 SECONDS 23.8-34.8 H INTERPRE TATIVE PARTIAL (test code = DATA:Th erapeutic PTT) range: Unfractionated heparin:55 - 80 seconds Argatroban:1.5 to 3 times the basel ine PTT [id number] 12:03:00 Test Item Value Reference Range Interpretation Comments GLUBED (test code = GLUBED) 94 MG/DL 70-105 N [id number] 08:02:00 Test Item Value Reference Range Interpretation Comments GLUBED (test code = GLUBED) 107 MG/DL 70-105 H - XR CHEST 1 [id number] 07:49:00 [facility] : 1955 Sex: MPatient Name: MELANIE YAÑEZ Unit No: [id number] EXAMS: CPT CODE: [id number] XR CHEST 1 V 06063 Exam: Portable chest x-ray single view History: Shortness of breath with unstable angina Location: D4 Findings: The heart size is enlarged with diffuse pulmonary edema pattern along with bilateral effusions. Osseous structures are intact. Prior sternotomy. Impression: 1. CHF with likely small bilateral effusions without interval change from prior exam. Electronically Signed by AMELIA ANDINO M.D.on 10/01/2021 at 0749 Reported and signed by: AMELIA ANDINO M.D. CC: Rashaad Jin MD; Aruna Padilla Technologist: Mitzy Brooks Time: DAP (Gy m2): Air Kerma (mGy): Trscr Dt/Tm: 10/01/2021 (0749) by:Juarez Printed Date/Time: 10/01/2021 (0752) Name: MELANIE YAÑEZ [facility] Phys: [id number] - Aruna Padilla APRN [address] : 1955 Age: 66 Sex: [place] [address] Loc: P.0223 1 Exam Date: 10/01/2021 Status: ADM IN PH: FAX: PAGE 1Signed ReportBASIC METABOLIC [id number] 05:23:00 Test Item Value Reference Range Interpretation [...] CA) Reference Range Dec 2020 THROMBOPLASTIN TIME [id number] 05:20:00 Test Item Value Reference Range Interpretation Comments THROMBOPLASTIN TIME 45.0 SECONDS 23.8-34.8 H INTERPRE TATIVE PARTIAL (test code = DATA:Th erapeutic PTT) range: Unfractionated heparin:55 - 80 seconds Argatroban:1.5 to 3 times the basel ine PTT CBC W/AUTO [id number] 05:05:00 Test Item Value Reference Range Interpretation [...] = BA#) 0.07 x10 3/uL 0.0-0.20 N [id number] 22:17:00 Test Item Value Reference Range Interpretation Comments GLUBED (test code = GLUBED) 174 MG/DL 70-105 H [id number] 18:41:00 Test Item Value Reference Range Interpretation Comments GLUBED (test code = GLUBED) 170 MG/DL 70-105 H [id number] 12:02:00 Test Item Value Reference Range Interpretation Comments GLUBED (test code = GLUBED) 110 MG/DL 70-105 H THROMBOPLASTIN TIME [id number] 11:50:00 Test Item Value Reference Range Interpretation Comments THROMBOPLASTIN TIME 48.8 SECONDS 23.8-34.8 H INTERPRE TATIVE PARTIAL (test code = DATA:Th erapeutic PTT) range: Unfractionated heparin:55 - 80 seconds Argatroban:1.5 to 3 times the basel ine PTT - XR CHEST 1 [id number] 08:04:00 [facility] : 1955 Sex: MPatient Name: MELANIE YAÑEZ Unit No: [id number] EXAMS: CPT CODE: [id number] XR CHEST 1 V 25496 Clinical Information: Shortness of breath. Unstable angina. Heart failure. Dictation Location: A1 COMPARISON: 09/29/2021. FINDINGS: Portable frontal view of the chest taken at 0356 hours erect shows monitoring electrodes overlying the chest wall. Sternal wire sutures., Mild cardiomegaly, and genera lized interstitial prominence are again noted. Patchy perihilar infiltrates appear slightly decreased from the previous day. No new consolidation or effusion. The bones are stable. IMPRESSION: 1. Diffuse interstitial prominence. 2. Slight reduction in perihilar infiltrate since the prior day. 3. Postop erative chest with cardiomegaly. at 0804 Reported and signed by: JEFF BROUSSARD M.D. CC: Rashaad Jin MD; Aruna Padilla Technologist: Mitzy Douglas Fluoro Time: DAP (Gy m2): Air Kerma (mGy): Trscr Dt/Tm: 09/30/2021 (803) by:Shari Printed Date/Time: 09/30/2021 (806) Name: MELANIE YAÑEZ [facility] Phys: [id number] - Aruna Padilla [employer] [address] : 1955 Age: 66 Sex: [place] [address] Loc: P.0223 1 Exam Date: 09/30/2021 Status: ADM IN PH: FAX: PAGE 1 Signed [id number] 07:16:00 Test Item Value Reference Range Interpretation Comments GLUBED (test code = GLUBED) 106 MG/DL 70-105 H [id number] 16:36:00 Test Item Value Reference Range Interpretation Comments GLUBED (test code = GLUBED) 138 MG/DL 70-105 H [id number] 11:16:00 Test Item Value Reference Range Interpretation Comments GLUBED (test code = GLUBED) 109 MG/DL 70-105 H - XR CHEST 1 [id number] 07:22:00 [facility] : 1955 Sex: MPatient Name: MELANIE YAÑEZ Unit No: [id number] EXAMS: CPT CODE: [id number] XR CHEST 1 V 70664 EXAMINATION: Frontal chest radiograph INDICATION: SOB COMPARISON: 09/26/2021 LOCATION: W1 FINDINGS/ IMPRESSION: Slightly increased bibasilar interstitial pneumonia and/or edema. No definite pleuraleffusion or pneumothorax. Unchanged cardiac silhouette. at 0722 Reported and signed by: Graham Acevedo M.D. CC: Rashaad Jin MD; Aruna Padilla Technologist: Jessa Triana Fluoro Time: DAP (Gy m2): Air Kerma (mGy): Trscr Dt/Tm: 09/29/2021 (39) by:[email or web address] Printed Date/Time: 09/29/2021 (1278) Name: MELANIE YAÑEZ [facility] Phys: [id number] Aruna Canales APRN [address] : 1955 Age: 66 Sex: [place] [address] Loc: P.0223 1 Exam Date: 09/29/2021 Status: ADM IN PH: FAX: PAGE 1 Signed ReportCOMPREHENSIVE METABOLIC [id number] 06:34:00 Test Item Value Reference Range Interpretation [...] Reference Range Feb code = ALKP) 2020 [id number] 06:34:00 Test Item Value Reference Range Interpretation Comments PHOSPHOROUS (test code 3.7 mg/dL 2.4-5.1 N Pleas e note: New = PHOS) Reference Range Dec 2020 [id number] 06:34:00 Test Item Value Reference Range Interpretation Comments MAGNESIUM (test code = 2.1 mg/dL 1.6-2.6 N Pleas e note: New MAG) Reference Range Dec 2020 RECOLLECTCBC W/AUTO [id number] 06:15:00 Test Item Value Reference Range Interpretation [...] BA#) 0.07 x10 3/uL 0.0-0.20 N RECOLLECTPROTHROMBIN [id number] 06:14:00 Test Item Value Reference Range Interpretation Comments PROTHROMBIN TIME 12.5 SECONDS 10.3-12.9 N PATIENT (test code = PTP) INTERNATIONAL 1.10 INR UNIT 0.9-1.11 N The INR is us eful only NORMAL RATIO (test for monit oring code = INR) anticoagulant therapy.It may be unreliable in t he initial phase o f antigoagulation and in unstable patien ts. Indication for Anticoagulation Recommended INR 1. Prevention of v enous thomboembolism 2.0-3.0in high- risk patients; treat ment of venousthrombosi s and pulmonary embol ism aftera course o f heparin; preven tion of systemicembolis m in a variety of cond itions, including atria l fibrillation an d prothetic tissu e heart valves, 2. Pros thetic mechanical hear t valves; 2.5-3.5recurren t systemic emboli sm. RECOLLECTTHROMBOPLASTIN TIME [id number] 06:14:00 Test Item Value Reference Range Interpretation Comments THROMBOPLASTIN TIME 63.8 SECONDS 23.8-34.8 H INTERPRE TATIVE PARTIAL (test code = DATA: erapeutic PTT) range: Unfractionated heparin:55 - 80 seconds Argatroban:1.5 to 3 times the basel ine PTT [id number] 21:40:00 Test Item Value Reference Range Interpretation Comments GLUBED (test code = GLUBED) 139 MG/DL 70-105 H THROMBOPLASTIN TIME [id number] 18:30:00 Test Item Value Reference Range Interpretation Comments THROMBOPLASTIN TIME 65.3 SECONDS 23.8-34.8 H INTERPRE TATIVE PARTIAL (test code = DATA: erapeutic PTT) range: Unfractionated heparin:55 - 80 seconds Argatroban:1.5 to 3 times the basel ine PTT [id number] 17:04:00 Test Item Value Reference Range Interpretation Comments GLUBED (test code = GLUBED) 112 MG/DL 70-105 H THROMBOPLASTIN TIME [id number] 12:35:00 Test Item Value Reference Range Interpretation Comments THROMBOPLASTIN TIME 65.5 SECONDS 23.8-34.8 H INTERPRE TATIVE PARTIAL (test code = DATA: erapeutic PTT) range: Unfractionated heparin:55 - 80 seconds Argatroban:1.5 to 3 times the basel ine PTT [id number] 11:55:00 Test Item Value Reference Range Interpretation Comments GLUBED (test code = GLUBED) 110 MG/DL 70-105 H Covid 19 InHouse [id number] 11:17:00 Test Item Value Reference Range Interpretation Comments Covid 19 Negative Negative A negative resu lt does not InHouse NTX preclude the SA RS-COV-2 (test code = viralinfection and should not be [id number]) used as the so le basis forpatient [...] performancechar acteristics were determined by Tangela brizuela [facility]. Thi s test has notbeen [...] congregate care setting? No? NoAge at collection: [id number] 07:47:00 Test Item Value Reference Range Interpretation Comments GLUBED (test code = GLUBED) 103 MG/DL 70-105 N PROTHROMBIN [id number] 05:41:00 Test Item Value Reference Range Interpretation Comments PROTHROMBIN TIME 12.8 SECONDS 10.3-12.9 N PATIENT (test code = PTP) INTERNATIONAL 1.12 INR UNIT 0.9-1.11 H The INR is us eful only NORMAL RATIO (test for monit oring code = INR) anticoagulant therapy.It may be unreliable in t he initial phase o f antigoagulation and in unstable patien ts. Indication for Anticoagulation Recommended INR 1. Prevention of v enous thomboembolism 2.0-3.0in high- risk patients; treat ment of venousthrombosi s and pulmonary embol ism aftera course o f heparin; preven tion of systemicembolis m in a variety of cond itions, including atria l fibrillation an d prothetic tissu e heart valves, 2. Pros thetic mechanical hear t valves; 2.5-3.5recurren t systemic emboli sm. THROMBOPLASTIN TIME [id number] 05:41:00 Test Item Value Reference Range Interpretation Comments THROMBOPLASTIN TIME 54.0 SECONDS 23.8-34.8 H INTERPRE TATIVE PARTIAL (test code = DATA:Th erapeutic PTT) range: Unfractionated heparin:55 - 80 seconds Argatroban:1.5 to 3 times the basel ine PTT BASIC METABOLIC [id number] 04:46:00 Test Item Value Reference Range Interpretation [...] CA) Reference Range Dec 2020 COMPREHENSIVE METABOLIC [id number] 04:46:00 Test Item Value Reference Range Interpretation [...] code = ALKP) Reference Range Dec 2020 [id number] 04:46:00 Test Item Value Reference Range Interpretation Comments PHOSPHOROUS (test code 3.0 mg/dL 2.4-5.1 N Pleas e note: New = PHOS) Reference Range Dec 2020 [id number] 04:46:00 Test Item Value Reference Range Interpretation Comments MAGNESIUM (test code = 2.2 mg/dL 1.6-2.6 N Pleas e note: New MAG) Reference Range Dec 2020 CBC W/AUTO [id number] 03:26:00 Test Item Value Reference Range Interpretation [...] = BA#) 0.10 x10 3/uL 0.0-0.20 N [id number] 21:09:00 Test Item Value Reference Range Interpretation Comments GLUBED (test code = GLUBED) 149 MG/DL 70-105 H THROMBOPLASTIN TIME [id number] 20:01:00 Test Item Value Reference Range Interpretation Comments THROMBOPLASTIN TIME 45.2 SECONDS 23.8-34.8 H INTERPRE TATIVE PARTIAL (test code = DATA:Th erapeutic PTT) range: Unfractionated heparin:55 - 80 seconds Argatroban:1.5 to 3 times the basel ine PTT [id number] 18:01:00 Test Item Value Reference Range Interpretation Comments GLUBED (test code = GLUBED) 161 MG/DL 70-105 H [id number] 17:06:00 Test Item Value Reference Range Interpretation Comments TROPONIN-I (test 77548.1 pg/mL 38.73-80.22 HH Critical V alue reported code = TROPI) toFirst Name:Vidya DAVILA Last Name:MANPREET CONWAY RNRESULTS READ BACK AND VERIFIEDby PINKY BLANCO, on 09/27/21, @ 170 6.Please note: Units and Reference Range have changedFeb 3, 2 021 Spec Comments: ADD ON TO CBCBASIC METABOLIC [id number] 16:54:00 Test Item Value Reference Range Interpretation [...] New = CA) Reference Range Dec 2020 [id number] 16:54:00 Test Item Value Reference Range Interpretation Comments PHOSPHOROUS (test code 3.5 mg/dL 2.4-5.1 N Pleas e note: New = PHOS) Reference Range Dec 2020 [id number] 16:54:00 Test Item Value Reference Range Interpretation Comments MAGNESIUM (test code = 2.3 mg/dL 1.6-2.6 N Pleas e note: New MAG) Reference Range Dec 2020 PROTHROMBIN [id number] 14:07:00 Test Item Value Reference Range Interpretation Comments PROTHROMBIN TIME 12.1 SECONDS 10.3-12.9 N PATIENT (test code = PTP) INTERNATIONAL 1.06 INR UNIT 0.9-1.11 N The INR is us eful only NORMAL RATIO (test for monit oring code = INR) anticoagulant therapy.It may be unreliable in t he initial phase o f antigoagulation and in unstable patien ts. Indication for Anticoagulation Recommended INR 1. Prevention of v enous thomboembolism 2.0-3.0in high- risk patients; treat ment of venousthrombosi s and pulmonary embol ism aftera course o f heparin; preven tion of systemicembolis m in a variety of cond itions, including atria l fibrillation an d prothetic tissu e heart valves, 2. Pros thetic mechanical hear t valves; 2.5-3.5recurren t systemic emboli sm. THROMBOPLASTIN TIME [id number] 14:07:00 Test Item Value Reference Range Interpretation Comments THROMBOPLASTIN TIME 27.7 SECONDS 23.8-34.8 N INTERPRE TATIVE PARTIAL (test code = DATA: erapeutic PTT) range: Unfractionated heparin:55 - 80 seconds Argatroban:1.5 to 3 times the basel ine PTT [id number] 14:07:00 Test Item Value Reference Range Interpretation Comments FIBRINOGEN (test code = FIB) 921 mg/dL 200-400 H CBC W/AUTO [id number] 13:58:00 Test Item Value Reference Range Interpretation [...] = BA#) 0.04 x10 3/uL 0.0-0.20 N [id number] 13:24:00 Test Item Value Reference Range Interpretation Comments GLUBED (test code = GLUBED) 180 MG/DL 70-105 H [id number] 06:25:00 Test Item Value Reference Range Interpretation Comments GLUBED (test code = GLUBED) 114 MG/DL 70-105 H B-TYPE NATRIURETIC [id number] 00:37:00 Test Item Value Reference Range Interpretation Comments B-TYPE NATRIURETIC PEPTIDE (test 1343 pg/mL <100 H code = BNP) [id number] 00:09:00 Test Item Value Reference Range Interpretation Comments MAGNESIUM (test code = 2.1 mg/dL 1.6-2.6 N Dre e note: New MAG) Reference Range Dec 2020 THYROID STIMULATING [id number] 00:09:00 Test Item Value Reference Range Interpretation Comments THYROID STIMULATING 2.14 mIU/mL 0.55-4.78 N Please n ote: New HORMONE (test code = Referen ce Range Dec TSH) 2020 COMPREHENSIVE METABOLIC [id number] 00:09:00 Test Item Value Reference Range Interpretation [...] Reference Range Feb code = ALKP) 2020 [id number] 00:09:00 Test Item Value Reference Range Interpretation Comments PHOSPHOROUS (test code 3.0 mg/dL 2.4-5.1 N Pleas e note: New = PHOS) Reference Range Dec 2020 HGBA1C - GLYCOSYLATED [id number] 00:08:00 Test Item Value Reference Range Interpretation Comments GLYCOSYLATED HEMOGLOBIN 5.6 % <5.7 N Diab etic >/= (HA1C) (test code = 6.5%Pred iabetes GLYHGB) 5.7-6.4%Normal < 5.7% [id number] 23:58:00 Test Item Value Reference Range Interpretation Comments TROPONIN-I (test 96495.0 pg/mL 38.73-80.22 HH Critical V alue reported code = TROPI) toFirst Name:Rebecca GARCIA Last Name:JAD RAND READ BACK AND VERIFIEDby PINKY MANN, on 09/26/21, @ 235 8.Please note: Units and Reference Range have changedFeb 3, 2 021 PROTHROMBIN [id number] 23:47:00 Test Item Value Reference Range Interpretation Comments PROTHROMBIN TIME 12.1 SECONDS 10.3-12.9 N PATIENT (test code = PTP) INTERNATIONAL 1.06 INR UNIT 0.9-1.11 N The INR is us eful only NORMAL RATIO (test for monit oring code = INR) anticoagulant therapy.It may be unreliable in t he initial phase o f antigoagulation and in unstable patien ts. Indication for Anticoagulation Recommended INR 1. Prevention of v enous thomboembolism 2.0-3.0in high- risk patients; treat ment of venousthrombosi s and pulmonary embol ism aftera course o f heparin; preven tion of systemicembolis m in a variety of cond itions, including atria l fibrillation an d prothetic tissu e heart valves, 2. Pros thetic mechanical hear t valves; 2.5-3.5recurren t systemic emboli sm. THROMBOPLASTIN TIME [id number] 23:47:00 Test Item Value Reference Range Interpretation Comments THROMBOPLASTIN TIME 29.0 SECONDS 23.8-34.8 N INTERPRE TATIVE PARTIAL (test code = DATA: erapeutic PTT) range: Unfractionated heparin:55 - 80 seconds Argatroban:1.5 to 3 times the basel ine PTT LACTIC [id number] 23:43:00 Test Item Value Reference Range Interpretation Comments LACTIC ACID (test code = LACT) 0.70 mmol/L 0.5-2.0 N CBC W/AUTO [id number] 23:29:00 Test Item Value Reference Range Interpretation [...] 3/uL 0.0-0.20 N - XR CHEST 1 [id number] 23:01:00 [facility] : 1955 Sex: MPatient Name: MELANIE YAÑEZ Unit No: [id number] EXAMS: CPT CODE: [id number] XR CHEST 1 V 22313 EXAM: XR Chest 1 View INDICATION: HI LOCATION CODE: H50 COMPARISON: None available. TECHNIQUE: Frontal view of the chest was obtained. FINDINGS: There is moderate pulmonary vascular congestion withbilateral perihilar opacities and increased interstitial prominence. There is no pleural effusion orpneumothorax. The cardiomediastinal silhouette is unremarkable. No acute osseous abnormality is identified. IMPRESSION: Moderate pulmonary vascular congestion with bilateral perihilar opacities and increased interstitial prominence suggestive of pulmonary edema. at 2301 Reported and signed by: BEVERLEY JONES M.D. CC: Jose Ramon Ovalles MD; Rashaad Jin MD Technologist: Yocasta Brooks Time: DAP (Gy m2): Air Kerma (mGy): Trscr Dt/Tm: 09/26/2021 (230) by:[email or web address] Printed Date/Time: 09/26/2021 (2304) Name: MELANIE YAÑEZ [facility] Phys: Chad Valdez [address] : 0 1955 Age: 66 Sex: [place] [address] Loc: P.0223 1 Exam Date: 09/26/2021tatus: ADM IN PH: FAX: PAGE 1 Signed ReportCOVID 19 INHOUSE [id number] 22:38:00 Test Item Value Reference Range Interpretation Comments COVID 19 INHOUSE NEGATIVE NEGATIVE Negative re sults, from AG (test code = patients wit h symptom onset [id number]) beyondfive days , should be treated as pres umptive and confirmationwit h a molecular assay, janessa gomez for patientmanageme nt, may be performed. Nega [...] omsconsistent with COVID-19. Spec Comments: ADMISSION TO [facility] W/AUTO [id number] 06:19:00 Test Item Value Reference Range Interpretation [...] NT WITH AUTO DIFFERENTI AL. BASIC METABOLIC [id number] 04:55:00 Test Item Value Reference Range Interpretation [...] CA) 8.3 MG/DL 8.5-10.1 L CBC W/AUTO [id number] 06:06:00 Test Item Value Reference Range Interpretation [...] NT WITH AUTO DIFFERENTI AL. BASIC METABOLIC [id number] 05:11:00 Test Item Value Reference Range Interpretation [...] CA) 8.4 MG/DL 8.5-10.1 L COAGULATION TIME [id number] 04:55:00 Test Item Value Reference Range Interpretation Comments COAGULATION TIME ACTIVATED (test 211 SECistat 74-125 H code = ACT) CBC W/AUTO [id number] 06:52:00 Test Item Value Reference Range Interpretation [...] code NO DIFF/SCN CRITERIA = MDIFF) RBC [id number] 06:52:00 Test Item Value Reference Range Interpretation [...] NORMAL (test code = PLTMORPH) BASIC METABOLIC [id number] 04:52:00 Test Item Value Reference Range Interpretation [...] CA) 8.8 MG/DL 8.5-10.1 N THROMBOPLASTIN TIME [id number] 22:37:00 Test Item Value Reference Range Interpretation Comments THROMBOPLASTIN TIME PARTIAL 51.4 SECONDS 26-35 H (test code = PTT) THROMBOPLASTIN TIME [id number] 15:30:00 Test Item Value Reference Range Interpretation Comments THROMBOPLASTIN TIME PARTIAL 37.4 SECONDS 26-35 H (test code = PTT) CBC W/AUTO [id number] 06:34:00 Test Item Value Reference Range Interpretation [...] NT WITH AUTO DIFFERENTI AL. BASIC METABOLIC [id number] 06:19:00 Test Item Value Reference Range Interpretation [...] CA) 8.7 MG/DL 8.5-10.1 N THROMBOPLASTIN TIME [id number] 06:14:00 Test Item Value Reference Range Interpretation Comments THROMBOPLASTIN TIME PARTIAL 45.0 SECONDS 26-35 H (test code = PTT) THROMBOPLASTIN TIME [id number] 00:06:00 Test Item Value Reference Range Interpretation Comments THROMBOPLASTIN TIME PARTIAL 70.6 SECONDS 26-35 H (test code = PTT) THROMBOPLASTIN TIME [id number] 16:17:00 Test Item Value Reference Range Interpretation Comments THROMBOPLASTIN TIME PARTIAL 218.3 SECONDS 26-35 HH (test code = PTT) CBC W/AUTO [id number] 06:16:00 Test Item Value Reference Range Interpretation [...] NT WITH AUTO DIFFERENTI AL. BASIC METABOLIC [id number] 05:27:00 Test Item Value Reference Range Interpretation [...] CA) 8.5 MG/DL 8.5-10.1 N THROMBOPLASTIN TIME [id number] 05:24:00 Test Item Value Reference Range Interpretation Comments THROMBOPLASTIN TIME PARTIAL 33.2 SECONDS 26-35 N (test code = PTT) THROMBOPLASTIN TIME [id number] 11:48:00 Test Item Value Reference Range Interpretation Comments THROMBOPLASTIN TIME PARTIAL 46.7 SECONDS 26-35 H (test code = PTT) CBC W/AUTO [id number] 06:40:00 Test Item Value Reference Range Interpretation [...] NT WITH AUTO DIFFERENTI AL. THROMBOPLASTIN TIME [id number] 04:51:00 Test Item Value Reference Range Interpretation Comments THROMBOPLASTIN TIME PARTIAL 49.3 SECONDS 26-35 H (test code = PTT) COMPREHENSIVE METABOLIC [id number] 04:51:00 Test Item Value Reference Range Interpretation [...] CHOL) CHOLESTEROL/HDL 3.29 RATIO See_Comment RISK ASSOCIA GOLD WITH RATIO (test code = CHOL/HDL RATIOS: RISK CHOLHDL) MALE FEMALE1/2 AVERAGE 3.43 3.27AVERAG E 4.97 4.442X AVERAGE 9.55 7.053X AVERAGE 23.39 11.04 NOTE THAT THE REFERENCE VALUE IS RELATED TO RISK LEVELS ASRECOMMENDED B Y THE [facility] . [Automated mess age] The system which [employer] nerated this result tra nsmitted reference range : 0-. The reference range was not used to interpr et this result as normal/abnormal . HDL CHOLESTEROL 42 MG/DL 40-59 N (test code = HDL) NON-HDL CHOLESTEROL 96 mg/dL <130 (test code = NHDL) LIPOPROTEIN LDL 82 MG/DL 0-129 N <100 OPTIMAL 100 - 129 (test code = LDL) NEAR OPTIM AL/ABOVE [id number] - 15 9 [id number] - 189 HIGH>OR= 190 VE RY HIGHNOTE THAT G UIDELINES ARE PROVIDED BY NATIONAL CHOLESTEROLEDUC ATION PROGRAM ADULT T REATMENT PANEL III LDL/HDL (test code 1.95 Ratio See_Comment N [Automat ed message] The = LDL/HDL) system which [employer] nerated this result tra nsmitted reference range : 1.48-3.22 Avg. The reference range was not used to interpr et this result as normal/abnormal . Comment: fastingTHROMBOPLASTIN TIME [id number] 21:50:00 Test Item Value Reference Range Interpretation Comments THROMBOPLASTIN TIME PARTIAL 51.1 SECONDS 26-35 H (test code = PTT) GLYCOSYLATED HEMOGLOBIN [id number] 14:04:00 Test Item Value Reference Range Interpretation Comments GLYCOSYLATED HEMOGLOBIN (HA1C) 5.8 % A1C 0.0-5.7 H (test code = GLYHGB) ESTIMATED AVERAGE GLUCOSE (test 120 MG/DLest code = EAG) NT PRO-BRAIN NATRIURETIC [id number] 13:58:00 Test Item Value Reference Range Interpretation Comments NT PRO-BRAIN NATRIURETIC PEPTI 885 PG/ML 0-100 H (test code = PROBNP) DRUGS OF ABUSE SCREEN [id number] 13:52:00 Test Item Value Reference Range Interpretation Comments URN COCAINE (test NEGATIVE See_Comment UNCONFIRME D code = COCAURN) SCcutoff SCREENING RE SULTS SHOULD NOT BE U SED FORNON-MEDICAL PURPOSES. [Automated message] The system which generated this result transmit gold reference range : <300 NG/ML. The reference range was not used to interpret this result as normal/abnormal . URN CANNABINOIDS NEGATIVE See_Comment UNCONFIRMED (test code = SCcutoff SCREENING RESUL TS CANNABURN) SHOULD NOT BE U SED FORNON-MEDICAL PURPOSES. [Automated message] The system which generated this result transmit gold reference range : <50 NG/ML. The reference range was not used to interpret this result as normal/abnormal . URN AMPHETAMINE (test NEGATIVE See_Comment UNCONF IRMED code = AMPHETURN) SCcutoff SCREENING RESULTS SHOULD NOT BE U SED FORNON-MEDICAL PURPOSES. [Automated message] The system which generated this result transmit gold reference range : <1000 NG/ML. Th e reference range was not used to interpret this result as normal/abnormal . URN BARBITURATE (test NEGATIVE See_Comment UNCONF IRMED code = BARBITURN) SCcutoff SCREENING RESULTS SHOULD NOT BE U SED FORNON-MEDICAL PURPOSES. [Automated message] The system which generated this result transmit gold reference range : <200 NG/ML. The reference range was not used to interpret this result as normal/abnormal . URN BENZODIAZEPINE POSITIVE See_Comment A UNCONFIRM ED (test code = SCcutoff SCREENING RESUL TS BENZOURN) SHOULD NOT BE U SED FORNON-MEDICAL PURPOSES. [Automated message] The system which generated this result transmit gold reference range : <200 NG/ML. The reference range was not used to interpret this result as normal/abnormal . URN OPIATES (test NEGATIVE See_Comment UNCONFIRME D code = OPIATURN) SCcutoff SCREENING R ESULTS SHOULD NOT BE U SED FORNON-MEDICAL PURPOSES. [Automated message] The system which generated this result transmit gold reference range : <300 NG/ML. The reference range was not used to interpret this result as normal/abnormal . URN PHENCYCLIDINE NEGATIVE See_Comment UNCONFIRME D (PCP) (test code = SCcutoff SCREENING RESULTS PHENCURN) SHOULD NOT BE U SED FORNON-MEDICAL PURPOSES. [Automated message] The system which generated this result transmit ogld reference range : <25 NG/ML. The reference range was not used to interpret this result as normal/abnormal . URN METHADONE (test NEGATIVE See_Comment UNCONFIR MED code = METHAURN) SCcutoff SCREENING R ESULTS SHOULD NOT BE U SED FORNON-MEDICAL PURPOSES. [Automated message] The system which generated this result transmit gold reference range : <300 NG/ML. The reference range was not used to interpret this result as normal/abnormal . THROMBOPLASTIN TIME [id number] 13:47:00 Test Item Value Reference Range Interpretation Comments THROMBOPLASTIN TIME PARTIAL 97.6 SECONDS 26-35 H (test code = PTT) NT PRO-BRAIN NATRIURETIC [id number] 03:52:00 Test Item Value Reference Range Interpretation Comments NT PRO-BRAIN NATRIURETIC PEPTI (test 59 PG/ML 0-100 N code = PROBNP) Completed by Nursing: [id number] 03:52:00 Test Item Value Reference Range Interpretation [...] Completed by Nursing: NOCOVID 19 Asymptomatic IH [id number] 03:52:00 Test Item Value Reference Range Interpretation Comments COVID 19 Asymptomatic NEGATIVE Negative Per amaris belcher IH AG (test code = negative results should COVNONPUIAG) be treated aspresumptive a nd, if inconsistent wi th clinical signs andsymptoms or necessary for p atient management, rupa uld betested with a n alternative mol ecular assay. Negative resultsdo not p reclude SARS-CoV-2 infe ction and should not be usedas the sole basis for patient man agement decisions. Nega tive results should be considered in t he context of apat ient's recent exposure s, history, presen ce of clinicalsigns a nd symptoms consis tent with COVID-19. COMPREHENSIVE METABOLIC [id number] 03:52:00 Test Item Value Reference Range Interpretation [...] (test code = ALKP) Completed by Nursing: [id number] 03:52:00 Test Item Value Reference Range Interpretation Comments MAGNESIUM (test code = MAG) 2.0 MG/DL 1.8-2.4 N Completed by Nursing: NOPROTHROMBIN [id number] 03:42:00 Test Item Value Reference Range Interpretation Comments PT PATIENT (test 10.8 SECONDS 9.3-12.9 N code = PTP) INTERNATIONAL NORMAL 0.96 INR Unit 0.8-1.2 N TARGE T INR BY RATIO (test code = INDICATIO N Indication INR) INR1. Prophylax is of venous thrombos is 2.0 - 3.0 (orthoped ic surgery), Proph ylaxis of venous throm bosis (other than hig h-risk surgery), Treat ment of Deep Vein Thrombosis/Pulm onary Embolism, Preve ntion of systemic emb olism - Tissue heart va lves, Acute Myocardia l Infarction (to prevent systemic emboli sm), Valvular heart disease, Acute Myocardial Infa rction (to prevent sys temic embolism), Valv ular heart disease, Atrial Fibrillation, Bileaflet mecha nical valve in aortic position.2. Mec hanical prosthetic valv es (high risk), 2. 5 - 3.5 Presence of Lup us Anticoagulant o r Antiphospholipi d Antibodies, Pre vention of systemic emb olism - Acute Myocardia l Infarction (to prevent recurrent infar ct). THROMBOPLASTIN TIME [id number] 03:42:00 Test Item Value Reference Range Interpretation Comments THROMBOPLASTIN TIME PARTIAL 31.0 SECONDS 26-35 N (test code = PTT) CBC W/AUTO [id number] 03:37:00 Test Item Value Reference Range Interpretation [...] code NO DIFF/SCN CRITERIA = MDIFF) - CHEST 1 [id number] 03:25:00 [facility] 1955 Sex: M Name: MELANIE YAÑEZ [facility] : 1955 Age/S: 66 / M [id number] Unit #: [id number] Loc: [place] [address] Phys: Annalise Matthews MD Acct: [id number] Dis Date: Status: REG ER PHONE#: [phone] Exam Date: 09/20/2021309 FAX #: Reason: chest pain EXAMS: CPT: [id number] XR CHEST1 V 99130 Fluoro Time: DAP (Gy m2): Air Kerma [...] PAGE 1 Signed Report Name: MELANIE YAÑEZ [place] : 1955 Age/S: 66 / M [id number] Unit #: [id number] Loc: [place] [address] Phys: Annalise Matthews MD Acct: [id number] Dis Date: Status: REG ER PHONE #: [phone] Exam Date: 09/20/2021309 FAX #: Reason: chest pain EXAMS: CPT: [id number] XR CHEST 1 V 74904 Fluoro Time: DAP (Gy m2): Air Kerma (mGy): (Continued) Technologist: RT Janet(R) Trnscb Date/Time: 09/20/2021(324) [email or web address] Orig Print D/T: S: 09/20/2021 (032) PAGE 2 Signed Report
--- NOTE | 2022-09-29 10:20 | RAD REPORT ---
EXAM DESCRIPTION: RAD - Chest Single View - 09/29/2022 10:05 am CLINICAL HISTORY: DYSPNEA COMPARISON: Chest Single View dated 10/30/2021; Chest Single View dated 10/23/2021; Chest Pa And Lat (2 Views) dated 01/29/2020 FINDINGS: Lines: None. Lungs: Pulmonary vascular congestion. No alveolar edema. No consolidative airspace disease. Pleural: No significant pleural effusions or pneumothorax. Cardiac: Cardiomegaly. Mediastinum: Within normal limits. Bones: No acute fractures. Sternotomy. Other: None IMPRESSION: Pulmonary vascular congestion but no ashley alveolar edema.
[2022-09-29 10:32] LABS: Absolute Lymphocytes (CBC) 1.2 K/uL (0.7-4.9); Hematocrit 32.3 % (39.6-49.0); Lymphocytes % 13.5 % (15.3-44.8); MCV 87.7 fL (80-100); MPV 8.3 fL (7.6-11.3); RBC Red Blood Cell Count 3.69 M/uL (4.33-5.43)
[2022-09-29 10:36] LABS: Protime INR 3.29
[2022-09-29 10:41] LABS: SARS-CoV-2 Antigen Rapid Res Negative (Negative)
[2022-09-29 10:57] LABS: Bilirubin Direct 0.6 mg/dL (0-0.2); Bilirubin Total 2.2 mg/dL (0.2-1.0); Magnesium 1.9 mg/dL (1.8-2.4); Potassium 3.3 mmol/L (3.5-5.1); Protein, Total 7.2 g/dL (6.4-8.2); Thyroid Stimulating Hormone 2.74 uIU/mL (0.360-3.740); Troponin High Sensitivity 28.5 pg/mL (<58.9)
--- NOTE | 2022-09-29 11:25 | RAD REPORT ---
EXAM DESCRIPTION: CTChest Abd Pelvis Wo Con - 09/29/2022 11:10 am CLINICAL HISTORY: dyspnea, jaundice COMPARISON: Chest Single View dated 09/29/2022hest Single View dated 09/29/2022 TECHNIQUE: CT of the chest, abdomen, and pelvis was performed without contrast. All CT scans are performed using dose optimization technique as appropriate and may include automated exposure control or mA/KV adjustment according to patient size. FINDINGS: Thorax: Chest Wall: No abnormal mass Lungs: No acute abnormality. Pleura: Small right pleural effusion. Arianna/Mediastinum: No lymphadenopathy. Aorta/Pulmonary Arteries: Unremarkable Heart: Cardiomegaly. Multi-vessel coronary artery disease. Abdomen/Pelvis: Liver: No acute abnormality or suspicious lesions. Biliary: Mild pericholecystic edema. Stomach: No significant focal abnormality. Duodenum: No significant focal abnormality. Pancreas: No significant abnormality. Spleen: No significant abnormality. Adrenal: No suspicious lesions. Kidney/ureter: No hydronephrosis. No renal calculi. Retroperitoneum: No retroperitoneal adenopathy. Vascular: No aneurysm. Atherosclerosis Bowel: No significant focal abnormality. Normal appendix. Peritoneum: Small volume of ascites. Bladder: Grossly unremarkable. Reproductive: No adnexal masses. Bones: No acute fracture. Sternotomy. Remote appearing T6 compression fracture. Other: n/a IMPRESSION: 1. Cardiomegaly with small right effusion and ascites that may be secondary to heart jaren lure. 2. Mild pericholecystic edema. This could be a manifestation of heart failure however correlate with LFTs and/or ultrasound to exclude acute cholecystitis.
--- NOTE | 2022-09-29 11:53 | ER ---
Nurse's Notes [facility] Name: Giovanni Castro Age: 67 yrs Sex: Male : 1955 Arrival Date: 09/29/2022 Time: 08:49 Bed 6 Private MD: Diagnosis: Acute on chronic combined systolic (congestive) and diastolic (congestive) heart failure;Anemia, unspecified;Renal insufficiency Presentation: 09/29 08:52 Chief complaint: Patient states: "I take fluid pills, but for the last 3 nights, when I ss go to lay down, I can't breath. As long as I am sitting up I can breath fine. I'm also weak and I can't keep anything down." Pt reports that his stomach issues started a month ago when he started his new medications. Coronavirus screen: Client denies travel out of the [place] in the last 14 days. Ebola Screen: Patient denies exposure to infectious person. Patient denies travel to an Ebola-affected area in the 21 days before illness onset. Initial Sepsis Screen: Does the patient meet any 2 criteria? No. Patient's initial sepsis screen is negative. Does the patient have a suspected source of infection? No. Patient's initial sepsis screen is negative. Risk Assessment: Do you want to hurt yourself or someone else? Patient reports no desire to harm self or others. Onset of symptoms was August 2022. 08:52 Method Of Arrival: Ambulatory ss 08:52 Acuity: HOLLIS 3 ss Historical: - Allergies: 08:55 No Known Allergies; ss - Home Meds: 08:58 allopurinol 300 mg Oral tab [Active]; amiodarone 200 mg Oral tab [Active]; carvedilol ss 3.125 mg Oral tab [Active]; Eliquis 5 mg Oral tab [Active]; Plavix 75 mg oral tab 1 tab once daily [Active]; furosemide 40 mg Oral tab [Active]; metformin 500 mg Oral tab [Active]; pantoprazole 40 mg Oral TbEC 1 tab once daily [Active]; Entresto 24-26 mg Oral tab [Active]; atorvastatin 80 mg Oral tab [Active]; - PMHx: 08:55 Gout; Hypercholesterolemia; Hypertensive disorder; Myocardial infarction; CHF; ss - PSHx: 08:55 Coronary Angioplasty; Coronary artery bypass graft; ss - Immunization history:: Client reports having NOT received the Covid vaccine. - Social history:: Smoking status: Patient denies any tobacco usage or history of. Screenin:32 Abuse screen: Denies threats or abuse. Denies injuries from another. Nutritional as6 screening: No deficits noted. Tuberculosis screening: No symptoms or risk factors identified. Fall Risk None identified. Assessment: 10:18 General: Appears in no apparent distress. comfortable, Behavior is calm, cooperative, kc6 appropriate for age. Pain: Complains of pain in abdomen Pain does not radiate. Pain currently is 5 out of 10 on a pain scale. Quality of pain is described as sharp, Pain began gradually, Is continuous, Alleviated by nothing. Aggravated by eating, drinking, Also complains of no other associated symptoms. Neuro: Oneill Agitation-Sedation Scale (RASS): 0 - Alert and Calm Level of Consciousness is awake, alert, obeys commands, Oriented to person, place, time, situation, Appropriate for age. Cardiovascular: Heart tones S1 S2 present Capillary refill < 3 seconds Rhythm is regular Chest pain is denied. Respiratory: Airway is patent Trachea midline Respiratory effort is even, labored, Respiratory pattern is regular, symmetrical, Breath sounds are clear bilaterally. GI: Abdomen is flat, non-distended, Bowel sounds present X 4 quads. Abd is soft X 4 quads Abdomen is tender to palpation in umbilical area Reports intolerance of fluids, intolerance of food, nausea, vomiting, Patient currently denies bloody stool, diarrhea. : No signs and/or symptoms were reported regarding the genitourinary system. EENT: No signs and/or symptoms were reported regarding the EENT system. Derm: No signs and/or symptoms reported regarding the dermatologic system. Skin is intact, Skin is dry, Skin is jaundiced, pale, Skin temperature is warm. Musculoskeletal: No signs and/or symptoms reported regarding the musculoskeletal system. Circulation, motion, and sensation intact. Capillary refill < 3 seconds, Range of motion: intact in all extremities. 11:18 Reassessment: Patient appears in no apparent distress at this time. No changes from kc6 previously documented assessment. Patient and/or family updated on plan of care and expected duration. Pain level reassessed. Patient is alert, oriented x 3, equal unlabored respirations, skin warm/dry/pink. 13:18 Reassessment: 1,000 mL NS 0.9% decreased to 20 mL/hr per Dr. Armas. kc6 14:18 Reassessment: Patient appears in no apparent distress at this time. No changes from kc6 previously documented assessment. Patient and/or family updated on plan of care and expected duration. Pain level reassessed. Patient is alert, oriented x 3, equal unlabored respirations, skin warm/dry/pink. 15:18 Reassessment: Patient appears in no apparent distress at this time. No changes from kc6 previously documented assessment. Patient and/or family updated on plan of care and expected duration. Pain level reassessed. Patient is alert, oriented x 3, equal unlabored respirations, skin warm/dry/pink. 16:25 Reassessment: Patient appears in no apparent distress at this time. No changes from kc6 previously documented assessment. Patient and/or family updated on plan of care and expected duration. Pain level reassessed. Patient is alert, oriented x 3, equal unlabored respirations, skin warm/dry/pink. 17:25 Reassessment: Patient appears in no apparent distress at this time. No changes from kc6 previously documented assessment. Patient and/or family updated on plan of care and expected duration. Pain level reassessed. Patient is alert, oriented x 3, equal unlabored respirations, skin warm/dry/pink. 18:25 Reassessment: Patient appears in no apparent distress at this time. No changes from kc6 previously documented assessment. Patient and/or family updated on plan of care and expected duration. Pain level reassessed. Patient is alert, oriented x 3, equal unlabored respirations, skin warm/dry/pink. Vital Signs: 08:52 BP 121 / 78; Pulse 72; Resp 17; Temp 97.1(TE); Pulse Ox 98% on R/A; Weight 81.65 kg; ss Height 5 ft. 6 in. (167.64 cm); Pain 5/10; 10:24 BP 116 / 89; Pulse 65; Resp 17 S; Pulse Ox 98% on R/A; Pain 5/10; kc6 11:18 BP 150 / 89; Pulse 67; Resp 18 S; Pulse Ox 98% on R/A; kc6 14:59 BP 124 / 96; Pulse 61; Resp 18; Temp 97.7; Pulse Ox 99% ; Pain 5/10; kc6 16:25 BP 113 / 90; Pulse 61; Resp 25; Pulse Ox 97% on R/A; kc6 17:25 BP 128 / 85; Pulse 28; Resp 29 S; Pulse Ox 100% ; kc6 18:52 BP 116 / 89; Pulse 65; Resp 24 S; Pulse Ox 95% on R/A; kc6 08:52 Body Mass Index 29.05 (81.65 kg, 167.64 cm) ss ED Course: 08:49 Patient arrived in ED. rg4 08:54 Triage completed. ss 08:55 Arm band placed on right wrist. ss 09:04 Jodi Mccarthy FNP-C is PHCP. snw 09:04 Luis A Reyes MD is Attending Physician. snw 09:40 Ariana De Los Santos, BREN is Primary Nurse. kc6 10:07 XRAY Chest (1 view) In Process Unspecified. EDMS 10:18 SARS RAPID Sent. kc6 10:25 Alpha Fetoprotein-Tumor Marker Sent. kc6 10:25 TSH Sent. kc6 10:25 TS Sent. kc6 10:25 Basic Metabolic Panel Sent. kc6 10:25 CBC with Diff Sent. kc6 10:25 LFT's Sent. kc6 10:25 Magnesium Sent. kc6 10:25 NT PRO-BNP Sent. kc6 10:25 PT-INR Sent. kc6 10:25 Troponin HS Sent. kc6 10:26 Initial lab(s) drawn, by ma, sent to lab. Inserted saline lock: 22 gauge in right vg1 wrist, using aseptic technique. Blood collected. 11:11 Chest Abd Pelvis Wo Con In Process Unspecified. EDMS 11:52 Caty Armas MD is Hospitalizing Provider. snw 12:08 Abdomen Limited US In Process Unspecified. EDMS 19:33 Bed in low position. Call light in reach. as6 19:33 No provider procedures requiring assistance completed. Patient admitted, IV remains in as6 place. Administered Medications: 13:10 Drug: NS 0.9% 1000 ml {Note: rate decreased to 20 mL/hr per Dr. Armas.} Route: IV; Rate: kc6 20 ml/hr; Site: right wrist; 20:26 Follow up: Response: No adverse reaction; IV Status: Order to discontinue infusion; IV as6 Intake: 450ml 15:58 Drug: fentaNYL (PF) 50 mcg Route: IVP; Site: right hand; kc6 16:58 Follow up: Response: No adverse reaction; Pain is decreased; RASS: Alert and Calm (0) kc6 20:25 Follow up: Response: No adverse reaction as6 Medication: 19:33 VIS not applicable for this client. as6 Intake: 20:26 IV: 450ml; Total: 450ml. as6 Outcome: 11:52 Decision to Hospitalize by Provider. snw 20:25 Admitted to Med/surg accompanied by tech, via wheelchair, room 211, with chart, Report as6 called to Dorothy CORREIA 20:25 Condition: stable 20:25 Instructed on the need for admit. 20:26 Patient left the ED. as6 Signatures: Dispatcher [employer] EDMS Jodi Mccarthy FNP-C BRIDGE MAINTAINER-Staci Kenny, RN RN ss Jennifer Lara rg4 Lottie Lara RN RN vg1 Dylon Yang RN RN as6 Ariana De Los Santos RN RN kc6 Corrections: (The following items were deleted from the chart) 11:30 10:18 GI: Abdomen is flat, non-distended, Bowel sounds present X 4 quads. Abd is soft X kc6 4 quads Abdomen is tender to palpation Reports intolerance of fluids, intolerance of food, nausea, vomiting, Patient currently denies bloody stool, diarrhea, kc6 13:16 13:12 NS 0.9% 1000 ml IV at 75 ml/hr in right hand kc6 kc6 13:17 13:10 NS 0.9% 1000 ml IV at 20 ml/hr in right hand kc6 kc6
--- NOTE | 2022-09-29 11:53 | EDPHYS ---
Physician Documentation [facility] Name: Giovanni Castro Age: 67 yrs Sex: Male : 1955 Arrival Date: 09/29/2022 Time: 08:49 Bed 6 Private MD: ED Physician Luis A Reyes HPI: 09/29 09:35 This 67 yrs old Male presents to ER via Ambulatory with complaints of Breathing snw Difficulty, Vomiting. 09:35 The patient has shortness of breath at rest, with light activity. Onset: The snw symptoms/episode began/occurred gradually, 3 day(s) ago, and became worse today, and became persistent. Duration: The symptoms are continuous. The patient's shortness of breath is aggravated by exertion, light activity, supine position, walking. Severity of symptoms: At their worst the symptoms were moderate. The patient has experienced similar episodes in the past, a few times. Sees Dr. Fermin, Dr. Brewer. Historical: - Allergies: 08:55 No Known Allergies; ss - Home Meds: 08:58 allopurinol 300 mg Oral tab [Active]; amiodarone 200 mg Oral tab [Active]; carvedilol ss 3.125 mg Oral tab [Active]; Eliquis 5 mg Oral tab [Active]; Plavix 75 mg oral tab 1 tab once daily [Active]; furosemide 40 mg Oral tab [Active]; metformin 500 mg Oral tab [Active]; pantoprazole 40 mg Oral TbEC 1 tab once daily [Active]; Entresto 24-26 mg Oral tab [Active]; atorvastatin 80 mg Oral tab [Active]; - PMHx: 08:55 Gout; Hypercholesterolemia; Hypertensive disorder; Myocardial infarction; CHF; ss - PSHx: 08:55 Coronary Angioplasty; Coronary artery bypass graft; ss - Immunization history:: Client reports having NOT received the Covid vaccine. - Social history:: Smoking status: Patient denies any tobacco usage or history of. ROS: 09:35 Eyes: Negative for injury, pain, redness, and discharge, ENT: Negative for injury, snw pain, and discharge, Neck: Negative for injury, pain, and swelling. 09:35 Back: Negative for injury and pain, : Negative for injury, bleeding, discharge, and swelling, MS/Extremity: Negative for injury and deformity, Skin: Negative for injury, rash, and discoloration, Neuro: Negative for headache, weakness, numbness, tingling, and seizure. 09:35 Constitutional: Positive for fatigue, malaise, poor PO intake. 09:35 Cardiovascular: Positive for orthopnea. 09:35 Respiratory: Positive for dyspnea on exertion, orthopnea, shortness of breath. 09:35 Abdomen/GI: Positive for abdominal pain. Exam: 09:33 Head/Face: Normocephalic, atraumatic. snw 09:33 ENT: Nares patent. No nasal discharge, no septal abnormalities noted. Tympanic membranes are normal and external auditory canals are clear. Oropharynx with no redness, swelling, or masses, exudates, or evidence of obstruction, uvula midline. Mucous membranes moist. Neck: Trachea midline, no thyromegaly or masses palpated, and no cervical lymphadenopathy. Supple, full range of motion without nuchal rigidity, or vertebral point tenderness. No Meningismus. Chest/axilla: Normal chest wall appearance and motion. Nontender with no deformity. No lesions are appreciated. 09:33 Back: No spinal tenderness. No costovertebral tenderness. Full range of motion. 09:33 Neuro: Awake and alert, GCS 15, oriented to person, place, time, and situation. Cranial nerves II-XII grossly intact. Motor strength 5/5 in all extremities. Sensory grossly intact. Cerebellar exam normal. Normal gait. 09:33 Constitutional: The patient appears alert, awake, pale. 09:33 Eyes: Conjunctiva: pale, bilaterally. 09:33 Cardiovascular: Rate: normal, Rhythm: irregularly irregular, Heart sounds: normal. 09:33 Respiratory: mild respiratory distress is noted, Respirations: shallow respirations, Breath sounds: decreased breath sounds. 09:33 Abdomen/GI: Inspection: abdomen appears normal, Bowel sounds: normal, Palpation: mild abdominal tenderness, in the right upper quadrant and left upper quadrant. 09:33 Skin: Appearance: Color: jaundiced, pale. Vital Signs: 08:52 BP 121 / 78; Pulse 72; Resp 17; Temp 97.1(TE); Pulse Ox 98% on R/A; Weight 81.65 kg; ss Height 5 ft. 6 in. (167.64 cm); Pain 5/10; 10:24 BP 116 / 89; Pulse 65; Resp 17 S; Pulse Ox 98% on R/A; Pain 5/10; kc6 11:18 BP 150 / 89; Pulse 67; Resp 18 S; Pulse Ox 98% on R/A; kc6 14:59 BP 124 / 96; Pulse 61; Resp 18; Temp 97.7; Pulse Ox 99% ; Pain 5/10; kc6 16:25 BP 113 / 90; Pulse 61; Resp 25; Pulse Ox 97% on R/A; kc6 17:25 BP 128 / 85; Pulse 28; Resp 29 S; Pulse Ox 100% ; kc6 18:52 BP 116 / 89; Pulse 65; Resp 24 S; Pulse Ox 95% on R/A; kc6 08:52 Body Mass Index 29.05 (81.65 kg, 167.64 cm) ss MDM: 09:11 Patient medically screened. snw 11:52 Data reviewed: vital signs, nurses notes. Data interpreted: Pulse oximetry: on room air snw is 98 %. Interpretation: normal. Counseling: I had a detailed discussion with the patient and/or guardian regarding: the historical points, exam findings, and any diagnostic results supporting the discharge/admit diagnosis, lab results, radiology results, the need for further work-up and treatment in the hospital. Physician consultation: Caty Armas MD was called at 11:53, and will see patient. 09/29 09:07 Order name: Basic Metabolic Panel; Complete Time: 10:59 snw 09/29 09:07 Order name: CBC with Diff; Complete Time: 10:47 snw 09/29 09:07 Order name: LFT's; Complete Time: 10:59 snw 09/29 09:07 Order name: Magnesium; Complete Time: 10:59 snw 09/29 09:07 Order name: NT PRO-BNP; Complete Time: 10:59 snw 09/29 09:07 Order name: PT-INR; Complete Time: 10:40 snw 09/29 09:07 Order name: Troponin HS; Complete Time: 10:59 snw 09/29 09:07 Order name: XRAY Chest (1 view); Complete Time: 10:23 snw 09/29 09:07 Order name: TS; Complete Time: 13:35 snw 09/29 09:07 Order name: TSH; Complete Time: 10:59 snw 09/29 09:07 Order name: SARS RAPID; Complete Time: 10:42 snw 09/29 09:24 Order name: Alpha Fetoprotein-Tumor Marker EDMS 09/29 09:07 Order name: EKG; Complete Time: 09:08 snw 09/29 09:07 Order name: Cardiac monitoring; Complete Time: 09:56 snw 09/29 09:07 Order name: EKG - Nurse/Tech; Complete Time: 09:55 snw 09/29 09:07 Order name: IV Saline Lock; Complete Time: 10:25 snw 09/29 09:07 Order name: Labs collected and sent; Complete Time: 10:25 snw 09/29 09:07 Order name: O2 Per Protocol; Complete Time: 09:55 snw 09/29 09:07 Order name: O2 Sat Monitoring; Complete Time: 09:55 snw 09/29 11:03 Order name: Chest Abd Pelvis Wo Con; Complete Time: 11:30 EDMS 09/29 11:31 Order name: Abdomen Limited US; Complete Time: 12:27 snw EC:52 Rate is 66 beats/min. Rhythm is regular. WA interval is normal. Q waves are Present in snw leads II, III, aVF. Clinical impression: NSR w/ Non-specific ST/T Changes. Administered Medications: 13:10 Drug: NS 0.9% 1000 ml {Note: rate decreased to 20 mL/hr per Dr. Armas.} Route: IV; Rate: kc6 20 ml/hr; Site: right wrist; 20:26 Follow up: Response: No adverse reaction; IV Status: Order to discontinue infusion; IV as6 Intake: 450ml 15:58 Drug: fentaNYL (PF) 50 mcg Route: IVP; Site: right hand; kc6 16:58 Follow up: Response: No adverse reaction; Pain is decreased; RASS: Alert and Calm (0) kc6 20:25 Follow up: Response: No adverse reaction as6 Disposition Summary: 09/29/22 11:52 Hospitalization Ordered Hospitalization Status: Inpatient Admission snw Provider: Caty Armas Location: Telemetry/MedSurg (Inpatient) snw Condition: Stable snw Problem: an acute exacerbation snw Symptoms: have worsened snw Bed/Room Type: Standard snw Room Assignment: 211(09/29/22 19:32) mw Diagnosis - Acute on chronic combined systolic (congestive) and diastolic (congestive) heart snw failure - Anemia, unspecified snw - Renal insufficiency snw Forms: - Medication Reconciliation Form snw - SBAR form snw Signatures: Dispatcher [employer] EDMS Sweetie Ashley RN RN mw Jodi Mccarthy, FLEET COORDINATOR-C FLEET COORDINATOR-Csnw Staci White RN RN ss Campbell, Kaitlyn, RN RN kc6 Dylon Yang RN as6 Corrections: (The following items were deleted from the chart) 09:24 09:08 Miscellaneous Lab Test+R.LAB.BRZ ordered. EDMS EDMS 11:03 09:12 Chest Abdomen W/ Con+CT.RAD.BRZ ordered. EDMS EDMS 13:13 12:22 Waller ordered. snw kc6 19:32 11:52 snw mw
--- NOTE | 2022-09-29 12:22 | RAD REPORT ---
EXAM DESCRIPTION: US - Abdomen Exam Limited - 09/29/2022 12:06 pm CLINICAL HISTORY: ABD PAIN COMPARISON: <Comparisons> FINDINGS: The gallbladder demonstrates no gallstones. Gallbladder wall thickening is present. The wa ll measures 5 millimeters. The common bile duct is normal measuring 4 mm. The liver demonstrates no findings of intrahepatic biliary dilatation. IMPRESSION: Gallbladder wall thickening is nonspecific and may be related to liver disease or heart failure among other etiologies. No sonographic evidence of cholelithiasis or specific findings to ind icate acute cholecystitis.
[2022-09-29] MEDS ORDERED: NA CHLORIDE 0.9% 1,000 ML ONE (12:29)
[2022-09-29] MEDS ORDERED: LIDOCAINE VISCOUS 2% SOLN 15 ML UDC ONE (13:07)
[2022-09-29] MEDS ORDERED: FENTANYL CITR 100 MCG/2 ML ONE (15:54)
--- NOTE | 2022-09-29 19:45 | P.HP ---
Certification for Inpatient Patient admitted to: Inpatient With expected LOS: <2 Midnights Patient will require the following post-hospital care: None Practitioner: I am a practitioner with admitting privileges, knowledge of patient current condition, hospital course, and medical plan of care. Services: Services provided to patient in accordance with Admission requirements found in Title 42 Section 412.3 of the Code of Federal Regulations Patient History Date of Service: 09/29/22 Primary Care Provider: Osman Reason for admission: CHF Exacerbation/Dehydration History of Present Illness: Patient is a 67 year old male with past medical history significant for CAD s/p CABG, afib on eliquis, chronic systolic CHF who presented to the ED with complaints of orthopnea, nausea, and vomiting. He has been intermittently tachypneic but vital signs otherwise stable. Patient does appear mildly jaundiced. EKG without acute changes. Labs significant for potassium 3.3, BUN 34, Cr 2.24, AST 43, tbili 2.2, direct bili 0.6, BNP [address]72. CT chest/abdomen/pelvis showed "cardiomegaly with small right effusion and ascites that may be secondary to heart failure. Mild pericholecystic edema that could be a manifestation of heart failure." Abdominal US showed "gallbladder wall thickening is nonspecific and may be related to liver disease or heart failure among other etiologies. No sonographic evidence of cholelithiasis or cholecystitis." He was given 1L of fluid at a slow rate and fentanyl for pain. Patient is admitted for further management. Allergies No Known Allergies Allergy (Verified 10/23/21 20:19) Home medications list reviewed: Yes Home Medications: Clopidogrel Bisulfate [Plavix*] 75 mg PO DAILY #30 tablet 10/24/21 Allopurinol 300 mg PO DAILY 02/27/22 Amiodarone HCl [Cordarone*] 200 mg PO DAILY 02/27/22 Apixaban [Eliquis] 5 mg PO DAILY 02/27/22 Atorvastatin Calcium [Lipitor] 80 mg PO BEDTIME 02/27/22 Carvedilol [Coreg] 3.125 mg PO DAILY 02/27/22 Metformin ER [Glucophage ER*] 500 mg PO DAILY 02/27/22 Pantoprazole [Protonix Tab*] 40 mg PO DAILY 02/27/22 Sacubitril/Valsartan [Entresto 24 mg-26 mg Tablet] 1 tab PO DAILY 02/27/22 Furosemide [Lasix] 20 mg PO BIDL #60 tab 03/02/22 - Past Medical/Surgical History Diabetic: No -: CAD -: Hypertension -: Borderline DM -: Hyperlipidemia -: Gout -: CABGfour-vessel -: Coronary angiogram with stent August 2021 Psychosocial/ Personal History: Patient works for [employer], lives with family - Family History Mother -: Heart disease, Cancer Father -: Heart disease Sister -: Cancer - Social History Smoking Status: Never smoker Alcohol use: No CD- Drugs: No Caffeine use: Yes Review of Systems Respiratory: Shortness of Breath Gastrointestinal: Nausea, Vomiting, Abdominal Pain Physical Examination - Physical Exam General: Alert, In no apparent distress HEENT: Atraumatic, PERRLA, EOMI, Sclerae nonicteric Neck: Supple, 2+ carotid pulse no bruit, No LAD, Without JVD or thyroid abnormality Respiratory: Clear to auscultation bilaterally, Normal air movement Cardiovascular: Regular rate/rhythm, Normal S1 S2 Gastrointestinal: Normal bowel sounds, No tenderness Musculoskeletal: No tenderness Integumentary: No rashes Neurological: Normal speech, Normal strength at 5/5 x4 extr, Normal tone, Normal affect - Studies Laboratory Data (last 24 hrs) 09/29/22 10:20: PT 36.2 H, INR 3.29 09/29/22 10:20: WBC 8.70, Hgb 10.7 L, Hct 32.3 L, Plt Count 269 09/29/22 10:20: Sodium 138, Potassium 3.3 L, BUN 34 H, Creatinine 2.24 H, Glucose 103, Magnesium 1.9, Total Bilirubin 2.2 H, AST 43 H, ALT 57, Alkaline Phosphatase 96 Assessment and Plan - Problems (Diagnosis) (1) Afib Current Visit: Yes Status: Chronic Qualifiers: Atrial fibrillation type: paroxysmal Qualified Code(s): I48.0 - Paroxysmal atrial fibrillation (2) CHF (congestive heart failure) Current Visit: Yes Status: Chronic Qualifiers: Heart failure type: systolic Heart failure chronicity: acute on chronic Qualified Code(s): I50.23 - Acute on chronic systolic (congestive) heart failure (3) Dehydration Current Visit: Yes Status: Acute (4) Hypertension Current Visit: Yes Status: Chronic Qualifiers: Hypertension type: primary hypertension Qualified Code(s): I10 - Essential (primary) hypertension (5) CASANDRA (acute kidney injury) Current Visit: Yes Status: Acute (6) Coronary artery disease Current Visit: Yes Status: Chronic Qualifiers: Coronary Disease-Associated Artery/Lesion type: bypass graft [place] vs. transplanted heart: [place] heart Associated angina: without angina Qualified Code(s): I25.810 - Atherosclerosis of coronary artery bypass graft(s) without angina pectoris (7) Anemia Current Visit: Yes Status: Chronic Qualifiers: Anemia type: unspecified type Qualified Code(s): D64.9 - Anemia, unspecified - Plan Patient intravascularly dry but with CHF exacerbation. Given 1L fluid at slow rate in the ED. Will see how he responds to albumin drip. Daily weight. Monitor intake and output. Cardiology consult. Telemetry. Patient sees Dr. Fermin. Last echo in February with severe global hypokinesis, EF 34%, mild tricuspid regurgitation, aortic sclerosis, mild pulmonary hypertension Pain medication and antiemetics as needed Trend CMP. Patient with elevated tbili and direct bili. Likely secondary to heart failure. CASANDRA likely secondary to dehydration. Hold Entresto Monitor and replete electrolytes per protocol Reconcile and continue home medications Home eliquis for VTE prophylaxis Full code Discharge Plan: Home Plan to discharge in: 48 Hours - Advance Directives Does patient have a Living Will: No Does patient have a Durable POA for Healthcare: No - Code Status/Comfort Care Code Status Assessed: Yes (Full) Critical Care: No Time Spent Managing Pts Care (In Minutes): 50
[2022-09-29] MEDS ORDERED: ACETAMINOPHEN 500 MG TAB PO PRN (19:55)
[2022-09-29] MEDS ORDERED: ALBUTEROL 2.5 MG/3 ML NEB SOL NEB PRN (19:55)
[2022-09-29] MEDS ORDERED: APIXABAN 5 MG TABLET PO SCH (21:00)
[2022-09-29] MEDS ORDERED: ALBUMIN HUM 5% 500 ML IV SCH (21:00)
[2022-09-29] MEDS: MORPHINE 2 MG/ML SYR IV PRN (21:49)
[2022-09-30] MEDS: allopurinoL 300 MG TAB PO SCH ×2 (00:15→20:42)
[2022-09-30] MEDS: ATORVASTATIN 80 MG TAB PO SCH ×2 (00:15→20:42)
[2022-09-30 00:33] LABS: Specific Gravity 1.018 (1.005-1.030); Urine Bacteria <20 /HPF (<20); Urine Bilirubin NEGATIVE (Negative); Urine Blood Negative (Negative); Urine Clarity Clear (Clear); Urine Color Yellow (Yellow); Urine Glucose NEGATIVE (Negative); Urine Mucus Slight /HPF (None Seen); Urine Protein 1+ (Negative); Urine RBC <5 /HPF (None Seen); Urine Urobilinogen Normal (Normal); Urine pH 5.5 (5.0-7.0)
[2022-09-30] MEDS: MORPHINE 2 MG/ML SYR IV PRN ×3 (03:55→13:14)
[2022-09-30 04:19] LABS: Absolute Lymphocytes (CBC) 1.1 K/uL (0.7-4.9); Hematocrit 29.9 % (39.6-49.0); Lymphocytes % 17.6 % (15.3-44.8); MCV 87.6 fL (80-100); MPV 8.5 fL (7.6-11.3); RBC Red Blood Cell Count 3.42 M/uL (4.33-5.43)
[2022-09-30 04:42] LABS: Albumin 3.7 g/dL (3.4-5.0); Bilirubin Total 1.6 mg/dL (0.2-1.0); Magnesium 1.8 mg/dL (1.8-2.4); Phosphorus 3.8 mg/dL (2.5-4.9); Protein, Total 6.6 g/dL (6.4-8.2)
[2022-09-30] MEDS: ASPIRIN EC 81 MG TAB PO SCH (08:05)
[2022-09-30] MEDS: FUROSEMIDE 40 MG TABLET PO SCH ×2 (08:06→17:19)
[2022-09-30] MEDS: AMIODARONE HCL 200 MG TAB PO SCH (08:06)
[2022-09-30] MEDS: APIXABAN 5 MG TABLET PO SCH ×2 (08:06→20:42)
[2022-09-30] MEDS: PANTOPRAZOLE 40MG TABLET PO SCH (08:07)
[2022-09-30] MEDS: POLYETHYL GLY 3350 17 GM/DOSE PO SCH ×2 (08:57→20:42)
[2022-09-30] MEDS ORDERED: POTASSIUM CL SA 10 MEQ TAB PO ONE ×2 (09:00→17:00)
[2022-09-30] MEDS ORDERED: MAGNESIUM SULFATE 1 gm IVPB 1 GM/100 ML BAG IV ONE (09:00)
[2022-09-30] MEDS ORDERED: MELATONIN 5 MG TABLET PO PRN (11:35)
[2022-09-30] MEDS: ONDANSETRON 4 MG/2 ML VIAL IV PRN (13:13)
--- NOTE | 2022-09-30 18:23 | CON ---
Date of Consultation: 09/30/2022 I saw the patient on 09/30/2022. Reason For Consultation: Congestive heart failure. History Of Present Illness: Mr. Castro is a 67-year-old male. He has been in the hospital recently . Has a history of CABG, dyslipidemia, congestive heart failure, atrial fibrillation, and hypertensi on, as well as, renal insufficiency. Comes in with CHF, PND, orthopnea, pedal edema. No palpitation . No syncope. No fever. No chills. Denied any chest pain, nausea, vomiting, or diaphoresis. His workup was negative except for a creatinine of 2.03 and BNP of 23,000. Allergies: NONE. Past Medical History: As stated earlier. Review of Systems: Negative. Social History: Negative. Family History: Noncontributory. Medications: At home include amiodarone, Plavix, metformin, Entresto, aspirin Lipitor, Eliquis, Lasi x, and potassium. Physical Examination: General: He was stable. Afebrile. Vital Signs: Stable, sinus rhythm. HEENT: Negative. Neck: Supple. No bruit. Chest: Reveals some rales both bases. Cardiac: Revealed a regular rhythm and rate. No murmurs, gallops, or rubs. Abdomen: Benign. Extremities: Revealed trace edema. Neurologic: He was nonfocal. Skin: Dry and intact. Pulses were present distally bilaterally. Diagnostic Data: As stated earlier. Impression And Plan: Acute on chronic systolic congestive heart failure with some mild renal insuffi ciency. Entresto apparently has been held because of renal failure. His other problems including dy slipidemia, coronary artery disease, status post coronary artery bypass graft, paroxysmal atrial fibr illation and sinus rhythm on amiodarone and Eliquis. Hypertension, well controlled. Patient is on v fredy appropriate therapy including amiodarone, aspirin, Lipitor, Eliquis, Lasix, potassium, metformin, and Plavix. I think he should be on a low-dose beta-gigi as well. We will discuss his Entresto with Dr. Armas and Nephrology. Continue to follow. No need for further cardiac workup at this point. NB/MODL Voice ID: [id number] Report ID: [id number]
[2022-09-30 21:17] VITALS: BMI 21.9
[2022-10-01] MEDS: MORPHINE 2 MG/ML SYR IV PRN (00:23)
[2022-10-01 03:51] LABS: Absolute Lymphocytes (CBC) 1.1 K/uL (0.7-4.9); Hematocrit 29.1 % (39.6-49.0); Lymphocytes % 18.5 % (15.3-44.8); MCV 87.7 fL (80-100); MPV 8.5 fL (7.6-11.3); RBC Red Blood Cell Count 3.31 M/uL (4.33-5.43)
[2022-10-01 04:13] LABS: Albumin 3.6 g/dL (3.4-5.0); Bilirubin Total 1.2 mg/dL (0.2-1.0); Magnesium 2.2 mg/dL (1.8-2.4); Potassium 3.9 mmol/L (3.5-5.1); Protein, Total 6.4 g/dL (6.4-8.2)
--- NOTE | 2022-10-01 08:32 | EKG ---
Test Date: 2022-09-29 Test Time: 09:52:20 Car Salesman: MEASUREMENT RESULTS: Intervals: Rate: 66 WV: 328 QRSD: 104 QT: 508 QTc: 532 [place]: P: -17 WV: 328 QRS: -68 T: -49 INTERPRETIVE STATEMENTS: Sinus rhythm with 1st degree AV block with fusion complexes Left axis deviation Inferior infarct, age undetermined Prolonged QT Abnormal ECG Compared to ECG 10/30/2021 11:17:45 Fusion complex(es) now present First degree AV block now present Left-axis deviation now present Myocardial infarct finding now present Ventricular premature complex(es) no longer present Right-axis deviation no longer present ST (T wave) deviation no longer present Possible ischemia no longer present Electronically Signed On 10-01-22 08:29:25 DRY ROLLER by Domingo Franks
[2022-10-01] MEDS ORDERED: POTASSIUM CL SA 10 MEQ TAB PO ONE (09:00)
[2022-10-01] MEDS ORDERED: ALBUTEROL 2.5 MG/3 ML NEB SOL NEB PRN (09:00)
[2022-10-01] MEDS: AMIODARONE HCL 200 MG TAB PO SCH (09:59)
[2022-10-01] MEDS: POLYETHYL GLY 3350 17 GM/DOSE PO SCH ×2 (09:59→21:24)
[2022-10-01] MEDS: FUROSEMIDE 40 MG TABLET PO SCH ×2 (09:59→17:50)
[2022-10-01] MEDS: DOCUSATE NA 100 MG CAP PO SCH ×2 (09:59→21:24)
[2022-10-01] MEDS: ASPIRIN EC 81 MG TAB PO SCH (09:59)
[2022-10-01] MEDS: PANTOPRAZOLE 40MG TABLET PO SCH (10:00)
[2022-10-01] MEDS: APIXABAN 5 MG TABLET PO SCH ×2 (10:00→21:24)
--- NOTE | 2022-10-01 10:30 | P.PN ---
Subjective Date of Service: 10/01/22 Primary Care Provider: Osman Chief Complaint: CHF Exacerbation/Dehydration No acute events overnight. He reports that his shortness of breath has improved somewhat, but he continues to experience orthopnea. He denies chest pain or palpitations. Review of Systems 10-point ROS is otherwise unremarkable Respiratory: SOB with Excertion Cardiovascular: Orthopnea Physical Examination - Vital Signs Temperature: 97.5 F Blood Pressure: 103/79 Pulse: 54 Respirations: 18 Pulse Ox (%): 98 - Physical Exam General: Alert, In no apparent distress, Oriented x3 HEENT: Atraumatic, PERRLA, Mucous membr. moist/pink, EOMI, Sclerae nonicteric Neck: Supple, JVD distended (minimal) Respiratory: Normal air movement, Crackles/rales (faint, bibasilar) Cardiovascular: Regular rate/rhythm, Normal S1 S2, No gallops, No rubs, No murmurs, Edema (trace-1+ BLE) Gastrointestinal: Normal bowel sounds, Soft and benign, Non-distended, No tenderness, No rebound, No guarding Musculoskeletal: No clubbing Integumentary: No rashes Neurological: Normal speech, Cranial nerves 3-12 intact, Normal affect Assessment And Plan - Plan # Acute on Chronic Decompensated Systolic Congestive Heart Failure with Reduced Ejection Fraction (LVEF 34 %) # Mild Pulmonary Hypertension - Consult Cardiology and spoke with Dr. Franks - recommendations appreciated - Ordered transthoracic echocardiogram - Last study (02/28/2022) = "Left apical thrombus well organized. anteroapical akinesis. severe global hypokinesis. left ventricular ejection fraction 34%. aortic sclerosis. mild tricuspid regurgitation. mild pulmonary hypertension." - Diuresis with IV furosemide for today - Daily weights - Strict I/O - Cardiac diet, 1.5 L fluid restriction, 2 g Na restriction # KDIGO Stage II Acute Kidney Injury - Consulted Nephrology and spoke with Dr. Short (stated that he will relay consult to Dr. Trevino) - recommendations appreciated - Creatinine = 2.24 -> 2.03 -> 2.02 (baseline creatinine ~1.10) - Urinalysis = 5-10 hyaline casts - IV diuretics as mentioned above - Monitor creatinine and urine output - If worsening, obtain renal ultrasound - Renally dose medications # Chronic Atrial Fibrillation # History of Left Apical Thrombus - Cardiology consulted and spoke with Dr. Franks - recommendations appreciated - Continue amiodarone, apixaban # Coronary Artery Disease s/p CABG # Hypertension - Continue aspirin, atorvastatin - Start beta-gigi and home sacubutril-valsartan if blood pressure allows # Opioid-Induced Constipation - Discontinued IV morphine and started PO hydrocodone-acetaminophen as needed - Continue MiraLAX - Started docusate Giuseppe Hudson M.D.
[2022-10-01] MEDS: HYDROCODONE/APAP 5/325 MG TAB PO PRN ×3 (10:59→23:14)
--- NOTE | 2022-10-01 14:31 | ECHO ---
HEIGHT: 5 ft 6 in WEIGHT: 164 lb 12.8 oz DATE OF STUDY: 10/01/[address]: Giuseppe Hudson MD 2-DIMENSIONAL: YES M.MODE: YES DOPPLER: YES COLOR FLOW: YES TDS: PORTABLE: YES DEFINITY: BUBBLE STUDY: DIAGNOSIS: CONGESTIVE HEART FAILURE, LEFT ATRIAL THROMBUS CARDIAC HISTORY: CATHERIZATION: YES SURGERY: YES PROSTHETIC VALVE: NO PACEMAKER: NO MEASUREMENTS (cm) DIASTOLIC (NORMALS) SYSTOLIC (NORMALS) IVSd 1.2 (0.6-1.2) LA Diam 4.5 (1.9-4.0) LVEF 31% LVIDd 6.1 (3.5-5.7) LVIDs 5.2 (2.0-3.5) %FS 15% LVPWd 1.1 (0.6-1.2) Ao Diam 2.9 (2.0-3.7) 2 DIMENSIONAL ASSESSMENT: RIGHT ATRIUM: NORMAL LEFT ATRIUM: NORMAL RIGHT VENTRICLE: NORMAL LEFT VENTRICLE: MILDLY DILATED TRICUSPID VALVE: NORMAL MITRAL VALVE: MODERATE MITRAL REGURGITATION PULMONIC VALVE: MILD PULMONIC INSUFFICIENCY AORTIC VALVE: CALCIFIED, NO AORTIC STENOSIS PERICARDIAL EFFUSION: NONE AORTIC ROOT: NORMAL LEFT VENTRICULAR WALL MOTION: MODERATE GLOBAL HYPOKINESIS DOPPLER/COLOR FLOW: SEE BELOW COMMENTS: MODERATELY DEPRESSED LEFT VENTRICULAR EJECTION FRACTION 30-35%. MODERATE GLOBAL HYPOKINESIS. MODERATE TRICUSPID REGURGITATION. MODERATE MITRAL REGURGITATION. AORTIC VALVE SCLEROSIS, NO AORTIC STENOSIS. MODERATE PULMONIC INSUFFICIENCY. MODERATE TO SEVERE PULMONARY HYPERTENSION WITH RIGHT VENTRICULAR SYSTOLIC PRESSURE OF 55-60 mmHg. TECHNOLOGIST: PAVITHRA MUNOZ
--- NOTE | 2022-10-01 15:20 | PN ---
Date of Progress Note: 10/01/2022 Subjectively, Mr. Castro who was admitted with congestive heart failure is feeling better from a CHF standpoint. However, his blood pressure is borderline and his systolic is 103/79. His chest is olga lidia ar. His last creatinine is 2.02. He remains on amiodarone, Eliquis, Lipitor, and Lasix. I will pro bably discontinue his Entresto. Continue rest of his regimen. We will continue to follow. We will see how his blood pressure does. He may be a candidate for a low-dose beta gigi as well. COLT/ASAL Voice ID: [id number] Report ID: [id number]
--- NOTE | 2022-10-01 20:45 | RAD REPORT ---
EXAM DESCRIPTION: US - Renal Ultrasound-Complete - 10/01/2022 7:43 pm CLINICAL HISTORY: fadumo COMPARISON: Abdomen Exam Limited dated 09/29/2022 FINDINGS: The right kidney measures 10.1 x 4.7 x 4.1 cm. The left kidney measures 12.1 x 5.4 x 4.1 cm. Renal cortical thickness and echogenicity are normal. No hydronephrosis or suspicious renal mass. Bladder assessment was limited. No gross abnormality seen. IMPRESSION: No hydronephrosis or suspicious renal mass. No other significant findings.
[2022-10-01] MEDS: allopurinoL 300 MG TAB PO SCH (21:24)
[2022-10-01] MEDS: ATORVASTATIN 80 MG TAB PO SCH (21:25)
--- NOTE | 2022-10-02 00:27 | CON ---
Date of Consultation: 10/01/2022 Chief Complaint: Cardiorenal syndrome, CHF exacerbation. History Of Present Illness: Patient is a 67-year-old man with past medical history significant for c oronary artery disease status post CABG, atrial fibrillation on Eliquis, and chronic systolic congest [place] heart failure. The patient presented to emergency room because of orthopnea, nausea, vomiting, a nd epigastric pain. He was has been intermittently tachypneic, but he denied chest pain, palpitation s, or syncope. EKG did not show any acute changes. Lab work revealed elevated BUN of 34, creatinine of 2.24, potassium 3.3, total bilirubin was up to 2.2. BNP 23,000. CT scan of the chest, abdomen a nd pelvis showed cardiomegaly with small right pleural effusion and ascites that may be secondary to heart failure, mild pericholecystic edema that could be manifestation of heart failure. Abdominal ul trasound showed gallbladder wall thickening and nonspecific changes related to liver disease and othe r etiology including heart failure. There was no evidence of cholelithiasis or cholecystitis. Nephr ology consultation is requested for abnormal renal function test. Patient has multiple medical probl ems including history of congestive heart failure, hypertension, as well as diabetes mellitus. Prior to this admission, he was taking metformin, carvedilol, atorvastatin, amiodarone, allopurinol, Plavi x, furosemide, valsartan, Entresto, and Protonix. Review of Systems: General: Denies fever or chills. Eyes: Denies vision changes. Ears, Nose, Mouth and Throat: Denies sore throat or earache. Respiratory: He has shortness of breath with activities and at rest, he has orthopnea. He denied wh eezing or hemoptysis. GI: Had nausea and vomiting. : Denies dysuria, hematuria, renal colic, or incomplete voiding. Muscular: Denies gout. All other systems reviewed and are all negative. Past Medical History: Coronary artery disease, hypertension, borderline diabetes mellitus on metform in, hyperlipidemia, gout, CABG for 4 vessels, coronary artery disease previously treated with stent i n August 2021. Social History: Mother had heart disease and cancer. Father with heart disease. Sister with cancer . Social History: Denies tobacco, alcohol, or illicit drug abuse. Physical Examination: General: Patient is awake, alert, follows commands. HEENT: Anicteric sclerae. EOMI. Neck: Supple. No bruits. No JVD. Respiratory: Patient has coarse breath sounds and crackles bilaterally at bases. Cardiovascular: S1, S2. No pericardial friction or rub. Abdomen: Soft, benign. No rebound. No guarding. Extremities: Minimal edema. Laboratory Data: Blood work on admission showed hemoglobin 10.7, platelet count 269, WBC 8.7. INR 3 .29, PT 36.2. Sodium 138, potassium 3.3, BUN 34, creatinine 2.24, glucose 103, magnesium 1.9, total bilirubin 2.2, AST 42, ALT 57. Impression And Plan: The patient has severe congestive heart failure exacerbation. He will continue diuretics. Patient was found to have hypokalemia. Patient may benefit from spironolactone when tracie al function is at baseline. Currently, patient has acute kidney injury. Baseline creatinine level b ack in February 2022 was 1.1 and BUN 18. The patient denies nonsteroidal antiinflammatory medication an d denies lower urinary tract symptoms. The patient has cardiorenal syndrome associated with congesti ve heart failure exacerbation and plan is to continue adequate diuretics. In view of acute kidney injury, patient will have additional workup to rule out possible nephritis, a lthough urinalysis did not show hematuria. Patient was found with 2+ proteinuria and plan is to init iate workup for proteinuria. Monitor magnesium level and potassium. Continue magnesium and potassium replacement when patient is on diuretic. Further recommendation as far as congestive heart failure, per Cardiology. The patient likely has some degree of chronic kidney disease secondary to diabetes mellitus. Current ly, he was found to have 2+ proteinuria and this may represent diabetic kidney disease. EB/MODL Voice ID: [id number] Report ID: [id number]
[2022-10-02 04:21] LABS: Hematocrit 30.5 % (39.6-49.0); Lymphocytes % 21.8 % (15.3-44.8); MCV 87.8 fL (80-100); MPV 8.6 fL (7.6-11.3); RBC Red Blood Cell Count 3.47 M/uL (4.33-5.43)
[2022-10-02 04:22] LABS: Absolute Lymphocytes (CBC) 1.5 K/uL (0.7-4.9)
[2022-10-02 04:36] LABS: Albumin 3.6 g/dL (3.4-5.0); Bilirubin Total 1.1 mg/dL (0.2-1.0); Potassium 4.4 mmol/L (3.5-5.1); Protein, Total 6.6 g/dL (6.4-8.2); Uric Acid 4.3 mg/dL (3.5-7.2)
[2022-10-02] MEDS: ASPIRIN EC 81 MG TAB PO SCH (08:51)
[2022-10-02] MEDS: DOCUSATE NA 100 MG CAP PO SCH ×2 (08:51→20:07)
[2022-10-02] MEDS: POLYETHYL GLY 3350 17 GM/DOSE PO SCH ×2 (08:52→20:07)
[2022-10-02] MEDS: APIXABAN 5 MG TABLET PO SCH ×2 (08:52→20:07)
[2022-10-02] MEDS: AMIODARONE HCL 200 MG TAB PO SCH (08:52)
[2022-10-02] MEDS: PANTOPRAZOLE 40MG TABLET PO SCH (08:52)
[2022-10-02] MEDS: FUROSEMIDE 40 MG TABLET PO SCH ×2 (08:52→16:48)
[2022-10-02] MEDS: HYDROCODONE/APAP 5/325 MG TAB PO PRN ×2 (11:30→17:38)
--- NOTE | 2022-10-02 15:42 | PN ---
Date of Progress Note: 10/02/2022 Subjective: The patient was admitted to the hospital with cardiorenal syndrome with acute kidney inj ury. The patient was initiated on diuresis. Kidney number upon arrival to the hospital was 2.4, cur rently down to 1.8. GFR improved to 39; upon admission, it was 31. The patient had good urine outpu t. Blood pressure stayed stable. Physical Examination: Vital Signs: When I saw the patient; blood pressure 113/71, pulse of 58. Urine output of 1600. Chest: Clear to auscultation. Heart: S1, S2. Systolic murmur. Abdomen: Soft, nontender. Extremity: Trace edema. Neurologic: Alert. No focality. Laboratory Data: Renal ultrasound; .12.1, no hydronephrosis, no masses. Chest x-ray; cardiomega ly with congestion. Sodium 137, potassium 4.4, bicarb 27, BUN 32, creatinine 1.8, GFR of 39, calcium 8.6, uric acid 4.3, albumin 3.6. WBC 6.7, H and H 10.1/30.5. Current Medications: The patient on include; 1.Aspirin. 2.Eliquis 5 b.i.d. 3.Amiodarone. 4.Lasix 40 b.i.d. 5.Pantoprazole. 6.Allopurinol. 7.KCl. Assessment And Plan: 1.Acute kidney injury secondary to cardiorenal, over volume, recovered very well, to me looked on th e normal volume side. I am going to continue current dose of Lasix and we will follow up the patient . 2.Hypertension, controlled, optimal. Currently blood pressure on the lower side. We will continue to utilize blood pressure for more diuresis. 3.Hyponatremia, dilutional. Continue diuresis. 4.Congestive heart failure with exacerbation as above. 5.Anemia with the presence of acute kidney injury. Light chain disease needs to be ruled out. Seru m protein electrophoresis, urine protein electrophoresis is still pending. Can be followed up as out patient. AMI/VANDANA Voice ID: [id number] Report ID: [id number]
--- NOTE | 2022-10-02 17:32 | P.PN ---
Subjective Date of Service: 10/02/22 Primary Care Provider: Osman Chief Complaint: CHF Exacerbation/Dehydration No acute events overnight. He reports that his shortness of breath and orthopnea are gradually improving. He had a bowel movement yesterday, with significant improvement in his abdominal discomfort. He denies chest pain or palpitations. Creatinine is gradually improving. Review of Systems 10-point ROS is otherwise unremarkable Respiratory: Shortness of Breath Cardiovascular: Orthopnea Physical Examination - Vital Signs Temperature: 97.0 F Blood Pressure: 93/66 Pulse: 50 Respirations: 12 Pulse Ox (%): 98 Assessment And Plan - Plan - Physical Exam General: Alert, In no apparent distress, Oriented x3 HEENT: Atraumatic, PERRLA, Mucous membr. moist/pink, EOMI, Sclerae nonicteric Neck: Supple, JVD not distended Respiratory: Normal air movement, Crackles/rales (faint, bibasilar) Cardiovascular: Regular rate/rhythm, Normal S1 S2, No gallops, No rubs, No murmurs, Edema (trace-1+ BLE) Gastrointestinal: Normal bowel sounds, Soft and benign, Non-distended, No tenderness, No rebound, No guarding Musculoskeletal: No clubbing Integumentary: No rashes Neurological: Normal speech, Cranial nerves 3-12 intact, Normal affect # Acute on Chronic Decompensated Systolic Congestive Heart Failure with Reduced Ejection Fraction (LVEF 30-35 %) # Moderate-Severe Pulmonary Hypertension # Moderate Tricuspid Regurgitation # Moderate Mitral Regurgitation # Moderate Pulmonic Insufficiency # Borderline Hypotension - Consult Cardiology and spoke with Dr. Franks - recommendations appreciated - Ordered transthoracic echocardiogram = "moderately depressed left ventricular ejection fraction 30-35%. moderate global hypokinesis. moderate tricuspid regurgitation. moderate mitral regurgitation. aortic valve sclerosis, no aortic stenosis. moderate pulmonic insufficiency. moderate to severe pulmonary hypertension with right ventricular systolic pressure of 55-60 mmHg." - Diuresis with furosemide for today - Daily weights - Strict I/O - Cardiac diet, 1.5 L fluid restriction, 2 g Na restriction # KDIGO Stage II Acute Kidney Injury - suspect Cardiorenal Syndrome - Consulted Nephrology - recommendations appreciated - Creatinine = 2.24 -> 2.03 -> 2.02 -> 1.84 (baseline creatinine ~1.10) - Plan to diurese for an additional day, if creatinine improved tomorrow, anticipate discharge - Urinalysis = 5-10 hyaline casts - IV diuretics as mentioned above - Monitor creatinine and urine output - If worsening, obtain renal ultrasound - Renally dose medications # Chronic Atrial Fibrillation # History of Left Apical Thrombus - Cardiology consulted and spoke with Dr. Franks - recommendations appreciated - Continue amiodarone, apixaban # Coronary Artery Disease s/p CABG # Hypertension - Continue aspirin, atorvastatin - Start beta-gigi and home sacubutril-valsartan if blood pressure allows # Opioid-Induced Constipation - Discontinued IV morphine and started PO hydrocodone-acetaminophen as needed - Continue MiraLAX - Started docusate Giuseppe Hudson M.D.
[2022-10-02] MEDS: allopurinoL 300 MG TAB PO SCH (20:07)
[2022-10-02] MEDS: ATORVASTATIN 80 MG TAB PO SCH (20:07)
[2022-10-03] MEDS ORDERED: MORPHINE 2 MG/ML SYR IV ONE (01:51)
[2022-10-03] MEDS ORDERED: MORPHINE 2 MG/ML SYR ONE (01:53)
[2022-10-03 06:13] LABS: Magnesium 2.2 mg/dL (1.8-2.4); Potassium 4.4 mmol/L (3.5-5.1)
[2022-10-03] MEDS: POLYETHYL GLY 3350 17 GM/DOSE PO SCH ×2 (08:27→20:56)
[2022-10-03] MEDS: PANTOPRAZOLE 40MG TABLET PO SCH (08:27)
[2022-10-03] MEDS: AMIODARONE HCL 200 MG TAB PO SCH (08:27)
[2022-10-03] MEDS: FUROSEMIDE 40 MG TABLET PO SCH ×2 (08:28→16:33)
[2022-10-03] MEDS: APIXABAN 5 MG TABLET PO SCH ×2 (08:28→20:55)
[2022-10-03] MEDS: DOCUSATE NA 100 MG CAP PO SCH ×2 (08:28→20:56)
[2022-10-03] MEDS: ASPIRIN EC 81 MG TAB PO SCH (08:28)
--- NOTE | 2022-10-03 08:33 | PN ---
Date of Progress Note: 10/02/2022 Mr. Castro has been followed for atrial fibrillation, acute on chronic systolic congestive heart jaren lure, pulmonary hypertension, paroxysmal atrial fibrillation. Today, the patient is in sinus rhythm. Remains on amiodarone, Eliquis, aspirin, Lasix, allopurinol, and Lipitor. Creatinine is 1.84. No significant complaints from a breathing standpoint. Examination is unremarkable. I think the patien t can go home on his present regimen. We will see him in the office as an outpatient in the near fut ure. COLT/VANDANA Voice ID: [id number] Report ID: [id number]
[2022-10-03] MEDS: ONDANSETRON 4 MG/2 ML VIAL IV PRN (14:36)
--- NOTE | 2022-10-03 14:41 | P.PN ---
Subjective Date of Service: 10/03/22 Primary Care Provider: Osman Chief Complaint: CHF Exacerbation/Dehydration No acute events overnight. He reports significant improvement in his shortness of breath. He is no longer experiencing abdominal pain. He denies chest pain and palpitations. His creatinine is slightly uptrending. Discussed with Dr. Short, who advised that he stay an additional day until his creatinine is downtrending. Review of Systems 10-point ROS is otherwise unremarkable Respiratory: SOB with Excertion (improved) Physical Examination - Vital Signs Temperature: 97.2 F Blood Pressure: 102/68 Pulse: 58 Respirations: 14 Pulse Ox (%): 96 Assessment And Plan - Plan - Physical Exam General: Alert, In no apparent distress, Oriented x3 HEENT: Atraumatic, PERRLA, Mucous membr. moist/pink, EOMI, Sclerae nonicteric Neck: Supple, JVD not distended Respiratory: Normal air movement, clear to auscultation bilaterally Cardiovascular: Regular rate/rhythm, Normal S1 S2, No gallops, No rubs, No murmurs, Edema (trace BLE) Gastrointestinal: Normal bowel sounds, Soft and benign, Non-distended, No tenderness, No rebound, No guarding Musculoskeletal: No clubbing Integumentary: No rashes Neurological: Normal speech, Cranial nerves 3-12 intact, Normal affect # Acute on Chronic Decompensated Systolic Congestive Heart Failure with Reduced Ejection Fraction (LVEF 30-35 %) # Moderate-Severe Pulmonary Hypertension # Moderate Tricuspid Regurgitation # Moderate Mitral Regurgitation # Moderate Pulmonic Insufficiency # Borderline Hypotension - Consult Cardiology and spoke with Dr. Franks - recommendations appreciated - Ordered transthoracic echocardiogram = "moderately depressed left ventricular ejection fraction 30-35%. moderate global hypokinesis. moderate tricuspid reg urgitation. moderate mitral regurgitation. aortic valve sclerosis, no aortic stenosis. moderate pulmonic insufficiency. moderate to severe pulmonary hypertension with right ventricular systolic pressure of 55-60 mmHg." - Diuresis with furosemide for today - Daily weights - Strict I/O - Cardiac diet, 1.5 L fluid restriction, 2 g Na restriction # KDIGO Stage II Acute Kidney Injury - suspect Cardiorenal Syndrome - Consulted Nephrology an discussed with Dr. Short - recommendations appreciated - Creatinine = 2.24 -> 2.03 -> 2.02 -> 1.84 -> 1.96 (baseline creatinine ~1.10) - Urinalysis = 5-10 hyaline casts - IV diuretics as mentioned above - Monitor creatinine and urine output - If worsening, obtain renal ultrasound - Renally dose medications # Chronic Atrial Fibrillation # History of Left Apical Thrombus - Cardiology consulted and spoke with Dr. Franks - recommendations appreciated - Continue amiodarone, apixaban # Coronary Artery Disease s/p CABG # Hypertension - Continue aspirin, atorvastatin - Start beta-gigi and home sacubutril-valsartan if blood pressure allows # Opioid-Induced Constipation - Discontinued IV morphine and started PO hydrocodone-acetaminophen as needed - Continue MiraLAX - Started docusate Giuseppe Hudson M.D.
[2022-10-03] MEDS: HYDROCODONE/APAP 5/325 MG TAB PO PRN ×2 (16:34→23:12)
--- NOTE | 2022-10-03 17:33 | PN ---
Date of Progress Note: 10/03/2022 Subjective: The patient was admitted with acute kidney injury secondary to cardiorenal syndrome. Th e patient was started on diuresis. The patient had good urine output. Physical Examination: Vital Signs: Blood pressure 114/85, pulse of 55, afebrile. The patient had good urine output of 160 0, negative of 300. Chest: Clear to auscultation. Heart: S1, S2. Systolic murmur. Abdomen: Soft, nontender. Extremity: Trace edema. Neurologic: Alert. No focality. Laboratory Data: WBC 6.7, H and H 10.1/30.5. Sodium 135, potassium 4.4, bicarb 26, BUN 26, creatini ne 1.9, GFR of 36, calcium 8.7. Current Medications: The patient on include; 1.Aspirin. 2.Eliquis. 3.Amiodarone. 4.Atorvastatin. 5.Tylenol. 6.Lasix 40 b.i.d. 7.Melatonin. Assessment And Plan: 1.Acute kidney injury secondary to cardiorenal. Creatinine is fluctuating. I am going to continue diuresis. We will monitor the patient for another day to evaluate the stability of the patient. I w ill switch the patient to oral. 2.Hypertension, controlled, optimal. Continue current treatment. We will continue to utilize blood pressure for more diuresis. 3.Hyponatremia secondary to dilutional, stable. 4.Congestive heart failure with exacerbation. Continue diuresis. 5.Anemia of chronic kidney disease with the presence of acute kidney injury. Serum protein electrophoresis has been sent, still pending. We will follow up. TUAN Voice ID: [id number] Report ID: [id number]
[2022-10-03] MEDS: allopurinoL 300 MG TAB PO SCH (20:56)
[2022-10-03] MEDS: ATORVASTATIN 80 MG TAB PO SCH (20:56)
[2022-10-04] MEDS: HYDROCODONE/APAP 5/325 MG TAB PO PRN (05:53)
[2022-10-04 05:57] LABS: Potassium 4.2 mmol/L (3.5-5.1)
[2022-10-04] MEDS: ONDANSETRON 4 MG/2 ML VIAL IV PRN (06:16)
[2022-10-04] MEDS: PANTOPRAZOLE 40MG TABLET PO SCH (06:18)
--- NOTE | 2022-10-04 08:09 | P.DS ---
Admission Date: 09/29/22 Discharge Date: 10/04/22 Primary Care Provider: Osman Disposition: ROUTINE DISCHARGE Discharge Condition: GOOD Reason for Admission: CHF Exacerbation/Dehydration Consultations: 1. Cardiology 2. Nephrology Hospital Course: DIAGNOSES: # Acute on Chronic Decompensated Systolic Congestive Heart Failure with Reduced Ejection Fraction (LVEF 30-35 %) # Moderate-Severe Pulmonary Hypertension # Moderate Tricuspid Regurgitation # Moderate Mitral Regurgitation # Moderate Pulmonic Insufficiency # Borderline Hypotension # KDIGO Stage II Acute Kidney Injury - suspect Cardiorenal Syndrome # Chronic Atrial Fibrillation # History of Left Apical Thrombus # Coronary Artery Disease s/p CABG # Hypertension # Opioid-Induced Constipation HOSPITAL COURSE: Mr. Giovanni Castro is a pleasant 67-year-old male with a past medical history significant for chronic systolic congestive heart failure, moderatesevere pulmonary hypertension, chronic atrial fibrillation, coronary artery disease s/p CABG, and hypertension who was admitted to the [facility] on 09/29/2022 for acute on chronic decompensated systolic heart failure exacerbation. He was admitted to the Medicine service. A transthoracic echocardiogram revealed, "moderately depressed left ventricular ejection fraction 30-35%. moderate global hypokinesis. moderate tricuspid regurgitation. moderate mitral regurgitation. aortic valve sclerosis, no aortic stenosis. moderate pulmonic insufficiency. moderate to severe pulmonary hypertension with right ventricular systolic pressure of 55-60 mmHg." Cardiology was consulted and he was evaluated by Dr. Franks. He was treated with IV diuretics, and experienced significant improvement in his symptoms. Additionally, he was noted to have an acute kidney injury, which was thought to be secondary to cardiorenal syndrome. Nephrology was consulted and he was evaluated by Dr. Short. Over course of his hospitalization, he continued to improve significantly. His case was discussed with Dr. Franks and Dr. Short, we have cleared him for discharge from their respective standpoints. Of note, he had borderline hypotension during his hospital stay, for which his beta-gigi and Entresto were held. These medications were held at discharge and he is to follow-up with Dr. Franks to evaluate if they can be re-initiated as an outpatient. On 10/04/2022, he was seen on morning rounds and deemed medically stable for discharge. He was discharged with instructions to schedule follow-up appoin tments with his PCP (Dr. Brewer), with Cardiology (Dr. Franks), and with Nephrology (Dr. Short). He was provided a prescription for furosemide. He was given the opportunity to ask questions and reported no further questions. Furthermore, all questions were answered to the best of my ability. A copy of this discharge summary will be sent to the above providers to facilitate continuity of care. Today, I personally spent 20 minutes on his case, of which greater than 50% of the time was spent in patient education, counseling, and coordination of care as described above. - Physical Exam General: Alert, In no apparent distress, Oriented x3 HEENT: Atraumatic, PERRLA, Mucous membr. moist/pink, EOMI, Sclerae nonicteric Neck: Supple, JVD not distended Respiratory: Normal air movement, clear to auscultation bilaterally Cardiovascular: Regular rate/rhythm, Normal S1 S2, No gallops, No rubs, No murmurs, Edema (trace BLE) Gastrointestinal: Normal bowel sounds, Soft and benign, Non-distended, No tenderness, No rebound, No guarding Musculoskeletal: No clubbing Integumentary: No rashes Neurological: Normal speech, Cranial nerves 3-12 intact, Normal affect Vital Signs/Physical Exam: Temp Pulse Resp BP Pulse Ox 97.2 F 58 18 119/81 99 10/04/22 04:00 10/04/22 04:00 10/04/22 06:53 10/04/22 04:00 10/04/22 06:53 Laboratory Data at Discharge: WBC 6.70 K/uL (4.3-10.9) 10/02/22 03:59 Hgb 10.1 g/dL (13.6-17.9) L 10/02/22 03:59 Hct 30.5 % (39.6-49.0) L 10/02/22 03:59 Plt Count 253 K/uL (152-406) 10/02/22 03:59 PT 36.2 SECONDS (9.5-12.5) H 09/29/22 10:20 INR 3.29 09/29/22 10:20 Sodium 136 mmol/L (136-145) 10/04/22 05:29 Potassium 4.2 mmol/L (3.5-5.1) 10/04/22 05:29 BUN 30 mg/dL (7-18) H 10/04/22 05:29 Creatinine 1.91 mg/dL (0.55-1.3) H 10/04/22 05:29 Glucose 111 mg/dL (74-106) H 10/04/22 05:29 Uric Acid 4.3 mg/dL (3.5-7.2) 10/02/22 03:59 Phosphorus 3.8 mg/dL (2.5-4.9) 09/30/22 04:09 Magnesium 2.2 mg/dL (1.8-2.4) 10/03/22 05:13 Total Bilirubin 1.1 mg/dL (0.2-1.0) H 10/02/22 03:59 AST 47 U/L (15-37) H 10/02/22 03:59 ALT 74 U/L (12-78) 10/02/22 03:59 Alkaline Phosphatase 136 U/L (45-117) H D 10/02/22 03:59 Triglycerides 58 mg/dL (<150) 09/30/22 04:09 Cholesterol 109 mg/dL (<200) 09/30/22 04:09 HDL Cholesterol 36 mg/dL (40-60) L 09/30/22 04:09 Cholesterol/HDL Ratio 3.03 09/30/22 04:09 Home Medications: RX: Clopidogrel Bisulfate [Plavix*] 75 mg PO DAILY #30 tablet 10/24/21 RX: Allopurinol 300 mg PO BEDTIME 02/27/22 RX: Amiodarone HCl [Cordarone*] 200 mg PO DAILY 02/27/22 RX: Apixaban [Eliquis] 5 mg PO BID 02/27/22 RX: Atorvastatin Calcium [Lipitor] 80 mg PO BEDTIME 02/27/22 RX: Pantoprazole [Protonix Tab*] 40 mg PO DAILY 02/27/22 RX: Polyethylene Glycol 3350 [Miralax] 17 gm PO BID 09/30/22 RX: Furosemide [Lasix*] 40 mg PO DAILY #30 tab 10/04/22 New Medications: RX: Furosemide [Lasix*] 40 mg PO DAILY #30 tab Physician Discharge Instructions: 1. Please schedule a follow-up appointment with your PCP (Dr. Brewer) in 3-5 days 2. Please schedule a follow-up appointment with Cardiology (Dr. Franks) in 5-7 days 3. Please schedule a follow-up appointment with Nephrology (Dr. Short) in 5-7 days Followup: José Miguel Short MD [ACTIVE - CAN ADMIT] - 1 Week (Please call to make an appointment. ) Domingo Franks MD [ACTIVE - CAN ADMIT] - 1 Week (Please call to make an appointment. ) Amari Brewer MD [ACTIVE - CAN ADMIT] - 1 Week (Please call to make an appointment. ) Time spent managing pt's care (in minutes): 20
[2022-10-04] MEDS: POLYETHYL GLY 3350 17 GM/DOSE PO SCH (08:42)
[2022-10-04] MEDS: DOCUSATE NA 100 MG CAP PO SCH (08:42)
[2022-10-04] MEDS: FUROSEMIDE 40 MG TABLET PO SCH (08:42)
[2022-10-04] MEDS: AMIODARONE HCL 200 MG TAB PO SCH (08:43)
[2022-10-04] MEDS: APIXABAN 5 MG TABLET PO SCH (08:43)
[2022-10-04] MEDS: ASPIRIN EC 81 MG TAB PO SCH (08:43)
[2022-10-04 10:44] VITALS: O2SAT 98
[2022-10-04 12:30] VITALS: BP 118/84; TEMP 97.7
--- NOTE | 2022-10-04 15:37 | PN ---
Date of Progress Note: 10/04/2022 Subjective: The patient was admitted to hospital with acute kidney injury secondary to cardiorenal, was started on diuresis. Creatinine plateaued on 1.9. The patient off oxygen. Physical Examination: Vital Signs: When I saw the patient; blood pressure 118/84, pulse of 78, afebrile. Chest: Clear to auscultation. Heart: S1, S2. Systolic murmur. Abdomen: Soft, nontender. Extremities: No edema. Laboratory Data: Hemoglobin 10.1. Sodium 136, potassium 4.2, bicarb 23, BUN 30, creatinine 1.9, GFR of 37, calcium 9. Current Medications: The patient on include; 1.Eliquis. 2.Aspirin. 3.Atorvastatin 80. 4.Amiodarone. 5.Lasix 40 b.i.d. p.o. 6.Pantoprazole. 7.Docusate. Assessment And Plan: 1.Acute kidney injury secondary to cardiorenal, currently normal volume. We will continue current d iuresis dose. The patient is going to need outpatient followup. The patient cleared from the Renal standpoint for discharge planning. 2.Hypertension, controlled, optimal. Continue to utilize blood pressure for more diuresis. The pat ient will be a good candidate for ANANYA inhibitor or ARB as outpatient. 3.Hyponatremia, dilutional, improving. Continue diuresis. 4.Congestive heart failure with exacerbation. We will continue diuresis. Follow up with Cardiology . 5.Anemia of chronic kidney disease. Serum protein electrophoresis is still pending. We will follow up. Again, the patient cleared from the Renal standpoint for discharge planning to follow up in the office in 2-3 weeks. AMI/VANDANA Voice ID: [id number] Report ID: [id number]
[2022-10-05 04:55] LABS: Albumin, (SPE) 4.2 g/dL (3.8-4.8); Alpha-1-Globulins 0.3 g/dL (0.2-0.3); Alpha-2-Globulins 0.7 g/dL (0.5-0.9); Gamma Globulins 0.6 g/dL (0.8-1.7); INTERPRETATION Consistent with
[2022-10-08 20:53] LABS: Beta Globulin 24 HR Urine 20 %; Gamma Globulin, 24hr Urine 9 %; Interpretation: REPORT; Protein/Crea Ratio in g 424 mg/g creat (<100); Protein/Crea Ratio in mg 0.424 (<0.100); Urine Alpha-2-Globulins, 24 Hr 13 %; Urine PEP Abn Protein Band1 REPORT; Urine Total Volume 24 Hours 350 mL
== END 2022-10-04 15:00 | disposition home or self-care (01) | DRG 291 ==
LOC: ER 08:45 → 2ND 19:25
PROVIDERS: ADMIT Hospitalist; ATTEND Internal Medicine
DX: I13.0 Hypertensive heart and chronic kidney disease with heart failure and stage 1 through stage 4 chronic kidney disease, or unspecified chronic kidney disease (principal); I50.23 Acute on chronic systolic (congestive) heart failure; N17.9 Acute kidney failure, unspecified; I25.810 Atherosclerosis of coronary artery bypass graft(s) without angina pectoris; E87.1 Hypo-osmolality and hyponatremia; N18.2 Chronic kidney disease, stage 2 (mild); D63.1 Anemia in chronic kidney disease; E78.5 Hyperlipidemia, unspecified; E86.0 Dehydration; I48.0 Paroxysmal atrial fibrillation; I27.20 Pulmonary hypertension, unspecified; M10.9 Gout, unspecified; J98.4 Other disorders of lung; E87.6 Hypokalemia; I08.1 Rheumatic disorders of both mitral and tricuspid valves; I95.9 Hypotension, unspecified; K59.03 Drug induced constipation; T40.2X5A Adverse effect of other opioids, initial encounter; I25.2 Old myocardial infarction; Z95.1 Presence of aortocoronary bypass graft; Z79.01 Long term (current) use of anticoagulants; Z79.02 Long term (current) use of antithrombotics/antiplatelets; Z79.84 Long term (current) use of oral hypoglycemic drugs; Z79.899 Other long term (current) drug therapy; Z28.310 Unvaccinated for COVID-19; Z20.822 Contact with and (suspected) exposure to COVID-19
CPT/HCPCS: 36415; 71045; 71250; 74176; 76705; 76770; 80048; 80053; 80061; 80076; 81001; 82105; 82550; 83735; 83880; 84100; 84132; 84156; 84165; 84166; 84443; 84484; 84550; 85025; 85610; 86021; 86334; 86850; 86900; 86901; 87811; 93005; 93306; 94760; 96361; 96374; 99285; J2270; J2405; J3010; J3475; J7030; P9045

== ENCOUNTER 2022-10-10 10:18 | Observation (INO) | payer OTHER ==
--- OUTSIDE RECORDS SUMMARY | 2022-10-10 10:26 | XMS REPORT | Continuity of Care Document ---
:1955 Author Organization [facility] t Address [address] [place] [address] Care Team Providers Name Role Phone AMARI CORONADO Primary Care Physician Unavailable Madelyn Waterman Attending Clinician MADELYN NOGUEIRA Attending Clinician Unavailable Rachele Parrish MD Attending Clinician RACHELE PARRISH Attending Clinician Unavailable Migue lAngel Young CRNA Attending Clinician Rodolfo Phillips MD Attending Clinician [phone] Only, Adc Test Attending Clinician Unavailable Pob, [facility] Main Attending Clinician Unavailable Nurse, [facility] Attending Clinician Unavailable Amari Coronado MD Attending Clinician AMARI CORONADO Attending Clinician Unavailable Doctor Unassigned, [place] Attending Clinician Unavailable Rashaad Jin Attending Clinician Unavailable Axel Gunn Attending Clinician Unavailable Hand, Juno Doyle Attending Clinician RACHELE PARRISH Admitting Clinician Unavailable Rachele Parrish MD Admitting Clinician Rashaad Jin Admitting Clinician Unavailable Physician, No Primary or Family Admitting Clinician Unavaila ble Axel Gunn Admitting Clinician Unavailable Payers Payer Name Policy Type Policy Number Effective Date Expiration Date Mildred TANGA MEDICARE [id number] 2021 2021 ADVANTAGE HMO 00:00:00 00:00:00 [facility] - [id number] 2016 OUT OF STATE 00:00:00 Problems Condition [...] Added automatic ally from request for surgery [id number] Chronic Chronic Disease Active Univers bilateral bilateral [...] Active 04/01/2015 Problem 05/11/2018 Data migrated from [facility] on 06/01/15. Medical Group Upper Upper Problem [...] arterioscl 1- 01:59:17 l erosis erosis 00:00: Rob (disorder) (disorder) 00 Active 09/27/2014 Problem 05/11/2018 Data migrated from [employer] on 04/26/15. Medical Group Fatigue Fatigue Problem Active 2013-112018-05-11 Me moria (finding) (finding) 11-27 01:59:17 l Active 00:00: Rob 09/27/2014 00 Problem 05/11/2018 Data migrated from [employer] on 04/26/15. Medical Group Gout Gout Problem Active 2013-112018-05-11 Memor ia (disorder) (disorder) 1 01:59:17 l Active 00:00: [place] 09/27/2014 00 Problem 05/11/2018 Data migrated from [employer] on 04/26/15. Medical Group Obesity Obesity Problem Active 2013-112018-05-11 Me moria (disorder) (disorder) 1 01:59:17 l Active 00:00: [place] 09/27/2014 00 Problem 05/11/2018 Data migrated from [employer] on 04/26/15. Medical Group Smoker Smoker Problem Active 2013-112018-05-11 Brandon norberto (finding) (finding) 11-27 01:59:17 l Active 00:00: [place] 09/27/2014 00 Problem 05/11/2018 Data migrated from [employer] on 04/26/15. Medical Group HLD HLD Disease Active Univers (hyperlipi (hyperlipi it y of demia) demia) [facility] HTN HTN Disease Active Univers (hypertens (hypertens it y of ion) ion) [facility] MN, old [place], old Disease Active Univers ity of [facility] Prediabete Prediabete Disease Active U nivers s s ity of [place] [facility] Seasonal Seasonal Disease Active [facility] Arthritis Problem Resolve 2018-05-11 Memoria (disorder) (disorder) d 01:59:17 l Resolved Rob Problem 05/11/2018 [facility] Group Kidney Kidney Problem Resolve 2018-05-11 Mem oria stone stone d 01:59:17 l (disorder) (disorder) He [facility] Resolved Problem 05/11/2018 Medical Group Myocardial Myocardia Problem Resolve 2018-05-11 Memoria infarction l d 01:59:17 l (disorder) infarction He rmann (disorder) Resolved Problem 05/11/2018 [facility] Seasonal Seasonal Problem Resolve 2018-05-11 Memoria allergic allergic d 01:59:17 l rhinitis rhinitis Sandip n (disorder) (disorder) Resolved Problem 05/11/2018 [facility] Sleep Sleep Problem Resolve 2018-05-11 Mem oria apnea apnea d 01:59:17 l (finding) (finding) Herm avelino Resolved Problem 05/11/2018 [facility] Allergies, Adverse Reactions, Alerts Allergy Allergy Status Severity Reaction(s) Onset Inactive Treating Comm ents Source Name Type Date Date Clinician No Known DA Active U 2020-11 [facility] 1-02 [place] 00:00: [facility] 00 are [facility] No Known DA Active U 2020-11 [facility] Allergie 0-27 [place] 00:[place]: d 00 [facility] No Known DA Active U 2020-11 [facility] Allergie 0-27 [place] 00:[place]: d 00 [facility] sulfa sulfa Active 2013-11 Memoria drugs<mason drugs<mason 1-03 l p>1</sup p>1</sup 06:00: Sandip n > > 00 codeine< codeine< Active 2013-11 Memori a sup>2</s sup>2</s 1-03 l up> up> 06:00: [place] 00 NO KNOWN Drug Active Univers ALLERGIE Class ity of S [facility] Social History Social Habit Start Date Stop Date Quantity Comments Source History SDAL University o f Alcohol Frequency [place] [facility] History [facility] o f Alcohol Std Drinks [place] [facility] History [facility] o f Alcohol Binge [place] [facility] History of tobacco Cigarette Smoker University [facility] Exposure to 2022-08-27 2022-09-06 Not sure University of SARS-CoV-2 (event) 00:00:00 09:18:00 [facility] Alcohol intake 2022-08-21 2022-08-21 Current drinker Unive rsity of 00:00:00 00:00:00 of alcohol [facility] (finding) Branch Cigarettes smoked 2022-08-17 2022-08-17 Univers ity of current (pack per 00:00:00 00:00:00 [facility] ) - Reported Branch Cigarette 2022-08-17 2022-08-17 University of pack-years 00:00:00 00:00:00 [facility] Tobacco use and 2022-08-17 2022-08-17 Smokeless Universit y of exposure 00:00:00 00:00:00 tobacco non-user [facility] dical [place] Tobacco Comment 2022-08-17 2022-08-17 Pt quit x 1 year Uni versity of 00:00:00 00:00:00 ago [facility] Alcohol Comment 2018-03-31 2018-03-31 socially Universit y of 00:00:00 00:00:00 [facility] Social History 2017-03-01 2017-03-01 [facility] 18:41:31 18:41:31 Sex [birth year] Universit y of 00:00:00 00:00:00 [facility] Smoking Status Start Date Stop Date Source Ex-smoker 2022-08-17 00:00:00 2022-08-17 00:00:00 Universi ty of [facility] Medications Ordered Filled Start Stop Current Ordering Indication Dosage Frequency Signature Comments Components Source Medication Medication Date Date Medication? Clinician (SIG) Name Name HYDROmorphO Yes .2mg 0.2 mg, Uni vers ne - Slow IV ity of (DILAUDID) 19:46: Push, [place] injection 44 Q5MIN PRN, Medi alvin 0.2 [...] Until Sat08/20/22 at 1448, Routine, Intra-op sodium 2021- Yes PRN, Univers chloride 08-20 Starting ity of 0.9 % 19:10: on Mon [place] irrigation 00 08/20/22 at Med ical solution 1410, Branch Until Discontinu ed, Intra-op EPINEPHrine Yes PRN, Univer s (PF) 08-20 Starting ity of 1:1,000 (1 19:10: on Mon [place] mg/mL) 00 08/20/22 at [facility] (ADRENALIN 1410, Branch (PF)) Until injection Discontinu ed, Routine, Intra-op bupivacaine Yes PRN, Univer s -epinephrin 08-20 Starting ity of e-pf 19:10: on Sat (SENSORCAIN 00 08/20/22 at [place] 1410, Branch W/EPINEPHRI Until NE) 0.25 Discontinu %-1:200,000 ed, injection Routine, Intra-op sodium 2021- No PRN, Univers chloride 08-20 Starting ity of 0.9 % 19:10: 23:01 on Sat [place] irrigation 00 :26 08/20/22 at [facility] ical solution 1410, Branch Until Sat08/20/22 at 1801, Intra-op EPINEPHrine 2021- No PRN, Unive rs (PF) 08-20 Starting ity of 1:1,000 (1 19:10: 23:01 [place] Sat [place] mg/mL[place] 00 :26 08/20/22 at [facility] (ADRENALIN 1410, Branch (PF)) Until Sat injection 08/20/22 at 1801, Routine, Intra-op bupivacaine 2021- No PRN, Unive rs -epinephrin 08-20 Starting ity of e-pf 19:10: 23:01 on Sat (SENSORCAIN 00 :26 08/20/22 at [place]ical [place] 1410, Branch W/EPINEPHRI Until Mon [...] Routine, DSU Pre-op aspirin 325 2021- Yes [id number] 325mg Take 1 Univers mg tablet 08-20 [id number] tablet by it y of 00:00: 04:59 mouth in [place] 00 :00 the Medical morning [place] and 1 tablet in the evening. Take with meals. Do all this for 28 days. aspirin 325 2021- Yes [id number] 325mg Take 1 Univers mg tablet 08-20 [id number] tablet by it y of 00:00: 04:59 mouth in [place] 00 :00 the [facility] and 1 tablet in the evening. Take with meals. Do all this for 28 days. aspirin 325 2021- Yes [id number] 325mg Take 1 Univers mg tablet 08-20 [id number] tablet by it y of 00:00: 04:59 mouth in [place] 00 :00 the [facility] and 1 tablet in the evening. Take with meals. Do all this for 28 days. aspirin 325 2021- Yes [id number] 325mg Take 1 Univers mg tablet 08-20 [id number] tablet by it y of 00:00: 04:59 mouth in [place] 00 :00 the [facility] and 1 tablet in the evening. Take with meals. Do all this for 28 days. aspirin 325 2021- Yes [id number] 325mg Take 1 Univers mg tablet 08-20 [id number] tablet by it y of 00:00: 04:59 mouth in [place] 00 :00 the [facility] and 1 tablet in the evening. Take [...] 7 days. Indication s: acute pain METHOCARBAM 2019-0 Yes [id number] TAKE 1 Univers OL 500 mg 7-15 TABLET BY ity o f tablet 00:00: MOUTH 00 TWICE Medical DAILY Branch METHOCARBAM 0 Yes [id number] TAKE 1 Univers OL 500 mg 7-15 TABLET BY ity o f tablet 00:00: MOUTH [place] TWICE Medical DAILY Branch METHOCARBAM 0 Yes [id number] TAKE 1 Univers OL 500 mg 7-15 TABLET BY ity o f tablet 00:00: MOUTH TWICE Medical DAILY Branch METHOCARBAM 0 Yes [id number] TAKE 1 Univers OL 500 mg 7-15 TABLET BY ity o f tablet 00:00: MOUTH TWICE Medical DAILY Branch METHOCARBAM 0 Yes [id number] TAKE 1 Univers OL 500 mg 7-15 TABLET BY ity o f tablet 00:00: MOUTH [place] TWICE Medical DAILY Branch METHOCARBAM 0 Yes [id number] TAKE 1 Univers OL 500 mg 7-15 TABLET BY ity o f tablet 00:00: MOUTH TWICE Medical DAILY Branch METHOCARBAM 0 Yes [id number] TAKE 1 Univers OL 500 mg 7-15 TABLET BY ity o f tablet 00:00: MOUTH TWICE Medical DAILY Branch METHOCARBAM 0 Yes [id number] TAKE 1 Univers OL 500 mg 7-15 TABLET BY ity o f tablet 00:00: MOUTH [place] TWICE Medical DAILY Branch METHOCARBAM 0 Yes [id number] TAKE 1 Univers OL 500 mg 7-15 TABLET BY ity o f tablet 00:00: MOUTH [place] TWICE Medical DAILY Branch METHOCARBAM 0 Yes [id number] TAKE 1 Univers OL 500 mg 7-15 TABLET BY ity o f tablet 00:00: MOUTH [place] 00 TWICE Medical DAILY Branch METHOCARBAM 0 Yes [id number] TAKE 1 Univers OL 500 mg 7-15 TABLET BY ity o f tablet 00:00: MOUTH [place] TWICE Medical DAILY Branch METHOCARBAM 0 Yes [id number] TAKE 1 Univers OL 500 mg 7-15 TABLET BY ity o f tablet 00:00: MOUTH TWICE Medical DAILY Branch METHOCARBAM 2019-0 Yes [id number] TAKE 1 Univers OL 500 mg 7-15 TABLET BY ity o f tablet 00:00: MOUTH TWICE Medical DAILY Branch METHOCARBAM 2019-0 Yes [id number] TAKE 1 Univers OL 500 mg 7-15 TABLET BY ity o f tablet 00:00: MOUTH TWICE Medical DAILY Branch allopurinol 2019-0 Yes TK 1 T PO U nivers 300 mg 1-02 QD ity of tablet 00:00: [place] [facility] metFORMIN 2019-0 Yes [id number] 500mg Take 1 Univers 500 mg 1-02 tablet by ity of tablet 00:00: mouth [place] [facility] Medical times [place] daily with meals. allopurinol 2018-0 Yes TK 1 T PO U nivers 300 mg 1-02 QD ity of tablet 00:00: [place] [facility] metFORMIN 2019-0 Yes [id number] 500mg Take 1 Univers 500 mg 1-02 tablet by ity of tablet 00:00: mouth [place] [facility] Medical times [place] daily with meals. allopurinol 2018- Yes TK 1 T PO U nivers 300 mg 1-02 QD ity of tablet 00:00: [place] [facility] metFORMIN 2019-0 Yes [id number] 500mg Take 1 Univers 500 mg 1-02 tablet by ity of tablet 00:00: mouth [place] [facility] Medical times [place] daily with meals. allopurinol 2018-0 Yes TK 1 T PO U nivers 300 mg 1-02 QD ity of tablet 00:00: [place] [facility] Branch metFORMIN 2019-0 Yes [id number] 500mg Take 1 Univers 500 mg 1-02 tablet by ity of tablet 00:00: mouth 2 [place] () Medical times [place] daily with meals. allopurinol 2018-0 Yes TK 1 T PO U nivers 300 mg 1-02 QD ity of tablet 00:00: [place] [facility] metFORMIN 2019-0 Yes [id number] 500mg Take 1 Univers 500 mg 1-02 tablet by ity of tablet 00:00: mouth 2 [place] [facility] Medical times [place] daily with meals. allopurinol 2018-0 Yes TK 1 T PO U nivers 300 mg 1-02 QD ity of tablet 00:00: [place] [facility] metFORMIN 2019-0 Yes [id number] 500mg Take 1 Univers 500 mg 1-02 tablet by ity of tablet 00:00: mouth 2 (two) Medical times Branch daily with meals. allopurinol 2019-0 Yes TK 1 T PO U nivers 300 mg 1-02 QD ity of tablet 00:00: Medical Branch metFORMIN 2019-0 Yes [id number] 500mg Take 1 Univers 500 mg 1-02 tablet by ity of tablet 00:00: mouth 2 (two) Medical times Branch daily with meals. allopurinol 2019-0 Yes TK 1 T PO U nivers 300 mg 1-02 QD ity of tablet 00:00: Medical Branch metFORMIN 2019-0 Yes [id number] 500mg Take 1 Univers 500 mg 1-02 tablet by ity of tablet 00:00: mouth 2 (two) Medical times Branch daily with meals. allopurinol 2018-0 Yes TK 1 T PO U nivers 300 mg 1-02 QD ity of tablet 00:00: [place] [facility] metFORMIN 2019-0 Yes [id number] 500mg Take 1 Univers 500 mg 1-02 tablet by ity of tablet 00:00: mouth 2 (two) Medical times Branch daily with meals. allopurinol 2018-0 Yes TK 1 T PO U nivers 300 mg 1-02 QD ity of tablet 00:00: [place] [facility] metFORMIN 2019-0 Yes [id number] 500mg Take 1 Univers 500 mg 1-02 tablet by ity of tablet 00:00: mouth 2 [place] (two) Medical times Branch daily with meals. allopurinol 2019-0 Yes TK 1 T PO U nivers 300 mg 1-02 QD ity of tablet 00:00: [place] [facility] metFORMIN 2019-0 Yes [id number] 500mg Take 1 Univers 500 mg 1-02 tablet by ity of tablet 00:00: mouth 2 [place] (two) Medical times Branch daily with meals. allopurinol 2018-0 Yes TK 1 T PO U nivers 300 mg 1-02 QD ity of tablet 00:00: [place] [facility] metFORMIN 2019-0 Yes [id number] 500mg Take 1 Univers 500 mg 1-02 tablet by ity of tablet 00:00: mouth 2 [place] (two) Medical times Branch daily with meals. allopurinol 2019-0 Yes TK 1 T PO U nivers 300 mg 1-02 QD ity of tablet 00:00: [place] 00 Medical Branch metFORMIN 2018-0 Yes [id number] 500mg Take 1 Univers 500 mg 1-02 tablet by ity of tablet 00:00: mouth 2 [place] 00 (two) Medical times Branch daily with meals. allopurinol Yes TK 1 T PO U nivers 300 mg 1-02 QD ity of tablet 00:00: [place] 00 Medical Branch metFORMIN 2018-0 Yes [id number] 500mg Take 1 Univers 500 mg 1-02 tablet by ity of tablet 00:00: mouth 2 [place] 00 (two) Medical times Branch daily with meals. atorvastati Yes [id number] 40mg Take 1 Univers n 40 mg 5-07 tablet by ity of tablet 00:00: mouth at [place] 00 bedtime. Medical Branch metoprolol Yes [id number] 100mg Take 1 Univers succinate 5-07 tablet by ity o f XL 100 mg 00:00: mouth [place] 24 hr 00 daily. Medical tablet Branch valsartan-h Yes [id number] 1{tbl} Take 1 Univers ydrochlorot 5-07 tablet by ity of hiazide 00:00: mouth [place] 320-25 mg 00 daily. Medical per tablet Branch atorvastati Yes [id number] 40mg Take 1 Univers n 40 mg 5-07 tablet by ity of tablet 00:00: mouth at [place] 00 bedtime. Medical Branch metoprolol Yes [id number] 100mg Take 1 Univers succinate 5-07 tablet by ity o f XL 100 mg 00:00: mouth [place] 24 hr 00 daily. Medical tablet Branch valsartan-h Yes [id number] 1{tbl} Take 1 Univers ydrochlorot 5-07 tablet by ity of hiazide 00:00: mouth [place] 320-25 mg 00 daily. Medical per tablet Branch atorvastati Yes [id number] 40mg Take 1 Univers n 40 mg 5-07 tablet by ity of tablet 00:00: mouth at [place] 00 bedtime. Medical Branch metoprolol Yes [id number] 100mg Take 1 Univers succinate 5-07 tablet by ity o f XL 100 mg 00:00: mouth [place] 24 hr 00 daily. Medical tablet Branch valsartan-h Yes [id number] 1{tbl} Take 1 Univers ydrochlorot 5-07 tablet by ity of hiazide 00:00: mouth [place] 320-25 mg 00 daily. Medical per tablet Branch atorvastati Yes [id number] 40mg Take 1 Univers n 40 mg 5-07 tablet by ity of tablet 00:00: mouth at [place] 00 bedtime. Medical Branch metoprolol Yes [id number] 100mg Take 1 Univers succinate 5-07 tablet by ity o f XL 100 mg 00:00: mouth [place] 24 hr 00 daily. Medical tablet Branch valsartan-h Yes [id number] 1{tbl} Take 1 Univers ydrochlorot 5-07 tablet by ity of hiazide 00:00: mouth [place] 320-25 mg 00 daily. Medical per tablet Branch atorvastati Yes [id number] 40mg Take 1 Univers n 40 mg 5-07 tablet by ity of tablet 00:00: mouth at [place] 00 bedtime. Medical Branch metoprolol Yes [id number] 100mg Take 1 Univers succinate 5-07 tablet by ity o f XL 100 mg 00:00: mouth [place] 24 hr 00 daily. Medical tablet Branch valsartan-h Yes [id number] 1{tbl} Take 1 Univers ydrochlorot 5-07 tablet by ity of hiazide 00:00: mouth [place] 320-25 mg 00 daily. Medical per tablet Branch atorvastati Yes [id number] 40mg Take 1 Univers n 40 mg 5-07 tablet by ity of tablet 00:00: mouth at [place] 00 bedtime. Medical Branch metoprolol Yes [id number] 100mg Take 1 Univers succinate 5-07 tablet by ity o f XL 100 mg 00:00: mouth [place] 24 hr 00 daily. Medical tablet Branch valsartan-h Yes [id number] 1{tbl} Take 1 Univers ydrochlorot 5-07 tablet by ity of hiazide 00:00: mouth [place] 320-25 mg 00 daily. Medical per tablet Branch atorvastati Yes [id number] 40mg Take 1 Univers n 40 mg 5-07 tablet by ity of tablet 00:00: mouth at [place] 00 bedtime. Medical Branch metoprolol Yes [id number] 100mg Take 1 Univers succinate 5-07 tablet by ity o f XL 100 mg 00:00: mouth [place] 24 hr 00 daily. Medical tablet Branch valsartan-h Yes [id number] 1{tbl} Take 1 Univers ydrochlorot 5-07 tablet by ity of hiazide 00:00: mouth [place] 320-25 mg 00 daily. Medical per tablet Branch atorvastati Yes [id number] 40mg Take 1 Univers n 40 mg 5-07 tablet by ity of tablet 00:00: mouth at [place] 00 bedtime. Medical Branch metoprolol Yes [id number] 100mg Take 1 Univers succinate 5-07 tablet by ity o f XL 100 mg 00:00: mouth [place] 24 hr 00 daily. Medical tablet Branch valsartan-h Yes [id number] 1{tbl} Take 1 Univers ydrochlorot 5-07 tablet by ity of hiazide 00:00: mouth [place] 320-25 mg 00 daily. Medical per tablet Branch atorvastati Yes [id number] 40mg Take 1 Univers n 40 mg 5-07 tablet by ity of tablet 00:00: mouth at [place] 00 bedtime. Medical Branch metoprolol Yes [id number] 100mg Take 1 Univers succinate 5-07 tablet by ity o f XL 100 mg 00:00: mouth [place] 24 hr 00 daily. Medical tablet Branch valsartan-h Yes [id number] 1{tbl} Take 1 Univers ydrochlorot 5-07 tablet by ity of hiazide 00:00: mouth [place] 320-25 mg 00 daily. Medical per tablet Branch atorvastati Yes [id number] 40mg Take 1 Univers n 40 mg 5-07 tablet by ity of tablet 00:00: mouth at [place] 00 bedtime. Medical Branch metoprolol Yes [id number] 100mg Take 1 Univers succinate 5-07 tablet by ity o f XL 100 mg 00:00: mouth [place] 24 hr 00 daily. Medical tablet Branch valsartan-h Yes [id number] 1{tbl} Take 1 Univers ydrochlorot 5-07 tablet by ity of hiazide 00:00: mouth [place] 320-25 mg 00 daily. Medical per tablet Branch atorvastati Yes [id number] 40mg Take 1 Univers n 40 mg 5-07 tablet by ity of tablet 00:00: mouth at [place] 00 bedtime. Medical Branch metoprolol Yes [id number] 100mg Take 1 Univers succinate 5-07 tablet by ity o f XL 100 mg 00:00: mouth [place] 24 hr 00 daily. Medical tablet Branch valsartan-h Yes [id number] 1{tbl} Take 1 Univers ydrochlorot 5-07 tablet by ity of hiazide 00:00: mouth [place] 320-25 mg 00 daily. Medical per tablet Branch atorvastati Yes [id number] 40mg Take 1 Univers n 40 mg 5-07 tablet by ity of tablet 00:00: mouth at [place] 00 bedtime. Medical Branch metoprolol Yes [id number] 100mg Take 1 Univers succinate 5-07 tablet by ity o f XL 100 mg 00:00: mouth [place] 24 hr 00 daily. Medical tablet Branch valsartan-h Yes [id number] 1{tbl} Take 1 Univers ydrochlorot 5-07 tablet by ity of hiazide 00:00: mouth [place] 320-25 mg 00 daily. Medical per tablet Branch atorvastati Yes [id number] 40mg Take 1 Univers n 40 mg 5-07 tablet by ity of tablet 00:00: mouth at [place] 00 bedtime. Medical Branch metoprolol Yes [id number] 100mg Take 1 Univers succinate 5-07 tablet by ity o f XL 100 mg 00:00: mouth [place] 24 hr 00 daily. Medical tablet Branch valsartan-h Yes [id number] 1{tbl} Take 1 Univers ydrochlorot 5-07 tablet by ity of hiazide 00:00: mouth [place] 320-25 mg 00 daily. Medical per tablet Branch atorvastati Yes [id number] 40mg Take 1 Univers n 40 mg 5-07 tablet by ity of tablet 00:00: mouth at [place] 00 bedtime. Medical Branch metoprolol Yes [id number] 100mg Take 1 Univers succinate 5-07 tablet by ity o f XL 100 mg 00:00: mouth [place] 24 hr 00 daily. Medical tablet Branch valsartan-h Yes [id number] 1{tbl} Take 1 Univers ydrochlorot 5-07 tablet by ity of hiazide 00:00: mouth [place] 320-25 mg 00 daily. Medical per tablet Branch sildenafil 2016-11 Yes 100 mg = 1 M emoria 100 MG Oral 2-29 tab, PO, l Tablet 16:15: Daily, PRN Clari nn [Viagra] 42 for erectile dysfunctio n, Take 30 minutes prior to intercours e, # 30 tab, 1 Refill(s), Pharmacy: [facility] [id number] sildenafil 2016-11 Yes 100 mg = 1 M emoria 100 MG Oral 2-29 tab, PO, l Tablet 16:15: Daily, PRN Clari nn [Viagra] 42 for erectile dysfunctio n, Take 30 minutes prior to intercours e, # 30 tab, 1 Refill(s), Pharmacy: [facility] [id number] sildenafil 2016-11 Yes 100 mg = 1 M emoria 100 MG Oral 2-29 tab, PO, l Tablet 16:15: Daily, PRN Clari nn [Viagra] 42 for erectile dysfunctio n, Take 30 minutes prior to intercours e, # 30 tab, 1 Refill(s), Pharmacy: [facility] [id number] Metoprolol 2016-11 Yes 100 mg = 1 M emoria Succinate 2-29 tab, PO, l ER 100 mg 16:15: Daily, # Herm avelino oral 19 90 tab, 1 tablet, Refill(s), extended Pharmacy: release [facility] [id number] Metoprolol 2016-11 Yes 100 mg = 1 M emoria Succinate 2-29 tab, PO, l ER 100 mg 16:15: Daily, # Herm avelino oral 19 90 tab, 1 tablet, Refill(s), extended Pharmacy: release [facility] [id number] Metoprolol 2016-11 Yes 100 mg = 1 M emoria Succinate 2-29 tab, PO, l ER 100 mg 16:15: Daily, # Herm avelino oral 19 90 tab, 1 tablet, Refill(s), extended Pharmacy: release [facility] [id number] Metformin 2016-11 Yes 500 mg = 1 Me moria hydrochlori 2-29 tab, PO, l de 500 MG 16:15: BID, # 180 He rmann Oral Tablet 17 tab, 1 Refill(s), Pharmacy: [facility] Metformin 2016-11 Yes 500 mg = 1 Me moria hydrochlori 2-29 tab, PO, l de 500 MG 16:15: BID, # 180 [place] r[place] Oral Tablet 17 tab, 1 Refill(s), Pharmacy: [facility] Metformin 2016-11 Yes 500 mg = 1 Me moria hydrochlori 2-29 tab, PO, l de 500 MG 16:15: BID, # 180 [place] Oral Tablet 17 tab, 1 Refill(s), Pharmacy: [facility] Hydrochloro 2016-11 Yes 1 tab, PO, Memoria thiazide 25 2-29 Daily, # l MG / 16:14: 90 tab, 1 Rob valsartan 54 Refill(s), 320 MG Oral Pharmacy: Tablet [facility] Hydrochloro 2016-11 Yes 1 tab, PO, Memoria thiazide 25 2-29 Daily, # l MG / 16:14: 90 tab, 1 [place] valsartan 54 Refill(s), 320 MG Oral Pharmacy: Tablet [facility] Hydrochloro 2016-11 Yes 1 tab, PO, Memoria thiazide 25 2-29 Daily, # l MG / 16:14: 90 tab, 1 Rob valsartan 54 Refill(s), 320 MG Oral Pharmacy: Tablet [facility] atorvastati 2016-11 Yes 40 mg = 1 M emoria n 40 mg 2-29 tab, PO, l oral tablet 16:14: Bedtime, # [place] 42 90 tab, 1 Refill(s), Pharmacy: [facility] atorvastati 2016-11 Yes 40 mg = 1 M emoria n 40 mg 2-29 tab, PO, l oral tablet 16:14: Bedtime, # Rob 42 90 tab, 1 Refill(s), Pharmacy: [facility] atorvastati 2016-11 Yes 40 mg = 1 M emoria n 40 mg 2-29 tab, PO, l oral tablet 16:14: Bedtime, # [place] 42 90 tab, 1 Refill(s), Pharmacy: [place] [id number] allopurinol 2016-11 Yes 300 mg = 1 Memoria 300 mg oral 2-29 tab, PO, l tablet 16:14: Daily, # Rob 23 90 tab, 1 Refill(s), Pharmacy: [place] [address] allopurinol 2016-11 Yes 300 mg = 1 Memoria 300 mg oral 2-29 tab, PO, l tablet 16:14: Daily, # [place] 23 90 tab, 1 Refill(s), Pharmacy: [place] [address] allopurinol 2016-11 Yes 300 mg = 1 Memoria 300 mg oral 2-29 tab, PO, l tablet 16:14: Daily, # Rob 23 90 tab, 1 Refill(s), Pharmacy: [place] [address] amoxicillin 2016-11 Yes 1,000 mg = Memoria 500 mg oral 2-29 2 tab, PO, l tablet 16:12: BID, X 10 Sandip n 00 day, # 40 tab, 0 Refill(s), Pharmacy: [place] [address] Fluticasone 2016-11 Yes 2 spray, Me moria propionate 2-29 NASAL, l 0.05 16:12: Daily, in [place] MG/ACTUAT 00 each Metered nostril, # Dose Nasal 16 gm, 1 [place] Refill(s), Pharmacy: [place] [address] amoxicillin 2016-11 Yes 1,000 mg = Memoria 500 mg oral 2-29 2 tab, PO, l tablet 16:12: BID, X 10 Sandip n 00 day, # 40 tab, 0 Refill(s), Pharmacy: [place] [address] Fluticasone 2016-11 Yes 2 spray, Me moria propionate 2-29 NASAL, l 0.05 16:12: Daily, in [place] MG/ACTUAT 00 each Metered nostril, # Dose Nasal 16 gm, 1 [place] Refill(s), Pharmacy: [place] [address] amoxicillin 2016-11 Yes 1,000 mg = Memoria 500 mg oral 2-29 2 tab, PO, l tablet 16:12: BID, X 10 Sandip n 00 day, # 40 tab, 0 Refill(s), Pharmacy: [place] [address] Fluticasone 2017-1 Yes 2 spray, Me moria propionate 2-29 NASAL, l 0.05 16:12: Daily, in Rob MG/ACTUAT 00 each Metered nostril, # Dose Nasal 16 gm, 1 [place] Refill(s), Pharmacy: [facility] [id number] Vital Signs Vital Name Observation Time Observation Value Comments Source Systolic blood 2022-09-06 14:33:00 107 mm[Hg] [facility]iver [facility] Diastolic blood 2022-09-06 14:33:00 70 mm[Hg] Unive rsity of [facility] Heart rate 2022-09-06 14:33:00 74 /min [facility]i ty of [facility] Body height 2022-09-06 14:33:00 167.6 cm [facility]i ty [facility] Body weight 2022-09-06 14:33:00 83.915 kg [facility]i ty [facility] BMI 2022-09-06 14:33:00 29.86 kg/m2 Universi ty [facility] Systolic blood 2022-08-20 20:26:00 119 mm[Hg] Univer [facility]ity of [facility] Diastolic blood 2022-08-20 20:26:00 82 mm[Hg] Unive rsity of [facility] Heart rate 2022-08-20 20:26:00 64 /min [facility] ty [facility] Respiratory rate 2022-08-20 20:26:00 26 /min [facility] saturation in 2022-08-20 20:26:00 94 /min [facility] Arterial blood by [facility] Pulse oximetry Branch Body temperature 2022-08-20 19:44:00 36.94 Kinza [facility] Body height 2022-08-17 16:59:00 167.6 cm [facility]i [facility] Body weight 2022-08-17 16:59:00 83.9 kg Universi ty of [facility] BMI 2022-08-17 16:59:00 29.87 kg/m2 [facility]i ty [facility] Heart rate 2022-08-20 20:17:00 69 /min [facility]i ty [facility] Respiratory rate 2022-08-20 20:17:00 17 /min [facility] ersity of [facility] Oxygen saturation in 2022-08-20 20:17:00 96 /min University of Arterial blood by [facility] Pulse oximetry Branch Systolic blood 2022-08-20 20:13:00 120 mm[Hg] Univer sity of pressure [facility] Diastolic blood 2022-08-20 20:13:00 79 mm[Hg] Unive rsity of [facility] Body temperature 2022-08-20 19:44:00 36.94 Kinza Univ ersity of [facility] Body height 2022-08-17 16:59:00 167.6 cm Universi ty of [facility] Body weight 2022-08-17 16:59:00 83.9 kg Universi ty [facility] BMI 2022-08-17 16:59:00 29.87 kg/m2 Universi ty [facility] Respiratory rate 2022-08-20 19:32:00 19 /min [facility] Systolic blood 2022-07-27 14:22:00 101 mm[Hg] Univer sity of [facility] Diastolic blood 2022-07-27 14:22:00 64 mm[Hg] Unive rsity of [facility] Heart rate 2022-07-27 14:22:00 48 /min Universi ty [facility] Body height 2022-07-27 14:22:00 167.6 cm Universi [facility] Oxygen saturation in 2022-07-27 14:22:00 96 /min University Arterial blood by [facility] Pulse oximetry Branch Weight 2017-11-22 15:37:00 [facility] Height 2017-11-22 15:37:00 170.18 cm [facility] BMI Calculated 2017-11-22 15:37:00 Juliana lopez Rob Systolic (mm Hg) 2017-11-22 15:37:00 Brandon arguello Rob Diastolic (mm Hg) 2017-11-22 15:37:00 Mem orial Rob Respitory Rate 2017-11-22 15:37:00 Memori al Rob Heart Rate 2017-11-22 15:37:00 [facility] Temperature Oral (F) 2017-11-22 15:37:00 98.2 F [facility] Procedures Procedure Date / Time Performing Clinician Source Performed INTUBATION 2022-08-20 19:00:00 [facility] ARTERIAL LINE 2022-08-20 18:33:00 [facility] MENISCECTOMY 2022-08-20 18:30:00 Rachele Parrish [facility] POCT GLUCOSE 2022-08-20 16:38:00 Rachele Parrish [facility] (AUTOMATED) [facility] POCT GLUCOSE 2022-08-20 16:38:00 Rachele Parrish [facility] (AUTOMATED) [facility] DAY SURGERY - ADC 2022-08-20 05:01:00 Doctor Unassigned, No Univ ersity of [facility] EXTERNAL PROVIDER 2022-08-15 05:01:00 Doctor Unassigned, No Univ ersity of [facility] DSU PRE-OP 2022-08-15 05:01:00 Doctor Unassigned, No Univer sity of [facility] EXTERNAL PROVIDER 2022-08-15 05:01:00 Doctor Unassigned, No Univ ersity of [facility] DSU PRE-OP 2022-08-15 05:01:00 Doctor Unassigned, No Univer [facility]ity of [facility] DSU PRE-OP 2022-08-01 05:01:00 Doctor Unassigned, No Univer sity of [facility] [id number] 2021-10-02 00:00:00 LOYPR [facility] [id number] 2021-10-02 00:00:00 LOYPR [facility] [id number] 2021-10-02 00:00:00 LOYPR [facility] [id number] 2021-10-02 00:00:00 LOYPR [facility] [id number] 2021-10-02 00:00:00 LOYPR [facility] [id number] 2021-09-20 00:00:00 [facility] [id number] 2021-09-20 00:00:00 [facility] [id number] 2021-09-20 00:00:00 [facility] [id number] 2021-09-20 00:00:00 [facility] Bypass<sup>1</sup> [facility] Kidney stones [facility] Encounters Start End Encounter Admission Attending Care Care Encounter Source Date/Time Date/Time Type Type Clinicians Facility Department ID 2022-05-[address] [facility] [id number] [place] 07:06:44 [id number] Health 2022-09-06 2022-09-06 Office Jero [facility] 1.2.840.114 [id number] Univers 09:30:00 09:45:00 Visit Madelyn LINDA 350.1.13.10 it y of [place] 4.2.7.2.686 Dg as [place]?BLEA [id number] La kim RANKIN[address] MEDICAL OFFICE [facility] 2022-09-06 2022-09-06 Out[facility] [id number] Univers 09:30:00 09:30:00 MADELYN gonzales [facility] 2022-09-05 2022-09-05 [facility]phone [facility] 1.2.840.114 [id number] Univers 00:00:00 00:00:00 Rachele Mccain [facility] 350.1.13.10 it y of [place] 4.2.7.2.686 Dg as [place]OOKE?BLEA [id number] La kim [address] [facility]ICE [facility] 2022-08-20 2022-08-20 Outpatient [facility] SOR [id number] Univers 11:03:00 15:46:00 RACHELE gonzales [facility] 2022-08-20 2022-08-20 [facility] 1.2.840.114 [id number] Univers 11:03:00 15:46:00 Encounter Rachele L DELFINO 350.1.13.10 [place] [id number] [facility] [address] 2022-08-20 2022-08-20 Surgery [facility] 1.2.220.187 [id number] Univers 13:45:00 15:17:00 Rachele Chioma SALEH 350.1.13.10 i [place]ICAL [id number] [facility] [address] 2022-08-20 2022-08-20 Anesthesia Miguel Angel Young [facility] 1.2.840.11 [id number] Univers 13:46:00 14:40:00 Event Rodolfo Phillips 35 0.1.13.10 ity of [facility] 4.2.7[place]2.[place] [id number] [facility] [address] 2022-08-17 2022-08-17 Laboratory Only, Adc Test [facility] 1.2.840. 114 [id number] Univers 09:30:00 09:45:00 Only Rachele Parrish 350.1.13.10 ity of [facility] 4.2.7.2.[place] C[place] [id number] [facility] [address] 2022-08-17 2022-08-17 Outpatient R FRANCOIS [facility] [id number] Univers 09:30:00 09:30:00 RACHELE gonzales [facility] 2022-08-15 2022-08-15 Elementary Teacher Alessandra, [facility] Main [facility] 1.2.8 40.114 [id number] Univers 12:00:00 12:15:00 Visit Rachele Parrish 350.1.13.10 ity of [facility] 4.[place] PROF[place] [id number] [facility] [address] [facility] 2022-08-15 2022-08-15 Outpatient R FRANCOIS [facility] [id number] Univers 12:00:00 12:00:00 RACHELE gonzales [facility] 2022-08-14 2022-08-14 Prep For Francois [facility] 1.2.840.114 [id number] Univers 00:00:00 00:00:00 Surgery Rachele Mccain [facility] 350.1.13.10 it [facility] 4.2.7.2.686 Dg as [place]OO[place]?BLEA [id number] [facility] [address] MEDICAL OFFICE BUILDING 2022-08-13 2022-08-13 Nurse Nurse, [facility] 1.2.840.114 [id number] Univers 13:30:00 15:33:51 Visit Amari Coronado R HEALTH 350.1.13 .10 ity of [place] 4.2.7.2.686 Dg as BROOKE?BLEA [id number] La kim NAPOLES [address] [facility] 2022-08-13 2022-08-13 Outpatient R ABRIL [facility] [id number] Univers 13:30:00 13:30:00 AMARI Resendiz itemilia o f [facility] 2022-08-13 2022-08-13 Telephone [facility] 1.2.570.102 [id number] Univers 00:00:00 00:00:00 Madelyn S HEALTH 350.1.13.10 it y of [place] 4.2.7.2.686 Dg as BROOKE?BLEA [id number] La kim NAPOLES [address] [place] [address] 2022-08-01 2022-08-01 Orders Doctor MARIO 1.2.840.114 [id number] Univers 00:00:00 00:00:00 Only Unassigned, ALEJANDRA 350.1.13.10 ity of [place] [facility] 4.2.7.2.686 Dg as [phone] [address] 2022-07-31 2022-07-31 Telephone [facility] 1.2.564.531 [id number] Univers 00:00:00 00:00:00 Madelyn S HEALTH 350.1.13.10 it y of [place] 4.2.7.2.686 Dg as BROOKE?BLEA [id number] La kim NAPOLES [address] [place] [address] [facility] 2022-07-27 2022-07-27 Outpatient R JERO [facility] [id number] Univers 09:15:00 09:37:16 MADELYN ity of [facility] 2022-07-27 2022-07-27 Office [facility] 1.2.840.114 [id number] Univers 09:15:00 09:30:00 Visit Madelyn S HEALTH 350.1.13.10 it y of [place] 4.2.7.2.686 Dg as BROOKE?BLEA [id number] La kim NAPOLES [address] [place] [address] 2022-07-27 2022-07-27 Outpatient R JERO [facility] [id number] Univers 09:15:00 09:15:00 MADELYN ity of [facility] 2022-07-17 2022-07-17 Telephone [facility] 1.2.840.114 [id number] Univers 00:00:00 00:00:00 Rachele L HEALTH 350.1.13.10 it y of [place] 4.2.7.2.686 Dg as BROOKE?BLEA [id number] La kim NAPOLES [address] [place] [address] [facility] 2022-07-12 2022-07-12 Telephone [facility] 1.2.840.114 [id number] Univers 00:00:00 00:00:00 Rachele L HEALTH 350.1.13.10 it y of [place] 4.2.7.2.686 Dg as BROOKE?BLEA [id number] La kim NAPOLES [address] [place] [address] [facility] 2022-07-09 2022-07-09 Telephone [facility] 1.2.549.192 [id number] Univers 00:00:00 00:00:00 [facility] HEALTH 350.1.13.10 it y of [place] 4.2.7.2.686 Dg as [place]OOKE?BLEA [id number] La kim NAPOLES [address] [place] [address] [facility] 2022-06-22 2022-06-22 Outpatient Ayse [facility] [id number] Univers 10:30:00 10:54:35 MADELYN ity [facility] 2022-06-22 2022-06-22 Office [facility] 1.2.840.114 [id number] Univers 10:30:00 10:54:35 Visit [facility] 350.1.13.10 it y of [place] 4.2.7.2.686 Dg as BROOKE?BLEA [id number] La kim NAPOLES [address] [place] [address] [facility] 2022-06-22 2022-06-22 Orders Doctor MARTIN 1.2.840.114 [id number] Univers 00:00:00 00:00:00 Only Unassigned, ALEJANDRA 350.1.13.10 ity of [place] [facility] 4.2.7.2.686 Dg as [id number] [address] 2022-06-15 2022-06-15 Outpatient R [facility] [id number] Univers 11:15:00 11:15:00 [facility] 2022-06-15 2022-06-15 [facility] 1.2.785.331 [id number] Univers 11:15:00 11:15:00 Visit Rachele LINDA 350.1.13.10 it y of [place] 4.2.7.2.686 Dg as BROOKE?BLEA [id number] La rosa[address] MEDICAL [facility] 2022-06-15 2022-06-15 Outpatient R [facility] [id number] Univers 11:15:00 11:13:02 [facility] 2022-06-04 2022-06-04 Outpatient R [facility] [id number] Univers 08:54:26 23:59:00 [facility] 2022-06-04 2022-06-04 Hospital [facility] 1.2.840.114 [id number] Univers 08:54:26 23:59:00 Encounter Rachele LINDA 350.1.13.10 [place] of [place] [id number] [facility] [address] ([facility]) 2022-05-10 2022-05-10 Outpatient Ayse [facility] [id number] Univers 10:38:34 23:59:00 [facility] 2022-05-10 2022-05-10 Office [facility] 1.2.840.114 [id number] Univers 10:30:00 11:17:58 Visit Madelyn Levy [facility] 350.1.13.10 it y of [place] 4.2.7.2.686 Dg as BROOKE?BLEA [id number] La kim [address] [facility] 2022-05-10 2022-05-10 Outpatient Ayse [facility] [id number] Univers 10:30:00 11:17:58 MADELYN [facility] 2022-05-10 2022-05-10 Outpatient Ayse [facility] [id number] Univers 10:38:34 10:38:34 MADELYN ity [facility] 2022-05-10 2022-05-10 Orders Doctor MARTIN 1.2.840.114 [id number] Univers 00:00:00 00:00:00 Only Unassigned, ALEJANDRA 350.1.13.10 ity of [place] [facility] 4.2.7.2.686 Dg as [id number] [address] 2022-05-09 2022-05-09 Outpatient R FRANCOIS [facility] [id number] Univers 15:00:00 15:00:00 RACHELE rayemilia [facility] 2022-01-22 2022-01-22 Outpatient [facility]H COH PIJFIND HMV COH 00:00:00 00:00:00 DPP- 10 2021-09-26 2021-10-04 Inpatient EL Luz Maria [facility] ICU [id number] [facility] 21:08:00 15:42:00 Rashaad cotton [facility] 2021-09-27 2021-09-27 [facility] [id number] 09:24:00 09:24:00 Rashaad cotton 28 [facility] are [facility] 2021-09-20 2021-09-26 Inpatient EM Luis A, CELENAPM INTE [id number] [facility] 03:55:00 20:31:00 Oladipo 25 Devendravt silvana [facility] 2018-05-07 2018-05-09 Phone nullFlavo [facility] [id number] Memoria 13:24:00 04:59:59 Message r Primary 07 l [facility] 2018-05-07 2018-05-09 Phone nullFlavo [facility] [id number] Memoria 13:24:00 04:59:59 Message r Primary 07 l [facility] 2018-05-07 2018-05-08 Outpatient [facility] [id number] 08:24:00 23:59:59 07 2017-11-22 2017-11-23 Outpatient nullFlavo [facility] [id number] Memoria 15:45:00 05:59:59 r Primary 13 l [facility] 2017-11-22 2017-11-23 Outpatient nullFlavo [facility] [id number] Memoria 15:45:00 05:59:59 r Primary 13 chioma [place] [facility] 2017-11-22 2017-11-22 Outpatient Juno Littlejohn [facility] [id number] 09:45:00 23:59:59 Vivek 13 2017-11-22 2017-11-22 Outpatient MHIE [facility] [id number] Memoria 09:45:00 09:45:00 13 chioma Rivas 2017-03-29 2017-03-29 Outpatient MHIE [facility] [id number] Memoria 14:30:00 14:30:00 12 chioma Rivas 2017-03-29 2017-03-29 Outpatient MHIE [facility] [id number] Memoria 14:30:00 14:30:00 12 chioma Rivas 2017-03-01 2017-03-01 Outpatient MHIE [facility] [id number] Memoria 13:00:00 13:00:00 11 chioma Rivas 2017-03-01 2017-03-01 Outpatient MHIE MHIE [id number] Memoria 13:00:00 13:00:00 11 chioma Rivas 2017-02-22 2017-02-22 Outpatient MHIE MHIE [id number] Memoria 13:00:00 13:00:00 10 chioma Rivas 2017-02-22 2017-02-22 Outpatient MHIE MHIE [id number] Memoria 13:00:00 13:00:00 10 chioma Rivas 2016-10-26 2016-10-26 Outpatient MHIE MHIE [id number] Memoria 15:15:00 15:15:00 06 chioma Rivas 2016-10-26 2016-10-26 Outpatient MHIE [facility] [id number] Memoria 15:15:00 15:15:00 06 chioma Rivas 2016-10-17 2016-10-17 Outpatient MHIE MHIE [id number] Memoria 11:30:00 11:30:00 09 chioma Rivas 2016-10-17 2016-10-17 Outpatient MHIE MHIE [id number] Memoria 11:30:00 11:30:00 09 chioma Rivas 2016-10-08 2016-10-08 Outpatient MHIE MHIE [id number] Memoria 09:45:00 09:45:00 08 chioma Rivas 2016-10-08 2016-10-08 Outpatient MHIE [facility]IE [id number] Memoria 09:45:00 09:45:00 08 chioma Rivas 2016-08-24 2016-08-24 Outpatient MHIE [facility]IE [id number] Memoria 14:00:00 14:00:00 07 chioma Rivas 2016-08-24 2016-08-24 Outpatient MHIE MHIE [id number] Memoria 14:00:00 14:00:00 07 chioma Rivas 2016-08-03 2016-08-03 Outpatient MHIE MHIE [id number] Memoria 15:15:00 15:15:00 05 chioma Rivas 2016-08-03 2016-08-03 Outpatient MHIE MHIE [id number] Memoria 15:15:00 15:15:00 05 chioma Rivas 2016-01-30 2016-01-30 Outpatient MHIE MHIE [id number] Memoria 11:30:00 11:30:00 04 chioma Rivas 2016-01-30 2016-01-30 Outpatient MHIE [facility]IE [id number] Memoria 11:30:00 11:30:00 04 chioma Rivas 2015-10-07 2015-10-07 Outpatient MHIE MHIE [id number] Memoria 16:30:00 16:30:00 03 chioma Rivas 2015-10-07 2015-10-07 Outpatient MHIE MHIE [id number] Memoria 16:30:00 16:30:00 03 chioma Rivas 2015-09-09 2015-09-09 Outpatient MHIE MHIE [id number] Memoria 11:45:00 11:45:00 02 chioma Rivas 2015-09-09 2015-09-09 Outpatient MHIE MHIE [id number] Memoria 11:45:00 11:45:00 02 chioma Rivas 2015-09-05 2015-09-05 Outpatient MHIE MHIE [id number] Memoria 08:45:00 08:45:00 01 chioma Rivas 2015-09-05 2015-09-05 Outpatient MHIE MHIE [id number] Memoria 08:45:00 08:45:00 01 chioma Rivas 2015-05-20 2015-05-20 Outpatient MHIE MHIE [id number] Memoria 10:15:00 10:15:00 00 chioma Rivas 2015-05-20 2015-05-20 Outpatient MHIE MHIE [id number] Memoria 10:15:00 10:15:00 00 l [place] Results Test Description Test Time Test Comments Results Result Comments Source POCT GLUCOSE (AUTOMATED) 2022-08-20 16:50:57 Test Item Value Reference Range Interpretation Comme nts POCT GLU (test code = 0594309421) 115 mg/dL 70-110 H Lab Interpretation (test code = 50637-9) [facility] 16:50:57 Test Item Value Reference Range Interpretation Comments POCT GLU (test code = 0215894601) 115 mg/dL 70-110 H Lab Interpretation (test code = Abnormal 70001-3) [facility] 16:55:00 Test Item Value Reference Range Interpretation Comments GLUBED (test code = GLUBED) 126 MG/DL 70-105 H [id number] 16:55:00 Test Item Value Reference Range Interpretation Comments GLUBED (test code = GLUBED) 126 MG/DL 70-105 H WINTROBE SED [id number] 03:56:00 Test Item Value Reference Range Interpretation Comments WINTROBE SED RATE (test code = 54 mm/HR 0-10 H SEDWI) C REACTIVE [id number] 03:04:00 Test Item Value Reference Range Interpretation Comments C REACTIVE PROTEIN 15 mg/L <10 H Please no te: New (test code = CRP) Reference Range Dec 2020 BASIC METABOLIC [id number] 03:04:00 Test Item Value Reference Range Interpretation [...] New = CA) Reference Range Dec 2020 [id number] 03:04:00 Test Item Value Reference Range Interpretation Comments PHOSPHOROUS (test code 3.9 mg/dL 2.4-5.1 N Pleas e note: New = PHOS) Reference Range Dec 2020 [id number] 03:04:00 Test Item Value Reference Range Interpretation Comments MAGNESIUM (test code = 2.0 mg/dL 1.6-2.6 N Pleas e note: New MAG) Reference Range Dec 2020 CBC W/AUTO [id number] 02:29:00 Test Item Value Reference Range Interpretation [...] 0.04 x10 3/uL 0.0-0.20 N BASIC METABOLIC [id number] 12:32:00 Test Item Value Reference Range Interpretation [...] New = CA) Reference Range Dec 2020 [id number] 12:32:00 Test Item Value Reference Range Interpretation Comments PHOSPHOROUS (test code 3.5 mg/dL 2.4-5.1 N Pleas e note: New = PHOS) Reference Range Dec 2020 [id number] 12:32:00 Test Item Value Reference Range Interpretation Comments MAGNESIUM (test code = 2.0 mg/dL 1.6-2.6 N Pleas e note: New MAG) Reference Range Dec 2020 CBC W/AUTO [id number] 12:26:00 Test Item Value Reference Range Interpretation [...] = BA#) 0.05 x10 3/uL 0.0-0.20 N [id number] 12:02:00 Test Item Value Reference Range Interpretation Comments GLUBED (test code = GLUBED) 120 MG/DL 70-105 H [id number] 21:46:00 Test Item Value Reference Range Interpretation Comments GLUBED (test code = GLUBED) 192 MG/DL 70-105 H BASIC METABOLIC [id number] 18:52:00 Test Item Value Reference Range Interpretation [...] = CA) Reference Range Dec 2020 PROTHROMBIN [id number] 18:50:00 Test Item Value Reference Range Interpretation [...] 2.5-3.5recurren t systemic emboli sm. THROMBOPLASTIN TIME [id number] 18:50:00 Test Item Value Reference Range Interpretation Comments THROMBOPLASTIN TIME 31.2 SECONDS 23.8-34.8 INTERPRE TATIVE PARTIAL (test code = : erapeutic PTT) range: Unfractionated heparin:55 - 80 seconds Argatroban:1.5 to 3 times the basel ine PTT CBC W/AUTO [id number] 18:43:00 Test Item Value Reference Range Interpretation [...] = BA#) 0.06 x10 3/uL 0.0-0.20 N [id number] 12:40:00 Test Item Value Reference Range Interpretation Comments GLUBED (test code = GLUBED) 109 MG/DL 70-105 H COAGULATION TIME [id number] 10:47:00 Test Item Value Reference Range Interpretation Comments COAGULATION TIME ACTIVATED (test 285 SECONDS 74-137 H code = ACT) BASIC METABOLIC [id number] 04:23:00 Test Item Value Reference Range Interpretation [...] Reference Ran ge Feb code = BUN) 2021 GLOMERULAR >=60 max >60 Units are FILTRATION [...] New = CA) Reference Range Dec 2020 [id number] 04:23:00 Test Item Value Reference Range Interpretation Comments PHOSPHOROUS (test code 4.6 mg/dL 2.4-5.1 N Pleas e note: New = PHOS) Reference Range Dec 2020 [id number] 04:23:00 Test Item Value Reference Range Interpretation Comments MAGNESIUM (test code = 2.2 mg/dL 1.6-2.6 N Pleas e note: New MAG) Reference Range Dec 2020 THROMBOPLASTIN TIME [id number] 04:01:00 Test Item Value Reference Range Interpretation Comments THROMBOPLASTIN TIME 73.4 SECONDS 23.8-34.8 H INTERPRE TATIVE PARTIAL (test code = DATA: erapeutic PTT) range: Unfractionated heparin:55 - 80 seconds Argatroban:1.5 to 3 times the basel ine PTT CBC W/AUTO [id number] 03:39:00 Test Item Value Reference Range Interpretation [...] = BA#) 0.08 x10 3/uL 0.0-0.20 N [id number] 23:24:00 Test Item Value Reference Range Interpretation Comments GLUBED (test code = GLUBED) 157 MG/DL 70-105 H THROMBOPLASTIN TIME [id number] 20:43:00 Test Item Value Reference Range Interpretation Comments THROMBOPLASTIN TIME 80.5 SECONDS 23.8-34.8 H INTERPRE TATIVE PARTIAL (test code = DATA:Th erapeutic PTT) range: Unfractionated heparin:55 - 80 seconds Argatroban:1.5 to 3 times the basel ine PTT THROMBOPLASTIN TIME [id number] 12:35:00 Test Item Value Reference Range Interpretation Comments THROMBOPLASTIN TIME 65.7 SECONDS 23.8-34.8 H INTERPRE TATIVE PARTIAL (test code = DATA:Th erapeutic PTT) range: Unfractionated heparin:55 - 80 seconds Argatroban:1.5 to 3 times the basel ine PTT [id number] 12:03:00 Test Item Value Reference Range Interpretation Comments GLUBED (test code = GLUBED) 94 MG/DL 70-105 N [id number] 08:02:00 Test Item Value Reference Range Interpretation Comments GLUBED (test code = GLUBED) 107 MG/DL 70-105 H - XR CHEST 1 [id number] 07:49:00 [facility] 1955 Sex: MPatient Name: MELANIE YAÑEZ Unit No: [id number] EXAMS: CPT CODE: [id number] XR CHEST 1 V 70941 Exam: Portable chest x-ray single view History: [...] Printed Date/Time: 10/01/2021 (0752) Name: MELANIE YAÑEZ [facility] Phys: [id number] Aruna Canales APRN [address] : 1955 Age: 66 Sex: [place] [address] Loc: P.0223 1 Exam Date: 10/01/2021 Status: ADM IN PH: FAX: PAGE 1 Signed ReportBASIC METABOLIC [id number] 05:23:00 Test Item Value Reference Range Interpretation [...] CA) Reference Range Dec 2020 THROMBOPLASTIN TIME [id number] 05:20:00 Test Item Value Reference Range Interpretation Comments THROMBOPLASTIN TIME 45.0 SECONDS 23.8-34.8 H INTERPRE TATIVE PARTIAL (test code = DATA: erapeutic PTT) range: Unfractionated heparin:55 - 80 seconds Argatroban:1.5 to 3 times the basel ine PTT CBC W/AUTO [id number] 05:05:00 Test Item Value Reference Range Interpretation [...] = BA#) 0.07 x10 3/uL 0.0-0.20 N [id number] 22:17:00 Test Item Value Reference Range Interpretation Comments GLUBED (test code = GLUBED) 174 MG/DL 70-105 H [id number] 18:41:00 Test Item Value Reference Range Interpretation Comments GLUBED (test code = GLUBED) 170 MG/DL 70-105 H [id number] 12:02:00 Test Item Value Reference Range Interpretation Comments GLUBED (test code = GLUBED) 110 MG/DL 70-105 H THROMBOPLASTIN TIME [id number] 11:50:00 Test Item Value Reference Range Interpretation Comments THROMBOPLASTIN TIME 48.8 SECONDS 23.8-34.8 H INTERPRE TATIVE PARTIAL (test code = DATA:Th erapeutic PTT) range: Unfractionated heparin:55 - 80 seconds Argatroban:1.5 to 3 times the basel ine PTT - XR CHEST 1 [id number] 08:04:00 [facility] : 1955 Sex: MPatient Name: MELANIE YAÑEZ Unit No: [id number] EXAMS: CPT CODE: [id number] XR CHEST 1 V 06343 Clinical Information: Shortness of breath. Unstable angina. Heart failure. Dictation Location: A1 COMPARISON: 09/29/2021. FINDINGS: Portable frontal view of the chest taken at 0356 hours erect shows monitoring electrodes overlying the chest wall. Sternal wire sutures., Mild cardiomegaly, and gener alized interstitial prominence are again noted. Patchy perihilar infiltrates appear slightly decreased from the previous day. No new consolidation or effusion. The bones are stable. IMPRESSION: 1. Diffuse interstitial prominence. 2. Slight reduction in perihilar infiltrate since the prior day. 3. Posto perative chest with cardiomegaly. Electronically Signed by JEFF BROUSSARD M.D. on 1at 0804 Reported and signed by: JEFF BROUSSARD M.D. CC: Rashaad Jin MD; Aruna Padilla Technologist: Mitzy Cole Fluoro Time: DAP (Gy m2): Air Kerma (mGy): Trscr Dt/Tm: 09/30/2021 (803) by:Shari Printed Date/Time: 09/30/2021 (806) Name: MELANIE YAÑEZ 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 [address] : 1955 Age: 66 Sex: [place] [address] Loc: P.0223 1 Exam Date: 09/30/2021 Status: ADM IN PH: FAX: PAGE 1 Signed [id number] 07:16:00 Test Item Value Reference Range Interpretation Comments GLUBED (test code = GLUBED) 106 MG/DL 70-105 H [id number] 16:36:00 Test Item Value Reference Range Interpretation Comments GLUBED (test code = GLUBED) 138 MG/DL 70-105 H [id number] 11:16:00 Test Item Value Reference Range Interpretation Comments GLUBED (test code = GLUBED) 109 MG/DL 70-105 H - XR CHEST 1 [id number] 07:22:00 [facility] : 1955 Sex: MPatient Name: MELANIE YAÑEZ Unit No: [id number] EXAMS: CPT CODE: [id number] XR CHEST 1 V 09176 EXAMINATION: Frontal chest radiograph INDICATION: SOB COMPARISON: 09/26/2021 LOCATION: W1 FINDINGS/ IMPRESSION: Slightly increased bibasilar interstitial pneumonia and/or edema. No definite pleural effusion or pneumothorax. Unchanged cardiac silhouette. at 0722 Reported and signed by: Graham Acevedo M.D. CC: Rashaad Jin MD; Aruna Padilla Technologist: Jessa Triana Fluoro Time: DAP (Gy m2): Air Kerma (mGy): Trscr Dt/Tm: 09/29/2021 (4422) by:[email or web address] Printed Date/Time: 09/29/2021 (1743) Name: MELANIE YAÑEZ [facility] Phys: [id number] Malick Padilla,Aruna PARKINSON [address] : 1955 Age: 66 Sex: [place] [address] Loc: P.0223 1 Exam Date: 09/29/2021 Status: ADM IN PH: FAX: PAGE 1 Signed ReportCOMPREHENSIVE METABOLIC [id number] 06:34:00 Test Item Value Reference Range Interpretation [...] Reference Range Feb code = ALKP) 2020 [id number] 06:34:00 Test Item Value Reference Range Interpretation Comments PHOSPHOROUS (test code 3.7 mg/dL 2.4-5.1 N Pleas e note: New = PHOS) Reference Range Dec 2020 [id number] 06:34:00 Test Item Value Reference Range Interpretation Comments MAGNESIUM (test code = 2.1 mg/dL 1.6-2.6 N Pleas e note: New MAG) Reference Range Dec 2020 RECOLLECTCBC W/AUTO [id number] 06:15:00 Test Item Value Reference Range Interpretation [...] BA#) 0.07 x10 3/uL 0.0-0.20 N RECOLLECTPROTHROMBIN [id number] 06:14:00 Test Item Value Reference Range Interpretation [...] 2.5-3.5recurren t systemic emboli sm. RECOLLECTTHROMBOPLASTIN TIME [id number] 06:14:00 Test Item Value Reference Range Interpretation Comments THROMBOPLASTIN TIME 63.8 SECONDS 23.8-34.8 H INTERPRE TATIVE PARTIAL (test code = DATA: erapeutic PTT) range: Unfractionated heparin:55 - 80 seconds Argatroban:1.5 to 3 times the basel ine PTT [id number] 21:40:00 Test Item Value Reference Range Interpretation Comments GLUBED (test code = GLUBED) 139 MG/DL 70-105 H THROMBOPLASTIN TIME [id number] 18:30:00 Test Item Value Reference Range Interpretation Comments THROMBOPLASTIN TIME 65.3 SECONDS 23.8-34.8 H INTERPRE TATIVE PARTIAL (test code = DATA: erapeutic PTT) range: Unfractionated heparin:55 - 80 seconds Argatroban:1.5 to 3 times the basel ine PTT [id number] 17:04:00 Test Item Value Reference Range Interpretation Comments GLUBED (test code = GLUBED) 112 MG/DL 70-105 H THROMBOPLASTIN TIME [id number] 12:35:00 Test Item Value Reference Range Interpretation Comments THROMBOPLASTIN TIME 65.5 SECONDS 23.8-34.8 H INTERPRE TATIVE PARTIAL (test code = DATA: erapeutic PTT) range: Unfractionated heparin:55 - 80 seconds Argatroban:1.5 to 3 times the basel ine PTT [id number] 11:55:00 Test Item Value Reference Range Interpretation Comments GLUBED (test code = GLUBED) 110 MG/DL 70-105 H Covid 19 InHouse [id number] 11:17:00 Test Item Value Reference Range Interpretation Comments Covid 19 Negative Negative A negative resu lt does not InHouse NTX preclude the SA RS-COV-2 (test code = viralinfection and should not be QQBSD20HFSIB) used as the so le basis forpatient [...] performancechar acteristics were determined by Tangela brizuela [facility]. Thi s test has notbeen FDA olga [...] congregate care setting? No? NoAge at collection: [id number] 07:47:00 Test Item Value Reference Range Interpretation Comments GLUBED (test code = GLUBED) 103 MG/DL 70-105 N PROTHROMBIN [id number] 05:41:00 Test Item Value Reference Range Interpretation [...] 2.5-3.5recurren t systemic emboli sm. THROMBOPLASTIN TIME [id number] 05:41:00 Test Item Value Reference Range Interpretation Comments THROMBOPLASTIN TIME 54.0 SECONDS 23.8-34.8 H INTERPRE TATIVE PARTIAL (test code = DATA:Th erapeutic PTT) range: Unfractionated heparin:55 - 80 seconds Argatroban:1.5 to 3 times the basel ine PTT BASIC METABOLIC [id number] 04:46:00 Test Item Value Reference Range Interpretation [...] CA) Reference Range Dec 2020 COMPREHENSIVE METABOLIC [id number] 04:46:00 Test Item Value Reference Range Interpretation [...] code = ALKP) Reference Range Dec 2020 [id number] 04:46:00 Test Item Value Reference Range Interpretation Comments PHOSPHOROUS (test code 3.0 mg/dL 2.4-5.1 N Pleas e note: New = PHOS) Reference Range Dec 2020 [id number] 04:46:00 Test Item Value Reference Range Interpretation Comments MAGNESIUM (test code = 2.2 mg/dL 1.6-2.6 N Pleas e note: New MAG) Reference Range Dec 2020 CBC W/AUTO [id number] 03:26:00 Test Item Value Reference Range Interpretation [...] = BA#) 0.10 x10 3/uL 0.0-0.20 N [id number] 21:09:00 Test Item Value Reference Range Interpretation Comments GLUBED (test code = GLUBED) 149 MG/DL 70-105 H THROMBOPLASTIN TIME [id number] 20:01:00 Test Item Value Reference Range Interpretation Comments THROMBOPLASTIN TIME 45.2 SECONDS 23.8-34.8 H INTERPRE TATIVE PARTIAL (test code = DATA:Th erapeutic PTT) range: Unfractionated heparin:55 - 80 seconds Argatroban:1.5 to 3 times the basel ine PTT [id number] 18:01:00 Test Item Value Reference Range Interpretation Comments GLUBED (test code = GLUBED) 161 MG/DL 70-105 H [id number] 17:06:00 Test Item Value Reference Range Interpretation Comments TROPONIN-I (test 41087.1 pg/mL 38.73-80.22 HH Critical V alue reported code = TROPI) toFirst Name:Vidya DAVILA Last Name:MANPREET CONWAY RNRESULTS READ BACK AND VERIFIEDby PINKY BLANCO, on 09/27/21, @ 170 6.Please note: Units and Reference Range have changedFeb 3, 2 021 Spec Comments: ADD ON TO CBCBASIC METABOLIC [id number] 16:54:00 Test Item Value Reference Range Interpretation [...] New = CA) Reference Range Dec 2020 [id number] 16:54:00 Test Item Value Reference Range Interpretation Comments PHOSPHOROUS (test code 3.5 mg/dL 2.4-5.1 N Pleas e note: New = PHOS) Reference Range Dec 2020 [id number] 16:54:00 Test Item Value Reference Range Interpretation Comments MAGNESIUM (test code = 2.3 mg/dL 1.6-2.6 N Pleas e note: New MAG) Reference Range Dec 2020 PROTHROMBIN [id number] 14:07:00 Test Item Value Reference Range Interpretation [...] 2.5-3.5recurren t systemic emboli sm. THROMBOPLASTIN TIME [id number] 14:07:00 Test Item Value Reference Range Interpretation Comments THROMBOPLASTIN TIME 27.7 SECONDS 23.8-34.8 N INTERPRE TATIVE PARTIAL (test code = DATA: erapeutic PTT) range: Unfractionated heparin:55 - 80 seconds Argatroban:1.5 to 3 times the basel ine PTT [id number] 14:07:00 Test Item Value Reference Range Interpretation Comments FIBRINOGEN (test code = FIB) 921 mg/dL 200-400 H CBC W/AUTO [id number] 13:58:00 Test Item Value Reference Range Interpretation [...] = BA#) 0.04 x10 3/uL 0.0-0.20 N [id number] 13:24:00 Test Item Value Reference Range Interpretation Comments GLUBED (test code = GLUBED) 180 MG/DL 70-105 H [id number] 06:25:00 Test Item Value Reference Range Interpretation Comments GLUBED (test code = GLUBED) 114 MG/DL 70-105 H B-TYPE NATRIURETIC [id number] 00:37:00 Test Item Value Reference Range Interpretation Comments B-TYPE NATRIURETIC PEPTIDE (test 1343 pg/mL <100 H code = BNP) COMPREHENSIVE METABOLIC [id number] 00:09:00 Test Item Value Reference Range Interpretation [...] Reference Range Feb code = ALKP) 2020 [id number] 00:09:00 Test Item Value Reference Range Interpretation Comments PHOSPHOROUS (test code 3.0 mg/dL 2.4-5.1 N Pleas e note: New = PHOS) Reference Range Dec 2020 [id number] 00:09:00 Test Item Value Reference Range Interpretation Comments MAGNESIUM (test code = 2.1 mg/dL 1.6-2.6 N Pleas e note: New MAG) Reference Range Dec 2020 THYROID STIMULATING [id number] 00:09:00 Test Item Value Reference Range Interpretation Comments THYROID STIMULATING 2.14 mIU/mL 0.55-4.78 N Please n ote: New HORMONE (test code = Referen ce Range Dec TSH) 2020 HGBA1C - GLYCOSYLATED [id number] 00:08:00 Test Item Value Reference Range Interpretation Comments GLYCOSYLATED HEMOGLOBIN 5.6 % <5.7 N Diab etic >/= (HA1C) (test code = 6.5%Pred iabetes GLYHGB) 5.7-6.4%Normal < 5.7% [id number] 23:58:00 Test Item Value Reference Range Interpretation Comments TROPONIN-I (test 15898.0 pg/mL 38.73-80.22 HH Critical V alue reported code = TROPI) toFirst Name:Rebecca GARCIA Last Name:JAD RAND READ BACK AND VERIFIEDby PINKY MANN, on 09/26/21, @ 235 8.Please note: Units and Reference Range have changedFeb 3, 2 021 PROTHROMBIN [id number] 23:47:00 Test Item Value Reference Range Interpretation [...] 2.5-3.5recurren t systemic emboli sm. THROMBOPLASTIN TIME [id number] 23:47:00 Test Item Value Reference Range Interpretation Comments THROMBOPLASTIN TIME 29.0 SECONDS 23.8-34.8 N INTERPRE TATIVE PARTIAL (test code = DATA:Th erapeutic PTT) range: Unfractionated heparin:55 - 80 seconds Argatroban:1.5 to 3 times the basel ine PTT LACTIC [id number] 23:43:00 Test Item Value Reference Range Interpretation Comments LACTIC ACID (test code = LACT) 0.70 mmol/L 0.5-2.0 N CBC W/AUTO [id number] 23:29:00 Test Item Value Reference Range Interpretation [...] 3/uL 0.0-0.20 N - XR CHEST 1 [id number] 23:01:00 [facility] : 1955 Sex: MPatient Name: MELANIE YAÑEZ Unit No: [id number] EXAMS: CPT CODE: [id number] XR CHEST 1 V 67683 EXAM: XR Chest 1 View INDICATION: [place] LOCATION CODE: H50 COMPARISON: None available. TECHNIQUE: [...] Printed Date/Time: 09/26/2021 (2304) Name: MELANIE YAÑEZ [facility] Phys: Chad Valdez [address] : 1955 Age: 66 Sex: [place] [address] Loc: P.0223 1 Exam Date: 09/26/2021 Status: ADM IN PH: FAX: PAGE 1 Signed ReportCOVID 19 INHOUSE [id number] 22:38:00 Test Item Value Reference Range Interpretation Comments COVID 19 INHOUSE NEGATIVE NEGATIVE Negative re sults, from AG (test code = patients wit h symptom onset [id number]) beyondfive days , should be treated as [...] COVID-19. Spec Comments: ADMISSION TO [facility] W/AUTO [id number] 06:19:00 Test Item Value Reference Range Interpretation [...] NT WITH AUTO DIFFERENTI AL. BASIC METABOLIC [id number] 04:55:00 Test Item Value Reference Range Interpretation [...] CA) 8.3 MG/DL 8.5-10.1 L CBC W/AUTO [id number] 06:06:00 Test Item Value Reference Range Interpretation [...] NT WITH AUTO DIFFERENTI AL. BASIC METABOLIC [id number] 05:11:00 Test Item Value Reference Range Interpretation [...] CA) 8.4 MG/DL 8.5-10.1 L COAGULATION TIME [id number] 04:55:00 Test Item Value Reference Range Interpretation Comments COAGULATION TIME ACTIVATED (test 211 SECistat 74-125 H code = ACT) CBC W/AUTO [id number] 06:52:00 Test Item Value Reference Range Interpretation [...] code NO DIFF/SCN CRITERIA = MDIFF) RBC [id number] 06:52:00 Test Item Value Reference Range Interpretation [...] NORMAL (test code = PLTMORPH) BASIC METABOLIC [id number] 04:52:00 Test Item Value Reference Range Interpretation [...] CA) 8.8 MG/DL 8.5-10.1 N THROMBOPLASTIN TIME [id number] 22:37:00 Test Item Value Reference Range Interpretation Comments THROMBOPLASTIN TIME PARTIAL 51.4 SECONDS 26-35 H (test code = PTT) THROMBOPLASTIN TIME [id number] 15:30:00 Test Item Value Reference Range Interpretation Comments THROMBOPLASTIN TIME PARTIAL 37.4 SECONDS 26-35 H (test code = PTT) CBC W/AUTO [id number] 06:34:00 Test Item Value Reference Range Interpretation [...] NT WITH AUTO DIFFERENTI AL. BASIC METABOLIC [id number] 06:19:00 Test Item Value Reference Range Interpretation [...] CA) 8.7 MG/DL 8.5-10.1 N THROMBOPLASTIN TIME [id number] 06:14:00 Test Item Value Reference Range Interpretation Comments THROMBOPLASTIN TIME PARTIAL 45.0 SECONDS 26-35 H (test code = PTT) THROMBOPLASTIN TIME [id number] 00:06:00 Test Item Value Reference Range Interpretation Comments THROMBOPLASTIN TIME PARTIAL 70.6 SECONDS 26-35 H (test code = PTT) THROMBOPLASTIN TIME [id number] 16:17:00 Test Item Value Reference Range Interpretation Comments THROMBOPLASTIN TIME PARTIAL 218.3 SECONDS 26-35 HH (test code = PTT) CBC W/AUTO [id number] 06:16:00 Test Item Value Reference Range Interpretation [...] NT WITH AUTO DIFFERENTI AL. BASIC METABOLIC [id number] 05:27:00 Test Item Value Reference Range Interpretation [...] CA) 8.5 MG/DL 8.5-10.1 N THROMBOPLASTIN TIME [id number] 05:24:00 Test Item Value Reference Range Interpretation Comments THROMBOPLASTIN TIME PARTIAL 33.2 SECONDS 26-35 N (test code = PTT) THROMBOPLASTIN TIME [id number] 11:48:00 Test Item Value Reference Range Interpretation Comments THROMBOPLASTIN TIME PARTIAL 46.7 SECONDS 26-35 H (test code = PTT) CBC W/AUTO [id number] 06:40:00 Test Item Value Reference Range Interpretation [...] NT WITH AUTO DIFFERENTI AL. THROMBOPLASTIN TIME [id number] 04:51:00 Test Item Value Reference Range Interpretation Comments THROMBOPLASTIN TIME PARTIAL 49.3 SECONDS 26-35 H (test code = PTT) COMPREHENSIVE METABOLIC [id number] 04:51:00 Test Item Value Reference Range Interpretation [...] . [Automated mess age] The system which Boticca nerated this result tra nsmitted reference range : 0-. The reference range was not used to interpr et this result as normal/abnormal . HDL CHOLESTEROL 42 MG/DL 40-59 N (test code = HDL) NON-HDL CHOLESTEROL 96 mg/dL <130 (test code = NHDL) LIPOPROTEIN LDL 82 MG/DL 0-129 N <100 OPTIMAL 100 - 129 (test code = LDL) NEAR OPTIM AL/ABOVE [id number] - 15 9 [id number] - 189 HIGH>OR= 190 VE RY HIGHNOTE THAT G UIDELINES ARE PROVIDED BY NATIONAL CHOLESTEROLEDUC ATION PROGRAM ADULT T REATMENT PANEL III LDL/HDL (test code 1.95 Ratio See_Comment N [Automat ed message] The = LDL/HDL) system which Boticca nerated this result tra nsmitted reference range : 1.48-3.22 Avg. The reference range was not used to interpr et this result as normal/abnormal . Comment: fastingTHROMBOPLASTIN TIME [id number] 21:50:00 Test Item Value Reference Range Interpretation Comments THROMBOPLASTIN TIME PARTIAL 51.1 SECONDS 26-35 H (test code = PTT) GLYCOSYLATED HEMOGLOBIN [id number] 14:04:00 Test Item Value Reference Range Interpretation Comments GLYCOSYLATED HEMOGLOBIN (HA1C) 5.8 % A1C 0.0-5.7 H (test code = GLYHGB) ESTIMATED AVERAGE GLUCOSE (test 120 MG/DLest code = EAG) NT PRO-BRAIN NATRIURETIC [id number] 13:58:00 Test Item Value Reference Range Interpretation Comments NT PRO-BRAIN NATRIURETIC PEPTI 885 PG/ML 0-100 H (test code = PROBNP) DRUGS OF ABUSE SCREEN [id number] 13:52:00 Test Item Value Reference Range Interpretation [...] this result transmit gold reference range : <25 NG/ML. The reference [...] this result as normal/abnormal . THROMBOPLASTIN TIME [id number] 13:47:00 Test Item Value Reference Range Interpretation Comments THROMBOPLASTIN TIME PARTIAL 97.6 SECONDS 26-35 H (test code = PTT) NT PRO-BRAIN NATRIURETIC [id number] 03:52:00 Test Item Value Reference Range Interpretation Comments NT PRO-BRAIN NATRIURETIC PEPTI (test 59 PG/ML 0-100 N code = PROBNP) Completed by Nursing: [id number] 03:52:00 Test Item Value Reference Range Interpretation [...] Completed by Nursing: NOCOVID 19 Asymptomatic IH [id number] 03:52:00 Test Item Value Reference Range Interpretation Comments COVID 19 Asymptomatic NEGATIVE Negative Per amaris belcher, IH AG (test code = negative results [...] symptoms consis tent with COVID-19. COMPREHENSIVE METABOLIC [id number] 03:52:00 Test Item Value Reference Range Interpretation [...] (test code = ALKP) Completed by Nursing: [id number] 03:52:00 Test Item Value Reference Range Interpretation Comments MAGNESIUM (test code = MAG) 2.0 MG/DL 1.8-2.4 N Completed by Nursing: NOPROTHROMBIN [id number] 03:42:00 Test Item Value Reference Range Interpretation [...] (to prevent recurrent infar ct). THROMBOPLASTIN TIME [id number] 03:42:00 Test Item Value Reference Range Interpretation Comments THROMBOPLASTIN TIME PARTIAL 31.0 SECONDS 26-35 N (test code = PTT) CBC W/AUTO [id number] 03:37:00 Test Item Value Reference Range Interpretation [...] DIFF/SCN CRITERIA = MDIFF) - CHEST 1 [id number] 03:25:00 [facility] 1955 Sex: M Name: MELANIE YAÑEZ [facility] : 1955 Age/S: 66 / M [address] Unit #: [id number] Loc: [place] [address] Phys: Annalise Matthews MD Acct: [id number] Dis Date: Status: REG ER PHONE#: [phone] Exam Date: 09/20/2021309 FAX #: Reason: chest pain EXAMS: CPT: [id number] XR CHEST1 V 54821 Fluoro Time: DAP (Gy m2): Air Kerma [...] YAÑEZ : 1955 Age/S: 66 / M [address] Unit #: [id number] Loc: [place] [address] Phys: Annalise Matthews MD Acct: [id number] Dis Date: Status: REG ER PHONE #: [phone] Exam Date: 09/20/2021309 FAX #: Reason: chest pain EXAMS: CPT: [id number] XR CHEST 1 V 85896 Fluoro Time: DAP (Gy m2): Air Kerma (mGy): (Continued) Technologist: RT Janet(R) Trnscb Date/Time: 09/20/2021(324) [id number] Orig Print D/T: S: 09/20/2021 (032) PAGE 2 Signed Report
[2022-10-10 11:41] LABS: Absolute Lymphocytes (CBC) 1.3 K/uL (0.7-4.9); Hematocrit 33.5 % (39.6-49.0); MCV 85.9 fL (80-100); MPV 7.7 fL (7.6-11.3)
[2022-10-10 11:42] LABS: Protime INR 1.63
--- NOTE | 2022-10-10 11:48 | RAD REPORT ---
EXAM DESCRIPTION: Dony Single View10/10/2022 11:37 am CLINICAL HISTORY: Shortness of breath COMPARISON: September 29, 2022 FINDINGS: The lungs appear clear of acute infiltrate. The heart is markedly enlarged. Post surgical changes involve the chest IMPRESSION: No acute abnormalities displayed
[2022-10-10 11:59] LABS: Albumin 3.9 g/dL (3.4-5.0); Bilirubin Direct 0.5 mg/dL (0-0.2); Bilirubin Total 1.4 mg/dL (0.2-1.0); Magnesium 2.5 mg/dL (1.8-2.4); Potassium 3.7 mmol/L (3.5-5.1); Protein, Total 7.4 g/dL (6.4-8.2); Troponin High Sensitivity 18.1 pg/mL (<58.9)
[2022-10-10] MEDS ORDERED: IPRATROPIUM BROM 0.5MG/2.5ML ONE (13:20)
[2022-10-10] MEDS ORDERED: ALBUTEROL 2.5 MG/3 ML NEB SOL ONE (13:20)
[2022-10-10] MEDS ORDERED: FUROSEMIDE 40 MG/4 ML VIAL ONE (13:20)
--- NOTE | 2022-10-10 13:24 | EDPHYS ---
Physician Documentation [facility] Name: Giovanni Castro Age: 67 yrs Sex: Male : 1955 Arrival Date: 10/10/2022 Time: 10:21 Bed 27 Private MD: Amari Brewer R ED Physician Reinaldo Richey HPI: 10/10 11:15 This 67 yrs old Male presents to ER via Ambulatory with complaints of Breathing cp Difficulty - when laying, Feet Swelling, Leg Swelling. 11:15 The patient has shortness of breath with light activity, that woke him/her from sleep, cp unable to lay flat due to shortness of breath. Onset: The symptoms/episode began/occurred 4 week(s) ago. Duration: The symptoms are continuous, and are steadily getting worse. Associated signs and symptoms: Pertinent positives: swelling of feet and lower legs, Pertinent negatives: chest pain, productive cough, diaphoresis, dizziness, fever, vomiting. Severity of symptoms: in the emergency department the symptoms are unchanged despite home interventions. Historical: - Allergies: 11:12 No Known Allergies; jl7 - Home Meds: 11:12 allopurinol 300 mg Oral tab [Active]; atorvastatin 80 mg Oral tab [Active]; amiodarone jl7 200 mg Oral tab [Active]; carvedilol 3.125 mg Oral tab [Active]; Eliquis 5 mg Oral tab [Active]; Entresto 24-26 mg Oral tab [Active]; furosemide 40 mg Oral tab [Active]; furosemide 20 mg Oral tab [Active]; metformin 500 mg Oral tab [Active]; pantoprazole 40 mg Oral TbEC 1 tab once daily [Active]; Plavix 75 mg Oral tab 1 tab once daily [Active]; - PMHx: 11:12 CHF; Gout; Hypercholesterolemia; Hypertensive disorder; Myocardial infarction; jl7 - PSHx: 11:12 Coronary Angioplasty; Coronary artery bypass graft; jl7 - Immunization history:: Client reports receiving the 2nd dose of the Covid vaccine. - Social history:: Smoking status: Patient denies any tobacco usage or history of. ROS: 11:20 Constitutional: Negative for body aches, chills, fever. cp 11:20 Cardiovascular: Positive for edema, palpitations, Negative for chest pain. cp 11:20 Eyes: Negative for injury, pain, redness, and discharge. cp 11:20 ENT: Negative for drainage from ear(s), ear pain, sore throat, difficulty swallowing, difficulty handling secretions. 11:20 Respiratory: Positive for orthopnea, shortness of breath, on exertion. Negative for cough, wheezing. 11:20 Abdomen/GI: Negative for abdominal pain, nausea, vomiting, and diarrhea, constipation. 11:20 Back: Negative for pain at rest, pain with movement. 11:20 Skin: Negative for rash. cp 11:20 Neuro: Negative for altered mental status, dizziness, headache, numbness, syncope, weakness. 11:20 All other systems are negative. Exam: 11:25 Constitutional: The patient appears in no acute distress, alert, awake, cp non-diaphoretic, non-toxic, well developed, well nourished. 11:25 Head/Face: Normocephalic, atraumatic. cp 11:25 Eyes: Periorbital structures: appear normal, Conjunctiva: normal, no exudate, no injection, Sclera: no appreciated abnormality, Lids and lashes: appear normal, bilaterally. 11:25 ENT: External ear(s): are unremarkable, Nose: is normal, Mouth: Lips: moist, Oral mucosa: pink and intact, moist, Posterior pharynx: Airway: no evidence of obstruction, patent. 11:25 Neck: ROM/movement: is normal, is supple, without pain, no range of motions limitations. 11:25 Chest/axilla: Inspection: normal, Palpation: is normal, no crepitus, no tenderness. 11:25 Cardiovascular: Rate: normal, Rhythm: regular, Edema: pedal edema, that is moderate, ankle edema, that is moderate, JVD: is not appreciated. 11:25 Respiratory: the patient does not display signs of respiratory distress, Respirations: labored breathing, that is mild, Breath sounds: decreased breath sounds, are not appreciated, stridor, is not appreciated, wheezing: is not appreciated. 11:25 Abdomen/GI: Inspection: abdomen appears normal, Palpation: abdomen is soft and non-tender, in all quadrants. 11:25 Back: pain, is absent, ROM is normal. 11:25 Skin: cellulitis, is not appreciated, no rash present. 11:25 Neuro: Orientation: to person, place \T\ time. Mentation: is normal, Motor: moves all fours, strength is normal, Sensation: is normal. 11:30 ECG was reviewed by the Attending Physician. Vital Signs: 11:03 BP 119 / 84; Pulse 65; Resp 18; Temp 97.4; Pulse Ox 99% ; Weight 77.11 kg; Height 5 ft. jl7 6 in. (167.64 cm); Pain 6/10; 13:00 BP 127 / 96; Pulse 61; Resp 18; Pulse Ox 96% on R/A; em6 15:18 BP 137 / 95; Pulse 75; Resp 18; Pulse Ox 100% ; em6 16:30 BP 106 / 75; Pulse 72; Resp 18; Pulse Ox 99% on R/A; em6 18:00 BP 110 / 83; Pulse 63; Resp 18; Pulse Ox 96% on R/A; em6 11:03 Body Mass Index 27.44 (77.11 kg, 167.64 cm) jl7 MDM: 11:03 Patient medically screened. cp 12:00 Differential diagnosis: Bronchitis CHF exacerbation, pneumonia, Pneumothorax pulmonary cp edema, Pulmonary Embolism Sepsis Unstable Angina. 13:00 Data reviewed: vital signs, nurses notes, lab test result(s), EKG, radiologic studies, cp plain films, and as a result, I will admit patient. 13:00 Data interpreted: monitoring manager: rate is 61 beats/min, rhythm is regular, Pulse cp oximetry: on room air is 96 %. Interpretation: acceptable, Plan: O2 by NC applied. Test interpretation: by ED physician or midlevel provider: ECG, plain radiologic studies. 10/10 11:04 Order name: Basic Metabolic Panel; Complete Time: 12:44 10/10 12:44 Interpretation: Normal except: GLUC 108; BUN 24; CRE 1.92; GFR 37. 10/10 11:04 Order name: CBC with Diff; Complete Time: 12:44 10/10 11:04 Order name: LFT's; Complete Time: 12:44 10/10 11:04 Order name: Magnesium; Complete Time: 12:44 10/10 11:04 Order name: NT PRO-BNP; Complete Time: 12:44 10/10 12:44 Interpretation: Abnormal: NT PRO-BNP 69565. 10/10 11:04 Order name: PT-INR; Complete Time: 12:44 10/10 11:04 Order name: Troponin HS; Complete Time: 12:44 cp 10/10 16:15 Order name: SARS-COV-2 Antigen Rapid bd 10/10 16:16 Order name: Magnesium EDMS 10/10 16:16 Order name: Phosphorus EDMS 10/10 16:16 Order name: T4 Free EDMS 10/10 16:16 Order name: Thyroid Stimulating Hormone EDMS 10/10 16:16 Order name: Urinalysis EDMS 10/10 16:16 Order name: Basic Metabolic Panel EDMS 10/10 11:04 Order name: XRAY Chest (1 view); Complete Time: 12:44 cp 10/10 11:04 Order name: EKG; Complete Time: 11:04 cp 10/10 11:04 Order name: Cardiac monitoring; Complete Time: 11:58 cp 10/10 11:04 Order name: EKG - Nurse/Tech; Complete Time: 11:58 cp 10/10 11:04 Order name: IV Saline Lock; Complete Time: 11:58 cp 10/10 11:04 Order name: Labs collected and sent; Complete Time: 11:58 cp 10/10 13:12 Order name: US Extremity Venous W Compression Ayush; Complete Time: 15:24 cp 10/10 15:24 Interpretation: Report reviewed. 10/10 14:40 Order name: Diet Heart Healthy; Complete Time: 14:40 jl7 10/10 16:16 Order name: Basic Metabolic Panel EDVT 10/10 16:16 Order name: CBC with Automated Diff EDMS 10/10 16:16 Order name: CBC with Automated Diff EDMS 10/10 16:16 Order name: NT PRO-BNP EDVT 10/10 16:16 Order name: NT PRO-BNP EDVT 10/10 11:04 Order name: O2 Per Protocol; Complete Time: 11:58 cp 10/10 11:04 Order name: O2 Sat Monitoring; Complete Time: 11:58 cp EC:30 Rate is 69 beats/min. Rhythm is regular. KS interval is prolonged at 280 msec. QRS cp interval is normal. QT interval is normal. Interpreted by me. Reviewed by me. Administered Medications: 13:12 CANCELLED (Physician Discretion): Lasix (furosemide) 20 mg IVP once; give over 2 minutescp 13:25 Drug: Lasix (furosemide) 40 mg Route: IVP; Site: right hand; em6 13:43 Follow up: Response: No adverse reaction em6 14:07 Drug: Albuterol - atroVENT (ipratropium) (3:1) (2.5 mg - 0.5 mg) 3 ml Route: Nebulizer; em6 14:20 Follow up: Response: No adverse reaction em6 Disposition Summary: 10/10/22 13:24 Hospitalization Ordered Hospitalization Status: Inpatient Admission cp Provider: Roderick Stark cp Condition: Fair cp Problem: an acute exacerbation cp Symptoms: are unchanged cp Bed/Room Type: Standard cp Location: [facility] ER HOLD(10/11/22 15:32) Room Assignment: ERHOLD-(10/11/22 16:36) Diagnosis - Unspecified combined systolic (congestive) and diastolic (congestive) heart failure cp - Orthopnea cp Forms: - Medication Reconciliation Form cp - SBAR form cp Addendum: 10/13/2022 08:34 Co-signature as Attending Physician, Reinaldo Richey MD I agree with the assessment and c roberts plan of care. Signatures: Dispatcher [employer] Patty Echavarria RN RN dw Anderson, Corey, MD MD cha Smirch, Shelby RN RN ss Reinaldo Kapadia PA PA cp Devon Evans RN RN jl7 Dorothy Ricardo RN RN em6 Corrections: (The following items were deleted from the chart) 10/10 13:12 12:45 Lasix (furosemide) 20 mg IVP once; give over 2 minutes ordered. cp cp 17:56 13:24 Telemetry/MedSurg (Inpatient) cp jl7 17:56 13:24 cp jl7 20:35 11:15 Associated signs and symptoms: Pertinent negatives: chest pain, productive cough, cp diaphoresis, dizziness, fever, vomiting, cp 10/11 13:03 10/10 17:56 [facility] ER HOLD jl7 10/11 13:03 10/10 17:56 ERHOLD- jl7 10/11 15:32 13:03 Telemetry/MedSurg (Inpatient) [facility] 15:32 13:[address] [place] [address] 16:36 15:32 [facility]
--- NOTE | 2022-10-10 13:24 | ER ---
Nurse's Notes [facility] Name: Giovanni Castro Age: 67 yrs Sex: Male : 1955 Arrival Date: 10/10/2022 Time: 10:21 Bed 27 Private MD: Amari Brewer R Diagnosis: Unspecified combined systolic (congestive) and diastolic (congestive) heart failure;Orthopnea Presentation: 10/10 11:03 Chief complaint: Patient states: SOB while laying down, bilateral leg swelling x 3-4 jl7 weeks, PCP sent to ED. Coronavirus screen: Vaccine status: Patient reports receiving the 2nd dose of the covid vaccine. At this time, the client does not indicate any symptoms associated with coronavirus-19. Ebola Screen: No symptoms or risks identified at this time. Initial Sepsis Screen: Does the patient meet any 2 criteria? No. Patient's initial sepsis screen is negative. Does the patient have a suspected source of infection? No. Patient's initial sepsis screen is negative. Risk Assessment: Do you want to hurt yourself or someone else? Patient reports no desire to harm self or others. Onset of symptoms is unknown. 11:03 Method Of Arrival: Ambulatory jl7 11:03 Acuity: HOLLIS 2 jl7 Triage Assessment: 11:12 General: Appears in no apparent distress. uncomfortable, Behavior is calm, cooperative, jl7 appropriate for age. Pain: Denies pain. Respiratory: Reports shortness of breath at rest on exertion Onset: The symptoms/episode began/occurred gradually, the patient has mild shortness of breath. Historical: - Allergies: 11:12 No Known Allergies; jl7 - Home Meds: 11:12 allopurinol 300 mg Oral tab [Active]; atorvastatin 80 mg Oral tab [Active]; amiodarone jl7 200 mg Oral tab [Active]; carvedilol 3.125 mg Oral tab [Active]; Eliquis 5 mg Oral tab [Active]; Entresto 24-26 mg Oral tab [Active]; furosemide 40 mg Oral tab [Active]; furosemide 20 mg Oral tab [Active]; metformin 500 mg Oral tab [Active]; pantoprazole 40 mg Oral TbEC 1 tab once daily [Active]; Plavix 75 mg Oral tab 1 tab once daily [Active]; - PMHx: 11:12 CHF; Gout; Hypercholesterolemia; Hypertensive disorder; Myocardial infarction; jl7 - PSHx: 11:12 Coronary Angioplasty; Coronary artery bypass graft; jl7 - Immunization history:: Client reports receiving the 2nd dose of the Covid vaccine. - Social history:: Smoking status: Patient denies any tobacco usage or history of. Screenin:00 Abuse screen: Denies threats or abuse. Nutritional screening: No deficits noted. em6 Tuberculosis screening: No symptoms or risk factors identified. Fall Risk IV access (20 points). Assessment: 12:00 General: Appears comfortable, Behavior is cooperative. Pain: Denies pain. Neuro: Level em6 of Consciousness is awake, alert, obeys commands, Oriented to person, place, time, situation. Cardiovascular: Patient's skin is warm and dry. Rhythm is sinus rhythm. Respiratory: Reports shortness of breath Airway is patent Respiratory effort is even, unlabored, Respiratory pattern is regular, symmetrical, Breath sounds are clear bilaterally. GI: No signs and/or symptoms were reported involving the gastrointestinal system. : No signs and/or symptoms were reported regarding the genitourinary system. EENT: No signs and/or symptoms were reported regarding the EENT system. Derm: No signs and/or symptoms reported regarding the dermatologic system. Musculoskeletal: Swelling present in right leg and left leg. 13:00 Reassessment: Patient appears in no apparent distress at this time. No changes from em6 previously documented assessment. Patient and/or family updated on plan of care and expected duration. Pain level reassessed. Patient is alert, oriented x 3, equal unlabored respirations, skin warm/dry/pink. 14:00 Reassessment: Patient appears in no apparent distress at this time. No changes from em6 previously documented assessment. Patient and/or family updated on plan of care and expected duration. Pain level reassessed. Patient is alert, oriented x 3, equal unlabored respirations, skin warm/dry/pink. 15:00 Reassessment: Patient appears in no apparent distress at this time. No changes from em6 previously documented assessment. Patient and/or family updated on plan of care and expected duration. Pain level reassessed. Patient is alert, oriented x 3, equal unlabored respirations, skin warm/dry/pink. 16:00 Reassessment: Patient appears in no apparent distress at this time. No changes from em6 previously documented assessment. Patient and/or family updated on plan of care and expected duration. Pain level reassessed. Patient is alert, oriented x 3, equal unlabored respirations, skin warm/dry/pink. 17:00 Reassessment: Patient appears in no apparent distress at this time. No changes from em6 previously documented assessment. Patient and/or family updated on plan of care and expected duration. Pain level reassessed. Patient is alert, oriented x 3, equal unlabored respirations, skin warm/dry/pink. 18:00 Reassessment: Patient appears in no apparent distress at this time. No changes from em6 previously documented assessment. Patient and/or family updated on plan of care and expected duration. Pain level reassessed. Patient is alert, oriented x 3, equal unlabored respirations, skin warm/dry/pink. 19:00 Reassessment: Patient appears in no apparent distress at this time. No changes from em6 previously documented assessment. Patient and/or family updated on plan of care and expected duration. Pain level reassessed. Patient is alert, oriented x 3, equal unlabored respirations, skin warm/dry/pink. Vital Signs: 11:03 BP 119 / 84; Pulse 65; Resp 18; Temp 97.4; Pulse Ox 99% ; Weight 77.11 kg; Height 5 ft. jl7 6 in. (167.64 cm); Pain 6/10; 13:00 BP 127 / 96; Pulse 61; Resp 18; Pulse Ox 96% on R/A; em6 15:18 BP 137 / 95; Pulse 75; Resp 18; Pulse Ox 100% ; em6 16:30 BP 106 / 75; Pulse 72; Resp 18; Pulse Ox 99% on R/A; em6 18:00 BP 110 / 83; Pulse 63; Resp 18; Pulse Ox 96% on R/A; em6 11:03 Body Mass Index 27.44 (77.11 kg, 167.64 cm) jl7 ED Course: 10:21 Patient arrived in ED. am2 10:21 Amari Brewer MD is Private Physician. am2 10:22 [facility]inal[facility]. cp 10:22 Reinaldo Richey MD is Attending Physician. cp 11:03 Arm band placed on Patient placed in an exam room, on a stretcher. ll1 11:12 Triage completed. jl7 11:16 Prokisch, Maris, RN is Primary Nurse. ap3 11:39 XRAY Chest (1 view) In Process Unspecified. EDMS 13:22 Roderick Stark is Hospitalizing Provider. cp 13:33 US Extremity Venous W Compression Ayush In Process Unspecified. EDMS 13:41 Bed in low position. Call light in reach. Side rails up X2. night monitor on. Pulse em6 ox on. NIBP on. Warm blanket given. Administered Medications: 13:12 CANCELLED (Physician Discretion): Lasix (furosemide) 20 mg IVP once; give over 2 minutescp 13:25 Drug: Lasix (furosemide) 40 mg Route: IVP; Site: right hand; em6 13:43 Follow up: Response: No adverse reaction em6 14:07 Drug: Albuterol - atroVENT (ipratropium) (3:1) (2.5 mg - 0.5 mg) 3 ml Route: Nebulizer; em6 14:20 Follow up: Response: No adverse reaction em6 Outcome: 13:24 Decision to Hospitalize by Provider. cp 10/11 17:17 Patient left the ED. eb Signatures: Dispatcher [employer] EDMS Reinaldo Kapadia PA PA cp Devon Evans RN RN jl7 Maris Alfred am2 Maris Ross, RN RN ap3 Venessa Guevara Lynsay, RN RN ll1 Dorothy Ricardo, RN RN em6 Corrections: (The following items were deleted from the chart) 10/10 15:53 15:53 Response: No adverse reaction em6 em6
--- NOTE | 2022-10-10 14:34 | RAD REPORT ---
EXAM DESCRIPTION: US - Extrem Venous W Compress Ayush - 10/10/2022 1:57 pm CLINICAL HISTORY: SWELLING Bilateral leg edema and swelling. COMPARISON: Extremity Venous Uni Ltd dated 02/27/2022 TECHNIQUE: Real-time sonographic interrogation of the left and right lower extremity deep venous sys tems was performed. FINDINGS: Normal compressibility, flow augmentation, phasic flow and spontaneous flow is identified in both the left and right lower extremity deep venous systems. IMPRESSION: No sonographic evidence of left or right lower extremity deep venous thrombosis.
[2022-10-10] MEDS ORDERED: ACETAMINOPHEN 325 MG TABLET PO PRN (16:11)
[2022-10-10] MEDS ORDERED: HYDROCODONE/APAP 5/325 MG TAB PO PRN (16:11)
[2022-10-10] MEDS ORDERED: ONDANSETRON 4 MG/2 ML VIAL IV PRN (16:14)
[2022-10-10] MEDS ORDERED: ALBUTEROL 2.5 MG/3 ML NEB SOL NEB PRN (16:14)
--- NOTE | 2022-10-10 16:16 | P.HP ---
Certification for Inpatient Patient admitted to: Inpatient With expected LOS: >2 Midnights Patient will require the following post-hospital care: None Practitioner: I am a practitioner with admitting privileges, knowledge of patient current condition, hospital course, and medical plan of care. Services: Services provided to patient in accordance with Admission requirements found in Title 42 Section 412.3 of the Code of Federal Regulations Patient History Date of Service: 10/10/22 Reason for admission: CHF exacerbation. History of Present Illness: Patient is a 67-year-old male with a past medical history significant for gout, HLD, CHF, LA, CAD with Stent, CABG, left apical thrombus, A. fib who presents with complaint of bilateral lower extremity swelling that has been ongoing for the past 3 weeks. Patient reported that he was discharged from the hospital 5 days ago. Patient reported associated signs and symptoms of fatigue, weakness and shortness of breath with exertion. Patient denies any other signs and symptoms. Symptoms are aggravated by exertion and relieved by nothing. Patient reported that he called his biochemical development engineer who instructed him to go to the ER. Patient decided to present to the ER as directed by his biochemical development engineer. Allergies No Known Allergies Allergy (Verified 10/23/21 20:19) Home Medications: Clopidogrel Bisulfate [Plavix*] 75 mg PO DAILY #30 tablet 10/24/21 Allopurinol 300 mg PO BEDTIME 02/27/22 Amiodarone HCl [Cordarone*] 200 mg PO DAILY 02/27/22 Apixaban [Eliquis] 5 mg PO BID 02/27/22 Atorvastatin Calcium [Lipitor] 80 mg PO BEDTIME 02/27/22 Pantoprazole [Protonix Tab*] 40 mg PO DAILY 02/27/22 Polyethylene Glycol 3350 [Miralax] 17 gm PO BID 09/30/22 Furosemide [Lasix*] 40 mg PO DAILY #30 tab 10/04/22 - Past Medical/Surgical History Diabetic: No -: CAD -: Hypertension -: Borderline DM -: Hyperlipidemia -: Gout -: CHF -: CABGfour-vessel -: Coronary angiogram with stent August 2021 -: R Knee Surgery Jul 2022 Psychosocial/ Personal History: Patient works for [employer], lives with family - Family History Mother -: Heart disease, Cancer Father -: Heart disease Sister -: Cancer - Social History Smoking Status: Unknown if ever smoked Alcohol use: No CD- Drugs: No Caffeine use: Yes Place of Residence: Home Review of Systems General: Weakness, Other (Fatigue) Eyes: Unremarkable ENT: Unremarkable Respiratory: Shortness of Breath, SOB with Excertion Cardiovascular: Orthopnea, Edema Gastrointestinal: Unremarkable Genitourinary: Unremarkable Musculoskeletal: Other (Bilateral lower extremity edema) Integumentary: Unremarkable Neurological: Weakness Lymphatics: Unremarkable Physical Examination - Physical Exam General: Alert, In no apparent distress, Oriented x3, Cooperative, Mild distress HEENT: Atraumatic, PERRLA, Mucous membr. moist/pink, EOMI, Sclerae nonicteric Neck: Supple, 2+ carotid pulse no bruit, No LAD, Without JVD or thyroid abnormality Respiratory: Diminished Cardiovascular: Edema, Irregular heart rate/rhythm Capillary refill: <2 Seconds Gastrointestinal: Normal bowel sounds, Soft and benign, No tenderness Musculoskeletal: Other (Bilateral lower extremity swelling) Integumentary: No rashes, No breakdown, No significant lesion Neurological: Normal gait, Normal speech, Normal tone, Normal affect Lymphatics: No axilla or inguinal lymphadenopathy - Studies Laboratory Data (last 24 hrs) 10/10/22 11:27: PT 17.9 H, INR 1.63 10/10/22 11:27: WBC 7.60, Hgb 10.8 L, Hct 33.5 L, Plt Count 279 10/10/22 11:27: Sodium 139, Potassium 3.7, BUN 24 H, Creatinine 1.92 H, Glucose 108 H, Magnesium 2.5 H, Total Bilirubin 1.4 H, AST 28, ALT 70, Alkaline Phosphatase 144 H Assessment and Plan - Plan --Acute on chronic systolic CHF exacerbation. Continue diuresis with Lasix. Daily weight and strict I/O. Cardiology consulted. We will await further recommendations from biochemical development engineer. --Atrial fibrillation. Continue Eliquis and amiodarone. --History of LA/CAD with stent\CABG\ left apical thrombus. Continue aspirin, Plavix, Eliquis and statin. --Hyperlipidemia. Continue statin. --CASANDRA on CKD 2. Nephrology consulted. We will await further recommendations. --Anemia of chronic disease. H&H stable. We will continue to monitor hemoglobin and transfuse if less than 7.0. --Gout. Continue allopurinol. --GERD. Continue Protonix. --- DVT prophylaxis with Eliquis. Discharge Plan: Home Plan to discharge in: Greater than 2 days - Advance Directives Does patient have a Living Will: No Does patient have a Durable POA for Healthcare: No - Code Status/Comfort Care Code Status Assessed: Yes Physician Review: Patient Assessed, Agree with Above Assessment and Plan Critical Care: No
[2022-10-10 16:55] LABS: SARS-CoV-2 Antigen Rapid Res Negative (Negative)
[2022-10-10] MEDS: FUROSEMIDE 40 MG/4 ML VIAL IV SCH (17:00)
[2022-10-10 18:36] LABS: Magnesium 2.3 mg/dL (1.8-2.4); Phosphorus 3.6 mg/dL (2.5-4.9); Thyroid Stimulating Hormone 2.27 uIU/mL (0.360-3.740)
[2022-10-10] MEDS ORDERED: HEPARIN 5000 UNIT/ML 1 ML VIAL ONE (20:55)
[2022-10-10] MEDS ORDERED: ATORVASTATIN 20 MG TAB ONE (20:56)
[2022-10-10] MEDS ORDERED: POLYETHYL GLY 3350 17 GM/DOSE ONE (20:58)
[2022-10-10] MEDS ORDERED: ATORVASTATIN 80 MG TAB PO SCH (21:00)
[2022-10-10] MEDS: POLYETHYL GLY 3350 17 GM/DOSE PO SCH (21:00)
[2022-10-10] MEDS ORDERED: allopurinoL 300 MG TAB PO SCH (21:00)
[2022-10-10] MEDS ORDERED: APIXABAN 5 MG TABLET PO SCH (21:00)
[2022-10-10] MEDS: HEPARIN 5000 UNIT/ML 1 ML VIAL SQ SCH (21:00)
[2022-10-10 22:45] VITALS: BMI 27.2
[2022-10-11 02:42] LABS: Hematocrit 30.6 % (39.6-49.0); Lymphocytes % 15.9 % (15.3-44.8); MCV 84.9 fL (80-100); MPV 7.7 fL (7.6-11.3)
[2022-10-11 03:06] LABS: Potassium 3.7 mmol/L (3.5-5.1)
[2022-10-11] MEDS ORDERED: HYDROCODONE/APAP 5/325 MG TAB ONE (03:26)
[2022-10-11] MEDS ORDERED: POTASSIUM CL SA 10 MEQ TAB PO ONE ×2 (07:45→08:59)
[2022-10-11] MEDS ORDERED: AMIODARONE HCL 200 MG TAB ONE (08:58)
[2022-10-11] MEDS ORDERED: PANTOPRAZOLE 40MG TABLET PO ONE (08:58)
[2022-10-11] MEDS ORDERED: ASPIRIN EC 81 MG TAB PO ONE (08:58)
[2022-10-11] MEDS ORDERED: HEPARIN 5000 UNIT/ML 1 ML VIAL ONE (08:58)
[2022-10-11] MEDS ORDERED: CLOPIDOGREL 75 MG TABLET ONE (08:59)
[2022-10-11] MEDS: FUROSEMIDE 40 MG/4 ML VIAL IV SCH (09:00)
[2022-10-11] MEDS ORDERED: POLYETHYL GLY 3350 17 GM/DOSE ONE (09:00)
[2022-10-11] MEDS ORDERED: ASPIRIN EC 81 MG TAB PO SCH (09:00)
[2022-10-11] MEDS ORDERED: CLOPIDOGREL 75 MG TABLET PO SCH (09:00)
[2022-10-11] MEDS ORDERED: FUROSEMIDE 40 MG/4 ML VIAL ONE (09:00)
[2022-10-11] MEDS: POLYETHYL GLY 3350 17 GM/DOSE PO SCH (09:00)
[2022-10-11] MEDS ORDERED: AMIODARONE HCL 200 MG TAB PO SCH (09:00)
[2022-10-11] MEDS: HEPARIN 5000 UNIT/ML 1 ML VIAL SQ SCH (09:00)
[2022-10-11] MEDS ORDERED: PANTOPRAZOLE 40MG TABLET PO SCH (09:00)
[2022-10-11 11:48] VITALS: TEMP 97.6
[2022-10-11 13:16] VITALS: BP 100/74
--- NOTE | 2022-10-11 14:19 | P.DS ---
Admission Date: 10/10/22 Discharge Date: 10/11/22 Disposition: ROUTINE DISCHARGE Discharge Condition: FAIR Reason for Admission: CHF exacerbation. - Problems (1) Acute on chronic systolic heart failure Status: Acute (2) Coronary artery disease Status: Chronic Qualifiers: Coronary Disease-Associated Artery/Lesion type: bypass graft [place] vs. transplanted heart: [place] Associated angina: without angina Qualified Code(s): I25.810 - Atherosclerosis of coronary artery bypass graft(s) without angina pectoris (3) Hypertension Status: Chronic Qualifiers: Hypertension type: primary hypertension Qualified Code(s): I10 - Essential (primary) hypertension Brief History of Present Illness: Patient is a 67-year-old male with a past medical history significant for gout, HLD, CHF, [place], CAD with Stent, CABG, left apical thrombus, A. fib who presents with complaint of bilateral lower extremity swelling that has been ongoing for the past 3 weeks. Patient reported that he was discharged from the hospital 5 days prior. Patient reported associated signs and symptoms of fatigue, weakness and shortness of breath with exertion. Patient reported that he called his welder apprentice arc who instructed him to go to the ER. Chest x-ray did not show any acute disease. Patient hospitalized for further management. Hospital Course: Patient placed under observation on the medical floor. Troponin was negative, BNP elevated. Patient was treated with IV Lasix and clinically improved with treatment. He was no longer orthopneic, ambulated without shortness of breath. Seen by cardiology recommended patient to be on a beta-gigi but he is bradycardic with heart rate in the 50s so cannot prescribe beta-gigi at this time. Patient is discharged with extra dose Lasix for 1 week and then he will continue with his usual Lasix dose 40 mg daily. He is clinically stable for discharge. Vital Signs/Physical Exam: Temp Pulse Resp BP Pulse Ox 97.6 F 58 18 100/74 98 10/11/22 12:00 10/11/22 12:00 10/11/22 12:00 10/11/22 12:00 10/11/22 12:00 General: Alert, In no apparent distress, Oriented x3 HEENT: Mucous membr. moist/pink Neck: JVD not distended Respiratory: Clear to auscultation bilaterally, Normal air movement Cardiovascular: Normal S1 S2, Other (Regular rhythm, bradycardia), Edema (1+ bilateral leg edema) Gastrointestinal: Soft and benign, Non-distended, No tenderness Musculoskeletal: No erythema, No tenderness Integumentary: No rashes Neurological: Normal strength at 5/5 x4 extr, Cranial nerves 3-12 intact Laboratory Data at Discharge: WBC 6.50 K/uL (4.3-10.9) 10/11/22 02:28 Hgb 10.0 g/dL (13.6-17.9) L 10/11/22 02:28 Hct 30.6 % (39.6-49.0) L 10/11/22 02:28 Plt Count 242 K/uL (152-406) 10/11/22 02:28 PT 17.9 SECONDS (9.5-12.5) H 10/10/22 11:27 INR 1.63 10/10/22 11:27 Sodium 141 mmol/L (136-145) 10/11/22 02:28 Potassium 3.7 mmol/L (3.5-5.1) 10/11/22 02:28 BUN 25 mg/dL (7-18) H 10/11/22 02:28 Creatinine 1.91 mg/dL (0.55-1.3) H 10/11/22 02:28 Glucose 112 mg/dL (74-106) H 10/11/22 02:28 Phosphorus 3.6 mg/dL (2.5-4.9) 10/10/22 17:55 Magnesium 2.3 mg/dL (1.8-2.4) 10/10/22 17:55 Total Bilirubin 1.4 mg/dL (0.2-1.0) H 10/10/22 11:27 AST 28 U/L (15-37) 10/10/22 11:27 ALT 70 U/L (12-78) 10/10/22 11:27 Alkaline Phosphatase 144 U/L (45-117) H 10/10/22 11:27 Home Medications: Clopidogrel Bisulfate [Plavix*] 75 mg PO DAILY #30 tablet 10/24/21 Allopurinol 300 mg PO BEDTIME 02/27/22 Amiodarone HCl [Cordarone*] 200 mg PO DAILY 02/27/22 Apixaban [Eliquis] 5 mg PO BID 02/27/22 Atorvastatin Calcium [Lipitor] 80 mg PO BEDTIME 02/27/22 Pantoprazole [Protonix Tab*] 40 mg PO DAILY 02/27/22 Polyethylene Glycol 3350 [Miralax] 17 gm PO BID 09/30/22 Furosemide [Lasix*] 40 mg PO DAILY #30 tab 10/11/22 New Medications: Furosemide [Lasix*] 40 mg PO DAILY #30 tab Diet: AHA Activity: Ad olivia Followup: Domingo Franks MD [ACTIVE - CAN ADMIT] - (within 2 weeks.) Amari Brewer MD [Primary Care Provider] - 1-2 Weeks (follow up in 1-2 weeks)
--- NOTE | 2022-10-11 15:51 | CON ---
Date of Consultation: 10/10/2022 History Of Present Illness: Mr. Castro comes in with congestive heart failure repeatedly to the [facility]. Has history of hypertension, CABG, dyslipidemia, atrial fibrillation. Comes in with PND, ort hopnea, pedal edema, and shortness of breath. No chest pain. No palpitation. No syncope. [place] has b een ruled out. Allergies: NONE. Review of Systems: Negative. Social History: Negative. Family History: Negative. Medications: At home include allopurinol, Lipitor, Lasix, Protonix, amiodarone, Eliquis, and Plavix. Physical Examination: Vital Signs: Stable, afebrile, sinus rhythm. HEENT: Negative. Neck: Supple with no bruit. Chest: Reveals rales both bases. Cardiac: Revealed a regular rhythm and rate with S3 gallops. Abdomen: Benign. Extremities: Revealed 1+ edema to the knees. Diagnostic Data: Creatinine is 1.91. Echocardiogram; ejection fraction 31% with moderate MR, modera te TR, moderate pulmonary hypertension. BNP was 14,000. Venous Doppler is negative. Impression And Plan: 1.Acute on chronic systolic congestive heart failure. 2.Coronary artery disease, status post coronary artery bypass graft. 3.Hypertension. 4.Dyslipidemia. 5.Atrial fibrillation. 6.Gout. The patient needs to continue his present regimen, although his creatinine is 1.91. I thin k we should consider carvedilol 6.25 b.i.d. Also, maybe consider adding an ANANYA inhibitor. He should have an outpatient Lexiscan as well, maybe consider a catheterization down the road because he keeps coming to the hospital with congestive heart failure. COLT/VANDANA Voice ID: [id number] Report ID: [id number]
[2022-10-11] MEDS ORDERED: FUROSEMIDE 20 MG/ 2ML VIAL IV SCH (17:00)
[2022-10-11] MEDS ORDERED: FUROSEMIDE 40 MG/4 ML VIAL IV SCH (17:00)
--- NOTE | 2022-10-11 21:57 | CON ---
Date of Consultation: 10/11/2022 Consulting Physician: Caty Armas MD Reason For Consultation: Elevated BUN and creatinine, anasarca, fluid management. History Of Present Illness: This is a pleasant 67-year-old gentleman with a significant past medical history of hypertension, hyperlipidemia, CAD complicated with congestive heart failure, borderline d iabetes, chronic kidney disease with recent acute kidney injury secondary to cardiorenal, creatinine plateaued to around 1.9, the patient came to the hospital after discharge last week. The patient com plaining of increased leg swelling and orthopnea, found to have elevation in BUN and creatinine; for that reason, we have been consulted. The patient's creatinine 1.9, upon discharge it was also 1.9. The patient denies taking any steroids, no change in his medication. The patient admits that he has been taking his Lasix as scheduled. The patient admits that also he has been eating salty food. Past Medical History: 1.CAD status post HI complicated with congestive heart failure, status post CABG, complicated with l eft apical thrombosis. 2.Atrial fibrillation. 3.Hypertension. 4.Hyperlipidemia. 5.Chronic kidney disease status post acute kidney injury. Baseline creatinine 1.9. Allergies: NO KNOWN DRUG ALLERGIES. Home Medications: Includes allopurinol, amiodarone, Eliquis, pantoprazole, Lasix 40 b.i.d., Plavix. Past Surgical History: 1.CABG. 2.PTCA. 3.Knee surgery. Family History: Positive for CAD and hypertension. Social History: Denied smoking. Denied drinking. Denied drug abuse. Review of Systems: Head and Neck: No red eye. No ear pain. GI: No nausea. No vomiting. : No polyuria. No dysuria. No hematuria. WOOL SCOURER: Not applicable. Respiratory: Has shortness of breath. Cardiovascular: Has orthopnea. Has leg swelling. Endocrine: No polydipsia. Skin: No rash. Physical Examination: Vital Signs: Blood pressure 100/74, pulse of 58. Chest: Crackles bilateral bases. Heart: S1 and S2, systolic murmur, regular. Abdomen: Soft, nontender. Extremities: Plus edema. Neurologic: Alert, no focality. Laboratory Data: Chest x-ray: Cardiomegaly with congestion. Hemoglobin 10, sodium 141, potassium 3 .7, bicarb 27, BUN 25, creatinine 1.9, calcium 9.1. Current Medications: The patient on includes aspirin, albuterol, Plavix, atorvastatin, amiodarone, T ylenol, Lasix 40 b.i.d., allopurinol. Assessment And Plan: 1.Acute kidney injury on chronic kidney disease, overload volume. I am going to go ahead and increa se Lasix to 60 mg b.i.d. Upon discharge, the patient can be on 80 mg in the morning, 40 at night, an d we will continue to monitor. 2.Hypertension, controlled, currently blood pressure on the lower side. The patient on recovery. I am going to start the patient on Entresto low-dose, and we will follow up the patient. 3.Hypokalemia. We will hold on any supplement. 4.Hypernatremia, borderline. We will monitor. 5.Coronary artery disease with congestive heart failure with exacerbation. We will start diuresis. 6.Anasarca, secondary to cardiorenal. We will optimize diuresis status. Time spent examining the patient [id number], reviewing data and radiology, discussing the case with the patient, placing orders, discussing the case with staff members including nursing and hospitalis t more than 65 minutes. TUAN Voice ID: [id number] Report ID: [id number]
[2022-10-12 06:46] VITALS: O2SAT 97
[2022-10-12] MEDS ORDERED: SACUBITRIL/VALSARTAN 24/26 MG TAB PO SCH (09:00)
--- NOTE | 2022-10-13 19:21 | EKG ---
Test Date: 2022-10-10 Test Time: 11:23:29 Pharmaceutical Physician: ABHIJIT MEASUREMENT RESULTS: Intervals: Rate: 69 NM: 280 QRSD: 92 QT: 430 QTc: 460 [place]: P: 53 NM: 280 QRS: 73 T: 90 INTERPRETIVE STATEMENTS: Sinus rhythm with 1st degree AV block Lateral infarct, age undetermined Abnormal ECG Compared to ECG 09/29/2022 09:52:20 Fusion complex(es) no longer present Left-axis deviation no longer present Prolonged QT interval no longer present Myocardial infarct finding still present Electronically Signed On 10-13-22 19:11:27 CONSUMER LOAN MANAGER by Domingo Franks
== END 2022-10-11 17:17 | disposition home or self-care (01) ==
LOC: ER 10:18 → INTOOBSV 20:14 → ERHOLD 20:14
PROVIDERS: ADMIT Internal Medicine; ATTEND Internal Medicine
DX: I50.23 Acute on chronic systolic (congestive) heart failure (principal); I25.810 Atherosclerosis of coronary artery bypass graft(s) without angina pectoris; I48.91 Unspecified atrial fibrillation; I23.6 Thrombosis of atrium, auricular appendage, and ventricle as current complications following acute myocardial infarction; I10 Essential (primary) hypertension; E78.5 Hyperlipidemia, unspecified; K21.9 Gastro-esophageal reflux disease without esophagitis; M10.9 Gout, unspecified; N18.9 Chronic kidney disease, unspecified; I25.2 Old myocardial infarction; Z95.1 Presence of aortocoronary bypass graft; Z79.01 Long term (current) use of anticoagulants; R22.43 Localized swelling, mass and lump, lower limb, bilateral; Z20.822 Contact with and (suspected) exposure to COVID-19
CPT/HCPCS: 93005; 85025 ×2; 80048 ×2; 36415; 83735 ×2; 84100; 85610; 80076; 84443; 84484; 84439; 83880 ×2; 71045; 93970; 94640; 96374; 99285; 87811; J1940 ×2; J1644 ×2; G0378 ×3; J7613; J7644